=== PATIENT | male | born 1950 | race Caucasian/White ===

== ENCOUNTER 2023-03-13 07:54 | Outpatient (OUT) | payer MEDICARE, SELFPAY ==
--- NOTE | 2023-03-13 07:55 | ECG_ITS ---
The [facility] Test Date: 2023-03-13 Pat Name: Mayank Lee Department: Room: - Gender: Male Urology Nurse: : 1950 Requested By: NIXON GARAY Order Number: [id number] Reading MD: NIXON GARAY Measurements Intervals [place] Rate: 65 P: 77 AL: 173 QRS: 73 QRSD: 97 T: 67 QT: 400 QTc: 417 Interpretive Statements SINUS RHYTHM NONSPECIFIC ST & T-WAVE ABNORMALITY No previous ECG available for comparison Electronically Signed On 03-14-2023 6:48:59 EDT by NIXON GARAY
[2023-03-13 08:28] LABS: Basophils Percent Auto 0.2 % (0.2-2.0); Eosinophils Absolute Auto 0.6 10^3/uL (0.0-0.7); Eosinophils Percent Auto 10.3 % (0.9-7.0); Hematocrit 45.4 % (42.0-54.0); Hemoglobin 15.3 g/dL (14.0-18.0); Immature Granulocytes Abs Auto 0.01 10^3/uL (0.00-0.03); Immature Granulocytes Pct Auto 0.2 % (0.0-0.5); Lymphocytes Absolute Auto 1.1 10^3/uL (1.2-3.8); Mean Corpuscular HGB Conc 33.7 g/dL (29.9-35.2); Mean Corpuscular Hemoglobin 29.9 pg (25.9-34.0); Mean Corpuscular Volume 88.7 fL (80.0-94.0); Mean Platelet Volume 9.4 fL (9.5-13.5); Monocytes Absolute Auto 0.6 10^3/uL (0.3-0.8); Monocytes Percent Auto 10.6 % (1.7-12.0); Neutrophils Absolute Auto 3.2 10^3/uL (1.4-6.5); Neutrophils Percent Auto 58.7 % (43.0-75.0); Platelet Count 174 10^3/uL (150-450); Red Blood Count 5.12 10^6/uL (4.70-6.10); Red Cell Distribution Width 12.6 % (11.0-15.0); White Blood Count 5.4 10^3/uL (4.0-11.0)
[2023-03-13 08:46] LABS: INR 0.97; Partial Thromboplastin Time 27.3 sec (22.3-36.2); Prothrombin Time 10.3 sec (9.0-11.6)
--- NOTE | 2023-03-13 09:15 | XR_ITS ---
The [place] [id number] Patient Name: LINDA SOSA MRN: [id number] date: 1950 Sex: M [facility] Current Patient Location: [facility] Accession/Order Number: [id number] Exam Date: 03/13/2023 09:02 Report Date: 03/14/2023 08:20 At the request of: JUAN M HUGHES Procedure: XR chest 2V EXAMINATION: XR chest 2V HISTORY: PRE OP EXAM COMPARISON: XR chest 09/19/2020 FINDINGS: LUNGS: Chronic elevated left hemidiaphragm. No acute infiltrates or mass. VASCULATURE: No increased pulmonary vasculature. PLEURA: No pneumothorax, effusion, or pleural thickening. CARDIAC: Prior atrial clip placement. No cardiac enlargement. MEDIASTINUM: Prior sternotomy. No abnormal widening. BONES: No fracture or visible bone lesion. OTHER: Negative. XR/XR chest 2V IMPRESSION: 1. No acute cardiopulmonary process. Stable chest. Electronically authenticated by: JAGRUTI TERRY Date: 03/14/2023 08:20
[2023-03-13 13:59] LABS: Anion Gap 15.2; BUN Creatinine Ratio 16.9; Calcium 9.4 mg/dL (8.5-10.1); Carbon Dioxide 26.8 mmol/L (21.0-32.0); Chloride 100 mmol/L (98-107); Estimated GFR (African America >60 (>=60); Estimated GFR (Non-African Ame >60 (>=60); Glucose 190 mg/dL (74-106); Sodium 137 mmol/L (136-145)
== END 2023-03-13 07:55 | disposition home or self-care (01) ==
PROVIDERS: PCP Family Medicine; Visit Provider Surgery
DX: Z01.810 Encounter for preprocedural cardiovascular examination (principal); Z01.812 Encounter for preprocedural laboratory examination; K40.90 Unilateral inguinal hernia, without obstruction or gangrene, not specified as recurrent; I10 Essential (primary) hypertension; E11.9 Type 2 diabetes mellitus without complications; I25.10 Atherosclerotic heart disease of native coronary artery without angina pectoris
CPT/HCPCS: 71046; 80048; 85025; 85610; 85730; 93005

== ENCOUNTER 2023-03-20 08:03 | Day surgery (SDC) | payer MEDICARE, SELFPAY ==
[2023-03-13 08:41] VITALS: BP 169/87; PULSE 67; RESP 16; TEMP 36.1; O2SAT 96; BMI 28.3
[2023-03-20] VITALS (12 sets, daily range): BP systolic 136–189; BP diastolic 73–100; PULSE 52–65; RESP 12–20; TEMP 35.9–36.2; O2SAT 95–97; BMI 27.8
--- NOTE | 2023-03-20 | OP_ITS ---
OPERATION DATE: ??03/20/2023 PREOPERATIVE DIAGNOSIS:? Right inguinal hernia. POSTOPERATIVE DIAGNOSIS:? Indirect right inguinal hernia. PROCEDURE:? Right inguinal herniorrhaphy with Bard 5 x 10 cm mesh insertion. SURGEON:? Keyon Chavez M.D. WINE CELLAR STOCK CLERK:? JENNIFER Glez ESTIMATED BLOOD LOSS:? Less than 10 mL. INDICATIONS AND CONSENT:? Patient is a 73-year-old male with increasing symptomatic right inguinal hernia that is partially reducible. ?Indications, risks, benefits, alternatives of proceeding with herniorrhaphy were explained extensively to the patient, including the risks of bleeding, infection, nerve injury, testicular injury, recurrent hernia, blood clot, pulmonary embolus, heart attack, anesthetic complications, need for further surgery or mesh removal.? All of his questions were answered.? Informed consent was obtained. PROCEDURE:? Patient brought to the operating room, placed in the supine position.? General anesthesia was induced.? He was prepped and draped in the usual sterile fashion.? A right groin incision was made with the scalpel blade and carried down through subcutaneous tissue using sharp dissection as well as electrocautery.? Tr?s fascia was divided.? The external oblique was opened along the direction of its fibers, down through the external inguinal ring which was attenuated.? The cord structures were mobilized and retracted with a Shiv drain.? There was noted to be an indirect sac that was freed up from the cord structures, all the way up to the internal ring.? It was opened.? There was some incarcerated omentum in the base of the sac, which was freed up and reduced.? High ligation of the sac was performed with a 3-0 Vicryl suture.? Wound was irrigated.? The ilioinguinal nerve branch was noted to be in the area where the mesh would be lying; therefore, it was divided and the ends were ligated with 3- 0 Vicryl ties.? The mesh was then trimmed and a keyhole was created.? It was placed in the floor of the inguinal canal and sutured circumferentially using interrupted 3-0 Vicryl sutures.? The wound was irrigated with antibiotic containing saline, Ancef.? There was good hemostasis.? The external oblique was then closed with a running 3-0 Vicryl suture.? Subcutaneous tissues were infiltrated with Exparel solution containing 0.25% Marcaine.? Tr?s fascia was re-approximated with interrupted 3-0 Monocryl suture.? The skin was then closed with a running 4-0 subcuticular Monocryl suture and skin glue.? Sterile pressure dressing was applied.? Sponge and needle counts were correct x3 per nursing personnel.? Patient tolerated procedure well, was sent to recovery room in good condition. CC:? Patient?s family physician KAREN
[2023-03-20 08:37] LABS: Glucometer 112 mg/dL (74-106)
[2023-03-20] MEDS: LACTATED RINGER'S SOLUTION 1,000 ML 50 ML IV (08:40)
[2023-03-20] MEDS: CEFAZOLIN SODIUM/DEXTROSE,ISO 2 GM/50 ML PIGGYBACK IV (09:57)
[2023-03-20] MEDS: BUPIVACAINE LIPOSOME/PF 266 MG/13.3 ML VIAL 13.3 MG INJ (10:30)
[2023-03-20] MEDS: BUPIVACAINE HCL 0.25% PF 25 MG/10 ML VIAL INJ (10:30)
[2023-03-20] MEDS: SODIUM CHLORIDE 0.9% IRR (10:50)
[2023-03-20] MEDS: CEFAZOLIN SODIUM IRR (10:50)
[2023-03-20] MEDS: LACTATED RINGER'S SOLUTION 1,000 ML 125 ML IV (12:16)
== END 2023-03-20 12:54 | disposition home or self-care (01) ==
PROVIDERS: PCP Family Medicine; Visit Provider Surgery
PROC: (CPT 49505; principal; 2023-03-20 09:05)
DX: K40.90 Unilateral inguinal hernia, without obstruction or gangrene, not specified as recurrent (principal); E11.9 Type 2 diabetes mellitus without complications; I25.10 Atherosclerotic heart disease of native coronary artery without angina pectoris; I11.0 Hypertensive heart disease with heart failure; I50.40 Unspecified combined systolic (congestive) and diastolic (congestive) heart failure; N40.0 Benign prostatic hyperplasia without lower urinary tract symptoms; E78.1 Pure hyperglyceridemia; I48.0 Paroxysmal atrial fibrillation; E66.3 Overweight; Z68.27 Body mass index [BMI] 27.0-27.9, adult; Z95.1 Presence of aortocoronary bypass graft; G47.33 Obstructive sleep apnea (adult) (pediatric); Z79.82 Long term (current) use of aspirin; Z79.84 Long term (current) use of oral hypoglycemic drugs
CPT/HCPCS: 49505; 36415; 82948; 88302; C1781; J2704

== ENCOUNTER 2023-09-18 12:33 | Outpatient (OUT) | payer MEDICARE, SELFPAY ==
--- NOTE | 2023-09-18 13:00 | CA_ITS ---
Patient Name: LINDA SOSA MR#: [id number] : 1950 Exam Date: 09/18/2023 Ordering Doctor: DR LINDA PYLE M.D. ECHOCARDIOGRAM REPORT PROCEDURE: CA ECHO DOPPLER COMPLETE INDICATIONS: Congestive heart failure, CABGx4, atrial fibrillation, hypertension, diabetes COMPARISON: None. DESCRIPTION: COMPLETE ECHOCARDIOGRAM Real-time transthoracic echocardiography with 2D, M-mode, spectral and color flow Doppler performed. QUALITY: Technical quality was good. 76 , 225#, BSA 2.33 m2, BP 148/84 LEFT VENTRICLE: Normal chamber size. Thickened septal wall. Calculated left ventricular ejection fraction is 44%. LV EF: Global left ventricular systolic function is difficult to assess but appears mildly reduced; visually estimated ejection fraction is 40-45%. Unable to assess regional wall motion abnormalities. DIASTOLIC: Not adequately assessed due to heart rhythm. ATRIAL SEPTUM: Visually appears intact. LEFT ATRIUM: Moderate dilatation. RIGHT ATRIUM: Severe dilatation. RIGHT VENTRICLE: Normal chamber size. Normal right ventricular systolic function. TRICUSPID VALVE: Normal mobility and thickness. Moderate regurgitation. Doppler studies reveal moderately (45-60) elevated right sided pressures. RVSP 47 mmHg MITRAL VALVE: Normal mobility and thickness. No evidence of mitral valve stenosis. There is no mitral annular calcification. Moderate mitral regurgitation. AORTIC VALVE: Normal trileaflet appearance. Mildly calcified aortic valve. Normal leaflet mobility. No evidence of aortic valve stenosis. Trivial aortic regurgitation. AORTIC ROOT: Normal diameter and appearance. PULMONIC VALVE: Normal thickness and mobility. No stenosis. Mild regurgitation. PERICARDIUM: No evidence of pericardial effusion. IVC: IVC is dilated (2.7 cm), does not fully collapse. CONCLUSION: 1. Global left ventricular systolic function is difficult to assess but appears mildly reduced; visually estimated ejection fraction is 40 to 45% 2. Normal right ventricular size and systolic function 3. Biatrial enlargement 4. Moderate tricuspid regurgitation 5. Moderately elevated right ventricular systolic pressure; RVSP 47 mmHg 6. Moderate mitral regurgitation 7. Mild pulmonic regurgitation Adult Echocardiography Procedure Report Left Ventricle LVEDD (3.7 - 5.6 cm): 5.33 cm LVESD (2.2 - 4.0 cm): 4.65 cm LVIVS thickness (0.6 - 1.2 cm): 1.31 cm LVPW thickness (0.5 - 1.0 cm): 1.01 cm e': 0.11 m/s E - e': 6.47 LVOT Max Gradient: 2.41 mm[Hg] LVOT Area (cm2): 0.78 m/s Peak Velocity (LVOT): 0.78 m/s Mean Velocity (LVOT): 0.55 m/s LVOT Diameter 2.36 cm Left Atrium LA Volume Index (2D A2C): 42.81 ml/m2 Left Atrium Systolic Dimension: 4.97 cm Mitral Valve MV E to A Ratio: 3.01 Mitral Valve A-Wave Peak Velocity: 0.24 m/s Mitral Valve E-Wave Peak Velocity: 0.73 m/s Right Ventricle Aorta AO Root Diam: 3.30 cm Ascending Ao Diam: 2.87 cm Aortic Valve AoV Area (Peak Chaka): 3.28 cm2, 3.28 cm2 AoV Area (VTI): 2.52 cm2, 2.52 cm2 Peak Velocity(Antegrade Flow): 1.04 m/s Peak Gradient(Antegrade Flow): 4.32 mm[Hg] Mean Velocity(Antegrade Flow): 0.76 m/s Mean Gradient(Antegrade Flow): 2.63 mm[Hg] Velocity Time Integral: 23.22 cm Tricuspid Valve Peak Velocity (Regurgitant Flow): 2.76 m/s, 2.61 m/s, 2.46 m/s, 2.83 m/s Pulmonic Valve Peak Velocity: 0.78 m/s Peak Gradient: 2.06 mm[Hg], 2.79 mm[Hg] Right Atrium Right Atrium Systolic Pressure: 83.52 ml, 83.52 ml Dictated by: Linda Pyle M.D. on 09/18/2023 at 14:25 Approved by: Linda Pyle M.D. on 09/18/2023 at 14:30
[2023-09-18 13:46] LABS: Anion Gap 13.5; BUN Creatinine Ratio 21.3; Calcium 9.4 mg/dL (8.5-10.1); Carbon Dioxide 32.3 mmol/L (21.0-32.0); Chloride 99 mmol/L (98-107); Estimated GFR (African America >60 (>=60); Estimated GFR (Non-African Ame 58 (>=60); Glucose 83 mg/dL (74-106); Potassium 4.8 mmol/L (3.5-5.1); Sodium 140 mmol/L (136-145)
== END 2023-09-18 12:34 | disposition home or self-care (01) ==
LOC: CARD 12:33
PROVIDERS: PCP Family Medicine; Visit Provider Internal Medicine Interventional Cardiology
DX: R94.30 Abnormal result of cardiovascular function study, unspecified (principal); R94.31 Abnormal electrocardiogram [ECG] [EKG]; E78.5 Hyperlipidemia, unspecified
CPT/HCPCS: 36415; 80048; 93306; 93356

== ENCOUNTER 2023-10-12 06:57 | Outpatient (OUT) | payer MEDICARE, SELFPAY ==
[2023-10-12 07:14] LABS: Basophils Percent Auto 0.3 % (0.2-2.0); Eosinophils Absolute Auto 0.5 10^3/uL (0.0-0.7); Eosinophils Percent Auto 6.3 % (0.9-7.0); Hematocrit 45.6 % (42.0-54.0); Hemoglobin 15.1 g/dL (14.0-18.0); Immature Granulocytes Abs Auto 0.03 10^3/uL (0.00-0.03); Immature Granulocytes Pct Auto 0.4 % (0.0-0.5); Lymphocytes Absolute Auto 1.3 10^3/uL (1.2-3.8); Lymphocytes Percent Auto 17.5 % (20.5-60.0); Mean Corpuscular HGB Conc 33.1 g/dL (29.9-35.2); Mean Corpuscular Hemoglobin 29.5 pg (25.9-34.0); Mean Corpuscular Volume 89.1 fL (80.0-94.0); Monocytes Absolute Auto 0.8 10^3/uL (0.3-0.8); Monocytes Percent Auto 10.4 % (1.7-12.0); Neutrophils Percent Auto 65.1 % (43.0-75.0); Platelet Count 197 10^3/uL (150-450); Red Blood Count 5.12 10^6/uL (4.70-6.10); Red Cell Distribution Width 12.5 % (11.0-15.0); White Blood Count 7.6 10^3/uL (4.0-11.0)
[2023-10-12 08:18] LABS: Estimated Average Glucose 137 mg/dL; Glycohemoglobin A1C 6.4 % (4.5-6.2)
[2023-10-12 09:19] LABS: Alanine Aminotransferase 22 U/L (16-63); Albumin Globulin Ratio 1.1; Albumin Level 3.9 g/dL (3.4-5.0); Alkaline Phosphatase 83 U/L (46-116); Anion Gap 12.2; Aspartate Amino Transferase 18 U/L (15-37); BUN Creatinine Ratio 28.1; Bilirubin Total 0.8 mg/dL (0.2-1.0); Calcium 9.5 mg/dL (8.5-10.1); Carbon Dioxide 30.6 mmol/L (21.0-32.0); Chloride 98 mmol/L (98-107); Chol HDL Ratio 3.2; Cholesterol 114 mg/dL (<=200); Estimated GFR (African America >60 (>=60); Estimated GFR (Non-African Ame >60 (>=60); Free T3 2.94 pg/mL (2.18-3.98); Globulin 3.6 g/dL; Glucose 131 mg/dL (74-106); HDL Cholesterol 36 mg/dL (40-60); Potassium 4.8 mmol/L (3.5-5.1); Sodium 136 mmol/L (136-145); Thyroid Stimulating Hormone 1.309 uIU/mL (0.358-3.740); Total Protein 7.5 g/dL (6.4-8.2); Triglycerides 116 mg/dL (<=150); VLDL CHOLESTEROL 23.2 mg/dL
[2023-10-12 09:30] LABS: Prostate Specific Antigen Scrn 2.12 ng/mL (<=4.00)
== END 2023-10-12 06:58 | disposition home or self-care (01) ==
LOC: LAB 06:57
PROVIDERS: PCP Family Medicine; Visit Provider Family Medicine
DX: E78.5 Hyperlipidemia, unspecified (principal); I10 Essential (primary) hypertension; I25.10 Atherosclerotic heart disease of native coronary artery without angina pectoris; N40.0 Benign prostatic hyperplasia without lower urinary tract symptoms; E11.9 Type 2 diabetes mellitus without complications; Z12.5 Encounter for screening for malignant neoplasm of prostate
CPT/HCPCS: 36415; 80053; 80061; 83036; 84436; 84443; 84481; 85025; G0103

== ENCOUNTER 2023-10-14 10:44 | Outpatient (REF) | payer MEDICARE, SELFPAY ==
[2023-10-14 16:24] LABS: Occult Blood Negative
== END 2023-10-14 10:45 | disposition home or self-care (01) ==
LOC: LAB 10:44
PROVIDERS: PCP Family Medicine; Visit Provider Family Medicine
DX: E78.5 Hyperlipidemia, unspecified (principal); I10 Essential (primary) hypertension; I25.10 Atherosclerotic heart disease of native coronary artery without angina pectoris; N40.0 Benign prostatic hyperplasia without lower urinary tract symptoms; E11.9 Type 2 diabetes mellitus without complications; Z12.5 Encounter for screening for malignant neoplasm of prostate
CPT/HCPCS: G0328

== ENCOUNTER 2023-10-31 06:38 | Outpatient (OUT) | payer MEDICARE, SELFPAY ==
--- OUTSIDE RECORDS SUMMARY | 2023-10-31 06:41 | XMS_ITS | CCD ---
Author Organization [facility] Care Team Providers Care Imaging Engineer Name Role Phone HAMPOLE, HOLDEN Unavailable Unavailable HOY, NIXON M Unavailable Unavailable HAMPOLE, HOLDEN Unavailable Unavailable HOY, NIXON M Unavailable Unavailable HAMPOLE, HOLDEN Unavailable Unavailable HOY, NIXON M Unavailable Unavailable HAMPOLE, HOLDEN Unavailable Unavailable HOY, NIXON M Unavailable Unavailable MIKEY HERNANDEZ Unavailable Unavailab le HOY, NIXON M Unavailable Unavailable HOY, NIXON Primary Care Unavailable RADHA, DORA Admitting Unavailable RADHA, DORA Attending Unavailable ALANIS BOYKIN Referring Unavailable HOY ., DR ALICEA Primary Care Unavailable HOY ., DR ALICEA Admitting Unavailable HOY ., DR ALICEA Attending Unavailable HOY ., DR ALICEA Consulting Unavailable HOY ., DR ALICEA Admitting Unavailable HOY ., DR ALICEA Attending Unavailable HOY ., DR ALICEA Consulting Unavailable HAFSAY ., DR ALICEA Primary Care Unavailable Nixon Bassett Primary Care Physician Nixon Bassett Referring Unavailable NILL, Keyon R Attending Unavailable NILL, Keyon R Attending Unavailable NILL, Keyon R Attending Unavailable NILL, Keyon R Attending Unavailable HoyBradNixon Referring Unavailable NILL, Keyon R Attending Unavailable MADELEINEMEGAN Attending Unavailable ELTAHAWY, EHAB Attending Unavailable Allergies Allergy Classification Reported Allergen(s) Allergy Type Date of Onset Reaction(s) Facility (1 source) Spironolactone; Translations: [SPIRONOLACTONE] Drug Allergy 6 AOF [facility] Repository (1 source) No Known Medication Allergies; Translations: [No Known Medication Allergies] Propensity to adverse reactions (disorder) [facility] Repository Medications Current Medications Medication Drug Class(es) Dates Sig (Normalized) Sig (Original) aspirin 81 mg oral tablet (2 sources) Platelet Aggregation Inhibitor, Nonsteroidal Anti-inflammatory Drug Start: 10-02-2013 take 81 mg by mouth once daily aspirin 81 mg, Oral, Daily, Refills(s) 0 Start Date: 10/02/13 Status: Ordered carvedilol 6.25 mg oral tablet (2 sources) alpha-Adrenergic Yasmine, beta-Adrenergic Yasmine Start: 02-14-2023 take 1 tablet by mouth twice daily Coreg 6.25 mg Tab 6.25 mg = 1 tab(s), Oral, BID, Refills(s) 0 Start Date: 02/14/23 Status: Ordered furosemide 80 mg oral tablet (2 sources) Loop Diuretic Start: 02-14-2023 take 1 tablet by mouth once daily Lasix 80 mg Tab 80 mg = 1 tab(s), Oral, Daily, Refills(s) 0 Start Date: 02/14/23 Status: Ordered 24 hr isosorbide mononitrate 60 mg extended release oral tablet (2 sources) Nitrate Vasodilator Start: 02-14-2023 take 1 tablet by mouth once daily in the morning isosorbide mononitrate 60 mg ER Tab 60 mg = 1 tab(s), Oral, qAM, Refills(s) 0 Start Date: 02/14/23 Status: Ordered lisinopril 20 mg oral tablet (2 sources) Angiotensin Converting Enzyme Inhibitor Start: 10-02-2013 take 2 tablets by mouth once daily lisinopril 20 mg Tab 40 mg = 2 tab(s), Oral, Daily, Refills(s) 0 Start Date: 10/02/13 Status: Ordered magnesium oxide 400 mg oral tablet (2 sources) Start: 02-14-2023 take 1 tablet by mouth three times daily magnesium oxide 400 mg Tab 400 mg = 1 tab(s), Oral, TID, Refills(s) 0 Start Date: 02/14/23 Status: Ordered metFORMIN hydrochloride 500 mg oral tablet (2 sources) Biguanide Start: 02-14-2023 take 1 tablet by mouth three times daily metformin 500 mg Tab 500 mg = 1 tab(s), Oral, TID, Refills(s) 0 Start Date: 02/14/23 Status: Ordered Vitamin D3 5000 intl units oral capsule (2 sources) Start: 02-14-2023 take 1 capsule by mouth once daily at mealtime Vitamin D3 5000 intl units oral capsule 125 mcg = 1 cap(s), Oral, Daily, with food, Refills(s) 0 Start Date: 02/14/23 Status: Ordered Completed/Discontinued Medications Medication Drug Class(es) Dates Sig (Normalized) Sig (Original) potassium chloride 20 meq extended release oral tablet (2 sources) Start: 02-14-2023 take 1 tablet by mouth three times daily potassium chloride 20 mEq ER Tab 20 mEq = 1 tab(s), Oral, TID, Refills(s) 0 Start Date: 02/14/23 Status: Ordered Problems Active Problems Problem Classification Problem Date Documented Date Episodic/Chronic Abdominal hernia (4 sources) Inguinal hernia; Translations: [Unilateral inguinal hernia, without obstruction or gangrene, not specified as recurrent] Onset: 02-22-2023 Episodic Cardiac dysrhythmias (5 sources) Paroxysmal atrial fibrillation; Translations: [Paroxysmal atrial fibrillation] Onset: 10-18-2022 02-14-2023 Chronic Cardiac dysrhythmias (3 sources) Bradycardia, unspecified; Translations: [Bradycardia] Onset: 10-18-2022 02-14-2023 Episodic Congestive heart failure; nonhypertensive (4 sources) Acute combined systolic and diastolic heart failure; Translations: [Heart failure] 02-14-2023 Chronic Coronary atherosclerosis and other heart disease (5 sources) Atherosclerotic heart disease of [place] coronary artery without angina pectoris; Translations: [Coronary arteriosclerosis] Onset: 10-18-2022 02-14-2023 Chronic Diabetes mellitus without complication (3 sources) Type 2 diabetes mellitus without complications; Translations: [Diabetes mellitus] Onset: 10-18-2022 02-14-2023 Chronic Disorders of lipid metabolism (9 sources) Hyperlipidemia, unspecified; Translations: [Hypercholesterolemia ] Onset: 10-18-2022 11-26-2013 Chronic Essential hypertension (11 sources) Essential (primary) hypertension; Translations: [Essential hypertension] Onset: 10-11-2022 Chronic Hyperplasia of prostate (2 sources) Benign prostatic hyperplasia 02-14-2023 Chronic Other nutritional; endocrine; and metabolic disorders (2 sources) Overweight 02-14-2023 Episodic Other nutritional; endocrine; and metabolic disorders (2 sources) Overweight in adulthood with body mass index of 25 or more but less than 30 02-22-2023 Episodic Other screening for suspected conditions (not mental disorders or infectious disease) (6 sources) Encounter for screening for malignant neoplasm of rectum; Translations: [Encounter for screening for malignant neoplasm of prostate] Onset: 10-12-2022 Episodic Residual codes; unclassified (2 sources) Obstructive sleep apnea syndrome 02-14-2023 Chronic Past or Other Problems Problem Classification Problem Date Documented Da te Episodic/Chronic Other aftercare (1 source) Encounter for follow-up examination after completed treatment for conditions other than malignant neoplasm; Translations: [Encounter for follow-up examination after completed treatment for conditions other than malignant neoplasm] Onset: 08-23-2017 Episodic Results Test Name Value Interpretation Reference Range Facility 36on 09-12-2023 36 Regarding report fro m event monitor on 09/11/2023: MD Cadence Garrison MA Please let him know his event monitor showed recurrent atrial fibrillation as expected He will need to restart Eliquis 5 mg p.o. twice daily Please have him see Dr Jean Baptiste for recurrent atrial fibrillation to discuss medical rx vs ablation Thanks Normal [facility] Office Visiton 09-11-2023 Follow-up visit [id number] Dany Sosa rt E 1950 M Date Provider Department Center 09/11/2023 [facility]DA [facility]ER [facility] Family History Problem Relation Age of Onset Heart attack Father Heart attack Brother Family Status - Relation Status Age at Father Brother Level of Service:89572 [place] OFFICE/OUTPATIENT ESTABLISHED HIGH MDM 40 MIN [facility] Ambulatory Visit Summaryon 1 Ambulatory Visit Summary LINDA SOSA :1950 Visit Date:04/16/2023 Ambulatory Visit Instructions Your Care Team Attending Physician - ELLEN MARTINEZ, Keyon Raygoza Primary Care Physician - Nixon Bassett MD This Is Your Medications List aspirin carvedilol (Coreg 6.25 mg Tab) cholecalciferol (Vitamin D3 5000 intl units oral capsule) furosemide (Lasix 80 mg Tab) isosorbide mononitrate (isosorbide mononitrate 60 mg ER Tab) lisinopril (lisinopril 20 mg Tab) magnesium oxide (magnesium oxide 400 mg Tab) metformin (metformin 500 mg Tab) potassium chloride (potassium chloride 20 mEq ER Tab) Procedures Performed Repair of right inguinal hernia (03/20/2023), CABG - Coronary artery bypass graft (08/2020), Appendectomy, Vasectomy. Medications What How Much When Instructions Unchanged aspirin 81 Milligram By Mouth Every day Unchanged carvedilol (Coreg 6.25 mg Tab) 1 Tablets By Mouth 2 times a day Unchanged cholecalciferol (Vitamin D3 5000 intl units oral capsule) 1 Capsules By Mouth Every day with food Unchanged furosemide (Lasix 80 mg Tab) 1 Tablets By Mouth Every day Unchanged isosorbide mononitrate (isosorbide mononitrate 60 mg ER Tab) 1 Tablets By Mouth Once a day (in the morning) Unchanged lisinopril (lisinopril 20 mg Tab) 2 Tablets By Mouth Every day Unchanged magnesium oxide (magnesium oxide 400 mg Tab) 1 Tablets By Mouth 3 times a day Unchanged metformin (metformin 500 mg Tab) 1 Tablets By Mouth 3 times a day Unchanged potassium chloride (potassium chloride 20 mEq ER Tab) 1 Tablets By Mouth 3 times a day Allergies No Known Allergies No Known Medication Allergies Problems Ongoing - Any problem that you are currently receiving treatment for. Acute combined systolic (congestive) and diastolic (congestive) heart failure BMI 27.0-27.9,adult BPH (benign prostatic hyperplasia) Bradycardia CAD (coronary artery disease) Diabetes Essential hypertension Heart failure with reduced left ventricular function Hyperlipidemia Hypertriglyceridemia DULCE MARIA (obstructive sleep apnea) Overweight Paroxysmal A-fib Right inguinal hernia Historical - Any problem that you are no longer receiving treatment for. High cholesterol Hypertension Patient Survey You may receive a survey via text or e-mail asking about your office visit. Please share your experience with us by completing your survey. We appreciate your feedback and thank you for choosing us for your care. Vilma Sandoval [facility] General Surgery Office/Clini c Noteon 04-16-2023 General Surgery Office/Clinic Note Chief Complaint post operative follow up HPI Staff 27 day post operative follow up post right inguinal hernia repair. Denies discomfort, no use of pain medication. Denies bleeding or drainage Bowels moving well. History of Present Illness almost 4 weeks s/p RIHR with mesh; doing well, denies pain or drainage from incision. no heavy lifting. Review of Systems ROS - Provider Constitutional: no fever, no sweats, no weight loss. Eyes: no glasses, no blurred vision, no visual loss. ENMT: no dentures, no hoarseness, no swallowing difficulties, no hearing loss, no ear infection(s), no nose bleeds. Cardiovascular: normal blood pressure, no chest pain, regular heartbeat, no heart murmur. Respiratory: no shortness of breath, no cough, no asthma, no wheezing. Gastrointestinal: no nausea, no vomiting, no diarrhea, no constipation, no blood in stool, no change in bowel habits, no abdominal pain, no hepatitis. Genitourinary: no kidney stones, no urine infection, no dysuria. Musculoskeletal: no pain, no weakness. Skin: no changing moles, no rash, no skin lumps. Neurologic: no seizures, no epilepsy, no headache. Psychiatric: no emotional or psychiatric problem. Heme/Lymph: no bleeding problems, no anemia, no blood clots, no transfusions. Allergy/Immunologic: no swollen lymph nodes/glands, no IV drug abuse. Other: Additional ROS info: Except as noted in the above Review of Systems and in the History of Present Illness, all other systems have been reviewed and are negative or noncontributory. Physical Exam abd: soft, nontender, nondistended; incision with irritation/erythema, scab; no drainage or fluctuance. no seroma or recurrent hernia. Assessment/Plan 1. Right inguinal hernia (K40.90: Unilateral inguinal hernia, without obstruction or gangrene, not specified as recurrent) doing well; gradually resume regular activities; call with problems/questions. Follow-up No qualifying data available Problem List/Past Medical History Ongoing Acute combined systolic (congestive) and diastolic (congestive) heart failure BMI 27.0-27.9,adult BPH (benign prostatic hyperplasia) Bradycardia CAD (coronary artery disease) Diabetes Essential hypertension Heart failure with reduced left ventricular function Hyperlipidemia Hypertriglyceridemia DULCE MARIA (obstructive sleep apnea) Overweight Paroxysmal A-fib Right inguinal hernia Historical High cholesterol Hypertension Procedure/Surgical History Repair of right inguinal hernia (03/20/2023), CABG - Coronary artery bypass graft (08/2020), Appendectomy, Vasectomy. Medications aspirin, 81 mg, Oral, Daily Coreg 6.25 mg Tab, 6.25 mg= 1 tab(s), Oral, BID isosorbide mononitrate 60 mg ER Tab, 60 mg= 1 tab(s), Oral, qAM Lasix 80 mg Tab, 80 mg= 1 tab(s), Oral, Daily lisinopril 20 mg Tab, 40 mg= 2 tab(s), Oral, Daily magnesium oxide 400 mg Tab, 400 mg= 1 tab(s), Oral, TID metformin 500 mg Tab, 500 mg= 1 tab(s), Oral, TID potassium chloride 20 mEq ER Tab, 20 mEq= 1 tab(s), Oral, TID Vitamin D3 5000 intl units oral capsule, 125 mcg= 1 cap(s), Oral, Daily Allergies No Known Allergies No Known Medication Allergies Social History Alcohol - Denies Alcohol Use, 02/22/2023 Substance Abuse - Denies Substance Abuse, 02/22/2023 Tobacco - Denies Tobacco Use, 02/22/2023 Former smoker, quit more than 30 days ago Tobacco Use:. Never Smokeless Tobacco Use:. Cigarettes, 2 per day. Started age 21.0 Years. Stopped age 65 Years., 02/22/2023 Family History Acute myocardial infarction: Father and Brother. Heart disease: Brother. Hypertension: Sister. Stroke: Mother. Immunizations Vaccine Date Status Comments SARS-CoV-2 (COVID-19) mRNAMUL.[id number] 04/06/2022 Recorded SARS-CoV-2 (COVID-19) mRNA BNT-162b2 vax 05/03/2021 Recorded SARS-CoV-2 (COVID-19) mRNA BNT-162b2 vax 10/07/2020 Recorded 2023-02-14: [id number] SARS-CoV-2 (COVID-19) mRNA BNT-162b2 vax 09/16/2020 Recorded 2023-02-14: TPV70 Normal [facility] Comment on above: Result Comment: Elec tronically Signed By: ELLEN MARTINEZ, Keyno Savage\Date and Time Signed: 04/16/23 13:23 EDT General Surgery Office/Clini c Noteon 03-27-2023 General Surgery Office/Clinic Note Chief Complaint post operative follow up HPI Staff 7 day post operative follow up post right inguinal hernia repair. Denies discomfort, no use of pain medication. Denies bleeding or drainage. Bowels moving well. History of Present Illness 1 week s/p RIHR with mesh for indirect inguinal hernia; doing well, mild soreness, not taking anything for pain currently; no drainage, mild swelling, normal bms, voiding well; no strenuous activities. Review of Systems ROS - Provider Constitutional: no fever, no sweats, no weight loss. Eyes: no glasses, no blurred vision, no visual loss. ENMT: no dentures, no hoarseness, no swallowing difficulties, no hearing loss, no ear infection(s), no nose bleeds. Cardiovascular: normal blood pressure, no chest pain, regular heartbeat, no heart murmur. Respiratory: no shortness of breath, no cough, no asthma, no wheezing. Gastrointestinal: no nausea, no vomiting, no diarrhea, no constipation, no blood in stool, no change in bowel habits, no abdominal pain, no hepatitis. Genitourinary: no kidney stones, no urine infection, no dysuria. Musculoskeletal: no pain, no weakness. Skin: no changing moles, no rash, no skin lumps. Neurologic: no seizures, no epilepsy, no headache. Psychiatric: no emotional or psychiatric problem. Heme/Lymph: no bleeding problems, no anemia, no blood clots, no transfusions. Allergy/Immunologic: no swollen lymph nodes/glands, no IV drug abuse. Other: Additional ROS info: Except as noted in the above Review of Systems and in the History of Present Illness, all other systems have been reviewed and are negative or noncontributory. Physical Exam abd: soft, nontender, nondistended, incision healing well, no erythema or drainage, no ecchymoses, minimal edema. Assessment/Plan 1. Right inguinal hernia (K40.90: Unilateral inguinal hernia, without obstruction or gangrene, not specified as recurrent) doing well, continue no lifting > 10 lbs for an additional 3 weeks; follow up in 2 weeks, call sooner if problems/questions. Follow-up No qualifying data available Problem List/Past Medical History Ongoing Acute combined systolic (congestive) and diastolic (congestive) heart failure BMI 27.0-27.9,adult BPH (benign prostatic hyperplasia) Bradycardia CAD (coronary artery disease) Diabetes Essential hypertension Heart failure with reduced left ventricular function Hyperlipidemia Hypertriglyceridemia DULCE MARIA (obstructive sleep apnea) Overweight Paroxysmal A-fib Right inguinal hernia Historical High cholesterol Hypertension Procedure/Surgical History Repair of right inguinal hernia (03/20/2023), CABG - Coronary artery bypass graft (08/2020), Appendectomy, Vasectomy. Medications aspirin, 81 mg, Oral, Daily Coreg 6.25 mg Tab, 6.25 mg= 1 tab(s), Oral, BID isosorbide mononitrate 60 mg ER Tab, 60 mg= 1 tab(s), Oral, qAM Lasix 80 mg Tab, 80 mg= 1 tab(s), Oral, Daily lisinopril 20 mg Tab, 40 mg= 2 tab(s), Oral, Daily magnesium oxide 400 mg Tab, 400 mg= 1 tab(s), Oral, TID metformin 500 mg Tab, 500 mg= 1 tab(s), Oral, TID potassium chloride 20 mEq ER Tab, 20 mEq= 1 tab(s), Oral, TID Vitamin D3 5000 intl units oral capsule, 125 mcg= 1 cap(s), Oral, Daily Allergies No Known Allergies No Known Medication Allergies Social History Alcohol - Denies Alcohol Use, 02/22/2023 Substance Abuse - Denies Substance Abuse, 02/22/2023 Tobacco - Denies Tobacco Use, 02/22/2023 Former smoker, quit more than 30 days ago Tobacco Use:. Never Smokeless Tobacco Use:. Cigarettes, 2 per day. Started age 21.0 Years. Stopped age 65 Years., 02/22/2023 Family History Acute myocardial infarction: Father and Brother. Heart disease: Brother. Hypertension: Sister. Stroke: Mother. Immunizations Vaccine Date Status Comments SARS-CoV-2 (COVID-19) mRNAMUL.[id number] 04/06/2022 Recorded SARS-CoV-2 (COVID-19) mRNA BNT-162b2 vax 05/03/2021 Recorded SARS-CoV-2 (COVID-19) mRNA BNT-162b2 vax 10/07/2020 Recorded 2023-02-14: TPV70 SARS-CoV-2 (COVID-19) mRNA BNT-162b2 vax 09/16/2020 Recorded 2023-02-14: TPV70 Normal [facility] Comment on above: Result Comment: Elec tronically Signed By: ELLEN MARTINEZ, Keyon Raygoza\sivan\Date and Time Signed: 03/27/23 15:52 EDT Pathology Noteon 03-27-2023 Pathology Note [id number]#1.00TIFF [facility] Operative Reporton Operative Report [id number]#1.00TIFF [facility] Lab Reportson 03-20-2023 Lab Reports [id number]#1.00CD:127 [facility] Lab Reportson 03-14-2023 Lab Reports [id number]#1.00CD:127 [facility] RAD - MISCon 03-14-2023 RAD - MISC [id number]#1.00CD:127 [facility] Lab Reportson 03-13-2023 Lab Reports [id number]#1.00CD:127 [facility] Lab Reports [id number]#1.00CD:127 [facility] Consultation Noteon 03-05-20 Consultation Note [id number]#1.00CD:127 [facility] Consent for Procedure/Surger yon 02-25-2023 Consent for Procedure/Surgery [id number]#1.00CD:127 [facility] Facesheeton 02-25-2023 Facesheet [id number]#1.00CD:127 [facility] Ambulatory Visit Summaryon 0 02-22-2023 Ambulatory Visit Summary LINDA SOSA :1950 Visit Date:02/22/2023 Ambulatory Visit Instructions Your Care Team Attending Physician - ELLEN MARTINEZ, Keyon Raygoza Primary Care Physician - Danyelle MARTINEZ, Nixon Referring Physician - Danyelle MARTINEZ, Nixon This Is Your Medications List Contact prescribing physician if questions or concerns aspirin carvedilol (Coreg 6.25 mg Tab) cholecalciferol (Vitamin D3 5000 intl units oral capsule) furosemide (Lasix 80 mg Tab) isosorbide mononitrate (isosorbide mononitrate 60 mg ER Tab) lisinopril (lisinopril 20 mg Tab) magnesium oxide (magnesium oxide 400 mg Tab) metformin (metformin 500 mg Tab) potassium chloride (potassium chloride 20 mEq ER Tab) Procedures Performed CABG - Coronary artery bypass graft (08/2020), Appendectomy, Vasectomy. Discharge Vitals Heart Rate (Peripheral) 68 Respiratory Rate 16 Blood Pressure 142/70 Height 193 cm Height 76 in Weight 103.8 kg Weight 228.36 lb BMI 27.87 Medications What How Much When Instructions Unchanged aspirin 81 Milligram By Mouth Every day Contact prescribing physician if questions or concerns Unchanged carvedilol (Coreg 6.25 mg Tab) 1 Tablets By Mouth 2 times a day Contact prescribing physician if questions or concerns Unchanged cholecalciferol (Vitamin D3 5000 intl units oral capsule) 1 Capsules By Mouth Every day with food Contact prescribing physician if questions or concerns Unchanged furosemide (Lasix 80 mg Tab) 1 Tablets By Mouth Every day Contact prescribing physician if questions or concerns Unchanged isosorbide mononitrate (isosorbide mononitrate 60 mg ER Tab) 1 Tablets By Mouth Once a day (in the morning) Contact prescribing physician if questions or concerns Unchanged lisinopril (lisinopril 20 mg Tab) 2 Tablets By Mouth Every day Contact prescribing physician if questions or concerns Unchanged magnesium oxide (magnesium oxide 400 mg Tab) 1 Tablets By Mouth 3 times a day Contact prescribing physician if questions or concerns Unchanged metformin (metformin 500 mg Tab) 1 Tablets By Mouth 3 times a day Contact prescribing physician if questions or concerns Unchanged potassium chloride (potassium chloride 20 mEq ER Tab) 1 Tablets By Mouth 3 times a day Contact prescribing physician if questions or concerns Allergies No Known Allergies No Known Medication Allergies Problems Ongoing - Any problem that you are currently receiving treatment for. Acute combined systolic (congestive) and diastolic (congestive) heart failure BMI 27.0-27.9,adult BPH (benign prostatic hyperplasia) Bradycardia CAD (coronary artery disease) Diabetes Essential hypertension Heart failure with reduced left ventricular function Hyperlipidemia Hypertriglyceridemia DULCE MARIA (obstructive sleep apnea) Overweight Paroxysmal A-fib Historical - Any problem that you are no longer receiving treatment for. High cholesterol Hypertension Normal [facility] Provider Letteron 02-12-2023 Provider Letter (Inserted Image. Rosa ble to display) February 12, [address] [place], [place] [id number] : 1950 Dear Jesus , We have been trying to reach you with no success. It is important that you return our call regarding your referral from Dr. Duque upon receiving this letter. Also, at the time of your call, please provide us with your current information including your insurance information. Thank you for your prompt attention to this matter. Sincerely, General Surgery [phone] Normal [facility] Consultation Noteon 02-12-20 23 Consultation Note [id number]:127 Normal [facility] Office Visiton 12-11-2022 Follow-up visit [id number] Dany Sosa rt E 1950 M Date Provider Department Center 12/11/2022 MEGAN FARAH [facility] Family History Problem Relation Age of Onset Heart attack Father Heart attack Brother Family Status - Relation Status Age at Father Brother Level of Service:87770 [place] OFFICE/OUTPATIENT ESTABLISHED MOD MDM 30-39 MIN Normal [facility] INSULINon 10-12-2022 Insulin 19.2 uIU/mL Normal 2.6-24.9 [facility] Comment on above: Performed By: #### A 1C #### [facility] [address] [place] [address] Dr. Estephania Small OCC BLD IMMUNO SCREENon 09-16 OCCULT BLOOD Negative Normal NEGATIVE [facility] Comment on above: Performed By: #### A 1C #### [facility] [address] [place] [address] Dr. Estephania Small CBC AUTO DIFFon 10-11-2022 BASO # 0.0 103/ul Normal 0.0-0.1 [facility] Comment on above: Performed By: #### C BC #### [facility] [address] [place] [address] Dr. Estephania Small Basophils/100 WBC (Bld) 0.3 % Normal 0.2-2.0 [facility] Comment on above: Performed By: #### C BC #### [facility] [address] [place] [address] Dr. Estephania Small EO # 0.5 103/ul Normal 0.0-0.7 [facility] Comment on above: Performed By: #### C BC #### [facility] [address] [place] [address] Dr. Estephania Small Eosinophils/100 WBC (Bld) 7.8 % Critically high 0.9-7.0 [facility] Comment on above: Performed By: #### C BC #### [facility] [address] [place] [address] Dr. Estephania Small Erythrocyte distribution width (RBC) [Ratio] 13.4 % Normal 11.0-15.0 [facility] Comment on above: Performed By: #### C BC #### [facility] [address] [place] [address] Dr. Estephania Small Hematocrit (Bld) [Volume fraction] 44.4 % Normal 42.0-54.0 [facility] Comment on above: Performed By: #### C BC #### [facility] [address] [place] [address] Dr. Estephania Small Hemoglobin (Bld) [Mass/Vol] 14.5 g/dL Normal 14.0-18.0 [facility] Comment on above: Performed By: #### C BC #### [facility] [address] [place] [address] Dr. Estephania Small IG # 0.02 10e3/ul Normal 0.00-0.03 [facility] Comment on above: Performed By: #### C BC #### [facility] [address] [place] [address] Dr. Estephania Small IG % 0.3 % Normal 0.0-0.5 [facility] Comment on above: Performed By: #### C BC #### [facility] [address] [place] [address] Dr. Estephania Small LYMPH # 1.3 103/ul Normal 1.2-3.8 [facility] Comment on above: Performed By: #### C BC #### [facility] [address] [place] [address] Dr. Estephania Small Lymphocytes/100 WBC (Bld) 19.4 % Critically low 20.5-60.0 [facility] Comment on above: Performed By: #### C BC #### [facility] [address] [place] [address] Dr. Estephania Small MANUAL DIFF REQ NO Normal [facility] Comment on above: Performed By: #### C BC #### [facility] [address] [place] [address] Dr. Estephania Small MCH (RBC) [Entitic mass] 28.5 pg Normal 25.9-34.0 [facility] Comment on above: Performed By: #### C BC #### [facility] [address] [place] [address] Dr. Estephania Small MCHC (RBC) [Mass/Vol] 32.7 g/dL Normal 29.9-35.2 [facility] Comment on above: Performed By: #### C BC #### [facility] [address] [place] [address] Dr. Estephania Small MCV (RBC) [Entitic vol] 87.2 fL Normal 80.0-94.0 [facility] Comment on above: Performed By: #### C BC #### [facility] [address] [place] [address] Dr. Estephania Small MONO # 0.6 103/ul Normal 0.3-0.8 [facility] Comment on above: Performed By: #### C BC #### [facility] [address] [place] [address] Dr. Estephania Small Monocytes/100 WBC (Bld) 8.7 % Normal 1.7-12.0 [facility] Comment on above: Performed By: #### C BC #### [facility] [address] [place] [address] Dr. Estephania Small NEUT # 4.2 103/ul Normal 1.4-6.5 [facility] Comment on above: Performed By: #### C BC #### [facility] [address] [place] [address] Dr. Estephania Small Neutrophils/100 WBC (Bld) 63.5 % Normal 43.0-75.0 [facility] Comment on above: Performed By: #### C BC #### [facility] [address] [place] [address] Dr. Estephania Small Platelet mean volume (Bld) [Entitic vol] 9.4 fL Critically low 9.5-13.5 [facility] Comment on above: Performed By: #### C BC #### [facility] [address] [place] [address] Dr. Estephania Small PLT 223 103/ul Normal 150-450 [facility] Comment on above: Performed By: #### C BC #### [facility] [address] [place] [address] Dr. Estephania Small RBC 5.09 106/ul Normal 4.70-6.10 [facility] Comment on above: Performed By: #### C BC #### [facility] [address] [place] [address] Dr. Estephania Small WBC 6.5 103/ul Normal 4.0-11.0 [facility] Comment on above: Performed By: #### C BC #### [facility] [address] [place] [address] Dr. Estephania Small FREE T3on 10-11-2022 FREE T3 2.48 pg/mlL Normal 2.18-3.98 [facility] Comment on above: Performed By: #### L IPID, CMP, FT3, MG, T4, TSH, URIC #### [facility] [address] [place] [address] Dr. Estephania Small GLYCOHEMOGLOBIN A1Con 2022 ADA RECOMMENDATION SEE BELOW Normal [facility] Comment on above: Result Comment: ADA RECOMMENDED LIMIT 4.0 - 6.0 ADA THERAPEUTIC TARGET < 7.0 ACTION SUGGESTED > 7.0 Performed By: #### A 1C #### [facility] [address] [place] [address] Dr. Estephania Small Glucose [Mass/Vol] 143 mg/dL Normal [facility] Comment on above: Performed By: #### A 1C #### [facility] [address] [place] [address] Dr. Estephania Small HbA1c (Bld) [Mass fraction] 6.6 % Critically high 4.5-6.2 [facility] Comment on above: Performed By: #### A 1C #### [facility] [address] [place] [address] Dr. Estephania Small LIPID PROFILEon 10-11-2022 CHOL-HDL RATIO NORM SEE BELOW Normal [facility] Comment on above: Result Comment: 3.3 - 4.4 LOW RISK 4.4 - 7.1 AVERAGE RISK 7.1 - 11.0 MODERATE RISK >11.0 HIGH RISK Performed By: #### L IPID, CMP, FT3, MG, T4, TSH, URIC #### [facility] [address] [place] [address] Dr. Estephania Small Cholesterol [Mass/Vol] 127 mg/dL Normal <=200 [facility] Comment on above: Performed By: #### L IPID, CMP, FT3, MG, T4, TSH, URIC #### [facility] [address] [place] [address] Dr. Estephania Small Cholesterol in HDL [Mass/Vol] 34 mg/dL Critically low 40-60 [facility] Comment on above: Performed By: #### L IPID, CMP, FT3, MG, T4, TSH, URIC #### [facility] [address] [place] [address] Dr. Estephania Small Cholesterol in LDL [Mass/Vol] 68.2 mg/dL Normal [facility] Comment on above: Performed By: #### L IPID, CMP, FT3, MG, T4, TSH, URIC #### [facility] [address] [place] [address] Dr. Estephania Small Cholesterol.total /Cholesterol in HDL [Mass ratio] 3.7 {ratio} Normal [facility] Comment on above: Performed By: #### L IPID, CMP, FT3, MG, T4, TSH, URIC #### [facility] [address] [place] [address] Dr. Estephania Small HDL NORMAL > or = 60 mg/dl - LO W CARDIOVASCULAR RISK <40 mg/dl - HIGH CARDIOVASCULAR RISK Normal [facility] Comment on above: Performed By: #### L IPID, CMP, FT3, MG, T4, TSH, URIC #### [facility] [address] [address] [address] Estephania Small LDL CALC NORMAL SEE BELOW Normal [facility] Comment on above: Result Comment: <100 mg/dl OPTIMAL 100 - 129 mg/dl NEAR OR ABOVE OPTIMAL 130 - 159 mg/dl BORDERLINE HIGH 160 - 189 mg/dl HIGH >190 mg/dl VERY HIGH Performed By: #### L IPID, CMP, FT3, MG, T4, TSH, URIC #### [facility] [address] [address] [address] Estephania Small Triglyceride [Mass/Vol] 124 mg/dL Normal <=150 [facility] Comment on above: Performed By: #### L IPID, CMP, FT3, MG, T4, TSH, URIC #### [facility] [address] [place] [address] Dr. Estephania Small VLDL CALC 24.8 mg/dL Normal [facility] Comment on above: Performed By: #### L IPID, CMP, FT3, MG, T4, TSH, URIC #### [facility] [address] [place] [address] Dr. Estephania Small MAGNESIUMon 10-11-2022 Magnesium [Mass/Vol] 1.5 mg/dL Critically low 1.8-2.4 [facility] Comment on above: Performed By: #### L IPID, CMP, FT3, MG, T4, TSH, URIC #### [facility] [address] [place] [address] Dr. Estephania Small PROF 14(COMP METB)on 023 Albumin [Mass/Vol] 4.0 g/dL Normal 3.4-5.0 [facility] Comment on above: Performed By: #### L IPID, CMP, FT3, MG, T4, TSH, URIC #### [facility] [address] [place] [address] Dr. Estephania Small Albumin/Globulin [Mass ratio] 1.1 {ratio} Normal [facility] Comment on above: Performed By: #### L IPID, CMP, FT3, MG, T4, TSH, URIC #### [facility] [address] [place] [address] Dr. Estephania Small ALP [Catalytic activity/Vol] 88 U/L Normal 46-116 [facility] Comment on above: Performed By: #### L IPID, CMP, FT3, MG, T4, TSH, URIC #### [facility] [address] [place] [address] Dr. Estephania Small ALT [Catalytic activity/Vol] 33 U/L Normal 16-63 [facility] Comment on above: Performed By: #### L IPID, CMP, FT3, MG, T4, TSH, URIC #### [facility] [address] [place] [address] Dr. Estephania Small Anion gap [Moles/Vol] 13.6 mmol/L Normal [facility] Comment on above: Performed By: #### L IPID, CMP, FT3, MG, T4, TSH, URIC #### [facility] [address] [place] [address] Dr. Estephania Small AST [Catalytic activity/Vol] 24 U/L Normal 15-37 [facility] Comment on above: Performed By: #### L IPID, CMP, FT3, MG, T4, TSH, URIC #### [facility] [address] [place] [address] Dr. Estephania Small Bilirubin [Mass/Vol] 0.5 mg/dL Normal 0.2-1.0 [facility] Comment on above: Performed By: #### L IPID, CMP, FT3, MG, T4, TSH, URIC #### [facility] [address] [place] [address] Dr. Estephania Small Calcium [Mass/Vol] 9.1 mg/dL Normal 8.5-10.1 [facility] Comment on above: Performed By: #### L IPID, CMP, FT3, MG, T4, TSH, URIC #### [facility] [address] [place] [address] Dr. Estephania Small Chloride [Moles/Vol] 102 mmol/L Normal 98-107 [facility] Comment on above: Performed By: #### L IPID, CMP, FT3, MG, T4, TSH, URIC #### [facility] [address] [address] [address] Estephania Small CO2 [Moles/Vol] 30.0 mmol/L Normal 21.0-32.0 [facility] Comment on above: Performed By: #### L IPID, CMP, FT3, MG, T4, TSH, URIC #### [facility] [address] [address] [address] Estephania Small Creatinine [Mass/Vol] 1.03 mg/dL Normal 0.70-1.30 [facility] Comment on above: Performed By: #### L IPID, CMP, FT3, MG, T4, TSH, URIC #### [facility] [address] [place] [address] Dr. Estephania Small EGFR-AF VENEZUELAN >60 Normal >=60 [facility] Comment on above: Performed By: #### L IPID, CMP, FT3, MG, T4, TSH, URIC #### [facility] [address] [place] [address] Dr. Estephania Smlal EGFR-NON AF VENEZUELAN >60 Normal >=60 [facility] Comment on above: Performed By: #### L IPID, CMP, FT3, MG, T4, TSH, URIC #### [facility] [address] [place] [address] Dr. Estephania Small Globulin (S) [Mass/Vol] 3.8 g/dL Normal [facility] Comment on above: Performed By: #### L IPID, CMP, FT3, MG, T4, TSH, URIC #### [facility] [address] [place] [address] Dr. Estephania Small Glucose [Mass/Vol] 128 mg/dL Critically high 74-106 [facility] Comment on above: Performed By: #### L IPID, CMP, FT3, MG, T4, TSH, URIC #### [facility] [address] [place] [address] Dr. Estephania Small Potassium [Moles/Vol] 4.6 mmol/L Normal 3.5-5.1 [facility] Comment on above: Performed By: #### L IPID, CMP, FT3, MG, T4, TSH, URIC #### [facility] [address] [place] [address] Dr. Estephania Small Protein [Mass/Vol] 7.8 g/dL Normal 6.4-8.2 [facility] Comment on above: Performed By: #### L IPID, CMP, FT3, MG, T4, TSH, URIC #### [facility] [address] [place] [address] Dr. Estephania Small Sodium [Moles/Vol] 141 mmol/L Normal 136-145 [facility] Comment on above: Performed By: #### L IPID, CMP, FT3, MG, T4, TSH, URIC #### [facility] [address] [place] [address] Dr. Estephania Small Urea nitrogen [Mass/Vol] 27.0 mg/dL Critically high 7.0-18.0 [facility] Comment on above: Performed By: #### L IPID, CMP, FT3, MG, T4, TSH, URIC #### [facility] [address] [place] [address] Dr. Estephania Small Urea nitrogen/Creatini ne [Mass ratio] 26.2 mg/mg Normal [facility] Comment on above: Performed By: #### L IPID, CMP, FT3, MG, T4, TSH, URIC #### [facility] [address] [place] [address] Dr. Estephania Small T4on 10-11-2022 T4 [Mass/Vol] 7.20 ug/dL Normal 4.50-12.10 [facility] Comment on above: Performed By: #### L IPID, CMP, FT3, MG, T4, TSH, URIC #### [facility] [address] [place] [address] Dr. Estephania Small TSHon 10-11-2022 TSH 1.682 uIU/mL Normal 0.358-3.740 [facility] Comment on above: Performed By: #### L IPID, CMP, FT3, MG, T4, TSH, URIC #### [facility] [address] [place], [place] [address] Dr. Estephania Small URIC ACID SERUMon 10-11-2022 Urate [Mass/Vol] 7.6 mg/dL Critically high 3.5-7.2 [facility] Comment on above: Performed By: #### L IPID, CMP, FT3, MG, T4, TSH, URIC #### [facility] [address] [place], [place] [address] Dr. Estephania Small Cardiovascular Lab Reporton 09-21-2020 Cardiovascular Lab Report [facility] Patient Name: [facility] MR #: [id number] Physician: Torin Henderson, Department of M.D. Medicine Service Date: 09/20/2020 Division of Birthdate: 1950 Cardiology Room #: [facility] [id number] Adult Cardiovascular Services [address] [address] Cardiovascular Laboratory Report PROCEDURE: Transesophageal echocardiogram and cardioversion. INDICATION: Atrial fibrillation/flutter. ATTENDING DOCTOR: Torin Henderson M.D. FELLOW: Renan Hernandes MD. PROCEDURE IN DETAIL: Informed consent was obtained from the patient after explaining indication, risks, benefits, and alternatives. The patient understood and agreed and signed the consent form. The patient was brought to the production laborer and transesophageal echocardiogram was performed under conscious sedation. The patient obtained a total of 6 mg of Versed and 50 mcg of fentanyl during the process. The transesophageal echocardiogram did not show any thrombus. The left atrial appendage could not be seen, the patient had the left atrial appendage ligation procedure recently. Full ITZEL reported elsewhere. After the transesophageal echocardiogram, synchronized biphasic cardioversion was done with 200 joules of energy. The patient successfully converted to sinus rhythm as evidenced by the EKG done postprocedure. No complications for the procedure. Electronically Signed by: Torin Henderson M.D. 09/22/2020 02:11 P Torin Henderson M.D. I was present for the entire procedure. Date Dict: 09/20/2020/05:18 P/Renan Hernandes MD Date Trans: 09/21/2020 06:48 A/godwin [id number] cc: Nixon Bassett M.D. [address], [place] [address] Normal [facility] APTTon 09-20-2020 aPTT Coag (Bld) [Time] 54.0 s High 25.0-35.0 [facility] Comment on above: Order Comment: No: D o not add to previous draw Result Comment: ALL RESULTS MUST BE INTERPRETED WITH RESPECT TO BLOOD DRAWING ARTIFACT OR DILUTION ERROR OF ANTICOAGULANT AT THE TIME OF SAMPLING. THE APTT SHOULD NOT BE USED TO MONITOR UNFRACTIONATED HEPARIN THERAPY, THIS LABORATORY NO LONGER HAS AN ESTABLISHED THERAPEUTIC RANGE BASED ON THE APTT. IT IS RECOMMENDED THAT THE [facility] - HEPARIN ASSAY (ANTI-XA ACTIVITY) BE USED FOR THIS PURPOSE. Performed By: #### 5 [id number], [id number] #### [facility] [address] [facility]. [address] aPTT Coag (Bld) [Time] 29.2 s Normal 25.0-35.0 [facility] Comment on above: Order Comment: No: D o not add to previous draw Result Comment: ALL RESULTS MUST BE INTERPRETED WITH RESPECT TO BLOOD DRAWING ARTIFACT OR DILUTION ERROR OF ANTICOAGULANT AT THE TIME OF SAMPLING. THE APTT SHOULD NOT BE USED TO MONITOR UNFRACTIONATED HEPARIN THERAPY, THIS LABORATORY NO LONGER HAS AN ESTABLISHED THERAPEUTIC RANGE BASED ON THE APTT. IT IS RECOMMENDED THAT THE [facility] - HEPARIN ASSAY (ANTI-XA ACTIVITY) BE USED FOR THIS PURPOSE. Performed By: #### 5 [id number], [id number], [id number], [id number] #### [facility] [address] BASIC METABOLIC PANELon Calcium [Mass/Vol] 9.1 mg/dL Normal 8.6-10.3 [facility] Comment on above: Order Comment: No: D o not add to previous draw Performed By: #### 8 [id number] #### [facility] [address] [place] [address], [place] Chloride [Moles/Vol] 102 mmol/L Normal 98-107 [facility] Comment on above: Order Comment: No: D o not add to previous draw Performed By: #### 8 [id number] #### [facility] [address] [place] [address], [place] CO2 [Moles/Vol] 28 mmol/L Normal 21-31 [facility] Comment on above: Order Comment: No: D o not add to previous draw Performed By: #### 8 [id number] #### [facility] [address] [place] [address], [place] Creatinine [Mass/Vol] 1.07 mg/dL Normal 0.70-1.30 [facility] Comment on above: Order Comment: No: D o not add to previous draw Performed By: #### 8 [id number] #### [facility] [address] [place] [address], [place] GFR/1.73 sq M.predicted among blacks MDRD (S/P/Bld) [Vol rate/Area] mL/min/{1.73_m2} Normal >60 [facility] Comment on above: Order Comment: No: D o not add to previous draw Performed By: #### 8 [id number] #### [facility] [address] [place] [address], [place] GFR/1.73 sq M.predicted among non-blacks MDRD (S/P/Bld) [Vol rate/Area] mL/min/{1.73_m2} Normal >60 [facility] Comment on above: Order Comment: No: D o not add to previous draw Performed By: #### 8 [id number] #### [facility] [address] [place] [address], [place] Glucose [Mass/Vol] 109 mg/dL High 70-100 [facility] Comment on above: Order Comment: No: D o not add to previous draw Performed By: #### 8 [id number] #### [facility] [address] [place] [address], [place] Potassium [Moles/Vol] 4.3 mmol/L Normal 3.5-5.1 [facility] Comment on above: Order Comment: No: D o not add to previous draw Performed By: #### 8 [id number] #### [facility] [address] [place] [address], [place] Sodium [Moles/Vol] 139 mmol/L Normal 136-145 [facility] Comment on above: Order Comment: No: D o not add to previous draw Performed By: #### 8 [id number] #### [facility] [address] [place] [address], [place] Urea nitrogen [Mass/Vol] 27 mg/dL High 7-25 [facility] Comment on above: Order Comment: No: D o not add to previous draw Performed By: #### 8 [id number] #### [facility] [address] [place] [address], [place] Calcium [Mass/Vol] 9.5 mg/dL Normal 8.6-10.3 [facility] Comment on above: Order Comment: No: D o not add to previous draw Performed By: #### [id number] #### [facility] [address] [place] [address], [place] Chloride [Moles/Vol] 101 mmol/L Normal 98-107 [facility] Comment on above: Order Comment: No: D o not add to previous draw Performed By: #### 8 [id number] #### [facility] [address] [place] [address], [place] CO2 [Moles/Vol] 25 mmol/L Normal 21-31 [facility] Comment on above: Order Comment: No: D o not add to previous draw Performed By: #### 8 [id number] #### [facility] [address] [place] [address], [place] Creatinine [Mass/Vol] 1.13 mg/dL Normal 0.70-1.30 [facility] Comment on above: Order Comment: No: D o not add to previous draw Performed By: #### 8 [id number] #### [facility] [address] [place] [address], [place] GFR/1.73 sq M.predicted among blacks MDRD (S/P/Bld) [Vol rate/Area] mL/min/{1.73_m2} Normal >60 [facility] Comment on above: Order Comment: No: D o not add to previous draw Performed By: #### 8 [id number] #### [facility] [address] [place] [address], [place] GFR/1.73 sq M.predicted among non-blacks MDRD (S/P/Bld) [Vol rate/Area] mL/min/{1.73_m2} Normal >60 [facility] Comment on above: Order Comment: No: D o not add to previous draw Performed By: #### 8 [id number] #### [facility] [address] [place] [address], [place] Glucose [Mass/Vol] 121 mg/dL High 70-100 [facility] Comment on above: Order Comment: No: D o not add to previous draw Performed By: #### 8 [id number] #### [facility] [address] [place] [address], [place] Potassium [Moles/Vol] 4.6 mmol/L Normal 3.5-5.1 [facility] Comment on above: Order Comment: No: D o not add to previous draw Performed By: #### 8 [id number] #### [facility] [address] [place] [address], [place] Sodium [Moles/Vol] 137 mmol/L Normal 136-145 [facility] Comment on above: Order Comment: No: D o not add to previous draw Performed By: #### 8 [id number] #### [facility] [address] [place] [address], [facility] Urea nitrogen [Mass/Vol] 27 mg/dL High 7-25 [facility] Comment on above: Order Comment: No: D o not add to previous draw Performed By: #### 8 [id number] #### [facility] [address] [place] [address], [facility] CBC COMPLETE BLOOD COUNTon 0 - Erythrocyte distribution width (RBC) [Ratio] 12.8 % Normal 11.5-15.0 [facility] Comment on above: Order Comment: No: D o not add to previous draw Performed By: #### 5 0608 #### [facility] [address] [place] [address], [facility] Hematocrit (Bld) [Volume fraction] 40.1 % Normal 39.0-50.0 [facility] Comment on above: Order Comment: No: D o not add to previous draw Performed By: #### 5 0608 #### [facility] [address] [place] [address], [facility] Hemoglobin (Bld) [Mass/Vol] 12.6 g/dL Low 13.0-17.0 [facility] Comment on above: Order Comment: No: D o not add to previous draw Performed By: #### 5 0608 #### [facility] [address] [place] [address], [facility] MCH (RBC) [Entitic mass] 27.6 pg Normal 27.0-33.0 [facility] Comment on above: Order Comment: No: D o not add to previous draw Performed By: #### 5 0608 #### [facility] [address] [place] [address], [facility] MCHC (RBC) [Mass/Vol] 31.4 g/dL Low 32.0-35.0 [facility] Comment on above: Order Comment: No: D o not add to previous draw Performed By: #### 5 0608 #### [facility] [address] [place] [address], [facility] MCV (RBC) [Entitic vol] 87.7 fL Normal 82.0-98.0 [facility] Comment on above: Order Comment: No: D o not add to previous draw Performed By: #### 5 0608 #### [facility] [address] Nucleated RBC/100 WBC (Bld) [Ratio] 0 % Normal 0-0 [facility] Comment on above: Order Comment: No: D o not add to previous draw Performed By: #### 5 0608 #### [facility] [address] [place] [address], [facility] PLAT CNT 261 10*3/uL Normal 150-400 [facility] Comment on above: Order Comment: No: D o not add to previous draw Performed By: #### 5 0608 #### [facility] [address] RBC (Bld) [#/Vol] 4.57 10*6/uL Normal 4.20-5.70 [facility] Comment on above: Order Comment: No: D o not add to previous draw Performed By: #### 5 0608 #### [facility] [address] WBC (Bld) [#/Vol] 8.46 10*3/uL Normal 4.00-10.60 [facility] Comment on above: Order Comment: No: D o not add to previous draw Performed By: #### 5 0608 #### [facility] [address] CBC W/DIFFon 09-20-2020 ABS IMM GRANS 0.0 10*3/uL Normal 0.0-0.2 [facility] Comment on above: Order Comment: No: D o not add to previous draw Performed By: #### 5 0608 #### [facility] [address] [place] [address], [facility] ABS NEUTROPHILS 3.8 10*3/uL Normal 1.6-7.6 [facility] Comment on above: Order Comment: No: D o not add to previous draw Performed By: #### 5 0608 #### [facility] [address] [place] [address], [place] Basophils (Bld) [#/Vol] 0.0 10*3/uL Normal 0.0-0.2 [facility] Comment on above: Order Comment: No: D o not add to previous draw Performed By: #### 5 0608 #### [facility] [address] [place] [address], [facility] Basophils/100 WBC (Bld) 0.5 % Normal 0.0-1.0 [facility] Comment on above: Order Comment: No: D o not add to previous draw Performed By: #### 5 0608 #### [facility] [address] [place] [address], [place] Eosinophils (Bld) [#/Vol] 0.6 10*3/uL High 0.0-0.5 [facility] Comment on above: Order Comment: No: D o not add to previous draw Performed By: #### 5 0608 #### [facility] [address] [place] [address], [place] Eosinophils/100 WBC (Bld) 9.6 % High 0.0-6.0 [facility] Comment on above: Order Comment: No: D o not add to previous draw Performed By: #### 5 0608 #### [facility] [address] [place] [address], [place] Erythrocyte distribution width (RBC) [Ratio] 12.7 % Normal 11.5-15.0 [facility] Comment on above: Order Comment: No: D o not add to previous draw Performed By: #### 5 0608 #### [facility] [address] [place] [address], [facility] Hematocrit (Bld) [Volume fraction] 37.2 % Low 39.0-50.0 [facility] Comment on above: Order Comment: No: D o not add to previous draw Performed By: #### 5 0608 #### [facility] [address] [place] [id number], [facility] Hemoglobin (Bld) [Mass/Vol] 11.9 g/dL Low 13.0-17.0 [facility] Comment on above: Order Comment: No: D o not add to previous draw Performed By: #### 5 0608 #### [facility] [address] [facility] [place] [address], [facility] IMMATURE GRANS 0.3 % Normal 0.0-1.0 [facility] Comment on above: Order Comment: No: D o not add to previous draw Performed By: #### 5 0608 #### [facility] [address] [facility] [place] [address], [facility] Lymphocytes (Bld) [#/Vol] 1.4 10*3/uL Normal 1.2-4.0 [facility] Comment on above: Order Comment: No: D o not add to previous draw Performed By: #### 5 0608 #### [facility] [address] [facility] [place] [address], [facility] Lymphocytes/100 WBC (Bld) 21.9 % Normal 20.0-45.0 [facility] Comment on above: Order Comment: No: D o not add to previous draw Performed By: #### 5 0608 #### [facility] [address] [place] [address], [facility] MCH (RBC) [Entitic mass] 28.1 pg Normal 27.0-33.0 [facility] Comment on above: Order Comment: No: D o not add to previous draw Performed By: #### 5 0608 #### [facility] [address] [place] [address], [facility] MCHC (RBC) [Mass/Vol] 32.0 g/dL Normal 32.0-35.0 [facility] Comment on above: Order Comment: No: D o not add to previous draw Performed By: #### 5 0608 #### [facility] [address] [facility] [place] [address], [facility] MCV (RBC) [Entitic vol] 87.7 fL Normal 82.0-98.0 [facility] Comment on above: Order Comment: No: D o not add to previous draw Performed By: #### 5 0608 #### [facility] [address] [facility] [place] [address], [facility] Monocytes (Bld) [#/Vol] 0.6 10*3/uL Normal 0.1-1.0 [facility] Comment on above: Order Comment: No: D o not add to previous draw Performed By: #### 5 0608 #### [facility] [address] [place] [address], [facility] MONOS 9.2 % Normal 5.0-12.0 [facility] Comment on above: Order Comment: No: D o not add to previous draw Performed By: #### 5 0608 #### [facility] [address] [place] [address], [facility] Neutrophils/100 WBC (Bld) 58.5 % Normal 40.0-72.0 [facility] Comment on above: Order Comment: No: D o not add to previous draw Performed By: #### 5 0608 #### [facility] [address] [place] [address], [facility] Nucleated RBC/100 WBC (Bld) [Ratio] 0 % Normal 0-0 [facility] Comment on above: Order Comment: No: D o not add to previous draw Performed By: #### 5 0608 #### [facility] [address] [place] [address], [facility] PLAT CNT 222 10*3/uL Normal 150-400 [facility] Comment on above: Order Comment: No: D o not add to previous draw Performed By: #### 5 0608 #### [facility] [address] [place] [address], [facility] RBC (Bld) [#/Vol] 4.24 10*6/uL Normal 4.20-5.70 [facility] Comment on above: Order Comment: No: D o not add to previous draw Performed By: #### 5 0608 #### [facility] [address] [place] [address], [facility] WBC (Bld) [#/Vol] 6.44 10*3/uL Normal 4.00-10.60 [facility] Comment on above: Order Comment: No: D o not add to previous draw Performed By: #### 5 0608 #### [facility] [address] [facility] CHEST AND LATERALon 09-21-19 CHEST AND LATERAL [facility] Department of Radiology [address] [place] [id number] Patient Name: LINDA SOSA : 1950 Sex: M Age: Race: White Pt. Location: [id number] Patient Status: I Ordered Date: 09/19/2020 10:55:00 PM Completed Date: 09/19/2020 11:27 PM Requesting Provider: ARLETTE RODRIGUEZ Attending Provider: DORA GARCIA Report Copy To: Signs & Symptoms: Shortness of Breath History: See Comments Comments: evaluate for Cardiomegaly Exam: CHEST AND LATERAL CHEST AND LATERAL 09/19/2020 11:27 PM CLINICAL INDICATIONS: Shortness of Breath TECHNOLOGIST COMMENTS: shortness of breath QUESTION FOR THE RADIOLOGIST: evaluate for Cardiomegaly PROTOCOL: AP(PA) and Lateral views were obtained. COMPARISON: 09/12/2020 FINDINGS: Trachea is midline. Cardiac mediastinal silhouette is unremarkable. Pulmonary vasculature is within normal limits. No new focal opacities. There is stable elevation of the left hemidiaphragm. Redemonstrated blunting of the left costophrenic angle. There is left basilar atelectasis or scarring. No large pleural effusion. No pneumothorax. Revisualized sternotomy wires and atrial appendage clear. Degenerative changes of the right shoulder IMPRESSION: * Stable elevation of the left hemidiaphragm and left lower opacities. This may represent atelectasis, scarring and/or a persistent small pleural effusion. Approved by:Kristy Fierro09/20/2020 12:19 AM. I, Edith Penny,have reviewed the images and reports Electronically signed: Edith Penny. Transcribed by: [id number], User Resident: KRISTY FOLEY Electronically Signed by: EDITH PENNY @ 09/20/2020 12:37 AM I personally read this/these film(s) with this resident Normal [facility] Comment on above: Order Comment: No: D o not add to previous draw CTA CHESTon 09-20-2020 CTA CHEST [facility] Department of Radiology [address] [place] [id number] Patient Name: LINDA SOSA : 1950 Sex: M Age: Race: White Pt. Location: [id number] Patient Status: O Ordered Date: 09/20/2020 3:30:00 AM Completed Date: 09/20/2020 05:33 AM Requesting Provider: ARLETTE RODRIGUEZ Attending Provider: DORA GARCIA Report Copy To: Signs & Symptoms: Shortness of Breath History: See Comments Comments: Pulmonary Embolism, recent CABG, shortness of breath with tachy, D-dimer 3+ Exam: CTA CHEST Clinical history: Tachycardia Technique: CT angiography of the pulmonary arteries was performed following the intravenous administration of 100 mL Omnipaque 350. Multidetector CT angiogram performed through the pulmonary arteries without complication, including source images and maximum intensity projection 3-D images displayed and reviewed on a PACS workstation by the radiologist. Automated exposure control was utilized. Comparison: None Findings: The pulmonary arteries are well-opacified and show no intrarenal filling defects to suggest presence of pulmonary embolism. There are several pleural plaques bilaterally, one of which shows partial calcifications, suggestive of previous asbestos exposure. There is left basilar atelectasis. A small subpleural effusion is seen. The lung alba are otherwise clear. No hilar or mediastinal masses or adenopathy are identified. Impression: 1. No evidence of pulmonary nodules. 2. Pleural plaques bilaterally, one which shows calcifications within it suggesting previous asbestos exposure. 3. Otherwise normal CT thorax. All CT scans at this facility use dose modulation, iterative reconstruction, and/or weight based dosing when appropriate to reduce radiation dose to as low as reasonably achievable. AP Electronically signed: Edith Penny. Transcribed by: [email or web address], User Resident: Electronically Signed by: EDITH PENNY @ 09/20/2020 05:54 AM Normal [facility] Comment on above: Order Comment: No: D o not add to previous draw D DIMER TESTon 09-20-2020 D-DIMER TEST 3.43 mcg/mL FEU High 0.27-0.49 [facility] Comment on above: Result Comment: D-Di alyssa values of less than 0.50 ug/ml (FEU) are considered to be a negative predictor of thrombosis. However, the D-Dimer result should be used in conjunction with pretest probability and should not be used alone to diagnose a thrombotic event. Performed By: #### 5 7307, 98216, 86004, 04683 #### [facility] [address] [place] [address], [facility] MAGNESIUM BLOODon 09-20-2020 Magnesium [Mass/Vol] 1.5 mg/dL Low 1.9-2.7 [facility] Comment on above: Order Comment: No: D o not add to previous draw Performed By: #### 8 [id number] #### [facility] [address] [place] [address], [facility] Magnesium [Mass/Vol] 1.5 mg/dL Low 1.9-2.7 [facility] Comment on above: Order Comment: No: D o not add to previous draw Performed By: #### 8 5499 #### [facility] [address] [place] [address], [facility] PHOSPHORUS BLOODon Phosphate [Mass/Vol] 4.3 mg/dL Normal 2.5-5.0 [facility] Comment on above: Order Comment: No: D o not add to previous draw Performed By: #### 8 [id number] #### [facility] [address] [place] [address], [facility] POC GLUCOSE LABon 09-20-2020 Glucose [Mass/Vol] 125 mg/dL High 70-100 [facility] Comment on above: Performed By: #### 8 5499 #### [facility] [address] [place] [address], [facility] Glucose [Mass/Vol] 145 mg/dL High 70-100 [facility] Comment on above: Performed By: #### 5 0608 #### [facility] [address] [place] [address], [facility] Glucose [Mass/Vol] 127 mg/dL High 70-100 [facility] Comment on above: Performed By: #### 8 [id number] #### [facility] [address] [place] [address], [facility] PROTHROMBIN TIMEon 1 INR Coag (PPP) [Relative time] 1.22 {INR} High 0.91-1.16 [facility] Comment on above: Order Comment: No: D o not add to previous draw Result Comment: ACCC P RECOMMENDED INR FOR WARFARIN THERAPY ---- ------- CONDITION INR PROPHYLAXIS OF VENOUS THROMBOSIS 2-3 (HIGH-RISK SURGERY) TREATMENT OF VENOUS THROMBOSIS 2-3 TREATMENT OF PULMONARY EMBOLISM 2-3 PREVENTION OF SYSTEMIC EMBOLISM: 2-3 ACUTE MYOCARDIAL INFARCTION TISSUE HEART VALVES VALVULAR HEART DISEASE ATRIAL FIBRILLATION RECURRENT SYSTEMIC EMBOLISM MECHANICAL HEART VALVE 2.5-3.5 FROM: ORAL ANTICOAGULANTS. MECHANISM OF ACTION, CLINICAL EFFECTIVENESS, AND OPTIMAL THERAPEUTIC RANGE. CHEST 1995;108:231S-246S. Performed By: #### 5 6101, 17104, 70951 #### [facility] [address] [place] [address], [facility] PT Coag (PPP) [Time] 15.4 s High 12.3-14.8 [facility] Comment on above: Order Comment: No: D o not add to previous draw Result Comment: ALL RESULTS MUST BE INTERPRETED WITH RESPECT TO BLOOD DRAWING ARTIFACT OR DILUTION ERROR OF ANTICOAGULANT AT THE TIME OF SAMPLING. Performed By: #### 5 6101, 28260, 57943 #### [facility] [address] [place] [address], [facility] INR Coag (PPP) [Relative time] 1.13 {INR} Normal 0.91-1.16 [facility] Comment on above: Order Comment: No: D o not add to previous draw Result Comment: ACCC P RECOMMENDED INR FOR WARFARIN THERAPY ---- ------- CONDITION INR PROPHYLAXIS OF VENOUS THROMBOSIS 2-3 (HIGH-RISK SURGERY) TREATMENT OF VENOUS THROMBOSIS 2-3 TREATMENT OF PULMONARY EMBOLISM 2-3 PREVENTION OF SYSTEMIC EMBOLISM: 2-3 ACUTE MYOCARDIAL INFARCTION TISSUE HEART VALVES VALVULAR HEART DISEASE ATRIAL FIBRILLATION RECURRENT SYSTEMIC EMBOLISM MECHANICAL HEART VALVE 2.5-3.5 FROM: ORAL ANTICOAGULANTS. MECHANISM OF ACTION, CLINICAL EFFECTIVENESS, AND OPTIMAL THERAPEUTIC RANGE. CHEST 1995;108:231S-246S. Performed By: #### 5 7307, 74047, 87102, 42775 #### [facility] [address] [place] [address], [facility] PT Coag (PPP) [Time] 14.5 s Normal 12.3-14.8 [facility] Comment on above: Order Comment: No: D o not add to previous draw Result Comment: ALL RESULTS MUST BE INTERPRETED WITH RESPECT TO BLOOD DRAWING ARTIFACT OR DILUTION ERROR OF ANTICOAGULANT AT THE TIME OF SAMPLING. Performed By: #### 5 7307, 22079, 71517, 46878 #### [facility] [address] TROPONIN-Ion 09-20-2020 Troponin I.cardiac [Mass/Vol] 0.07 ng/mL High 0.00-0.04 [facility] Comment on above: Order Comment: No: D o not add to previous draw Result Comment: REFE RENCE RANGES: 0.00 - 0.04 ng/ml NORMAL 0.05 - 0.50 ng/ml INDETERMINATE > 0.50 ng/ml CONSISTENT WITH AN M.I. Performed By: #### 8 5499 #### [facility] [address] [place] [address], [facility] TSH3on 09-20-2020 TSH 3RD GENERATION 2.08 uIU/mL Normal 0.34-5.60 [facility] Comment on above: Order Comment: No: D o not add to previous draw Performed By: #### 8 5499 #### [facility] [address] UFH HEPARIN ASSAYon 09-21-19 21 UNFRACTIONATED HEPARIN 0.46 IU/mL Normal 0.30-0.70 [facility] Comment on above: Result Comment: [place] roxaban and Apixaban will interfere with the anti Xa assay used to monitor UFH and LMWH. Performed By: #### 5 0608 #### [facility] [address] UNFRACTIONATED HEPARIN 0.48 IU/mL Normal 0.30-0.70 [facility] Comment on above: Result Comment: [place] roxaban and Apixaban will interfere with the anti Xa assay used to monitor UFH and LMWH. Performed By: #### 8 5499 #### [facility] [address] [place] [address], [facility] UNFRACTIONATED HEPARIN 0.17 IU/mL Low 0.30-0.70 [facility] Comment on above: Result Comment: [place] roxaban and Apixaban will interfere with the anti Xa assay used to monitor UFH and LMWH. Performed By: #### 5 6101, 97423, 80380 #### [facility] [address] [place] [address], [facility] UNFRACTIONATED HEPARIN <0.10 Critically low 0.30-0.70 [facility] Comment on above: Result Comment: [place] roxaban and Apixaban will interfere with the anti Xa assay used to monitor UFH and LMWH. RESULTS CHECKED AND CALLED. ACCURATELY READ BACK BY JONNIE SINGLETON RN AT 0208. Performed By: #### 5 7307, 84925, 23767, 60378 #### [facility] [address] [place] [address], [facility] BASIC METABOLIC PANELon 03-2 Calcium [Mass/Vol] 9.9 mg/dL Normal 8.6-10.3 [facility] Comment on above: Performed By: #### 5 0608 #### [facility] [address] [place] [address], [facility] Chloride [Moles/Vol] 99 mmol/L Normal 98-107 [facility] Comment on above: Performed By: #### 5 0608 #### [facility] [address] [facility] [place] [address], [facility] CO2 [Moles/Vol] 29 mmol/L Normal 21-31 [facility] Comment on above: Performed By: #### 5 0608 #### [facility] [address] [place] [address], [facility] Creatinine [Mass/Vol] 1.07 mg/dL Normal 0.70-1.30 [facility] Comment on above: Performed By: #### 5 0608 #### [facility] [address] [place] [address], [facility] GFR/1.73 sq M.predicted among blacks MDRD (S/P/Bld) [Vol rate/Area] mL/min/{1.73_m2} Normal >60 [facility] Comment on above: Performed By: #### 5 0608 #### [facility] [address] [place] [address], [facility] GFR/1.73 sq M.predicted among non-blacks MDRD (S/P/Bld) [Vol rate/Area] mL/min/{1.73_m2} Normal >60 [facility] Comment on above: Performed By: #### 5 0608 #### [facility] [address] [place] [address], [facility] Glucose [Mass/Vol] 75 mg/dL Normal 70-100 [facility] Comment on above: Performed By: #### 5 0608 #### [facility] [address] [place] [address], [facility] Potassium [Moles/Vol] 4.1 mmol/L Normal 3.5-5.1 [facility] Comment on above: Performed By: #### 5 0608 #### [facility] [address] [facility] [place] [address], [facility] Sodium [Moles/Vol] 138 mmol/L Normal 136-145 [facility] Comment on above: Performed By: #### 5 0608 #### [facility] [address] [place] [address], [facility] Urea nitrogen [Mass/Vol] 22 mg/dL Normal 7-25 [facility] Comment on above: Performed By: #### 5 0608 #### [facility] [address] [facility] [place], [place] [id number] [place] [address] CHEST AND LATERALon 09-13-19 21 CHEST AND LATERAL [facility] Department of Radiology [address] [place] [id number] Patient Name: LINDA SOSA : 1950 Sex: M Age: Race: White Pt. Location: Patient Status: O Ordered Date: 09/12/2020 11:40:00 AM Completed Date: 09/12/2020 11:44 AM Requesting Provider: SAURABH MOREL Attending Provider: KRISTY CARREON Report Copy To: NIXON BASSETT Signs & Symptoms: I25.10 Athscl heart disease of [place] coronary artery w/o ang pctrs I10 History: [place] Comments: evaluate Exam: CHEST AND LATERAL CHEST AND LATERAL 09/12/2020 11:44 AM CLINICAL INDICATIONS: I25.10 Athscl heart disease of [place] coronary artery w/o ang pctrs I10 TECHNOLOGIST COMMENTS: Follow up post op open heart times 3 weeks now QUESTION FOR THE RADIOLOGIST: evaluate PROTOCOL: AP(PA) and Lateral views were obtained. COMPARISON: 08/31/2020 FINDINGS: Postsurgical changes heart mediastinum with atrial appendage clip present. Persistent elevation of the left hemidiaphragm and blunting of the left costophrenic angle which could represent effusion or some scarring. Right lung clear IMPRESSION: Postsurgical changes heart mediastinum with atrial appendage clip present. Persistent elevation of the left hemidiaphragm and blunting of the left costophrenic angle which could represent effusion or some scarring Electronically signed: Corry Hall. Transcribed by: [email or web address], User Resident: Electronically Signed by: CORRY HALL @ 09/12/2020 12:12 PM Normal [facility] Comment on above: Order Comment: evalu ate MAGNESIUM BLOODon 09-12-2020 Magnesium [Mass/Vol] 1.5 mg/dL Low 1.9-2.7 [facility] Comment on above: Performed By: #### 5 [id number] #### [facility] [address] CNOVmanan 04-30-2018 CNOV Office Visit (CARDFT) NO LINDA VALDEZ ([id number]) 1950 M UPADate Time Provider Wufivycmcx69/14/18 10:00 AM MIKEY HERNANDEZ During your visit today, we recorded the following information about you: Pulse Blood pressure Weight 61/minute 134/89 114.3 kgMikey Hernandez MD 04/30/2018 10:20 AM [facility] Department of Cardiovascular MedicineOUTPATIENT VISIT DATE 04/30/18OUTPATIENT VISIT TYPEESTABLISHEDPRIMARY CARE PHYSICIAN:Nixon Bassett MD[address] [facility] [address]Qrimi: [phone]: [phone] COMPLAINT:Patient presents with:Established PatientHISTORY OF PRESENT ILLNESS:Linda Sosa is a 68 year old male with a past cardiac history of persistentatrial fibrillation, coronary artery disease with an occluded LAD, RCA both ofwhich are filling via collaterals and a moderate left main stenosis, essentialhypertension, hyperlipidemia and tobacco use.The patient presents today for a 6 month follow-up appointment. He is normallycared for by Dr. Edwards. He denies any chest pain, shortness of breath ordyspnea on exertion. He denies any palpitations, syncopal or near syncopalepisodes. He denies any edema, orthopnea or paroxysmal nocturnal dyspnea. Hehas been compliant with his medications over the past 6 months. His primarycare physician follows his lipid profile. He exercises on a regular basisincluding weight lifting. He has not had any chest symptoms during hisexercise protocol. He has stopped smoking completely.PAST MEDICAL HISTORYDiagnosis Date- CAD (coronary artery disease) 10/02/13- High blood sugar- HTN (hypertension) 1995- Hyperlipidemia 1995- Osteoarthritis- Paroxysmal atrial fibrillation (HCC) 09/28/13- Right retinal artery branch occlusion 1995- Sleep apneaPAST SURGICAL HISTORYProcedure Laterality Date- APPENDECTOMY- CARDIAC CATH 10/02/13 50% mid LM. Proxima LAD ENVIRONMENTAL RESTORATION PLANNER with L-L collateral. Proximal RCA ENVIRONMENTAL RESTORATION PLANNER. Co-dominatLCX with L-R collateral. EF 55%.- CARDIOVERSION 10/14/2017- COLONOSCOPY 09/14/13- REMV CATARACT EXTRACAP,INSERT LENS 2007 Cataract Extraction with PC IOLSocial HistorySubstance Use Topics- Smoking status: Former Smoker Packs/day: 1.00 Years: 30.00 Types: Cigarettes Quit date: 10/03/2013- Smokeless tobacco: Never Used- Alcohol use 3.0 - 4.5 oz/week 2 - 3 Cans of Beer (12oz) per weekFAMILY HISTORYProblem Relation Age of Onset- Stroke Mother in her 80's- Heart Father MT, in mid 50 s.- Coronary Artery Disease Brother MT, in his 40's. in his 50's.ALLERGIES:ALLERGIESAllerg en Reactions- Aldactone [Spironol* Other: See Comments Muscle crapmMEDICATIONS:amLODIPine (NORVASC) 10 mg tablet Take 1 tablet by mouth once daily.metFORMIN (GLUCOPHAGE) 500 mg tablet Take 500 mg by mouth twice daily.Fenofibrate (LOFIBRA) 160 mg tablet Take 160 mg by mouth once daily.carvedilol (COREG) 25 mg tablet Take 25 mg by mouth twice daily with meals.pravastatin (PRAVACHOL) 40 mg tablet Take 40 mg by mouth once daily.lisinopril 40 mg tablet Take 40 mg by mouth once daily.rivaroxaban (XARELTO) 20 mg tablet Take 20 mg by mouth daily with dinner.aspirin, enteric coated (ADULT LOW DOSE ASPIRIN) 81 mg EC tablet Take 1 tabletby mouth once daily.amoxicillin (POLYMOX, AMOXIL) 500 mg capsule Take 500 mg by mouth every 8hours.REVIEW OF SYSTEMS:A complete review of systems was obtained and is remarkable for that notedabove. The remaining systems are unremarkable.I personally interviewed, confirmed and edited the above information ifobtained by others.PHYSICAL EXAMINATION:BP 134/89 (BP Site: Left Arm, BP Position: Sitting) Pulse 61 Wt 114.3 kg(252 lb) BMI 29.88 kg/m?General: Well appearing, in no acute distress.Eyes: Conjunctiva normal, sclera normalNeck: No jugular venous distention, no palpable thyromegaly.Heart: Regular rhythm, S1, S2 normal, no S3, no S4. No murmur. No carotidbruits.Respiratory: Clear to auscultation bilaterally. Good respiratory effort.GI: Soft, nontender, bowel sounds normal, no palpable hepatosplenomegalyExtremities: Normal pulses in distal lower extremities. Absent lower extremityedemaNeuro: Alert, cooperative with no focal deficit.Psych: Pleasant and cooperative.Skin: No rashes or wounds.CARDIOVASCULAR MEDICINE TESTING:None.IMPRESSION:1. Persistent atrial fibrillation (HCC) - ICD9: 427.31, ICD10: I48.1 (primarydiagnosis)2. Coronary artery disease involving [place] coronary artery of [place] heartwithout angina pectoris - ICD9: 414.01, ICD10: I25.103. Essential hypertension - ICD9: 401.9, ICD10: I104. Mixed hyperlipidemia - ICD9: 272.2, ICD10: E78.2PLAN:Continue current medical regimen.Low-cholesterol, low-fat diet.Regular aerobic exercise as the patient is doing.I have congratulated him on being able to stop smoking.Suggested follow-up with local cardiology in 6 months or sooner if necessary.A copy of this note will be provided to the requesting provider by [facility] or via U.S. Mail.This document was generated utilizing [employer] F[employer] dictation. I have reviewed andverified that the contents of the document are accurate with the exception ofminor grammatical, spelling and punctuation errors.CONTACT INFORMATION:Thank you for allowing us to participate in the care of this very pleasantpatient. Please free to contact us if we can be of any further assistance.Mikey Hernandez MD, [facility] and Randee McnealConfluence Healthminnie of Cardiovascular MedicineAurora East Hospital and Vascular InstituteSydney Ville [id number], [place] [address]Jgwfmb: [phone] Referring Provider: NIXON BASSETT [[id number]]Allergies As of Date: 04/30/2018 Noted Allergy ReactionALDACTONE (SPIRONOLACTONE) 11/04/2015 14 - Other: See Comments Comments: Muscle crapmDate Reviewed: 04/30/2018Reviewed by: Mikey Hernanedz - Fully AssessedReason for Visit: Established Patient [175]Primary Visit Diagnosis:Persistent atrial fibrillation (HCC) [I48.1] Other Visit Diagnoses:Coronary artery disease involving [place] coronary artery of [place] heart without angina pectoris [I25.10] Essential hypertension [I10] Mixed hyperlipidemia [E78.2]Prescriptions as of 04/30/2018 Sig: AMLODIPINE 10 MG TABLET Take 1 tablet by mouth once d* METFORMIN 500 MG TABLET Take 500 mg by mouth twice da* FENOFIBRATE 160 MG TABLET Take 160 mg by mouth once genevieve* CARVEDILOL 25 MG TABLET Take 25 mg by mouth twice genevieve* PRAVASTATIN 40 MG TABLET Take 40 mg by mouth once north* LISINOPRIL 40 MG TABLET Take 40 mg by mouth once north* RIVAROXABAN 20 MG TABLET Take 20 mg by mouth daily wit* ASPIRIN 81 MG TABLET,DELAYED * Take 1 tablet by mouth once d* AMOXICILLIN 500 MG CAPSULE Take 500 mg by mouth every 8 *Problem List As Of Date 04/30/2018 Noted Resolved Atrial fibrillation (HCC) [I48.91] INVALID FOR* Abnormal stress test [R94.39] INVALID FOR* Hypertension [I10] INVALID FOR* CAD (coronary artery disease) [I25.10] INVALID FOR* Hyperlipidemia [E78.5] INVALID FOR* Status:Closed by ALANIS HERNANDEZ MD on 04/30/18 Normal [facility] PROGRESSon 04-30-2018 Protein mass conc HNO ID: [id number] thor: Mikey Leeervice: (none)Author Type: PhysicianType: Progress NotesFiled: 04/30/2018 10:20 AMNote Text:[facility] and Vascular InstituteRobuniversity of new [facility] and [facility]ee Mcneal Department of Cardiovascular MedicineOUTPATIENT VISIT DATE 04/30/18OUTPATIENT VISIT TYPEESTABLISHEDPRIMARY CARE PHYSICIAN:Nixon Bassett MD[address] [facility] [address]Mlhsd: [phone]: [phone] COMPLAINT:Patient presents with:Established PatientHISTORY OF PRESENT ILLNESS:Linda Sosa is a 68 year old male with a past cardiac history ofpersistent atrial fibrillation, coronary artery disease with an occludedLAD, RCA both of which are filling via collaterals and a moderate leftmain stenosis, essential hypertension, hyperlipidemia and tobacco use.The patient presents today for a 6 month follow-up appointment. He isnormally cared for by Dr. Edwards. He denies any chest pain, shortness ofbreath or dyspnea on exertion. He denies any palpitations, syncopal ornear syncopal episodes. He denies any edema, orthopnea or paroxysmalnocturnal dyspnea. He has been compliant with his medications over thepast 6 months. His primary care physician follows his lipid profile. Heexercises on a regular basis including weight lifting. He has not had anychest symptoms during his exercise protocol. He has stopped smokingcompletely.PAST MEDICAL HISTORYDiagnosis Date- CAD (coronary artery disease) 10/02/13- High blood sugar- HTN (hypertension) 1995- Hyperlipidemia 1995- Osteoarthritis- Paroxysmal atrial fibrillation (HCC) 09/28/13- Right retinal artery branch occlusion 1995- Sleep apneaPAST SURGICAL HISTORYProcedure Laterality Date- APPENDECTOMY- CARDIAC CATH 10/02/13 50% mid LM. Proxima LAD ENVIRONMENTAL RESTORATION PLANNER with L-L collateral. Proximal RCA ENVIRONMENTAL RESTORATION PLANNER.Co-dominat LCX with L-R collateral. EF 55%.- CARDIOVERSION 10/14/2017- COLONOSCOPY 09/14/13- REMV CATARACT EXTRACAP,INSERT LENS 2007 Cataract Extraction with PC IOLSocial HistorySubstance Use Topics- Smoking status: Former Smoker Packs/day: 1.00 Years: 30.00 Types: Cigarettes Quit date: 10/03/2013- Smokeless tobacco: Never Used- Alcohol use 3.0 - 4.5 oz/week 2 - 3 Cans of Beer (12oz) per weekFAMILY HISTORYProblem Relation Age of Onset- Stroke Mother in her 80's- Heart Father MT, in mid 50 s.- Coronary Artery Disease Brother MT, in his 40's. in his 50's.ALLERGIES:ALLERGIESAllerg en Reactions- Aldactone [Spironol* Other: See Comments Muscle crapmMEDICATIONS:amLODIPine (NORVASC) 10 mg tablet Take 1 tablet by mouth once daily.metFORMIN (GLUCOPHAGE) 500 mg tablet Take 500 mg by mouth twice daily.Fenofibrate (LOFIBRA) 160 mg tablet Take 160 mg by mouth once daily.carvedilol (COREG) 25 mg tablet Take 25 mg by mouth twice daily withmeals.pravastatin (PRAVACHOL) 40 mg tablet Take 40 mg by mouth once daily.lisinopril 40 mg tablet Take 40 mg by mouth once daily.rivaroxaban (XARELTO) 20 mg tablet Take 20 mg by mouth daily with dinner.aspirin, enteric coated (ADULT LOW DOSE ASPIRIN) 81 mg EC tablet Take 1tablet by mouth once daily.amoxicillin (POLYMOX, AMOXIL) 500 mg capsule Take 500 mg by mouth every 8hours.REVIEW OF SYSTEMS:A complete review of systems was obtained and is remarkable for that notedabove. The remaining systems are unremarkable.I personally interviewed, confirmed and edited the above information ifobtained by others.PHYSICAL EXAMINATION:BP 134/89 (BP Site: Left Arm, BP Position: Sitting) Pulse 61 Wt114.3 kg (252 lb) BMI 29.88 kg/m?General: Well appearing, in no acute distress.Eyes: Conjunctiva normal, sclera normalNeck: No jugular venous distention, no palpable thyromegaly.Heart: Regular rhythm, S1, S2 normal, no S3, no S4. No murmur. No carotidbruits.Respiratory: Clear to auscultation bilaterally. Good respiratory effort.GI: Soft, nontender, bowel sounds normal, no palpable hepatosplenomegalyExtremities: Normal pulses in distal lower extremities. Absent lowerextremity edemaNeuro: Alert, cooperative with no focal deficit.Psych: Pleasant and cooperative.Skin: No rashes or wounds.CARDIOVASCULAR MEDICINE TESTING:None.IMPRESSION:1. Persistent atrial fibrillation (HCC) - ICD9: 427.31, ICD10: I48.1(primary diagnosis)2. Coronary artery disease involving [place] coronary artery of nativeheart without angina pectoris - ICD9: 414.01, ICD10: I25.103. Essential hypertension - ICD9: 401.9, ICD10: I104. Mixed hyperlipidemia - ICD9: 272.2, ICD10: E78.2PLAN:Continue current medical regimen.Low-cholesterol, low-fat diet.Regular aerobic exercise as the patient is doing.I have congratulated him on being able to stop smoking.Suggested follow-up with local cardiology in 6 months or sooner ifnecessary.A copy of this note will be provided to the requesting provider by way [facility] or via U.S. Mail.This document was generated utilizing [employer] dictation. I have reviewedand verified that the contents of the document are accurate with theexception of minor grammatical, spelling and punctuation errors.CONTACT INFORMATION:Thank you for allowing us to participate in the care of this very pleasantpatient. Please free to contact us if we can be of any furtherassistance.Mikey Hernandez MD, [facility]OSPITALNadiat and Randee McnealPrpartment of Cardiovascular MedicineAvita Health System Ontario Hospitalrt and Vascular Institute[address] [address]Vatzka: [phone] [facility] CNOVon 10-22-2017 CNOV Office Visit (CARDFT) NO LINDA VALDEZ ([id number]) 1950 [facility] Department10/22/17 9:00 AM HOLDEN EDWARDS During your visit today, we recorded the following information about you: Pulse Respiration Blood pressure 69/minute 16/minute 139/76Holden Edwards 10/22/2017 9:28 AM [facility] and [facility] Mcneal Department of Cardiovascular MedicineOUTPATIENT VISIT DATE10/22/17OUTPATIENT VISIT TYPEESTABLISHEDPRIMARY CARE PHYSICIAN:Nixon Bassett MD[address] [facility] [address]Mnxvf: [phone]: [phone] COMPLAINT:AFIBHISTORY OF PRESENT ILLNESS:Linda Sosa is a 67 year old male who presents today to follow up. Historyincludes AFIB status post cardioversion 10/14/17, CAD, HTN. He was successfullycardioverted to sinus rhythm 10/14/17. EKG today demonstrates atrialfibrillation, ventricular rate 62 bpm. Asymptomatic, unaware of when hereverted back to atrial fibrillation. He drinks up to 3 cups of coffee perday. Denies chest pain, shortness of breath, orthopnea, cough, edema,palpitations, PND, lightheadedness or syncope with activity.PAST MEDICAL HISTORYDiagnosis Date- CAD (coronary artery disease) 10/02/13- High blood sugar- HTN (hypertension) 1995- Hyperlipidemia 1995- Osteoarthritis- Paroxysmal atrial fibrillation (HCC) 09/28/13- Right retinal artery branch occlusion 1995- Sleep apneaPAST SURGICAL HISTORYProcedure Laterality Date- APPENDECTOMY- CARDIAC CATH 10/02/13 50% mid LM. Proxima LAD ENVIRONMENTAL RESTORATION PLANNER with L-L collateral. Proximal RCA ENVIRONMENTAL RESTORATION PLANNER. Co-dominatLCX with L-R collateral. EF 55%.- COLONOSCOPY 09/14/13- REMV CATARACT EXTRACAP,INSERT LENS 2007 Cataract Extraction with PC IOLSocial HistorySubstance Use Topics- Smoking status: Former Smoker Packs/day: 1.00 Years: 30.00 Types: Cigarettes Quit date: 10/03/2013- Smokeless tobacco: Never Used- Alcohol use 3.0 - 4.5 oz/week 2 - 3 Cans of Beer (12oz) per weekFAMILY HISTORYProblem Relation Age of Onset- Stroke Mother in her 80's- Heart Father MT, in mid 50 s.- Coronary Artery Disease Brother MT, in his 40's. in his 50's.ALLERGIES:ALLERGIESAllerg en Reactions- Aldactone [Spironol* Other: See Comments Muscle crapmMEDICATIONS:metFORMIN (GLUCOPHAGE) 500 mg tablet Take 500 mg by mouth twice daily.amLODIPine (NORVASC) 10 mg tablet Take 1 tablet by mouth once daily.Fenofibrate (LOFIBRA) 160 mg tablet Take 160 mg by mouth once daily.carvedilol (COREG) 25 mg tablet Take 25 mg by mouth twice daily with meals.pravastatin (PRAVACHOL) 40 mg tablet Take 40 mg by mouth once daily.lisinopril 40 mg tablet Take 40 mg by mouth once daily.rivaroxaban (XARELTO) 20 mg tablet Take 20 mg by mouth daily with dinner.aspirin, enteric coated (ADULT LOW DOSE ASPIRIN) 81 mg EC tablet Take 1 tabletby mouth once daily.amoxicillin (POLYMOX, AMOXIL) 500 mg capsule Take 500 mg by mouth every 8hours.REVIEW OF SYSTEMS:GENERAL: Negative for: Fever, Fatigue.CARDIAC: See HPI above.HEENT: Negative for: Ringing in Ears, nosebleeds, bleeding gums. AdequatedentitionNECK: Negative for: Pain, stiffnessRESPIRATORY: Negative for: Blood in sputum, wheezing.GASTROINTESTINAL: Negative for: Trouble swallowing, blood in stoolMUSCULOSKELETAL: Negative for: Joint stiffness and painNEUROLOGIC: Negative for: Numbness, tremorsPSYCHIATRIC: Negative for: Anxiety, depressionSKIN: Negative for: Rashes, itchingHEMATOLOGICAL/LYMPHATIC : Negative for: Easy bruising, easy bleeding, painfullymph nodesI personally interviewed, confirmed and edited the above information ifobtained by others.PHYSICAL EXAMINATION:BP 139/76 (BP Site: Left Arm, BP Position: Sitting, BP Cuff Size: Large Adult) Pulse 69 Resp 16 SpO2 97%General: Well appearing, in no acute distress. ObeseNeuro: Oriented to person, place and time, alert, cooperative.Eyes: Extra ocular movements intact, pupils react to lightNeck: No jugular venous distention, no palpable thyromegaly.Heart irregular rhythm, S1, S2 normal, no S3, no S4. No murmur.Lungs: Clear to auscultation bilaterally. Good respiratory effort.Abdomen: Soft, nontender, bowel sounds normal, no palpable hepatosplenomegalySkin: No clubbing, no cyanosis.Extremities: Normal pulses in distal lower extremities. Absent lower extremityedemaEKG 10/22/17 atrial fibrillation ventricular rate 62 bpmIMPRESSION/PLAN:Linda Sosa is a 67 year old male with history of AFIB, HTN, CAD here forfollow upAtrial fibrillation: Persistent, rate controlled atrial fibrillation today.Reinforced a modest caffeine diet. Continue AV radha blockade and Xarelto(rivaroxaban) for thromboembolic risk reductionCoronary artery disease: Stable, no evidence of angina on recent history. Knownoccluded proximal RCA and LAD with collaterals. Moderate left main stenosis. Ihave recommended the ATP III guidelines that suggest a multifactorial approachto lifestyle modification including a low fat (reduced intake of saturated fats(< 7% of total energy intake) and cholesterol (< 200 mg/d)) and low sodiumdiet, weight management, and moderate aerobic exercise >150 minutes per week astolerated. Continue aspirin, beta yasmine, MATTY-I, statinHypertension: Adequately controlled at homeTobacco use: I have stressed the importance of tobacco abstinence and havecounseled the patient regarding the severe adverse cardiovascular effects oftobacco use.Disposition: Follow up in clinic in 6 months. Pending studies: NoneCONTACT INFORMATION:Thank you for allowing us to assist in the care your patient. As always pleasedo not hesitate to contact us with further questions or concerns.Holden Edwards M.D.Doroteo Aguilera of Cardiovascular MedicineAurora East Hospital and Vascular InstituteSydney Ville [address].[place], [place] [address]Lrizkh: [phone] Referring Provider: NIXON BASSETT [[id number]]Allergies As of Date: 10/22/2017 Noted Allergy ReactionALDACTONE (SPIRONOLACTONE) 11/04/2015 14 - Other: See Comments Comments: Muscle crapmDate Reviewed: 10/22/2017Reviewed by: Gasper Louie RN - Fully AssessedPrimary Visit Diagnosis:Atrial fibrillation, unspecified type (HCC) [I48.91]Order(s):ECG B/O W INTERP (MED OFFICE) [ECG06] Order #: [id number] as of 10/22/2017 Sig: METFORMIN 500 MG TABLET Take 500 mg by mouth twice da* AMLODIPINE 10 MG TABLET Take 1 tablet by mouth once d* FENOFIBRATE 160 MG TABLET Take 160 mg by mouth once genevieve* CARVEDILOL 25 MG TABLET Take 25 mg by mouth twice genevieve* PRAVASTATIN 40 MG TABLET Take 40 mg by mouth once north* LISINOPRIL 40 MG TABLET Take 40 mg by mouth once north* RIVAROXABAN 20 MG TABLET Take 20 mg by mouth daily wit* ASPIRIN 81 MG TABLET,DELAYED * Take 1 tablet by mouth once d* AMOXICILLIN 500 MG CAPSULE Take 500 mg by mouth every 8 *Problem List As Of Date 10/22/2017 Noted Resolved Atrial fibrillation (HCC) [I48.91] INVALID FOR* Abnormal stress test [R94.39] INVALID FOR* Hypertension [I10] INVALID FOR* CAD (coronary artery disease) [I25.10] INVALID FOR* Hyperlipidemia [E78.5] INVALID FOR*Disposition: Return in about 6 months (around 04/24/2018).Follow-up and Disposition History RecordedEncounter Number: [id number] Status:Closed by HOLDEN EDWARDS MD on 10/22/17 Normal [facility] PROGRESSon 10-21-2017 Protein mass conc HNO ID: [id number] thor: Lamar Edwards: (none)Author Type: PhysicianType: Progress NotesFiled: 10/22/2017 9:28 AMNote Text:Heart and Vascular InstituteRobert and Randee Mcneal Department of Cardiovascular MedicineOUTPATIENT VISIT DATE10/22/17OUTPATIENT VISIT TYPEESTABLISHEDPRIMARY CARE PHYSICIAN:Nixon Bassett MD[address] [facility] [address]Yrqvc: [phone]: [phone] COMPLAINT:AFIBHISTORY OF PRESENT ILLNESS:Linda Sosa is a 67 year old male who presents today to follow up.History includes AFIB status post cardioversion 10/14/17, CAD, HTN. He wassuccessfully cardioverted to sinus rhythm 10/14/17. EKG today demonstratesatrial fibrillation, ventricular rate 62 bpm. Asymptomatic, unaware ofwhen he reverted back to atrial fibrillation. He drinks up to 3 cups ofcoffee per day. Denies chest pain, shortness of breath, orthopnea, cough,edema, palpitations, PND, lightheadedness or syncope with activity.PAST MEDICAL HISTORYDiagnosis Date- CAD (coronary artery disease) 10/02/13- High blood sugar- HTN (hypertension) 1995- Hyperlipidemia 1995- Osteoarthritis- Paroxysmal atrial fibrillation (HCC) 09/28/13- Right retinal artery branch occlusion 1995- Sleep apneaPAST SURGICAL HISTORYProcedure Laterality Date- APPENDECTOMY- CARDIAC CATH 10/02/13 50% mid LM. Proxima LAD ENVIRONMENTAL RESTORATION PLANNER with L-L collateral. Proximal RCA ENVIRONMENTAL RESTORATION PLANNER.Co-dominat LCX with L-R collateral. EF 55%.- COLONOSCOPY 09/14/13- REMV CATARACT EXTRACAP,INSERT LENS 2007 Cataract Extraction with PC IOLSocial HistorySubstance Use Topics- Smoking status: Former Smoker Packs/day: 1.00 Years: 30.00 Types: Cigarettes Quit date: 10/03/2013- Smokeless tobacco: Never Used- Alcohol use 3.0 - 4.5 oz/week 2 - 3 Cans of Beer (12oz) per weekFAMILY HISTORYProblem Relation Age of Onset- Stroke Mother in her 80's- Heart Father MT, in mid 50 s.- Coronary Artery Disease Brother MT, in his 40's. in his 50's.ALLERGIES:ALLERGIESAllerg en Reactions- Aldactone [Spironol* Other: See Comments Muscle crapmMEDICATIONS:metFORMIN (GLUCOPHAGE) 500 mg tablet Take 500 mg by mouth twice daily.amLODIPine (NORVASC) 10 mg tablet Take 1 tablet by mouth once daily.Fenofibrate (LOFIBRA) 160 mg tablet Take 160 mg by mouth once daily.carvedilol (COREG) 25 mg tablet Take 25 mg by mouth twice daily withmeals.pravastatin (PRAVACHOL) 40 mg tablet Take 40 mg by mouth once daily.lisinopril 40 mg tablet Take 40 mg by mouth once daily.rivaroxaban (XARELTO) 20 mg tablet Take 20 mg by mouth daily with dinner.aspirin, enteric coated (ADULT LOW DOSE ASPIRIN) 81 mg EC tablet Take 1tablet by mouth once daily.amoxicillin (POLYMOX, AMOXIL) 500 mg capsule Take 500 mg by mouth every 8hours.REVIEW OF SYSTEMS:GENERAL: Negative for: Fever, Fatigue.CARDIAC: See HPI above.HEENT: Negative for: Ringing in Ears, nosebleeds, bleeding gums. AdequatedentitionNECK: Negative for: Pain, stiffnessRESPIRATORY: Negative for: Blood in sputum, wheezing.GASTROINTESTINAL: Negative for: Trouble swallowing, blood in stoolMUSCULOSKELETAL: Negative for: Joint stiffness and painNEUROLOGIC: Negative for: Numbness, tremorsPSYCHIATRIC: Negative for: Anxiety, depressionSKIN: Negative for: Rashes, itchingHEMATOLOGICAL/LYMPHATIC : Negative for: Easy bruising, easy bleeding,painful lymph nodesI personally interviewed, confirmed and edited the above information ifobtained by others.PHYSICAL EXAMINATION:BP 139/76 (BP Site: Left Arm, BP Position: Sitting, BP Cuff Size: LargeAdult) Pulse 69 Resp 16 SpO2 97%General: Well appearing, in no acute distress. ObeseNeuro: Oriented to person, place and time, alert, cooperative.Eyes: Extra ocular movements intact, pupils react to lightNeck: No jugular venous distention, no palpable thyromegaly.Heart irregular rhythm, S1, S2 normal, no S3, no S4. No murmur.Lungs: Clear to auscultation bilaterally. Good respiratory effort.Abdomen: Soft, nontender, bowel sounds normal, no palpablehepatosplenomegalySkin : No clubbing, no cyanosis.Extremities: Normal pulses in distal lower extremities. Absent lowerextremity edemaEKG 10/22/17 atrial fibrillation ventricular rate 62 bpmIMPRESSION/PLAN:Linda Sosa is a 67 year old male with history of AFIB, HTN, CAD herefor follow upAtrial fibrillation: Persistent, rate controlled atrial fibrillationtoday. Reinforced a modest caffeine diet. Continue AV radha blockade andXarelto (rivaroxaban) for thromboembolic risk reductionCoronary artery disease: Stable, no evidence of angina on recent history.Known occluded proximal RCA and LAD with collaterals. Moderate left mainstenosis. I have recommended the ATP III guidelines that suggest amultifactorial approach to lifestyle modification including a low fat(reduced intake of saturated fats (< 7% of total energy intake) andcholesterol (< 200 mg/d)) and low sodium diet, weight management, andmoderate aerobic exercise >150 minutes per week as tolerated. Continueaspirin, beta yasmine, MATTY-I, statinHypertension: Adequately controlled at homeTobacco use: I have stressed the importance of tobacco abstinence and havecounseled the patient regarding the severe adverse cardiovascular effectsof tobacco use.Disposition: Follow up in clinic in 6 months. Pending studies: NoneCONTACT INFORMATION:Thank you for allowing us to assist in the care your patient. As alwaysplease do not hesitate to contact us with further questions or concerns.Holden Edwards M.D.Doroteo Aguilera of Cardiovascular MedicineAvita Health System Ontario Hospitalrt and Vascular InstituteMichael Ville [address] [address] Av[address]B[place], [place] [address]Kbnndk: [phone] Normal [facility] CNOVon 08-28-2017 CNOV Office Visit (CARDFT) NO LINDA VALDEZ ([id number]) 1950 [facility] Department08/28/17 11:00 AM HOLDEN EDWARDS During your visit today, we recorded the following information about you: Pulse Respiration Blood pressure 64/minute 14/minute 147/91Holden Edwards MD 08/28/2017 11:03 AM [facility] Vascular InstituteRobuniversity of new [facility] Department of Cardiovascular MedicineOUTPATIENT VISIT DATE08/28/17OUTPATIENT VISIT TYPEESTABLISHEDPRIMARY CARE PHYSICIAN:Nixon Bassett MD[address] [facility] [address]Fdyzp: [phone]: [phone] COMPLAINT:AFIBHISTORY OF PRESENT ILLNESS:Linda Sosa is a 67 year old male who presents today to follow up. Historyincludes AFIB, CAD, HTN. Quit tobacco. Drinks several cups of coffee per day. Has some degree of fatigue. Denies chest pain, shortness of breath,orthopnea, cough, edema, palpitations, PND, lightheadedness or syncope withactivity.PAST MEDICAL HISTORYDiagnosis Date- CAD (coronary artery disease) 10/02/13- High blood sugar- HTN (hypertension) 1995- Hyperlipidemia 1995- Osteoarthritis- Paroxysmal atrial fibrillation (HCC) 09/28/13- Right retinal artery branch occlusion 1995- Sleep apneaPAST SURGICAL HISTORYProcedure Laterality Date- APPENDECTOMY- CARDIAC CATH 10/02/13 50% mid LM. Proxima LAD ENVIRONMENTAL RESTORATION PLANNER with L-L collateral. Proximal RCA ENVIRONMENTAL RESTORATION PLANNER. Co-dominatLCX with L-R collateral. EF 55%.- COLONOSCOPY 09/14/13- REMV CATARACT EXTRACAP,INSERT LENS 2007 Cataract Extraction with PC IOLSocial HistorySubstance Use Topics- Smoking status: Former Smoker Packs/day: 1.00 Years: 30.00 Types: Cigarettes Quit date: 10/03/2013- Smokeless tobacco: Never Used- Alcohol use 3.0 - 4.5 oz/week 2 - 3 Cans of Beer (12oz) per weekFAMILY HISTORYProblem Relation Age of Onset- Stroke Mother in her 80's- Heart Father MT, in mid 50ANDquot;s.- Coronary Artery Disease Brother MT, in his 40's. in his 50's.ALLERGIES:ALLERGIESAllerg en Reactions- Aldactone [Spironol* Other: See Comments Muscle crapmMEDICATIONS:amoxicillin (POLYMOX, AMOXIL) 500 mg capsule Take 500 mg by mouth every 8hours.metFORMIN (GLUCOPHAGE) 500 mg tablet Take 500 mg by mouth twice daily.amLODIPine (NORVASC) 10 mg tablet Take 1 tablet by mouth once daily.Fenofibrate (LOFIBRA) 160 mg tablet Take 160 mg by mouth once daily.carvedilol (COREG) 25 mg tablet Take 25 mg by mouth twice daily with meals.pravastatin (PRAVACHOL) 40 mg tablet Take 40 mg by mouth once daily.lisinopril 40 mg tablet Take 40 mg by mouth once daily.rivaroxaban (XARELTO) 20 mg tablet Take 20 mg by mouth daily with dinner.aspirin, enteric coated (ADULT LOW DOSE ASPIRIN) 81 mg EC tablet Take 1 tabletby mouth once daily.REVIEW OF SYSTEMS:GENERAL: Negative for: Fever, Fatigue.CARDIAC: See HPI above.HEENT: Negative for: Ringing in Ears, nosebleeds, bleeding gums. AdequatedentitionNECK: Negative for: Pain, stiffnessRESPIRATORY: Negative for: Blood in sputum, wheezing.GASTROINTESTINAL: Negative for: Trouble swallowing, blood in stoolMUSCULOSKELETAL: Negative for: Joint stiffness and painNEUROLOGIC: Negative for: Numbness, tremorsPSYCHIATRIC: Negative for: Anxiety, depressionSKIN: Negative for: Rashes, itchingHEMATOLOGICAL/LYMPHATIC : Negative for: Easy bruising, easy bleeding, painfullymph nodesI personally interviewed, confirmed and edited the above information ifobtained by others.PHYSICAL EXAMINATION:BP 147/91 (BP Site: Left Arm, BP Position: Sitting, BP Cuff Size: RegularAdult) Pulse 64 Resp 14 SpO2 97%General: Well appearing, in no acute distress. ObeseNeuro: Oriented to person, place and time, alert, cooperative.Eyes: Extra ocular movements intact, pupils react to lightNeck: No jugular venous distention, no palpable thyromegaly.Heart: Irregular rhythm, S1, S2 normal, no S3, no S4. No murmur.Lungs: Clear to auscultation bilaterally. Good respiratory effort.Abdomen: Soft, nontender, bowel sounds normal, no palpable hepatosplenomegalySkin: No clubbing, no cyanosis.Extremities: Normal pulses in distal lower extremities. Absent lower extremityedemaEKG 08/28/17 atrial fibrillation ventricular rate 64 bpmIMPRESSION/PLAN:Linda Sosa is a 67 year old male with history of AFIB, HTN, CAD here forfollow upAtrial fibrillation: Paroxysmal, in rate controlled atrial fibrillation today.He will hold his Xarelto (rivaroxaban) for upcoming dental procedure thisSaturday and we will plan for cardioversion October 14 at 10 AM after morethan 30 days of uninterrupted anticoagulationCoronary artery disease: Stable, no evidence of angina on recent history. Knownoccluded proximal RCA and LAD with collaterals. Moderate left main stenosis. Ihave recommended the ATP III guidelines that suggest a multifactorial approachto lifestyle modification including a low fat (reduced intake of saturated fats(ANDlt; 7% of total energy intake) and cholesterol (ANDlt; 200 mg/d)) and lowsodium diet, weight management, and moderate aerobic exercise ANDgt;150 minutesper week as tolerated. Continue aspirin, beta yasmine, MATTY-I, statinHypertension: Adequately controlled at homeTobacco use: I have stressed the importance of tobacco abstinence and havecounseled the patient regarding the severe adverse cardiovascular effects oftobacco use.Disposition: Follow up in clinic one week after cardioversion Pending studies:Cardioversion October 14 at 10 AMCONTACT INFORMATION:Thank you for allowing us to assist in the care your patient. As always pleasedo not hesitate to contact us with further questions or concerns.Holden Edwards M.D.Doroteo Aguilera of Cardiovascular MedicineAvita Health System Ontario Hospitalrt and Vascular InstituteJoshua Ville [address]Office: [phone] Referring Provider: NIXON BASSETT [[id number]]Allergies As of Date: 08/28/2017 Noted Allergy ReactionALDACTONE (SPIRONOLACTONE) 11/04/2015 14 - Other: See Comments Comments: Muscle crapmDate Reviewed: 08/28/2017Reviewed by: Gasper Louie RN - Fully AssessedPrimary Visit Diagnosis:Atrial fibrillation, unspecified type (HCC) [I48.91] Other Visit Diagnosis:Coronary artery disease involving [place] heart without angina pectoris, unspecified vessel or lesion type [I25.10]Order(s):ECG COMPLETE W INTERPRETATION [ECG01] Order #: [id number] FUTUREPrescriptions as of 08/28/2017 Sig: AMOXICILLIN 500 MG CAPSULE Take 500 mg by mouth every 8 * METFORMIN 500 MG TABLET Take 500 mg by mouth twice da* AMLODIPINE 10 MG TABLET Take 1 tablet by mouth once d* FENOFIBRATE 160 MG TABLET Take 160 mg by mouth once genevieve* CARVEDILOL 25 MG TABLET Take 25 mg by mouth twice genevieve* PRAVASTATIN 40 MG TABLET Take 40 mg by mouth once north* LISINOPRIL 40 MG TABLET Take 40 mg by mouth once north* RIVAROXABAN 20 MG TABLET Take 20 mg by mouth daily wit* ASPIRIN 81 MG TABLET,DELAYED * Take 1 tablet by mouth once d*Medication notes this encounter AMOXICILLIN 500 MG CAPSULE >> Gasper Louie RN 08/28/2017 10:41 AM >> GASPER LOUIE RN SatAug 28, 2017 10:41 AM Received from: External Pharmacy METFORMIN 500 MG TABLET >> Gasper Louie RN 08/28/2017 10:41 AM >> GASPER LOUIE RN SatAug 28, 2017 10:41 AM Received from: External Pharmacy Received Sig: TAKE 1 TABLET BY MOUTH TWICE ADAYProblem List As Of Date 08/28/2017 Noted Resolved Atrial fibrillation (HCC) [I48.91] INVALID FOR* Abnormal stress test [R94.39] INVALID FOR* Hypertension [I10] INVALID FOR* CAD (coronary artery disease) [I25.10] INVALID FOR* Hyperlipidemia [E78.5] INVALID FOR* Status:Closed by HOLDEN EDWARDS MD on 08/28/17 Normal [facility] PROGRESSon 08-26-2017 Protein mass conc HNO ID: [id number] thor: Holden EdwardsSer: (none)Author Type: PhysicianType: Progress NotesFiled: 08/28/2017 11:03 AMNote Text:Heart and Vascular InstituteBeaumont and [facility] Department of Cardiovascular MedicineOUTPATIENT VISIT DATE08/28/17OUTPATIENT VISIT TYPEESTABLISHEDPRIMARY CARE PHYSICIAN:Nixon Bassett MD[address] [facility] [address]Cnvre: [phone]: [phone] COMPLAINT:AFIBHISTORY OF PRESENT ILLNESS:Linda Sosa is a 67 year old male who presents today to follow up.History includes AFIB, CAD, HTN. Quit tobacco. Drinks several cups ofcoffee per day. Has some degree of fatigue. Denies chest pain, shortnessof breath, orthopnea, cough, edema, palpitations, PND, lightheadedness orsyncope with activity.PAST MEDICAL HISTORYDiagnosis Date- CAD (coronary artery disease) 10/02/13- High blood sugar- HTN (hypertension) 1995- Hyperlipidemia 1995- Osteoarthritis- Paroxysmal atrial fibrillation (HCC) 09/28/13- Right retinal artery branch occlusion 1995- Sleep apneaPAST SURGICAL HISTORYProcedure Laterality Date- APPENDECTOMY- CARDIAC CATH 10/02/13 50% mid LM. Proxima LAD ENVIRONMENTAL RESTORATION PLANNER with L-L collateral. Proximal RCA ENVIRONMENTAL RESTORATION PLANNER.Co-dominat LCX with L-R collateral. EF 55%.- COLONOSCOPY 09/14/13- REMV CATARACT EXTRACAP,INSERT LENS 2007 Cataract Extraction with PC IOLSocial HistorySubstance Use Topics- Smoking status: Former Smoker Packs/day: 1.00 Years: 30.00 Types: Cigarettes Quit date: 10/03/2013- Smokeless tobacco: Never Used- Alcohol use 3.0 - 4.5 oz/week 2 - 3 Cans of Beer (12oz) per weekFAMILY HISTORYProblem Relation Age of Onset- Stroke Mother in her 80's- Heart Father MT, in mid 50 s.- Coronary Artery Disease Brother MT, in his 40's. in his 50's.ALLERGIES:ALLERGIESAllerg en Reactions- Aldactone [Spironol* Other: See Comments Muscle crapmMEDICATIONS:amoxicillin (POLYMOX, AMOXIL) 500 mg capsule Take 500 mg by mouth every 8hours.metFORMIN (GLUCOPHAGE) 500 mg tablet Take 500 mg by mouth twice daily.amLODIPine (NORVASC) 10 mg tablet Take 1 tablet by mouth once daily.Fenofibrate (LOFIBRA) 160 mg tablet Take 160 mg by mouth once daily.carvedilol (COREG) 25 mg tablet Take 25 mg by mouth twice daily withmeals.pravastatin (PRAVACHOL) 40 mg tablet Take 40 mg by mouth once daily.lisinopril 40 mg tablet Take 40 mg by mouth once daily.rivaroxaban (XARELTO) 20 mg tablet Take 20 mg by mouth daily with dinner.aspirin, enteric coated (ADULT LOW DOSE ASPIRIN) 81 mg EC tablet Take 1tablet by mouth once daily.REVIEW OF SYSTEMS:GENERAL: Negative for: Fever, Fatigue.CARDIAC: See HPI above.HEENT: Negative for: Ringing in Ears, nosebleeds, bleeding gums. AdequatedentitionNECK: Negative for: Pain, stiffnessRESPIRATORY: Negative for: Blood in sputum, wheezing.GASTROINTESTINAL: Negative for: Trouble swallowing, blood in stoolMUSCULOSKELETAL: Negative for: Joint stiffness and painNEUROLOGIC: Negative for: Numbness, tremorsPSYCHIATRIC: Negative for: Anxiety, depressionSKIN: Negative for: Rashes, itchingHEMATOLOGICAL/LYMPHATIC : Negative for: Easy bruising, easy bleeding,painful lymph nodesI personally interviewed, confirmed and edited the above information ifobtained by others.PHYSICAL EXAMINATION:BP 147/91 (BP Site: Left Arm, BP Position: Sitting, BP Cuff Size: RegularAdult) Pulse 64 Resp 14 SpO2 97%General: Well appearing, in no acute distress. ObeseNeuro: Oriented to person, place and time, alert, cooperative.Eyes: Extra ocular movements intact, pupils react to lightNeck: No jugular venous distention, no palpable thyromegaly.Heart: Irregular rhythm, S1, S2 normal, no S3, no S4. No murmur.Lungs: Clear to auscultation bilaterally. Good respiratory effort.Abdomen: Soft, nontender, bowel sounds normal, no palpablehepatosplenomegalySkin : No clubbing, no cyanosis.Extremities: Normal pulses in distal lower extremities. Absent lowerextremity edemaEKG 08/28/17 atrial fibrillation ventricular rate 64 bpmIMPRESSION/PLAN:Linda Sosa is a 67 year old male with history of AFIB, HTN, CAD herefor follow upAtrial fibrillation: Paroxysmal, in rate controlled atrial fibrillationtoday. He will hold his Xarelto (rivaroxaban) for upcoming dentalprocedure this Saturday and we will plan for cardioversion October 14at 10 AM after more than 30 days of uninterrupted anticoagulationCoronary artery disease: Stable, no evidence of angina on recent history.Known occluded proximal RCA and LAD with collaterals. Moderate left mainstenosis. I have recommended the ATP III guidelines that suggest amultifactorial approach to lifestyle modification including a low fat(reduced intake of saturated fats (< 7% of total energy intake) andcholesterol (< 200 mg/d)) and low sodium diet, weight management, andmoderate aerobic exercise >150 minutes per week as tolerated. Continueaspirin, beta yasmine, MATTY-I, statinHypertension: Adequately controlled at homeTobacco use: I have stressed the importance of tobacco abstinence and havecounseled the patient regarding the severe adverse cardiovascular effectsof tobacco use.Disposition: Follow up in clinic one week after cardioversion Pendingstudies: Cardioversion October 14 at 10 AMCONTACT INFORMATION:Thank you for allowing us to assist in the care your patient. As alwaysplease do not hesitate to contact us with further questions or concerns.Holden Edwards M.D.Doroteo Carterpartment of Cardiovascular MedicineAvita Health System Ontario Hospitalrt and Vascular InstituteMichael Ville [address] [address], [place] [address]Fghsuc: [phone] Normal [facility] CNOVon 08-23-2017 CNOV Office Visit (CARDFT) NO LINDA VALDEZ ([id number]) 1950 MDate Time Provider Department08/23/17 10:30 AM HOLDEN EDWARDS During your visit today, we recorded the following information about you: Pulse Respiration Blood pressure Weight 60/minute 18/minute 138/83 111.1 kg Height 1.956 Brian Edwards MD 08/23/2017 10:45 AM [facility] InstituteRobert and [facility] Department of Cardiovascular MedicineOUTPATIENT VISIT DATE 08/23/17OUTPATIENT VISIT TYPEESTABLISHEDPRIMARY CARE PHYSICIAN:Nixon Bassett MD[address] [facility] [address]Apefv: [phone]: [phone] COMPLAINT:AFIBHISTORY OF PRESENT ILLNESS:Linda Sosa is a 67 year old male who presents today to follow up. Historyincludes AFIB, CAD, HTN. He had picked up tobacco recently but quit 3 daysago. No other changes in his usual routine. Does yard work, house work, walksfor exercise though less so recently because of the cold weather. Denies chestpain, shortness of breath, orthopnea, cough, edema, palpitations, PND,lightheadedness or syncope with activity.PAST MEDICAL HISTORYDiagnosis Date- CAD (coronary artery disease) 10/02/13- High blood sugar- HTN (hypertension) 1995- Hyperlipidemia 1995- Osteoarthritis- Paroxysmal atrial fibrillation (HCC) 09/28/13- Right retinal artery branch occlusion 1995- Sleep apneaPAST SURGICAL HISTORYProcedure Laterality Date- APPENDECTOMY- CARDIAC CATH 10/02/13 50% mid LM. Proxima LAD ENVIRONMENTAL RESTORATION PLANNER with L-L collateral. Proximal RCA ENVIRONMENTAL RESTORATION PLANNER. Co-dominatLCX with L-R collateral. EF 55%.- COLONOSCOPY 09/14/13- REMV CATARACT EXTRACAP,INSERT LENS 2007 Cataract Extraction with PC IOLSocial HistorySubstance Use Topics- Smoking status: Former Smoker Packs/day: 1.00 Years: 30.00 Types: Cigarettes Quit date: 10/03/2013- Smokeless tobacco: Never Used- Alcohol use 3.0 - 4.5 oz/week 2 - 3 Cans of Beer (12oz) per weekFAMILY HISTORYProblem Relation Age of Onset- Stroke Mother in her 80's- Heart Father MT, in mid 50ANDquot;s.- Coronary Artery Disease Brother MT, in his 40's. in his 50's.ALLERGIES:ALLERGIESAllerg en Reactions- Aldactone [Spironol* Other: See Comments Muscle crapmMEDICATIONS:amLODIPine (NORVASC) 10 mg tablet Take 1 tablet by mouth once daily.Fenofibrate (LOFIBRA) 160 mg tablet Take 160 mg by mouth once daily.carvedilol (COREG) 25 mg tablet Take 25 mg by mouth twice daily with meals.pravastatin (PRAVACHOL) 40 mg tablet Take 40 mg by mouth once daily.lisinopril 40 mg tablet Take 40 mg by mouth once daily.rivaroxaban (XARELTO) 20 mg tablet Take 20 mg by mouth daily with dinner.aspirin, enteric coated (ADULT LOW DOSE ASPIRIN) 81 mg EC tablet Take 1 tabletby mouth once daily.REVIEW OF SYSTEMS:GENERAL: Negative for: Fever, Fatigue.CARDIAC: See HPI above.HEENT: Negative for: Ringing in Ears, nosebleeds, bleeding gums. AdequatedentitionNECK: Negative for: Pain, stiffnessRESPIRATORY: Negative for: Blood in sputum, wheezing.GASTROINTESTINAL: Negative for: Trouble swallowing, blood in stoolMUSCULOSKELETAL: Negative for: Joint stiffness and painNEUROLOGIC: Negative for: Numbness, tremorsPSYCHIATRIC: Negative for: Anxiety, depressionSKIN: Negative for: Rashes, itchingHEMATOLOGICAL/LYMPHATIC : Negative for: Easy bruising, easy bleeding, painfullymph nodesI personally interviewed, confirmed and edited the above information ifobtained by others.PHYSICAL EXAMINATION:BP 138/83 Pulse 60 Resp 18 Ht 195.6 cm (6' 5ANDquot;) Wt 111.1 kg (245lb) SpO2 98% BMI 29.05 kg/w6Fffjmet: Well appearing, in no acute distress. ObeseNeuro: Oriented to person, place and time, alert, cooperative.Eyes: Extra ocular movements intact, pupils react to lightNeck: No jugular venous distention, no palpable thyromegaly.Heart: Irregular rhythm, S1, S2 normal, no S3, no S4. No murmur.Lungs: Clear to auscultation bilaterally. Good respiratory effort.Abdomen: Soft, nontender, bowel sounds normal, no palpable hepatosplenomegalySkin: No clubbing, no cyanosis.Extremities: Normal pulses in distal lower extremities. Absent lower extremityedemaEKG 08/23/17 atrial fibrillation ventricular rate 60 bpm with nonspecific STflatteningIMPRESSION/PLAN:Melinda Sosa is a 67 year old male with history of AFIB, HTN, CAD here forfollow upAtrial fibrillation: Paroxysmal, in rate controlled atrial fibrillation today.He stopped smoking 3 days ago. We'll reassess next week, and discussedcardioversion if he has not returned to sinus rhythm after quitting tobacco.Continue beta yasmine, Xarelto.Coronary artery disease: Stable, no evidence of angina on recent history. Knownoccluded proximal RCA and LAD with collaterals. Moderate left main stenosis. Ihave recommended the ATP III guidelines that suggest a multifactorial approachto lifestyle modification including a low fat (reduced intake of saturated fats(ANDlt; 7% of total energy intake) and cholesterol (ANDlt; 200 mg/d)) and lowsodium diet, weight management, and moderate aerobic exercise ANDgt;150 minutesper week as tolerated. Continue aspirin, beta yasmine, MATTY-I, statinHypertension: Adequately controlled at homeTobacco use: I have stressed the importance of tobacco abstinence and havecounseled the patient regarding the severe adverse cardiovascular effects oftobacco use.Disposition: Follow up in clinic next Saturday for EKG. Pending studies: EKGnext week, discussed cardioversion if not returned to sinus rhythmCONTACT INFORMATION:Thank you for allowing us to assist in the care your patient. As always pleasedo not hesitate to contact us with further questions or concerns.Holden Edwards M.D.Doroteo Aguilera of Cardiovascular MedicineAvita Health System Ontario Hospitalrt and Vascular InstituteMichael Ville [address] [address], [place] [address]Ogvpob: [phone] Referring Provider: NIXON BASSETT [[id number]]Allergies As of Date: 08/23/2017 Noted Allergy ReactionALDACTONE (SPIRONOLACTONE) 11/04/2015 14 - Other: See Comments Comments: Muscle crapmDate Reviewed: 08/23/2017Reviewed by: Chino Smith (Rn) MAGALIS John - Fully AssessedPrimary Visit Diagnosis:Atrial fibrillation, unspecified type (HCC) [I48.91]Prescriptions as of 08/23/2017 Sig: AMLODIPINE 10 MG TABLET Take 1 tablet by mouth once d* FENOFIBRATE 160 MG TABLET Take 160 mg by mouth once genevieve* CARVEDILOL 25 MG TABLET Take 25 mg by mouth twice genevieve* PRAVASTATIN 40 MG TABLET Take 40 mg by mouth once north* LISINOPRIL 40 MG TABLET Take 40 mg by mouth once north* RIVAROXABAN 20 MG TABLET Take 20 mg by mouth daily wit* ASPIRIN 81 MG TABLET,DELAYED * Take 1 tablet by mouth once d*Problem List As Of Date 08/23/2017 Noted Resolved Atrial fibrillation (HCC) [I48.91] INVALID FOR* Abnormal stress test [R94.39] INVALID FOR* Hypertension [I10] INVALID FOR* CAD (coronary artery disease) [I25.10] INVALID FOR* Hyperlipidemia [E78.5] INVALID FOR*Disposition: Return in about 1 week (around 08/30/2017).Follow-up and Disposition History RecordedEncounter Number: [id number] Status:Closed by HOLDEN EDWARDS MD on 08/23/17 Normal [facility] PROGRESSon 08-22-2017 Protein mass conc HNO ID: [id number] thor: Holden EdwardsSer: (none)Author Type: PhysicianType: Progress NotesFiled: 08/23/2017 10:45 AMNote Text:Heart and Vascular [facility] Department of Cardiovascular MedicineOUTPATIENT VISIT DATE 08/23/17OUTPATIENT VISIT TYPEESTABLISHEDPRASHE MEMORIAL HOSPITALRY CARE PHYSICIAN:Nixon Bassett MD[address] [facility] [address]Ughwe: [phone]: [phone] COMPLAINT:AFIBHISTORY OF PRESENT ILLNESS:Lnida Sosa is a 67 year old male who presents today to follow up.History includes AFIB, CAD, HTN. He had picked up tobacco recently butquit 3 days ago. No other changes in his usual routine. Does yard work,house work, walks for exercise though less so recently because of the coldweather. Denies chest pain, shortness of breath, orthopnea, cough, edema,palpitations, PND, lightheadedness or syncope with activity.PAST MEDICAL HISTORYDiagnosis Date- CAD (coronary artery disease) 10/02/13- High blood sugar- HTN (hypertension) 1995- Hyperlipidemia 1995- Osteoarthritis- Paroxysmal atrial fibrillation (HCC) 09/28/13- Right retinal artery branch occlusion 1995- Sleep apneaPAST SURGICAL HISTORYProcedure Laterality Date- APPENDECTOMY- CARDIAC CATH 10/02/13 50% mid LM. Proxima LAD ENVIRONMENTAL RESTORATION PLANNER with L-L collateral. Proximal RCA ENVIRONMENTAL RESTORATION PLANNER.Co-dominat LCX with L-R collateral. EF 55%.- COLONOSCOPY 09/14/13- REMV CATARACT EXTRACAP,INSERT LENS 2007 Cataract Extraction with PC IOLSocial HistorySubstance Use Topics- Smoking status: Former Smoker Packs/day: 1.00 Years: 30.00 Types: Cigarettes Quit date: 10/03/2013- Smokeless tobacco: Never Used- Alcohol use 3.0 - 4.5 oz/week 2 - 3 Cans of Beer (12oz) per weekFAMILY HISTORYProblem Relation Age of Onset- Stroke Mother in her 80's- Heart Father MT, in mid 50 s.- Coronary Artery Disease Brother MT, in his 40's. in his 50's.ALLERGIES:ALLERGIESAllerg en Reactions- Aldactone [Spironol* Other: See Comments Muscle crapmMEDICATIONS:amLODIPine (NORVASC) 10 mg tablet Take 1 tablet by mouth once daily.Fenofibrate (LOFIBRA) 160 mg tablet Take 160 mg by mouth once daily.carvedilol (COREG) 25 mg tablet Take 25 mg by mouth twice daily withmeals.pravastatin (PRAVACHOL) 40 mg tablet Take 40 mg by mouth once daily.lisinopril 40 mg tablet Take 40 mg by mouth once daily.rivaroxaban (XARELTO) 20 mg tablet Take 20 mg by mouth daily with dinner.aspirin, enteric coated (ADULT LOW DOSE ASPIRIN) 81 mg EC tablet Take 1tablet by mouth once daily.REVIEW OF SYSTEMS:GENERAL: Negative for: Fever, Fatigue.CARDIAC: See HPI above.HEENT: Negative for: Ringing in Ears, nosebleeds, bleeding gums. AdequatedentitionNECK: Negative for: Pain, stiffnessRESPIRATORY: Negative for: Blood in sputum, wheezing.GASTROINTESTINAL: Negative for: Trouble swallowing, blood in stoolMUSCULOSKELETAL: Negative for: Joint stiffness and painNEUROLOGIC: Negative for: Numbness, tremorsPSYCHIATRIC: Negative for: Anxiety, depressionSKIN: Negative for: Rashes, itchingHEMATOLOGICAL/LYMPHATIC : Negative for: Easy bruising, easy bleeding,painful lymph nodesI personally interviewed, confirmed and edited the above information ifobtained by others.PHYSICAL EXAMINATION:BP 138/83 Pulse 60 Resp 18 Ht 195.6 cm (6' 5 ) Wt 111.1 kg (245lb) SpO2 98% BMI 29.05 kg/h3Hxjonpd: Well appearing, in no acute distress. ObeseNeuro: Oriented to person, place and time, alert, cooperative.Eyes: Extra ocular movements intact, pupils react to lightNeck: No jugular venous distention, no palpable thyromegaly.Heart: Irregular rhythm, S1, S2 normal, no S3, no S4. No murmur.Lungs: Clear to auscultation bilaterally. Good respiratory effort.Abdomen: Soft, nontender, bowel sounds normal, no palpablehepatosplenomegalySkin : No clubbing, no cyanosis.Extremities: Normal pulses in distal lower extremities. Absent lowerextremity edemaEKG 08/23/17 atrial fibrillation ventricular rate 60 bpm with nonspecific STflatteningIMPRESSION/PLAN:Melinda Sosa is a 67 year old male with history of AFIB, HTN, CAD herefor follow upAtrial fibrillation: Paroxysmal, in rate controlled atrial fibrillationtoday. He stopped smoking 3 days ago. We'll reassess next week, anddiscussed cardioversion if he has not returned to sinus rhythm afterquitting tobacco. Continue beta yasmine, Xarelto.Coronary artery disease: Stable, no evidence of angina on recent history.Known occluded proximal RCA and LAD with collaterals. Moderate left mainstenosis. I have recommended the ATP III guidelines that suggest amultifactorial approach to lifestyle modification including a low fat(reduced intake of saturated fats (< 7% of total energy intake) andcholesterol (< 200 mg/d)) and low sodium diet, weight management, andmoderate aerobic exercise >150 minutes per week as tolerated. Continueaspirin, beta yasmine, MATTY-I, statinHypertension: Adequately controlled at homeTobacco use: I have stressed the importance of tobacco abstinence and havecounseled the patient regarding the severe adverse cardiovascular effectsof tobacco use.Disposition: Follow up in clinic next Saturday for EKG. Pending studies:EKG next week, discussed cardioversion if not returned to sinus rhythmCONTACT INFORMATION:Thank you for allowing us to assist in the care your patient. As alwaysplease do not hesitate to contact us with further questions or concerns.Holden Edwards M.D.[facility] Carmenment of Cardiovascular MedicineHeart and Vascular InstituteSydney Ville [id number].[place], [place] [address]Iwmybx: [phone] Normal [facility] Vital Signs Date Time Vital Sign Value Performing Clinician Juanito moeller 02-22-2023 14:34-0400 Blood Pressure Location Keyon HUGHES [facility] 02-22-2023 14:34-0400 Diastolic blood pressure 70 mm[Hg] Keyon HUGHES [facility] 02-22-2023 14:34-0400 Heart rate 68 /min Keyon BERNALL [facility] 02-22-2023 14:34-0400 Respiratory rate 16 /min Keyon HUGHES [facility] 02-22-2023 14:34-0400 Systolic blood pressure 142 mm[Hg] Keyon HUGHES [facility] Encounters Encounter Date Encounter Type Care Provider Facility Start: 09-11-2023 End: 09-11-2023 ambulatory [facility] Start: 04-16-2023 End: 04-17-2023 ambulatory Keyon HUGHES Facility:[facility] Start: 04-16-2023 End: 04-16-2023 Patient encounter procedure Keyon HUGHES [facility] Start: 03-27-2023 End: 03-28-2023 ambulatory Keyon Raygoza ELLEN Facility:[facility] Start: 03-20-2023 End: 03-21-2023 ambulatory Keyon Raygoza ELLEN Facility:CD:[id number] Start: 02-22-2023 End: 02-23-2023 ambulatory Nixon Bassett Facility:[facility] Start: 02-22-2023 End: 02-22-2023 Patient encounter procedure Keyon HUGHES [facility] Nill/Said Sarah Start: 02-08-2023 ambulatory Nixon Bassett Facility:[facility] Start: 12-11-2022 End: 12-11-2022 ambulatory [facility] Start: 10-12-2022 End: 10-12-[address] NIXON BASSETT . Facility: Start: 10-11-2022 End: 10-12-[address] NIXON BASSETT . Facility: Start: 09-19-2020 End: 09-20-2020 ambulatory NIXON BASSETT Facility:[facility] Start: 04-30-2018 End: 05-13-2018 Patient encounter procedure MIKEY HERNANDEZ [facility] Start: 10-22-2017 End: 10-25-2017 Patient encounter procedure [facility] Start: 10-14-2017 End: 10-14-2017 Patient encounter procedure [facility] Start: 08-28-2017 End: 09-03-2017 Patient encounter procedure [facility] Start: 08-23-2017 End: 08-28-2017 Patient encounter procedure [facility] Procedures Date Procedure Procedure Detail Performing Clinician Start: 03-20-2023 Repair of right ingu inal hernia Keyon HUGHES Start: 10-11-[address] REVA BASSETT . Comment on above: Performed By: #### P [facility] #### [facility] [address] [place] [address] Dr. Estephania Small Start: 08-15-2020 Coronary artery bypa ss graft Keyon NILL Appendectomy Keyon NILL Vasectomy Keyon NILL Immunizations Immunization Date Immunization Notes Care Provider Fa cility 04-06-2022 SARS-CoV-2 (COVID-19 ) [id number] Keyon BERNALL [facility] 05-03-2021 SARS-CoV-2 (COVID-19 ) mRNA BNT-162b2 vax Keyon NILL [facility] 10-07-2020 SARS-CoV-2 (COVID-19 ) mRNA BNT-162b2 vax Keyon NILL [facility] Comment on above: Result Comment: 2022: [id number] 09-16-2020 SARS-CoV-2 (COVID-19 ) mRNA BNT-162b2 vax Keyon BERNALL [facility] Comment on above: Result Comment: 2022: [id number] Payers Date Payer Category Payer Medicare [id number] 1959 Medicare [id number] 1959 Private Health Insurance [facility] [id number] 1950 Unknown [id number] 2.16.8 [id number] 1950 Unknown [id number] 2.16.84 [id number] 1950 Unknown [id number] 2.16.84 [id number] 1950 Unknown [id number] 2.16.8 [id number] 1950 Unknown [id number] 2.16.8 [id number] 1950 Unknown [id number] 2.16.8 [id number] 1950 Unknown [id number] 2.16.8 [id number] 1950 Unknown [id number] 2.16.8 [id number] Social History Date Type Detail Facility Start: 02-22-2023 Tobacco smoking status Ex-smoker (fi nding) [facility] Tobacco smoking status Never [facility] Sex Assigned At Male [facility] Functional Status Date Assessment Result Facility 02-22-2023 Functional Status N/A [facility] Clinical Notes 09-20-2020 to 09-11-2023 Note Date & Type Note Facility 09-11-2023 Note [facility] Cardiology Clinic Note Chief Complaint: Patient here c/o hypertension and tachycardia. BP has been in the 120's lately so he's been taking an additional 25mg of carvedilol before bedtime. Denies chest pain, SOB, palpitations, and lightheadedness/syncope. HPI: Linda Sosa is a 73 y.o. male with a history of coronary artery disease, 4-vessel coronary artery bypass graft surgery and maze procedure in 2020, hypertension, dyslipidemia here in routine follow-up Cardiology ROS: Review of Systems Musculoskeletal: Positive for arthritis and joint pain. All other systems reviewed and are negative. Past Medical History He has a past medical history of Abnormal ECG, Arrhythmia, CHF (congestive heart failure) ([facility]), Chronic kidney disease, Coronary artery disease, Diabetes mellitus ([facility]), Hyperlipidemia, and Hypertension. Surgical History He has a past surgical history that includes CTA Chest W IV Contrast (09/20/2020); Vasectomy; Appendectomy; Cardiac catheterization; Coronary artery bypass graft; and Cardioversion. Social History He reports that he has quit smoking. His smoking use included cigarettes. He has never used smokeless tobacco. He reports current alcohol use. No history on file for drug use. Family History Family History Problem Relation Name Age of Onset Heart attack Father Heart attack Brother Allergies Patient has no known allergies. Medications Current Outpatient Medications: aspirin 81 mg EC tablet, Take 81 mg by mouth in the morning., Disp: , Rfl: atorvastatin (Lipitor) 80 mg tablet, TAKE 1 TABLET BY MOUTH EVERY DAY, Disp: 90 tablet, Rfl: 3 carvedilol (Coreg) 12.5 mg tablet, Take by mouth with breakfast and with evening meal., Disp: , Rfl: furosemide (Lasix) 80 mg tablet, Take 80 mg by mouth in the morning., Disp: , Rfl: isosorbide mononitrate ER (Imdur) 60 mg 24 hr tablet, 1 (one) time each day at the same time., Disp: , Rfl: lisinopril 20 mg tablet, Take 20 mg by mouth in the morning and at bedtime., Disp: , Rfl: magnesium oxide (Mag-Ox) 400 mg (241.3 mg magnesium) tablet, Take 1 tablet by mouth in the morning and at bedtime., Disp: , Rfl: metFORMIN (Glucophage) 500 mg tablet, Take 500 mg by mouth in the morning, afternoon, and at bedtime., Disp: , Rfl: potassium chloride CR (Klor-Con M20) 20 mEq ER tablet, Klor-Con M20 mEq tablet,extended release TAKE 1 TABLET BY MOUTH THREE TIMES A DAY, Disp: , Rfl: Last Recorded Vitals BP (!) 182/100 (BP Location: Right arm, Patient Position: Sitting) Pulse 62 Ht 1.943 m (6' 4.5 ) Wt 101 kg (222 lb) SpO2 97% BMI 26.67 kg/m??? Physical Examination: GENERAL: alert and oriented x3, well developed, in no acute distress. HEAD: atraumatic, normocephalic. EYES: PONCE, EOMI. NECK: trachea midline, no JVD present, no carotid bruits present. CARDIAC: S1, S2 present. RRR. No murmur, rubs, or gallops. RESPIRATORY: CTAB, no increased effort of breathing, no rales, rhonchi, or wheezing. ABDOMEN: soft, nontender, nondistended. EXTREMITIES: no lower extremity edema, peripheral pulses are 2+ bilaterally. No rash/skin discoloration present. NEURO: strength/sensation equal and symmetric in bilateral upper and lower extremities. PSYCH: appropriate mood, affect, and judgement. Labs: CBC normal Renal function normal Liver function normal Cholesterol level well controlled Last lab values have been reviewed CV Testin07/2021 Echo No echocardiogram results found for the past 12 months Operative report 08/25/2020: Coronary artery bypass grafting x 4; CORDOVA to LAD, saphenous vein graft to second diagonal and ramus intermedius, saphenous vein graft obtuse marginal 1 Extended left atrial cryo-maze procedure and exclusion of the left atrial appendage with 45 mm atrial clip device Endoscopic vein harvesting of the left greater saphenous vein Serum creatinine 1.18 02/2023 Assessment: Coronary artery disease, history of coronary artery bypass graft surgery 2020 Atrial fibrillation s/p Maze procedure; CT surgery discontinued his anticoagulation Tachycardia: Heart rates in the 120s to 140s; suspect recurrent atrial fibrillation Dyslipidemia Hypertension; poorly controlled Diastolic dysfunction Lower limits normal EF% (echo 2021) Plan: A 30-day event monitor; if recurrent atrial fibrillation is documented, he will need to restart Eliquis 5 mg p.o. twice daily Continue guideline directed medical therapy for coronary artery disease including aspirin, high intensity statin therapy, beta-yasmine and an angiotensin-converting enzyme inhibitor Given diabetes mellitus, I recommend initiation of an SGLT2 inhibitor in the form of Farxiga or Jardiance - These were financially prohibitive for the patient. Given uncontrolled hypertension, will increase his Coreg to 25 mg p.o. twice daily and add Chlorthalidone 25 mg daily (Developed gynecomastia on spironolactone in (more content not included)... [facility] 02-22-2023 Note Chief Complaint consultation for right inguinal hernia HPI Staff 73 year old male presents on consultation from Dr. Bassett for right inguinal hernia. Reports he noted right inguinal bulge approximately 2.5 years ago. He is unsure if this has changed in size since first noted. He believes bulge is always present. Denies this ever being red. Denies discomfort or soreness. Denies nausea, vomiting or bowel changes. No imaging completed. History of Present Illness 73 yo male with h/o CAD, s/p CABG x 4, htn, DMII, hyperlipidemia, DULCE MARIA, referred for right inguinal hernia; present for several years, slight increase in size, sore at times; no N/V or skin changes, no bowel changes; no imaging; no abdominal operations; hernia is limiting his ability to exercise; on baby asa daily, no NSAIDs; no tobacco use. Review of Systems PHQ Score Initial Depression Screen Score: 0 ROS - Provider Constitutional: no fever, no sweats, no weight loss. Eyes: no glasses, no blurred vision, no visual loss. ENMT: no dentures, no hoarseness, no swallowing difficulties, no hearing loss, no ear infection(s), no nose bleeds. Cardiovascular: normal blood pressure, no chest pain, regular heartbeat, no heart murmur. Respiratory: no shortness of breath, no cough, no asthma, no wheezing. Gastrointestinal: no nausea, no vomiting, no diarrhea, no constipation, no blood in stool, no change in bowel habits, no abdominal pain, no hepatitis. Genitourinary: no kidney stones, no urine infection, no dysuria. Musculoskeletal: no pain, no weakness. Skin: no changing moles, no rash, no skin lumps. Neurologic: no seizures, no epilepsy, no headache. Psychiatric: no emotional or psychiatric problem. Heme/Lymph: no bleeding problems, no anemia, no blood clots, no transfusions. Allergy/Immunologic: no swollen lymph nodes/glands, no IV drug abuse. Other: Additional ROS info: Except as noted in the above Review of Systems and in the History of Present Illness, all other systems have been reviewed and are negative or noncontributory. Physical Exam Vitals & Measurements HR: 68(Peripheral) RR: 16 BP: 142/70 HT: 76 in HT: 193 cm WT: 103.8 kg WT: 228.36 lb BMI: 27.87 HEENT: normal conjunctiva, sclera clear, no scleral icterus, EOM intact, PERRLA, oral mucosa moist without lesions. Neck: trachea midline, no mass, symmetric, no thyromegaly or nodules, no adenopathy Respiratory: lungs CTA, respirations non labored. Cardiovascular: regular rate and rhythm, no murmur, no pedal edema or varicosities. Gastrointestinal: soft, non distended, no tenderness, no masses, partially reducible right inguinal hernia, no skin changes, diastasis recti no, no hepatosplenomegaly; normal bs Lymphatic: no cervical adenopathy, no supraclavicular adenopathy, no inguinal adenopathy. Musculoskeletal: normal gait, digits and nails without infection, nodes, cyanosis, clubbing. Skin: no rashes, no lesions, no ulcers, no subcutaneous nodules, induration. Psychiatric/Neuro: oriented to time, place, person, judgement normal, affect appropriate for age, insight intact, no focal deficits. Tests: reviewed, review of old records completed, Discussed surgical options, risks, and possible complications with patient. Assessment/Plan 1. Right inguinal hernia (K40.90: Unilateral inguinal hernia, without obstruction or gangrene, not specified as recurrent) plan right inguinal herniorrhaphy with mesh insertion, informed consent obtained. Ancef 2 gms IV prior to OR TAP block per anesthesia SCDs Follow-up No qualifying data available Problem List/Past Medical History Ongoing Acute combined systolic (congestive) and diastolic (congestive) heart failure BMI 27.0-27.9,adult BPH (benign prostatic hyperplasia) Bradycardia CAD (coronary artery disease) Diabetes Essential hypertension Heart failure with reduced left ventricular function Hyperlipidemia Hypertriglyceridemia DULCE MARIA (obstructive sleep apnea) Overweight Paroxysmal A-fib Right inguinal hernia Historical High cholesterol Hypertension Procedure/Surgical History CABG - Coronary artery bypass graft (08/2020), Appendectomy, Vasectomy. Medications aspirin, 81 mg, Oral, Daily Coreg 6.25 mg Tab, 6.25 mg= 1 tab(s), Oral, BID isosorbide mononitrate 60 mg ER Tab, 60 mg= 1 tab(s), Oral, qAM Lasix 80 mg Tab, 80 mg= 1 tab(s), Oral, Daily lisinopril 20 mg Tab, 40 mg= 2 tab(s), Oral, Daily magnesium oxide 400 mg Tab, 400 mg= 1 tab(s), Oral, TID metformin 500 mg Tab, 500 mg= 1 tab(s), Oral, TID potassium chloride 20 mEq ER Tab, 20 mEq= 1 tab(s), Oral, TID Vitamin D3 5000 intl units oral capsule, 125 mcg= 1 cap(s), Oral, Daily Allergies No Known Allergies No Known Medication Allergies Social History Alcohol - Denies Alcohol Use, 02/22/2023 Substance Abuse - Denies Substance Abuse, 02/22/2023 Tobacco - Denies Tobacco Use, 02/22/2023 Former smoker, quit more than 30 days ago Tobacco Use:. Never Smokeless Tobacco Use: (more content not included)... [facility] Comment on above: Result Comment: Elec tronically Signed By: ELLEN MARTINEZ, Keyon Savage\Date and Time Signed: 02/22/23 16:24 EDT 12-11-2022 Note Hypertension is well controlled 133/70 Continue coreg and lisniopril, and imdur [facility] 12-11-2022 Note Lipid abnormalities are well controlled Liver function normal Continue lipitor [facility] 12-11-2022 Note Coronary artery dise ase is stable without any concerning symptoms. Continue GDMT- ASA, coreg, lisinopril, lipitor and imdur Denied any S/S associated with noted bradycardia- d/w pt that if he starts to have increased fatigue, lightheadedness, dizziness, syncope he needs to call office and may need to decrease coreg dose. continue risk factor modifications- heart healthy diet, regular exercise as tolerated and continue all medications. [facility] 12-11-2022 Note Denied any palpitati ons or reoccurance of a fib- CT surgery Dr Keily gillette'd anticoaguation Continue coreg [facility] 12-11-2022 Note Patient here for 1 y ear follow up CAD, atrial flutter, and chronic systolic heart failure. Had routine labs in September 2022. Doing very well. Denies chest pain, SOB, and palpitations. Review of Systems Musculoskeletal: Positive for arthritis and joint pain. All other systems reviewed and are negative. [facility] 12-11-2022 Note [facility] CARDIOLOGY PROGR ESS NOTE HPI: Linda Sosa is a 72 y.o. male here for CAD s/p CABG x3 and maze procedure 2020, HTN, HPL HPI Currently pt is doing quite well, denied any activity limiting symptoms. Denied chest pain, shortness of breath, orthopnea, leg swelling or weight gain. Review of Systems Constitutional: Negative. Respiratory: Negative. Cardiovascular: Negative. Neurological: Negative. All other systems reviewed and are negative. Visit Vitals BP 133/70 (BP Location: Left arm, Patient Position: Sitting) Pulse 50 Ht 1.943 m (6' 4.5 ) Wt 104 kg (229 lb) SpO2 97% BMI 27.51 kg/m??? Smoking Status Former BSA 2.37 m??? No Known Allergies Medications: Current Outpatient Medications on File Prior to Visit Medication Sig Dispense Refill aspirin 81 mg EC tablet Take 81 mg by mouth in the morning. atorvastatin (Lipitor) 80 mg tablet TAKE 1 TABLET BY MOUTH EVERY DAY 90 tablet 3 carvedilol (Coreg) 12.5 mg tablet Take by mouth with breakfast and with evening meal. furosemide (Lasix) 80 mg tablet Take 80 mg by mouth in the morning. isosorbide mononitrate ER (Imdur) 60 mg 24 hr tablet 1 (one) time each day at the same time. lisinopril 20 mg tablet Take 20 mg by mouth in the morning and at bedtime. magnesium oxide (Mag-Ox) 400 mg (241.3 mg magnesium) tablet Take 1 tablet by mouth in the morning and at bedtime. metFORMIN (Glucophage) 500 mg tablet Take 500 mg by mouth in the morning, afternoon, and at bedtime. potassium chloride CR (Klor-Con M20) 20 mEq ER tablet Klor-Con M20 mEq tablet,extended release TAKE 1 TABLET BY MOUTH THREE TIMES A DAY No current facility-administered medications on file prior to visit. Physical Exam: Constitutional: Appearance: Normal appearance. Without apparent distress HENT: Head: Normocephalic and atraumatic. Nose: Nose normal. Mouth/Throat: Mouth: Mucous membranes are moist. Eyes: Extraocular Movements: Extraocular movements intact. Conjunctiva/sclera: Conjunctivae normal. Neck: Vascular: No JVD. Cardiovascular: Rate and Rhythm: Normal rate and regular rhythm. Pulses: Dorsalis pedis pulses are 3 on the right side and 3on the left side. Posterior tibial pulses are 3 on the right side and 3 on the left side. Heart sounds: Normal heart sounds, S1 normal and S2 normal. Pulmonary: Effort: Pulmonary effort is normal. Breath sounds: Normal breath sounds. Abdominal: General: Bowel sounds are normal. Palpations: Abdomen is soft. Musculoskeletal: General: Normal range of motion. Cervical back: Normal range of motion. Right lower leg: No edema. Left lower leg: No edema. Skin: General: Skin is warm and dry. Capillary Refill: Capillary refill takes less than 2 seconds. Neurological: General: No focal deficit present. Mental Status: alert and oriented to person, place, and time. Psychiatric: Mood and Affect: Mood normal. Behavior: Behavior normal. Thought Content: Thought content normal. Judgment: Judgment normal. Labs: CBC normal Renal function normal Liver function normal Cholesterol level well controlled Last lab values have been reviewed CV Testin07/2021 Echo No echocardiogram results found for the past 12 months Assessment/Plan: Atrial fibrillation (CMS/HCC) Denied any palpitations or reoccurance of a fib- CT surgery Dr Keily gillette'd anticoaguation Continue coreg CAD (coronary artery disease) Coronary artery disease is stable without any concerning symptoms. Continue GDMT- ASA, coreg, lisinopril, lipitor and imdur Denied any S/S associated with noted bradycardia- d/w pt that if he starts to have increased fatigue, lightheadedness, dizziness, syncope he needs to call office and may need to decrease coreg dose. continue risk factor modifications- heart healthy diet, regular exercise as tolerated and continue all medications. Hyperlipidemia Lipid abnormalities are well controlled Liver function normal Continue lipitor Hypertension Hypertension is well controlled 133/70 Continue coreg and lisniopril, and imdur RCT 1 year [facility] 09-20-2020 Note MR#: [id number] [facility] Pt. Name: Linda Sosa Admitted: 09/19/2020 Discharged: 09/20/2020 Date of : 1950 Physician: Mark Hernandez MD DISCHARGE SUMMARY PRIMARY DIAGNOSES: 1. Atrial flutter status post ITZEL cardioversion by Cardiology team, stable for discharge. 2. CAD, status post recent CABG. 3. Heart failure with reduced ejection fraction. 4. Hypomagnesemia, replete. 5. Type 2 diabetes mellitus. 6. Essential hypertension. 7. Hyperlipidemia. CONSULTATION: 1. Cardiology. 2. Cardiothoracic surgery. HOSPITAL COURSE: As below 70-year-old male with history of CAD status post CABG on 08/25/2020, presenting with rapid heart rate. The patient stated he felt well when he was discharged post CABG up until last . He initially noted some shortness of breath with exertion, going up stairs in particular, when he checked his vitals, blood pressure and heart rate was high. 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 without improvement. Again, he spoke with them and they switched his metoprolol to Coreg for his high blood pressure today. At the time of presentation to the hospital, he spoke with the CT surgery team who recommend him to go to the ER for EKG and blood workup. He denies any chest pain, palpitations, shortness of breath, mostly difficulty catching his breath on exertion. He denies any nausea, vomiting, diarrhea, dysuria, hematuria. He has noted his urine was slightly dark, but denies any dysuria and fever and chills. The patient was seen at [facility], but the EKG shows tachycardia in the 130s. He was given 2 days of blood pressure without change. They spoke with cardiology, who recommend transferring to the [facility]. LABORATORY DATA: Labs at [place] showed magnesium 1.5, creatinine 1.3, high sensitive troponin 779.5 and up to 89.5. The patient was admitted to the step-down unit, was started on heparin drip for possible atrial flutter in the morning. The patient underwent ITZEL cardioversion from Cardiology standpoint and cardiothoracic standpoint. As per evaluation, the patient was stable for the discharge and Cardiology planned to start the patient on Eliquis and amiodarone oral. The patient was given a script by the Cardiology team of Eliquis and amiodarone. PHYSICAL EXAMINATION: VITAL SIGNS: At the time of discharge, the patient vitals stable. GENERAL: The patient alert, oriented x3. No visible distress. CHEST: No sign of labored breathing. HEART: S1, S2 audible, tachycardic. NEUROLOGIC: Nonfocal. PSYCH: Mood is stable. TOTAL TIME: 45 minutes evaluating the patient, reviewing chart, coordinating care with nursing staff. Electronically Signed by: Mark Hernandez MD 09/26/2020 03:27 P Mark Hernandez MD Date Dict: 09/20/2020/12:46 P/Mark Hernandez MD Date Trans: 09/20/2020 01:33 P/afshino [id number] cc: Nixon Bassett M.D. [facility] [address] [place] [id number] [facility] Evaluation + Plan note No data available for this section General [facility] Discharge instructions No data available for this section General [facility] note No data available for this section General Surgery [facility] Summary Purpose Family History No Family History Records FoundNo Family History Records FoundNo Family History Records Found No data available for this section No Family History Records FoundNo Family History Records Found Advance Directives No Advanced Directives Records FoundNo Advanced Directives Records FoundNo Advanced Directives Records FoundNo Advanced Directives Records FoundNo Advanced Directives Records Found Additional Source Comments (unrecognized sect ion and content) No Status Records FoundNo Status Records FoundNo Status Records FoundNo Status Records FoundNo Status Records Found INFORMATION SOURCE (unrecogn ized section and content) DATE CREATED AUTHOR 05/26/2018 [facility] DATE CREATED AUTHOR AUTHOR'S ORGANIZ ATION 09/06/2021 [facility] DATE CREATED AUTHOR AUTHOR'S ORGANIZ ATION 10/19/[address] [facility] DATE CREATED AUTHOR AUTHOR'S ORGANIZ ATION 04/17/2023 [facility] DATE CREATED AUTHOR AUTHOR'S ORGANIZ ATION 09/13/2023 [facility] Patient Care team informatio n (unrecognized section and content) Personnel Name: Nixon Bassett MD Address: Address: [address] [place] [address] Personnel Name: Nixon Bassett MD Address: Address: [address] [place] [address] FOR RECORDS PERTAINING TO PATIENTS WHO ARE OR HAVE BEEN ENROLLED IN A CHEMICAL DEPENDENCY/SUBSTANCEABUSE PROGRAM, SOME INFORMATION MAY BE OMITTED. This clinical summary was aggregated from multiple sources. Caution should be exercised in using it in the provision of clinical care. This summary normalizes information from multiple sources, and as a consequence, information in this document may materially change the coding, format and clinical context of patient data. In addition, data may be omitted in some cases. CLINICAL DECISIONS SHOULD BE BASED ON THE PRIMARY CLINICAL RECORDS. [facility] [employer] provides no warranty or guarantee of the accuracy or completeness of information in this document.
[2023-10-31 07:25] LABS: Anion Gap 10.4; BUN Creatinine Ratio 22.7; Calcium 9.4 mg/dL (8.5-10.1); Carbon Dioxide 32.2 mmol/L (21.0-32.0); Chloride 98 mmol/L (98-107); Estimated GFR (African America >60 (>=60); Estimated GFR (Non-African Ame 55 (>=60); Glucose 278 mg/dL (74-106); Potassium 4.6 mmol/L (3.5-5.1); Sodium 136 mmol/L (136-145)
[2023-10-31 07:36] LABS: Basophils Percent Auto 0.2 % (0.2-2.0); Eosinophils Absolute Auto 0.5 10^3/uL (0.0-0.7); Eosinophils Percent Auto 10.1 % (0.9-7.0); Hematocrit 46.4 % (42.0-54.0); Immature Granulocytes Abs Auto 0.01 10^3/uL (0.00-0.03); Immature Granulocytes Pct Auto 0.2 % (0.0-0.5); Lymphocytes Percent Auto 18.8 % (20.5-60.0); Mean Corpuscular HGB Conc 32.3 g/dL (29.9-35.2); Mean Corpuscular Hemoglobin 29.1 pg (25.9-34.0); Mean Corpuscular Volume 90.1 fL (80.0-94.0); Mean Platelet Volume 9.8 fL (9.5-13.5); Monocytes Absolute Auto 0.5 10^3/uL (0.3-0.8); Monocytes Percent Auto 8.6 % (1.7-12.0); Neutrophils Absolute Auto 3.3 10^3/uL (1.4-6.5); Neutrophils Percent Auto 62.1 % (43.0-75.0); Platelet Count 183 10^3/uL (150-450); Red Blood Count 5.15 10^6/uL (4.70-6.10); Red Cell Distribution Width 12.4 % (11.0-15.0); White Blood Count 5.4 10^3/uL (4.0-11.0)
== END 2023-10-31 06:39 | disposition home or self-care (01) ==
LOC: LAB 06:39
PROVIDERS: PCP Family Medicine; Visit Provider Internal Medicine Cardiovascular Disease
DX: I48.0 Paroxysmal atrial fibrillation (principal)
CPT/HCPCS: 36415; 80048; 85025

== ENCOUNTER 2024-01-21 08:20 | Outpatient (OUT) | payer MEDICARE, SELFPAY ==
--- OUTSIDE RECORDS SUMMARY | 2024-01-21 08:36 | XMS_ITS | CCD ---
Author Organization [facility] Care Team Providers Care [place] Expert Name Role Phone HAMPOLE, HOLDEN Unavailable Unavailable HOY, NIXON M Unavailable Unavailable HAMPOLE, HOLDEN Unavailable Unavailable HOY, NIXON M Unavailable Unavailable HAMPOLE, HOLDEN Unavailable Unavailable HOY, NIXON M Unavailable Unavailable HAMPOLE, HOLDEN Unavailable Unavailable HOY, NIXON M Unavailable Unavailable MIKEY BESS Unavailable Unavailab le HOY, NIXON M Unavailable [...] ALICEA Consulting Unavailable HOY ., DR ALICEA Primary Care Unavailable Nixon Garay Primary Care Physician [phone] Nixon Garay Referring Unavailable NILLKeyon R Attending Unavailable NILL, Keyon R Attending Unavailable NILL, Keyon Raygoza Attending Unavailable NILL, Keyon Raygoza Attending Unavailable Nixon Garay Referring Unavailable NILL, Keyon Raygoza Attending Unavailable SCOUT TIRADO Attending Unavailable SCOUT TIRADO Referring Unavailable LINDA PYLE Attending Unavailable LEYLA SIMON Attending Unavailable LINDA PYLE Attending Unavailable SCOUT TIRADO Admitting Unavailable SCOUT TIRADO Attending Unavailable SCOUT TIRADO Referring Unavailable SCOUT TIRADO Referring Unavailable SCOUT TIRADO Referring Unavailable Allergies Allergy Classification Reported Allergen(s) Allergy Type Date of Onset Reaction(s) Facility (1 source) Spironolactone; Translations: [SPIRONOLACTONE] Drug Allergy 6 AOF [facility] Repository (1 source) No Known Medication Allergies; Translations: [No Known Medication Allergies] Propensity to adverse reactions (disorder) [facility] Repository Medications Current Medications Medication Drug Class(es) [...] as recurrent] Onset: 02-22-2023 Episodic Cardiac dysrhythmias (7 sources) Paroxysmal atrial fibrillation; Translations: [Paroxysmal atrial fibrillation] Onset: 10-18-2022 02-14-2023 Chronic Cardiac dysrhythmias (3 sources) Bradycardia, unspecified; Translations: [Bradycardia] Onset: 10-18-2022 02-14-2023 Episodic Congestive heart failure; nonhypertensive (4 sources) Acute combined systolic and diastolic heart failure; Translations: [Heart failure] 02-14-2023 Chronic Coronary atherosclerosis and other heart disease (5 sources) Atherosclerotic heart disease of zuni coronary artery without angina pectoris; Translations: [Coronary [...] Test Name Value Interpretation Reference Range Facility Follow-Upon 12-10-2023 Follow-Up [id number] Dany Lee rt E 1950 M Date Provider Department Center 12/10/2023 LEYLA KUMAR Family History Problem Relation Age of Onset Heart attack Father Heart attack Brother Family Status - Relation Status Age at Father Brother Level of Service:16851 [place] OFFICE/OUTPATIENT ESTABLISHED MOD MDM 30 MIN Reason for Visit and Comments: Atrial Fibrillation [80] - S/p ablation Atrial Flutter [101] Coronary Artery Disease [187] Hypertension [731130] Normal [facility] Telephoneon 11-28-2023 Telephone [id number] Dany Lee rt E 1950 M Date Provider Department Center 11/28/2023 241-SCOUT TIRADO [facility] AL [facility] Family History Problem Relation Age of Onset Heart attack Father Heart attack Brother Family Status - Relation Status Age at Father Brother Reason for Visit and Comments: 3 week f/u post ablation [Other] Normal [facility] Office Visiton 11-18-2023 Follow-up visit [id number] JesusDany bañuelos rt E 1950 M Date Provider Department Center 11/18/2023 Collin-LINDA PYLE Family History Problem Relation Age of Onset Heart attack Father Heart attack Brother Family Status - Relation Status Age at Father Brother Level of Service:86161 [place] OFFICE/OUTPATIENT ESTABLISHED LOW MDM 20 MIN Normal [facility] Telephoneon 11-15-2023 Telephone [id number] Dany Lee rt E 1950 M Date Provider Department Center 11/15/20231986-ELANA MARTIN [facility] Family History Problem Relation Age of Onset Heart attack Father Heart attack Brother Family Status - Relation Status Age at Father Brother Reason for Visit and Comments: week f/u post ablation [Other] Normal [facility] HPon 11-06-2023 [facility] Electrophysiology Consult Note AL Cardiology [facility] Reason for visit: Afib HPI: Linda Lee is a 73 y.o. year old with past medical history of coronary disease s/p CABG: CORDOVA to LAD, SVG- D2 and ramus, SVG -OM1 and Cryomaze procedure + Atrriclip in 08/25/2020, hypertension, dyslipidemia had been seen recently by Dr. Pyle for tachycardia. He has been known to have a history of atrial fibrillation and since the last visit with Dr. KEVIN 30 event monitor was performed, which has revealed the presence of underlying atrial fibrillation. At that time his blood pressure was noted to be elevated and hence his Coreg dosage was increased and hydrochlorothiazide also was added. historically it appears that he has not been placed on anticoagulation since the atrial clip however an EKG that was done on 09/19/2020 shows that he was in atrial flutter and then was subsequently cardioverted to sinus. EKG later in 09/05/2021 and 03/13/23 shows sinus but there has been no other documentation of A-fib up until recently. he was started on Eliquis after Dr. KEVIN saw him. he states that his first diagnosis of atrial fibrillation was 5 years prior to the bypass surgery. it was picked up incidentally and he was not aware that he was in A-fib at that time. Denies bleeding on Eliquis, SOB, and palpitations. Only gets chest pressure when HR and BP are high. He says this only occurs once in a great while . EKG 10/29/2023 PMH: Past Medical History: Diagnosis Date Abnormal ECG Arrhythmia Atrial fibrillation (CMS/HCC) CHF (congestive heart failure) (CMS/HCC) Chronic kidney disease Coronary artery disease Diabetes mellitus (CMS/HCC) Hyperlipidemia Hypertension PSH: Past Surgical History: Procedure Laterality Date APPENDECTOMY CARDIAC CATHETERIZATION CARDIOVERSION CORONARY ARTERY BYPASS GRAFT CTA CHEST W IV CONTRAST 09/20/2020 CT CHEST ANGIOGRAM W AND/OR WO IV CONTRAST NUR CONVERSION OTHER SURGICAL HISTORY N/A 08/25/2020 CRYOMAZE PROCEDURE + ATRRICLIP VASECTOMY SH: Social Determinants of Health Tobacco Use: Medium Risk (11/06/2023) Patient History Smoking Tobacco Use: Former Smokeless Tobacco Use: Never Passive Exposure: Not on file Alcohol Use: Not on file Financial Resource Strain: Not on file Food Insecurity: Not on file Transportation Needs: Not on file Physical Activity: Not on file Stress: Not on file Social Connections: Not on file Intimate Partner Violence: Unknown (08/08/2023) [place] Safety & Environment Fear of Current or Ex-Partner: Not on file Emotionally Abused: Not on file Physically Abused: Not on file Sexually Abused: Not on file Physically or Sexually Abused: Not on file Depression: Not on file Housing Stability: Not on file Utilities: Not on file Allergies: No Known Allergies Weight: 98kg Visit Vitals BP 138/79 Pulse 57 Temp 36.1 ???C (97 ???F) (Temporal) Resp 12 Ht 1.93 m (6' 4 ) Wt 96.8 kg (213 lb 6.5 oz) SpO2 100% BMI 25.98 kg/m??? Smoking Status Former BSA 2.28 m??? Meds: No current facility-administered medications on file prior to encounter. Current Outpatient Medications on File Prior to Encounter Medication Sig Dispense Refill apixaban (Eliquis) 5 mg tablet Take 1 tablet (5 mg) by mouth in the morning and at bedtime. 60 tablet 11 aspirin 81 mg EC tablet Take 81 mg by mouth in the morning. atorvastatin (Lipitor) 80 mg tablet TAKE 1 TABLET BY MOUTH EVERY DAY 90 tablet 3 calcium citrate-vitamin D2 250 mg-2.5 mcg (100 unit) tablet Take 1 tablet by mouth in the morning and at bedtime. 5000 IU carvedilol (Coreg) 25 mg tablet Take 1 tablet (25 mg) by mouth with breakfast and with evening meal. 180 tablet 3 chlorthalidone (Hygroton) 25 mg tablet Take 1 tablet (25 mg) by mouth in the morning. 90 tablet 1 furosemide (Lasix) 80 mg tablet Take 80 mg by mouth in the morning. isosorbide mononitrate ER (Imdur) 30 mg 24 hr tablet Take 1 tablet (30 mg) by mouth in the morning. Do not crush or chew. 90 tablet 3 lisinopril 20 mg tablet Take 40 mg by mouth at bedtime. magnesium oxide (Mag-Ox) 400 mg (241.3 mg magnesium) tablet Take 1 tablet by mouth in the morning and at bedtime. metFORMIN (Glucophage) 500 mg tablet Take 500 mg by mouth in the morning, afternoon, and at bedtime. potassium chloride CR (Klor-Con M20) 20 mEq ER tablet Klor-Con M20 mEq tablet,extended release TAKE 1 TABLET BY MOUTH THREE TIMES A DAY ROS: Review of Systems Musculoskeletal: Positive for arthritis and joint pain. Neurological: Positive for light-headedness (when BP is low). All other systems reviewed and are negative. Physical Exam: Constitutional General Appearance: well-nourished, well-developed, appears stated age Level of Distress: comfortable Psychiatric Mental Status: alert, normal affect Orientation: oriented to time, place, and person Insight: good judgement Eyes Lids and Conjunctivae: non-i (more content not included)... [facility] N[facility] 11-06-2023 NURSNOTE Discharge instructio aubrey reviewed with patient at bedside. 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 Result Comment: pbar retcorson Performed By: #### L [id number] ####[facility] (BEAKER)[address] [place] [address] PROTIME-INRon 11-06-2023 INR IN PPP BY COAGULATION ASSAY 1.13 High 0.90-1.10 [facility] Comment on above: Result Comment: ACCC P RECOMMENDED INR FOR WARFARIN THERAPY CONDITION INR PROPHYLAXIS OF VENOUS THROMBOSIS 2-3 (HIGH-RISK SURGERY) TREATMENT OF VENOUS THROMBOSIS 2-3 TREATMENT OF PULMONARY EMBOLISM 2-3 PREVENTION OF SYSTEMIC EMBOLISM: 2-3 ACUTE MYOCARDIAL INFARCTION TISSUE HEART VALVES VALVULAR HEART DISEASE ATRIAL FIBRILLATION RECURRENT SYSTEMIC EMBOLISM MECHANICAL HEART VALVE 2.5-3.5 FROM: ORAL ANTICOAGULANTS. MECHANISM OF ACTION, CLINICAL EFFECTIVENESS, AND OPTIMAL THERAPEUTIC RANGE. CHEST 1995;108:231S-246S. Performed By: #### L [id number] #### [facility] [employer]) [address] [place] [address] PROTHROMBIN TIME (PT) IN PPP BY COAGULATION ASSAY 14.5 Seconds Normal 12.3-14.8 [facility] Comment on above: Performed By: #### L [id number] #### [facility]) [address] [place] [address] Prep for Procedureon 024 Prep for Procedure [id number] Linda Lee 1950 M Date Provider Department [place] 11/06/2023 SCOUT ALTMAN [facility] Family History Problem Relation Age of Onset Heart attack Father Heart attack Brother Family Status - Relation Status Age at Father Brother Normal [facility] BASIC METABOLIC PANELon 10-15 Anion gap [Moles/Vol] 12 mmol/L Normal 7-20 [facility] Comment on above: Performed By: #### L [id number] #### [facility] ([facility]) [address] [place] [address] Calcium [Mass/Vol] 9.7 mg/dL Normal 8.6-10.3 [facility] Comment on above: Performed By: #### L [id number] #### [facility] (BEAKER) [address] [place] [address] Chloride [Moles/Vol] 97 mmol/L Low 98-107 [facility] Comment on above: Performed By: #### L [id number] #### [facility] (BEAKER) [address] [place] [address] CO2 [Moles/Vol] 29 mmol/L Normal 21-31 [facility] Comment on above: Performed By: #### L [id number] #### [facility] ([facility]) [address] [place] [address] Creatinine [Mass/Vol] 1.18 mg/dL Normal 0.70-1.30 [facility] Comment on above: Performed By: #### L [id number] #### [facility] ([facility]) [address] [place] [address] Performed By: #### L [id number] ####[facility] ([facility])[address] [place] [address] GLOMERULAR FILTRATION RATE ML/MIN/1.73 SQ M.PREDICTED 65.2 mL/min/1.73m*2 Normal >60.0 [facility] Comment on above: Result Comment: The [facility]???s estimated glomerular filtration rate (eGFR) will no longer include consideration of race in its calculation. The National Kidney Foundation???s eGFR Task Force developed new recommendations for the estimation of the glomerular filtration rate in the [place] They recommend immediate implementation of the new equation refit without the race variable in all laboratories because the calculation does not include race. In addition to not including race in the calculation and reporting, it included diversity in its development, and has acceptable performance characteristics and potential consequences that do not disproportionately affect any one group of individuals. Performed By: #### L [id number] #### [facility] (BEAKER) [address] [place] [address] Performed By: #### L [id number] ####[facility] ([facility])[address] [place] [address] Glucose [Mass/Vol] 153 mg/dL High 70-100 [facility] Comment on above: Performed By: #### L [id number] #### [facility] ([facility]) [address] [place] [address] Potassium [Moles/Vol] 4.7 mmol/L Normal 3.5-5.1 [facility] Comment on above: Performed By: #### L [id number] #### [facility] ([facility]) [address] [place] [address] Sodium [Moles/Vol] 133 mmol/L Low 136-145 [facility] Comment on above: Performed By: #### L [id number] #### [facility] ([facility]) [address] [place] [address] Urea nitrogen [Mass/Vol] 29 mg/dL High 7-25 [facility] Comment on above: Performed By: #### L [id number] #### [facility] ([facility]) [address] [place] [address] UREA NITROGEN/CREATINI NE (MASS RATIO) IN SER/PLAS 24.6 Normal [facility] Comment on above: Performed By: #### L [id number] #### [facility] ([facility]) [address] [place] [address] CBC WITH AUTO DIFFERENTIALon 11-01-2023 Basophils (Bld) [#/Vol] 0.03 10*3/uL Normal 0.00-0.20 [facility] Comment on above: Performed By: #### L [id number] #### [facility] ([facility]) [address] [place] [address] Basophils/100 WBC (Bld) 0.4 % Normal 0.0-1.0 [facility] Comment on above: Performed By: #### L [id number] #### [facility] ([facility]) [address] [place] [address] Eosinophils (Bld) [#/Vol] 0.65 10*3/uL High 0.00-0.50 [facility] Comment on above: Performed By: #### L [id number] #### [facility] (BEAKER) [address] [place] [address] Eosinophils/100 WBC (Bld) 9.7 % High 0.0-6.0 [facility] Comment on above: Performed By: #### L [id number] #### [facility] ([facility]) [address] [place] [address] Erythrocyte distribution width (RBC) [Ratio] 12.8 % Normal 11.5-15.0 [facility] Comment on above: Performed By: #### L [id number] #### [facility] ([facility]) [address] [place] [address] ERYTHROCYTE MEAN CORPUSCULAR HEMOGLOBIN CONCENTRATION (G/DL) BY AUTOMATED 34.1 g/dL Normal 32.0-35.0 [facility] Comment on above: Performed By: #### L [id number] #### [facility] ([facility]) [address] [place] [address] Hematocrit (Bld) [Volume fraction] 46.0 % Normal 39.0-55.0 [facility] Comment on above: Performed By: #### L [id number] #### [facility] ([facility]) [address] [place] [address] Hemoglobin (Bld) [Mass/Vol] 15.7 g/dL Normal 13.0-17.0 [facility] Comment on above: Performed By: #### L [id number] #### [facility] ([facility]) [address] [place] [address] Immature granulocytes (Bld) [#/Vol] 0.01 10*3/uL Normal 0.00-0.20 [facility] Comment on above: Performed By: #### L [id number] #### [facility] (BEAKER) [address] [place] [address] Immature granulocytes/100 WBC (Bld) 0.1 % Normal 0.0-1.0 [facility] Comment on above: Performed By: #### L [id number] #### [facility] ([facility]) [address] [place] [address] Lymphocytes (Bld) [#/Vol] 1.08 10*3/uL Low 1.20-4.00 [facility] Comment on above: Performed By: #### L [id number] #### [facility] ([facility]) [address] [place] [address] Lymphocytes/100 WBC (Bld) 16.2 % Low 20.0-45.0 [facility] Comment on above: Performed By: #### L [id number] #### [facility] ([facility]) [address] [place] [address] MCH (RBC) [Entitic mass] 29.9 pg Normal 27.0-33.0 [facility] Comment on above: Performed By: #### L [id number] #### [facility] ([facility]) [address] [place] [address] MCV (RBC) [Entitic vol] 87.6 fL Normal 82.0-98.0 [facility] Comment on above: Performed By: #### L [id number] #### [facility] ([facility]) [address] [place] [address] Monocytes (Bld) [#/Vol] 0.80 10*3/uL Normal 0.10-1.00 [facility] Comment on above: Performed By: #### L [id number] #### [facility] ([facility]) [address] [place] [address] Monocytes/100 WBC (Bld) 12.0 % Normal 5.0-12.0 [facility] Comment on above: Performed By: #### L [id number] #### [facility] ([facility]) [address] [place] [address] Neutrophils (Bld) [#/Vol] 4.10 10*3/uL Normal 1.60-7.60 [facility] Comment on above: Performed By: #### L [id number] #### [facility] ([facility]) [address] [place] [address] Neutrophils/100 WBC (Bld) 61.6 % Normal 40.0-72.0 [facility] Comment on above: Performed By: #### L [id number] #### [facility] ([facility]) [address] [place] [address] NRBC (PER 100 WBCS) BY AUTOMATED COUNT 0.0 % Normal 0 [facility] Comment on above: Performed By: #### L [id number] #### [facility] ([facility]) [address] [place] [address] PLATELETS (10*3/UL) IN BLOOD AUTOMATED COUNT 200 10*3/uL Normal 150-400 [facility] Comment on above: Performed By: #### L [id number] #### [facility] ([facility]) [address] [place] [address] RBC (Bld) [#/Vol] 5.25 10*6/uL Normal 4.20-5.70 [facility] Comment on above: Performed By: #### L [id number] #### [facility] ([facility]) [address] [place] [address] WBC (Bld) [#/Vol] 6.67 10*3/uL Normal 4.00-10.60 [facility] Comment on above: Performed By: #### L [id number] #### [facility] ([facility]) [address] [place] [address] CTA CHEST W IV CONTRASTon CTA CHEST W IV CONTRAST CTA CHEST W IV CONTRAST 11/01/2023 7:25 AM CLINICAL INDICATIONS: Paroxysmal atrial fibrillation. Preablation evaluation. PROTOCOL: Gated chest CTA examination CONTRAST: 100 mL Omnipaque 350 IV and diluted Omnipaque 300 oral contrast TECHNIQUE: Multidetector CT axial slices of the chest were obtained with IV contrast. Multiplanar reformats were performed and viewed on a separate workstation and reviewed to further define anatomy and possible pathology. 3-D volume rendered images of the left atrium and draining pulmonary veins as well as left atrial appendage are obtained and saved in various projections. All CT scans at this facility use dose modulation, iterative reconstruction, and/or weight based dosing when appropriate to reduce radiation dose to as low as reasonably achievable. COMPARISON: Chest CT from 09/20/2020. FINDINGS: Lower neck: Thyroid gland within normal limits, no supraclavicle adenopathy. Vessels: Pulmonary arteries are Within normal limits. Moderate atherosclerotic changes in the aorta. and coronary arteries. Mediastinum and Eryn: Within normal limits. Heart: Normal size. No pericardial effusion. Left atrial appendage clip in place with metallic artifact seen. Incidental 4 vessel aortic arch with separate origin of the left vertebral artery from the arch, a normal variant. Evidence of prior coronary artery bypass graft. Airways: Within normal limits Lungs: Mild bilateral upper lobe centrilobular emphysematous changes. Mild dependent atelectasis. No other focal airspace opacity. Pleura: Pleural plaques bilaterally and pleural calcifications. Possibility of prior asbestos exposure or may be considered. Chest Wall: Within normal limits. Upper Abdomen: Enhancement incidental splenule seen adjacent to the anterior spleen. Visualized upper abdominal viscera appeared grossly unremarkable with vascular calcification in the abdominal aorta and branches. Bones: Bony spurring in the thoracic spine consistent was moderate spondylosis. Sternotomy wires from prior coronary artery bypass graft procedure but no acute bony pathology is appreciated. Normal left atrial size and configuration. The left atrium measures maximum transverse dimensions of 7.0 x 5.2 cm. The left superior pulmonary vein ostium is 1.4 cm in diameter and first branch is approximately 3 cm from the ostium. The left inferior pulmonary vein ostium is 1.5 cm and first branch is approximately 2.5 cm from the ostium. The right superior pulmonary vein ostium is 1.6 cm in diameter and first branch is approximately 3.5 cm from the ostium. The right inferior pulmonary vein ostium measures 1.6 cm in diameter and first branch is approximately 3.8 cm from the ostium. Left atrial appendage clip is visualized with the ostium of the appendage measuring 1.6 cm in diameter and contrast part of the appendage is 2.2 cm in length with complete occlusion of the distal appendage due to the presence of the clip. The contrast-filled esophagus is immediately adjacent and posterior to the ostium of the left inferior pulmonary vein. IMPRESSION: Pleural plaques are seen bilaterally with calcified plaques seen raising possibility of prior asbestos exposure. Mild upper lobe centrilobular emphysematous changes. No acute pulmonary pathology. Normal size and configuration of the left atrium with 2 pulmonary veins seen on each side with the measurements described above. Left atrial appendage clip in place with occlusion of the distal half and tip of the left atrial appendage. Evidence of prior coronary artery bypass graft. Vascular calcifications in the coronary arteries and aorta. Electronically signed: Mireille Rivera. Not Vldtd Invalid Interpretation Code [facility] Labon 11-01-2023 Lab [id number] Dany Lee [address] E 1950 M Date Provider Department Center 11/01/2023 [id number] [facility] OPD LAB RESOURCE [facility] OPD AL Medical C Family History Problem Relation Age of Onset Heart attack Father Heart attack Brother Family Status - Relation Status Age at Father Brother Normal [facility] [id number] 10-31-2023 [id number] ARRIVAL TIME 0700 GI [facility] HOLD ELIQUIS 11/04/2023 MEDICATIONS TO TAKE DAY OF SURGERY WITH SIP OF WATER COREG ISOSORBIDE PT AGREES TO HAVE CREATININE SERUM DRAW ON 10/31 AT [facility] CONFIRMED CT OF CHEST APPT FOR 10/30 AT 0800 AT [facility] HOLD VITAMINS AND SUPPLEMENTS 5 DAYS PRIOR TO PROCEDURE HOLD ALL ANTI INFLAMMATORIES ETC:MOTRIN, ADVIL, ALEVE, FOR 5 DAYS PRIOR TO PROCEDURE IF YOU ARE GOING HOME AFTER YOUR SURGERY OR PROCEDURE, FOR YOUR SAFETY, YOUR SURGERY WILL BE CANCELLED IF BOTH OF THE FOLLOWING ARE NOT AVAILABLE: An adult line haul driver over the age of 18, that can receive information about your care after surgery, and drive you home. A responsible adult to stay with you for 24 hours in case of an emergency. Can be same as above. The highest risk of complications is within the first 24 hours after sedation/anesthesia. Nothing to eat or drink after midnight the night before surgery. This includes gum, candy, mints, and lozenges. No alcohol, marijuana, or tobacco products including vaping for 24 hours. Please brush your teeth; don't swallow the toothpaste or water. If you use dentures, wear them but do not use paste. Please leave any other removable dental hardware at home. Do not put in contact lenses. Do not wear perfume, make-up, nail welsh, or lotions on the day of your surgery or procedure. Follow skin-prep/wipe instructions as below if required. Bring with you: *Insurance card *Photo ID *Medication list *Co-pay for visit/prescriptions If applicable: *Rescue inhalers *Green bracelet from lab *CPAP or BiPAP machine, if staying overnight *Any braces, splints, or equipment ordered preoperatively *Remote controls for implanted devices Leave at home: *Purse/Wallet/Bethea- unless needed for co-pay *Cell phone (can leave with family/friend or place in locker if needed) *Jewelry (including piercings and wedding bands) *If not possible, ask the person who is waiting with you to keep them Children under the age of 12 will not be allowed into patient care areas. We will call you between 3pm and 4pm the day before your surgery to give you an arrival time. If you do not receive this call, have any questions, or need to make any changes, please call [phone]. Notify your surgeon if you develop any illness such as a cold, cough, fever, sore throat or vomiting between now and your surgery. Thank you for entrusting us with your care. [facility] Surgical Services Team Normal [facility] Prep for Procedureon 024 Prep for Procedure [id number] Linda Lee 1950 M Date Provider Department Center 10/31/2023 Liliana-ELANA MARTIN [facility] AL HeartVAS Family History Problem Relation Age of Onset Heart attack Father Heart attack Brother Family Status - Relation Status Age at Father Brother Normal [facility] Office Visiton 10-29-2023 Follow-up visit [id number] Dany Lee 1950 M Date Provider Department Center 10/29/2023 241-SCOUT TIRADO ZARA [facility] Family History Problem Relation Age of Onset Heart attack Father Heart attack Brother Family Status - Relation Status Age at Father Brother Level of Service:58209 [place] OFFICE/OUTPATIENT NEW MODERATE MDM 45 MINUTES Normal [facility] 36on 09-12-2023 36 Regarding report fro m event monitor on 09/11/2023: MD Cadence Garrison MA Please let him know his event monitor showed recurrent atrial fibrillation as expected He will need to restart Eliquis 5 mg p.o. twice daily Please have him see Dr Tirado for recurrent atrial fibrillation to discuss medical rx vs ablation Thanks Normal [facility] Office Visiton 09-11-2023 Follow-up visit [id number] Dany Lee rt E 1950 M Date Provider Department Center 09/11/2023 [facility]-YESIKA, LINDA CARD [facility] Family History Problem Relation Age of Onset Heart attack Father Heart attack Brother Family Status - Relation Status Age at Father Brother Level of Service:95950 [place] OFFICE/OUTPATIENT ESTABLISHED HIGH MDM 40 MIN Normal [facility] Ambulatory Visit Summaryon 1 Ambulatory Visit Summary LINDA LEE :1950 Visit Date:04/16/2023 Ambulatory Visit Instructions Your Care Team Attending Physician - ELLEN MARTINEZ, Keyon Raygoza Primary Care Physician - Nixon Garay MD This Is Your Medications List aspirin [...] for choosing us for your care. Vilma [facility] General Surgery Office/Clini c Noteon 04-16-2023 General [...] Immunizations Vaccine Date Status Comments SARS-CoV-2 (COVID-19) mRNAMUL.[id number] 04/06/2022 Recorded SARS-CoV-2 (COVID-19) mRNA BNT-162b2 vax 05/03/2021 Recorded SARS-CoV-2 (COVID-19) mRNA BNT-162b2 vax 10/07/2020 Recorded 2023-02-14: TPV70 SARS-CoV-2 (COVID-19) mRNA BNT-162b2 vax 09/16/2020 Recorded 2023-02-14: TPV70 Normal [facility] Comment on above: Result Comment: Elec tronically Signed By: ELLEN MARTINEZ, Keyon Henley.vicki\Date and Time Signed: 04/16/23 13:23 EDT General [...] Immunizations Vaccine Date Status Comments SARS-CoV-2 (COVID-19) mRNAMUL.ORD![id number] 04/06/2022 Recorded SARS-CoV-2 (COVID-19) mRNA BNT-162b2 vax 05/03/2021 Recorded SARS-CoV-2 (COVID-19) mRNA BNT-162b2 vax 10/07/2020 Recorded 2023-02-14: TPV70 SARS-CoV-2 (COVID-19) mRNA BNT-162b2 vax 09/16/2020 Recorded 2023-02-14: TPV70 [facility] Comment on above: Result Comment: Elec tronically Signed By: ELLEN MARTINEZ, Keyon Savage\Date and Time Signed: 03/27/23 15:52 EDT Pathology Noteon 03-27-2023 Pathology Note [id number]#1.00TIFF [facility] Operative Reporton Operative Report [id number]#1.00TIFF [facility] Lab Reportson 03-20-2023 Lab Reports [id number]#1.00CD:127 [facility] Lab Reportson 03-14-2023 Lab Reports [id number]#1.00CD:127 [facility] RAD - MISCon 03-14-2023 RAD - MISC [id number]#1.00CD:127 [facility] Lab Reportson 03-13-2023 Lab Reports [id number]#1.00CD:127 Normal [facility] Lab Reports [id number]#1.00CD:127 [facility] Consultation Noteon 03-05-20 Consultation Note [id number]#1.00CD:127 [facility] Consent for Procedure/Surger yon 02-25-2023 Consent for Procedure/Surgery [id number]#1.00CD:127 [facility] Facesheeton 02-25-2023 Facesheet [id number]#1.00CD:127 [facility] Ambulatory Visit Summaryon 0 02-22-2023 Ambulatory Visit Summary LINDA LEE :1950 Visit Date:02/22/2023 Ambulatory Visit Instructions Your Care Team Attending Physician - ELLEN MARTINEZ, Keyon Raygoza Primary Care Physician - Nixon Garay MD Referring Physician - Nixon Garay MD This Is Your Medications List Contact prescribing [...] longer receiving treatment for. High cholesterol Hypertension [facility] Provider Letteron 02-12-2023 Provider Letter (Inserted Image. Rosa ble to display) February 12, 2023 LINDA LEE [address] [place] [id number] : 1950 Dear Jesus , We have been trying to reach you with no success. It is important that you return our call regarding your referral from Dr. Duque upon receiving this letter. Also, at the time of your call, please provide us with your current information including your insurance information. Thank you for your prompt attention to this matter. Sincerely, General Surgery [phone] [facility] Consultation Noteon 02-12-20 Consultation Note [id number]#1.00CD:127 [facility] INSULINon 10-12-2022 Insulin 19.2 uIU/mL Normal 2.6-24.9 [facility] Comment on above: Performed By: #### A 1C #### [facility] [address] [place] [address] Dr. Estephania Small OCC BLD IMMUNO SCREENon 09-16 OCCULT BLOOD Negative Normal NEGATIVE [facility] Comment on above: Performed By: #### A 1C #### [facility] [address] [place] [address] Dr. Estephania Small CBC AUTO DIFFon 10-11-2022 BASO # 0.0 103/ul Normal 0.0-0.1 [facility] Comment on above: Performed By: #### C BC #### [facility] [address] [place] [address] Dr. Estephania Small Basophils/100 WBC (Bld) 0.3 % Normal 0.2-2.0 [facility] Comment on above: Performed By: #### C BC #### [facility] [address] [place] [address] Dr. Estephania Small EO # 0.5 103/ul Normal 0.0-0.7 [facility] Comment on above: Performed By: #### C BC #### [facility] [address] [place] [address] Dr. Estephania Small Eosinophils/100 WBC (Bld) 7.8 % Critically high 0.9-7.0 [facility] Comment on above: Performed By: #### C BC #### [facility] [address] [place] [address] Dr. Estephania Small Erythrocyte distribution width (RBC) [Ratio] 13.4 % Normal 11.0-15.0 [facility] Comment on above: Performed By: #### C BC #### [facility] [address] [place] [address] Dr. Estephania Small Hematocrit (Bld) [Volume fraction] 44.4 % Normal 42.0-54.0 [facility] Comment on above: Performed By: #### C BC #### [facility] [address] [place] [address] Dr. Estephania Small Hemoglobin (Bld) [Mass/Vol] 14.5 g/dL Normal 14.0-18.0 [facility] Comment on above: Performed By: #### C BC #### [facility] [address] [place] [address] Dr. Estephania Small IG # 0.02 10e3/ul Normal 0.00-0.03 [facility] Comment on above: Performed By: #### C BC #### [facility] [address] [place] [address] Dr. Estephania Small IG % 0.3 % Normal 0.0-0.5 [facility] Comment on above: Performed By: #### C BC #### [facility] [address] [place] [address] Dr. Estephania Small LYMPH # 1.3 103/ul Normal 1.2-3.8 [facility] Comment on above: Performed By: #### C BC #### [facility] [address] [place] [address] Dr. Estephania Small Lymphocytes/100 WBC (Bld) 19.4 % Critically low 20.5-60.0 [facility] Comment on above: Performed By: #### C BC #### [facility] [address] [place] [address] Dr. Estephania Small MANUAL DIFF REQ NO Normal [facility] Comment on above: Performed By: #### C BC #### [facility] [address] [place] [address] Dr. Estephania Small MCH (RBC) [Entitic mass] 28.5 pg Normal 25.9-34.0 [facility] Comment on above: Performed By: #### C BC #### [facility] [address] [place] [address] Dr. Estephania Small MCHC (RBC) [Mass/Vol] 32.7 g/dL Normal 29.9-35.2 [facility] Comment on above: Performed By: #### C BC #### [facility] [address] [place] [address] Dr. Estephania Small MCV (RBC) [Entitic vol] 87.2 fL Normal 80.0-94.0 [facility] Comment on above: Performed By: #### C BC #### [facility] [address] [place] [address] Dr. Estephania Small MONO # 0.6 103/ul Normal 0.3-0.8 [facility] Comment on above: Performed By: #### C BC #### [facility] [address] [place] [address] Dr. Estephania Small Monocytes/100 WBC (Bld) 8.7 % Normal 1.7-12.0 [facility] Comment on above: Performed By: #### C BC #### [facility] [address] [place] [address] Dr. Estephania Small NEUT # 4.2 103/ul Normal 1.4-6.5 [facility] Comment on above: Performed By: #### C BC #### [facility] [address] [place] [address] Dr. Estephania Small Neutrophils/100 WBC (Bld) 63.5 % Normal 43.0-75.0 [facility] Comment on above: Performed By: #### C BC #### [facility] [address] [place] [address] Dr. Estephania Small Platelet mean volume (Bld) [Entitic vol] 9.4 fL Critically low 9.5-13.5 [facility] Comment on above: Performed By: #### C BC #### [facility] [address] [place] [address] Dr. Estephania Small PLT 223 103/ul Normal 150-450 [facility] Comment on above: Performed By: #### C BC #### [facility] [address] [place] [address] Dr. Estephania Small RBC 5.09 106/ul Normal 4.70-6.10 [facility] Comment on above: Performed By: #### C BC #### [facility] [address] [place] [address] Dr. Estephania Small WBC 6.5 103/ul Normal 4.0-11.0 [facility] Comment on above: Performed By: #### C BC #### [facility] [address] [address] [address] Estephania Small FREE T3on 10-11-2022 FREE T3 2.48 pg/mlL Normal 2.18-3.98 [facility] Comment on above: Performed By: #### L IPID, CMP, FT3, MG, T4, TSH, URIC #### [facility] [address] [address] [address] Estephania Small GLYCOHEMOGLOBIN A1Con 2022 ADA RECOMMENDATION SEE BELOW Normal [facility] Comment on above: Result Comment: ADA RECOMMENDED LIMIT 4.0 - 6.0 ADA THERAPEUTIC TARGET < 7.0 ACTION SUGGESTED > 7.0 Performed By: #### A 1C #### [facility] [address] [place] [address] Dr. Estephania Small Glucose [Mass/Vol] 143 mg/dL Normal [facility] Comment on above: Performed By: #### A 1C #### [facility] [address] [place] [address] Dr. Estephania Small HbA1c (Bld) [Mass fraction] 6.6 % Critically high 4.5-6.2 [facility] Comment on above: Performed By: #### A 1C #### [facility] [address] [place] [address] Dr. Estephania Small LIPID PROFILEon 10-11-2022 CHOL-HDL RATIO NORM SEE BELOW Normal [facility] Comment on above: Result Comment: 3.3 - 4.4 LOW RISK 4.4 - 7.1 AVERAGE RISK 7.1 - 11.0 MODERATE RISK >11.0 HIGH RISK Performed By: #### L IPID, CMP, FT3, MG, T4, TSH, URIC #### [facility] [address] [place] [address] Dr. Estephania Small Cholesterol [Mass/Vol] 127 mg/dL Normal <=200 [facility] Comment on above: Performed By: #### L IPID, CMP, FT3, MG, T4, TSH, URIC #### [facility] [address] [place] [address] Dr. Estephania Small Cholesterol in HDL [Mass/Vol] 34 mg/dL Critically low 40-60 [facility] Comment on above: Performed By: #### L IPID, CMP, FT3, MG, T4, TSH, URIC #### [facility] [address] [address] [address] Estephania Small Cholesterol in LDL [Mass/Vol] 68.2 mg/dL Normal [facility] Comment on above: Performed By: #### L IPID, CMP, FT3, MG, T4, TSH, URIC #### [facility] [address] [address] [address] Estephania Small Cholesterol.total /Cholesterol in HDL [Mass ratio] 3.7 {ratio} Normal [facility] Comment on above: Performed By: #### L IPID, CMP, FT3, MG, T4, TSH, URIC #### [facility] [address] [place] [address] Dr. Estephania Small HDL NORMAL > or = 60 mg/dl - LO W CARDIOVASCULAR RISK <40 mg/dl - HIGH CARDIOVASCULAR RISK Normal [facility] Comment on above: Performed By: #### L IPID, CMP, FT3, MG, T4, TSH, URIC #### [facility] [address] [place] [address] Dr. Estephania Small LDL CALC NORMAL SEE BELOW Normal [facility] Comment on above: Result Comment: <100 mg/dl OPTIMAL 100 - 129 mg/dl NEAR OR ABOVE OPTIMAL 130 - 159 mg/dl BORDERLINE HIGH 160 - 189 mg/dl HIGH >190 mg/dl VERY HIGH Performed By: #### L IPID, CMP, FT3, MG, T4, TSH, URIC #### [facility] [address] [address] [address] Estephania Small Triglyceride [Mass/Vol] 124 mg/dL Normal <=150 [facility] Comment on above: Performed By: #### L IPID, CMP, FT3, MG, T4, TSH, URIC #### [facility] [address] [address] [address] Estephania Small VLDL CALC 24.8 mg/dL Normal [facility] Comment on above: Performed By: #### L IPID, CMP, FT3, MG, T4, TSH, URIC #### [facility] [address] [place] [address] Dr. Estephania Small MAGNESIUMon 10-11-2022 Magnesium [Mass/Vol] 1.5 mg/dL Critically low 1.8-2.4 [facility] Comment on above: Performed By: #### L IPID, CMP, FT3, MG, T4, TSH, URIC #### [facility] [address] [place] [address] Dr. Estephania Small PROF 14(COMP METB)on 023 Albumin [Mass/Vol] 4.0 g/dL Normal 3.4-5.0 [facility] Comment on above: Performed By: #### L IPID, CMP, FT3, MG, T4, TSH, URIC #### [facility] [address] [place] [address] Dr. Estephania Small Albumin/Globulin [Mass ratio] 1.1 {ratio} Normal [facility] Comment on above: Performed By: #### L IPID, CMP, FT3, MG, T4, TSH, URIC #### [facility] [address] [place] [address] Dr. Estephania Small ALP [Catalytic activity/Vol] 88 U/L Normal 46-116 [facility] Comment on above: Performed By: #### L IPID, CMP, FT3, MG, T4, TSH, URIC #### [facility] [address] [place] [address] Dr. Estephania Small ALT [Catalytic activity/Vol] 33 U/L Normal 16-63 [facility] Comment on above: Performed By: #### L IPID, CMP, FT3, MG, T4, TSH, URIC #### [facility] [address] [place] [address] Dr. Estephania Small Anion gap [Moles/Vol] 13.6 mmol/L Normal [facility] Comment on above: Performed By: #### L IPID, CMP, FT3, MG, T4, TSH, URIC #### [facility] [address] [address] [address] Estephania Small AST [Catalytic activity/Vol] 24 U/L Normal 15-37 [facility] Comment on above: Performed By: #### L IPID, CMP, FT3, MG, T4, TSH, URIC #### [facility] [address] [place] [address] Dr. Etsephania Small Bilirubin [Mass/Vol] 0.5 mg/dL Normal 0.2-1.0 [facility] Comment on above: Performed By: #### L IPID, CMP, FT3, MG, T4, TSH, URIC #### [facility] [address] [place] [address] Dr. Estephania Small Calcium [Mass/Vol] 9.1 mg/dL Normal 8.5-10.1 [facility] Comment on above: Performed By: #### L IPID, CMP, FT3, MG, T4, TSH, URIC #### [facility] [address] [place] [address] Dr. Estephania Small Chloride [Moles/Vol] 102 mmol/L Normal 98-107 [facility] Comment on above: Performed By: #### L IPID, CMP, FT3, MG, T4, TSH, URIC #### [facility] [address] [place] [address] Dr. Estephania Small CO2 [Moles/Vol] 30.0 mmol/L Normal 21.0-32.0 [facility] Comment on above: Performed By: #### L IPID, CMP, FT3, MG, T4, TSH, URIC #### [facility] [address] [place] [address] Dr. Estephania Small Creatinine [Mass/Vol] 1.03 mg/dL Normal 0.70-1.30 [facility] Comment on above: Performed By: #### L IPID, CMP, FT3, MG, T4, TSH, URIC #### [facility] [address] [place] [address] Dr. Estephania Small EGFR-AF GABONESE >60 Normal >=60 [facility] Comment on above: Performed By: #### L IPID, CMP, FT3, MG, T4, TSH, URIC #### [facility] [address] [place] [address] Dr. Estephania Small EGFR-NON AF GABONESE >60 Normal >=60 [facility] Comment on above: Performed By: #### L IPID, CMP, FT3, MG, T4, TSH, URIC #### [facility] [address] [place] [address] Dr. Estephania Small Globulin (S) [Mass/Vol] 3.8 g/dL Normal [facility] Comment on above: Performed By: #### L IPID, CMP, FT3, MG, T4, TSH, URIC #### [facility] [address] [place] [address] Dr. Estephania Small Glucose [Mass/Vol] 128 mg/dL Critically high 74-106 [facility] Comment on above: Performed By: #### L IPID, CMP, FT3, MG, T4, TSH, URIC #### [facility] [address] [place] [address] Dr. Estephania Small Potassium [Moles/Vol] 4.6 mmol/L Normal 3.5-5.1 [facility] Comment on above: Performed By: #### L IPID, CMP, FT3, MG, T4, TSH, URIC #### [facility] [address] [place] [address] Dr. Estephania Small Protein [Mass/Vol] 7.8 g/dL Normal 6.4-8.2 [facility] Comment on above: Performed By: #### L IPID, CMP, FT3, MG, T4, TSH, URIC #### [facility] [address] [place] [address] Dr. Estephania Small Sodium [Moles/Vol] 141 mmol/L Normal 136-145 [facility] Comment on above: Performed By: #### L IPID, CMP, FT3, MG, T4, TSH, URIC #### [facility] [address] [place] [address] Dr. Estephania Small Urea nitrogen [Mass/Vol] 27.0 mg/dL Critically high 7.0-18.0 [facility] Comment on above: Performed By: #### L IPID, CMP, FT3, MG, T4, TSH, URIC #### [facility] [address] [address] [address] Estephania Small Urea nitrogen/Creatini ne [Mass ratio] 26.2 mg/mg Normal [facility] Comment on above: Performed By: #### L IPID, CMP, FT3, MG, T4, TSH, URIC #### [facility] [address] [place] [address] Dr. Estephania Small T4on 10-11-2022 T4 [Mass/Vol] 7.20 ug/dL Normal 4.50-12.10 [facility] Comment on above: Performed By: #### L IPID, CMP, FT3, MG, T4, TSH, URIC #### [facility] [address] [place] [address] Dr. Estephania Small TSHon 10-11-2022 TSH 1.682 uIU/mL Normal 0.358-3.740 [facility] Comment on above: Performed By: #### L IPID, CMP, FT3, MG, T4, TSH, URIC #### [facility] [address] [place] [address] Dr. Estephania Small URIC ACID SERUMon 10-11-2022 Urate [Mass/Vol] 7.6 mg/dL Critically high 3.5-7.2 [facility] Comment on above: Performed By: #### L IPID, CMP, FT3, MG, T4, TSH, URIC #### [facility] [address] [place] [address] Dr. Estephania Small Cardiovascular Lab Reporton 09-21-2020 Cardiovascular Lab Report [facility] Patient Name: Jesus [facility] MR #: [id number] Physician: Torin Henderson, Department of M.D. Medicine Service Date: 09/20/2020 Division of Birthdate: 1950 Cardiology Room #: [facility] [id number] Adult Cardiovascular Services [address] [place] [address] Cardiovascular Laboratory Report PROCEDURE: Transesophageal echocardiogram and cardioversion. INDICATION: Atrial fibrillation/flutter. ATTENDING DOCTOR: Torin Henderson M.D. FELLOW: Renan Hernandes MD. PROCEDURE IN DETAIL: Informed consent was obtained from the patient after explaining indication, risks, benefits, and alternatives. The patient understood and agreed and signed the consent form. The patient was brought to the director of cath lab and transesophageal echocardiogram was performed under conscious [...] Hernandes MD Date Trans: 09/21/2020 06:48 A/godwin [id number] cc: Nixon Garay M.D. [address] [id number] Normal [facility] APTTon 09-20-2020 aPTT Coag (Bld) [Time] 54.0 s High 25.0-35.0 [facility] Comment on above: Order Comment: [...] THIS PURPOSE. Performed By: #### 5 6101, [id number], 83964 #### [facility] [address] [place] [address], [facility] aPTT Coag (Bld) [Time] 29.2 s Normal 25.0-35.0 [facility] Comment on above: Order Comment: [...] THIS PURPOSE. Performed By: #### 5 7307, 37890, 86053, 70414 #### [facility] [address] [place] [address], [facility] BASIC METABOLIC PANELon 04-0 Calcium [Mass/Vol] 9.1 mg/dL Normal 8.6-10.3 [facility] Comment on above: Order Comment: No: D o not add to previous draw Performed By: #### 8 [id number] #### [facility] [address] [place] [address], [facility] Chloride [Moles/Vol] 102 mmol/L Normal 98-107 [facility] Comment on above: Order Comment: No: D o not add to previous draw Performed By: #### 8 [id number] #### [facility] [address] [place] [address], [facility] CO2 [Moles/Vol] 28 mmol/L Normal 21-31 [facility] Comment on above: Order Comment: No: D o not add to previous draw Performed By: #### 8 [id number] #### [facility] [address] [place] [id number], [facility] Creatinine [Mass/Vol] 1.07 mg/dL Normal 0.70-1.30 [facility] Comment on above: Order Comment: No: D o not add to previous draw Performed By: #### 8 5499 #### [facility] [address] [place] [address], [place] GFR/1.73 sq M.predicted among blacks MDRD (S/P/Bld) [Vol rate/Area] mL/min/{1.73_m2} Normal >60 [facility] Comment on above: Order Comment: No: D o not add to previous draw Performed By: #### 8 [id number] #### [facility] [address] [place] [address], [place] GFR/1.73 sq M.predicted among non-blacks MDRD (S/P/Bld) [Vol rate/Area] mL/min/{1.73_m2} Normal >60 [facility] Comment on above: Order Comment: No: D o not add to previous draw Performed By: #### 8 5499 #### [facility] [address] [place] [address], [place] Glucose [Mass/Vol] 109 mg/dL High 70-100 [facility] Comment on above: Order Comment: No: D o not add to previous draw Performed By: #### 8 [id number] #### [facility] [address] [place] [address], [place] Potassium [Moles/Vol] 4.3 mmol/L Normal 3.5-5.1 [facility] Comment on above: Order Comment: No: D o not add to previous draw Performed By: #### 8 5499 #### [facility] [address] [place] [address], [place] Sodium [Moles/Vol] 139 mmol/L Normal 136-145 [facility] Comment on above: Order Comment: No: D o not add to previous draw Performed By: #### 8 [id number] #### [facility] [address] [place] [address], [place] Urea nitrogen [Mass/Vol] 27 mg/dL High 7-25 [facility] Comment on above: Order Comment: No: D o not add to previous draw Performed By: #### 8 5499 #### [facility] [address] [place] [address], [place] Calcium [Mass/Vol] 9.5 mg/dL Normal 8.6-10.3 [facility] Comment on above: Order Comment: No: D o not add to previous draw Performed By: #### 8 [id number] #### [facility] [address] [place] [address], [place] Chloride [Moles/Vol] 101 mmol/L Normal 98-107 [facility] Comment on above: Order Comment: No: D o not add to previous draw Performed By: #### 8 5499 #### [facility] [address] [place] [address], [place] CO2 [Moles/Vol] 25 mmol/L Normal 21-31 [facility] Comment on above: Order Comment: No: D o not add to previous draw Performed By: #### 8 5499 #### [facility] [address] [place] [address], [place] Creatinine [Mass/Vol] 1.13 mg/dL Normal 0.70-1.30 [facility] Comment on above: Order Comment: No: D o not add to previous draw Performed By: #### 8 5499 #### [facility] [address] [place] [address], [place] GFR/1.73 sq M.predicted among blacks MDRD (S/P/Bld) [Vol rate/Area] mL/min/{1.73_m2} Normal >60 [facility] Comment on above: Order Comment: No: D o not add to previous draw Performed By: #### 8 5499 #### [facility] [address] [place] [address], [place] GFR/1.73 sq M.predicted among non-blacks MDRD (S/P/Bld) [Vol rate/Area] mL/min/{1.73_m2} Normal >60 [facility] Comment on above: Order Comment: No: D o not add to previous draw Performed By: #### 8 [id number] #### [facility] [address] [place] [address], [place] Glucose [Mass/Vol] 121 mg/dL High 70-100 [facility] Comment on above: Order Comment: No: D o not add to previous draw Performed By: #### 8 5499 #### [facility] [address] [place] [address], [place] Potassium [Moles/Vol] 4.6 mmol/L Normal 3.5-5.1 [facility] Comment on above: Order Comment: No: D o not add to previous draw Performed By: #### 8 5499 #### [facility] [address] [place] [address], [place] Sodium [Moles/Vol] 137 mmol/L Normal 136-145 [facility] Comment on above: Order Comment: No: D o not add to previous draw Performed By: #### 8 5499 #### [facility] [address] [place] [address], [facility] Urea nitrogen [Mass/Vol] 27 mg/dL High 7-25 [facility] Comment on above: Order Comment: No: D o not add to previous draw Performed By: #### 8 [id number] #### [facility] [address] [place] [address], [place] CBC COMPLETE BLOOD COUNTon 0 - Erythrocyte distribution width (RBC) [Ratio] 12.8 % Normal 11.5-15.0 [facility] Comment on above: Order Comment: No: D o not add to previous draw Performed By: #### 5 0608 #### [facility] [address] [place] [address], [place] Hematocrit (Bld) [Volume fraction] 40.1 % Normal 39.0-50.0 [facility] Comment on above: Order Comment: No: D o not add to previous draw Performed By: #### 5 0608 #### [facility] [address] [place] [address], [facility] Hemoglobin (Bld) [Mass/Vol] 12.6 g/dL Low 13.0-17.0 [facility] Comment on above: Order Comment: No: D o not add to previous draw Performed By: #### 5 0608 #### [facility] [address] [place] [address], [facility] MCH (RBC) [Entitic mass] 27.6 pg Normal 27.0-33.0 [facility] Comment on above: Order Comment: No: D o not add to previous draw Performed By: #### 5 0608 #### [facility] [address] [facility] [place] [address], [facility] MCHC (RBC) [Mass/Vol] 31.4 g/dL Low 32.0-35.0 [facility] Comment on above: Order Comment: No: D o not add to previous draw Performed By: #### 5 0608 #### [facility] [address] [facility] [place] [address], [facility] MCV (RBC) [Entitic vol] 87.7 fL Normal 82.0-98.0 [facility] Comment on above: Order Comment: No: D o not add to previous draw Performed By: #### 5 0608 #### [facility] [address] [facility] [place] [address], [facility] Nucleated RBC/100 WBC (Bld) [Ratio] 0 % Normal 0-0 [facility] Comment on above: Order Comment: No: D o not add to previous draw Performed By: #### 5 0608 #### [facility] [address] [place] [id number], [facility] PLAT CNT 261 10*3/uL Normal 150-400 [facility] Comment on above: Order Comment: No: D o not add to previous draw Performed By: #### 5 0608 #### [facility] [address] [facility] [place] [address], [facility] RBC (Bld) [#/Vol] 4.57 10*6/uL Normal 4.20-5.70 [facility] Comment on above: Order Comment: No: D o not add to previous draw Performed By: #### 5 0608 #### [facility] [address] [facility] [place] [address], [facility] WBC (Bld) [#/Vol] 8.46 10*3/uL Normal 4.00-10.60 [facility] Comment on above: Order Comment: No: D o not add to previous draw Performed By: #### 5 0608 #### [facility] [address] [facility] [place] [address], [facility] CBC W/DIFFon 09-20-2020 ABS IMM GRANS 0.0 10*3/uL Normal 0.0-0.2 [facility] Comment on above: Order Comment: No: D o not add to previous draw Performed By: #### 5 0608 #### [facility] [address] [facility] [place] [address], [facility] ABS NEUTROPHILS 3.8 10*3/uL Normal 1.6-7.6 [facility] Comment on above: Order Comment: No: D o not add to previous draw Performed By: #### 5 0608 #### [facility] [address] [facility] [place] [address], [facility] Basophils (Bld) [#/Vol] 0.0 10*3/uL Normal 0.0-0.2 [facility] Comment on above: Order Comment: No: D o not add to previous draw Performed By: #### 5 0608 #### [facility] [address] [place] [address], [facility] Basophils/100 WBC (Bld) 0.5 % Normal 0.0-1.0 [facility] Comment on above: Order Comment: No: D o not add to previous draw Performed By: #### 5 0608 #### [facility] [address] [place] [address], [facility] Eosinophils (Bld) [#/Vol] 0.6 10*3/uL High 0.0-0.5 [facility] Comment on above: Order Comment: No: D o not add to previous draw Performed By: #### 5 0608 #### [facility] [address] [place] [address], [facility] Eosinophils/100 WBC (Bld) 9.6 % High 0.0-6.0 [facility] Comment on above: Order Comment: No: D o not add to previous draw Performed By: #### 5 0608 #### [facility] [address] [facility]. [address] Erythrocyte distribution width (RBC) [Ratio] 12.7 % Normal 11.5-15.0 [facility] Comment on above: Order Comment: No: D o not add to previous draw Performed By: #### 5 0608 #### [facility] [address] [facility]. [address] Hematocrit (Bld) [Volume fraction] 37.2 % Low 39.0-50.0 [facility] Comment on above: Order Comment: No: D o not add to previous draw Performed By: #### 5 0608 #### [facility] [address] [facility] [place] [address], [facility] Hemoglobin (Bld) [Mass/Vol] 11.9 g/dL Low 13.0-17.0 [facility] Comment on above: Order Comment: No: D o not add to previous draw Performed By: #### 5 0608 #### [facility] [address] [place] [address], [facility] IMMATURE GRANS 0.3 % Normal 0.0-1.0 [facility] Comment on above: Order Comment: No: D o not add to previous draw Performed By: #### 5 0608 #### [facility] [address] [place] [id number], [facility] Lymphocytes (Bld) [#/Vol] 1.4 10*3/uL Normal 1.2-4.0 [facility] Comment on above: Order Comment: No: D o not add to previous draw Performed By: #### 5 0608 #### [facility] [address] [place] [address], [facility] Lymphocytes/100 WBC (Bld) 21.9 % Normal 20.0-45.0 [facility] Comment on above: Order Comment: No: D o not add to previous draw Performed By: #### 5 0608 #### [facility] [address] [place] [id number], [facility] MCH (RBC) [Entitic mass] 28.1 pg Normal 27.0-33.0 [facility] Comment on above: Order Comment: No: D o not add to previous draw Performed By: #### 5 0608 #### [facility] [address] [place] [address], [facility] MCHC (RBC) [Mass/Vol] 32.0 g/dL Normal 32.0-35.0 [facility] Comment on above: Order Comment: No: D o not add to previous draw Performed By: #### 5 0608 #### [facility] [address] [place] [address], [facility] MCV (RBC) [Entitic vol] 87.7 fL Normal 82.0-98.0 [facility] Comment on above: Order Comment: No: D o not add to previous draw Performed By: #### 5 0608 #### [facility] [address] [place] [id number], [facility] Monocytes (Bld) [#/Vol] 0.6 10*3/uL Normal 0.1-1.0 [facility] Comment on above: Order Comment: No: D o not add to previous draw Performed By: #### 5 0608 #### [facility] [address] [place] [address], [facility] MONOS 9.2 % Normal 5.0-12.0 [facility] Comment on above: Order Comment: No: D o not add to previous draw Performed By: #### 5 0608 #### [facility] [address] [place] [id number], [facility] Neutrophils/100 WBC (Bld) 58.5 % Normal 40.0-72.0 [facility] Comment on above: Order Comment: No: D o not add to previous draw Performed By: #### 5 0608 #### [facility] [address] [place] [id number], [facility] Nucleated RBC/100 WBC (Bld) [Ratio] 0 % Normal 0-0 [facility] Comment on above: Order Comment: No: D o not add to previous draw Performed By: #### 5 0608 #### [facility] [address] [place] [id number], [facility] PLAT CNT 222 10*3/uL Normal 150-400 [facility] Comment on above: Order Comment: No: D o not add to previous draw Performed By: #### 5 0608 #### [facility] [address] [place] [id number], [facility] RBC (Bld) [#/Vol] 4.24 10*6/uL Normal 4.20-5.70 [facility] Comment on above: Order Comment: No: D o not add to previous draw Performed By: #### 5 0608 #### [facility] [address] [place] [address], [place] WBC (Bld) [#/Vol] 6.44 10*3/uL Normal 4.00-10.60 [facility] Comment on above: Order Comment: No: D o not add to previous draw Performed By: #### 5 0608 #### [address] CHEST AND LATERALon 09-21-19 CHEST AND LATERAL [facility] Department of Radiology [address] [place] [id number] Patient Name: LINDA LEE : 1950 Sex: M Age: Race: White Pt. Location: [id number] Patient Status: I Ordered Date: 09/19/2020 10:55:00 [...] reports Electronically signed: Edith Penny. Transcribed by: [email or web address], User Resident: KRISTY FOLEY Electronically Signed by: EDITH PENNY @ 09/20/2020 12:37 AM I personally read this/these film(s) with this resident Normal [facility] Comment on above: Order Comment: No: D o not add to previous draw CTA CHESTon 09-20-2020 CTA CHEST [facility] Department of Radiology [address] [place] [id number] Patient Name: LINDA LEE : 1950 Sex: M Age: Race: White Pt. Location: [id number] Patient Status: O Ordered Date: 09/20/2020 3:30:00 [...] AP Electronically signed: Edith Penny. Transcribed by: [email or web address], User Resident: Electronically Signed by: EDITH PENNY @ 09/20/2020 05:54 AM Normal [facility] Comment on above: Order Comment: No: D o not add to previous draw D DIMER TESTon 09-20-2020 D-DIMER TEST 3.43 mcg/mL FEU High 0.27-0.49 [facility] Comment on above: Result Comment: D-Di alyssa values of less than 0.50 ug/ml (FEU) are considered to be a negative predictor of thrombosis. However, the D-Dimer result should be used in conjunction with pretest probability and should not be used alone to diagnose a thrombotic event. Performed By: #### 5 7307, 34682, 37609, 17121 #### [facility] [address] [place] [address], [facility] MAGNESIUM BLOODon 09-20-2020 Magnesium [Mass/Vol] 1.5 mg/dL Low 1.9-2.7 [facility] Comment on above: Order Comment: No: D o not add to previous draw Performed By: #### 8 5499 #### [facility] [address] [place] [address], [facility] Magnesium [Mass/Vol] 1.5 mg/dL Low 1.9-2.7 [facility] Comment on above: Order Comment: No: D o not add to previous draw Performed By: #### 8 5499 #### [facility] [address] [place] [address], [place] PHOSPHORUS BLOODon 1 Phosphate [Mass/Vol] 4.3 mg/dL Normal 2.5-5.0 [facility] Comment on above: Order Comment: No: D o not add to previous draw Performed By: #### 8 [id number] #### [facility] [address] [place] [address], [facility] POC GLUCOSE LABon 09-20-2020 Glucose [Mass/Vol] 125 mg/dL High 70-100 [facility] Comment on above: Performed By: #### 8 5499 #### [facility] [address] [place] [address], [place] Glucose [Mass/Vol] 145 mg/dL High 70-100 [facility] Comment on above: Performed By: #### 5 0608 #### [facility] [address] [place] [address], [place] Glucose [Mass/Vol] 127 mg/dL High 70-100 [facility] Comment on above: Performed By: #### 8 5499 #### [facility] [address] [place] [address], [place] PROTHROMBIN TIMEon 1 INR Coag (PPP) [Relative time] 1.22 {INR} High 0.91-1.16 [facility] Comment on above: Order Comment: [...] CHEST 1995;[id number]. Performed By: #### 5 6101, 23585, 17219 #### [facility] [address] [facility]. [address] PT Coag (PPP) [Time] 15.4 s High 12.3-14.8 [facility] Comment on above: Order Comment: No: D o not add to previous draw Result Comment: ALL RESULTS MUST BE INTERPRETED WITH RESPECT TO BLOOD DRAWING ARTIFACT OR DILUTION ERROR OF ANTICOAGULANT AT THE TIME OF SAMPLING. Performed By: #### 5 6101, 49482, 48544 #### [facility] [address] INR Coag (PPP) [Relative time] 1.13 {INR} Normal 0.91-1.16 [facility] Comment on above: Order Comment: [...] CHEST 1995;[id number]. Performed By: #### 5 7307, 18574, 43572, 58869 #### [facility] [address] [place] [address], [facility] PT Coag (PPP) [Time] 14.5 s Normal 12.3-14.8 [facility] Comment on above: Order Comment: No: D o not add to previous draw Result Comment: ALL RESULTS MUST BE INTERPRETED WITH RESPECT TO BLOOD DRAWING ARTIFACT OR DILUTION ERROR OF ANTICOAGULANT AT THE TIME OF SAMPLING. Performed By: #### 5 7307, 06510, 91083, 46700 #### [facility] [address] [place] [address], [facility] TROPONIN-Ion 09-20-2020 Troponin I.cardiac [Mass/Vol] 0.07 ng/mL High 0.00-0.04 [facility] Comment on above: Order Comment: No: D o not add to previous draw Result Comment: REFE RENCE RANGES: 0.00 - 0.04 ng/ml NORMAL 0.05 - 0.50 ng/ml INDETERMINATE > 0.50 ng/ml CONSISTENT WITH AN M.I. Performed By: #### 8 [id number] #### [facility] [address] [place] [address], [facility] TSH3on 09-20-2020 TSH 3RD GENERATION 2.08 uIU/mL Normal 0.34-5.60 [facility] Comment on above: Order Comment: No: D o not add to previous draw Performed By: #### 8 5499 #### [facility] [address] [place] [address], [place] UFH HEPARIN ASSAYon 09-21-19 UNFRACTIONATED HEPARIN 0.46 IU/mL Normal 0.30-0.70 [facility] Comment on above: Result Comment: Desi roxaban and Apixaban will interfere with the anti Xa assay used to monitor UFH and LMWH. Performed By: #### 5 0608 #### [facility] [address] [place] [address], [facility] UNFRACTIONATED HEPARIN 0.48 IU/mL Normal 0.30-0.70 [facility] Comment on above: Result Comment: Desi roxaban and Apixaban will interfere with the anti Xa assay used to monitor UFH and LMWH. Performed By: #### 8 [id number] #### [facility] [address] [place] [address], [facility] UNFRACTIONATED HEPARIN 0.17 IU/mL Low 0.30-0.70 [facility] Comment on above: Result Comment: Desi roxaban and Apixaban will interfere with the anti Xa assay used to monitor UFH and LMWH. Performed By: #### 5 6101, 23380, 81755 #### [facility] [address] [place] [address], [facility] UNFRACTIONATED HEPARIN <0.10 Critically low 0.30-0.70 [facility] Comment on above: Result Comment: Desi roxaban and Apixaban will interfere with the anti Xa assay used to monitor UFH and LMWH. RESULTS CHECKED AND CALLED. ACCURATELY READ BACK BY JONNIE SINGLETON RN AT 0208. Performed By: #### 5 7307, 59706, 51762, 06586 #### [facility] [address] [place] [address], [facility] BASIC METABOLIC PANELon 08-16 Calcium [Mass/Vol] 9.9 mg/dL Normal 8.6-10.3 [facility] Comment on above: Performed By: #### 5 0608 #### [facility] [address] [place] [address], [facility] Chloride [Moles/Vol] 99 mmol/L Normal 98-107 [facility] Comment on above: Performed By: #### 5 0608 #### [facility] [address] [place] [address], [facility] CO2 [Moles/Vol] 29 mmol/L Normal 21-31 [facility] Comment on above: Performed By: #### 5 [id number] #### [facility] [address] [place] [address], [facility] Creatinine [Mass/Vol] 1.07 mg/dL Normal 0.70-1.30 [facility] Comment on above: Performed By: #### 5 0608 #### [facility] [address] [facility] [place] [address], [facility] GFR/1.73 sq M.predicted among blacks MDRD (S/P/Bld) [Vol rate/Area] mL/min/{1.73_m2} Normal >60 [facility] Comment on above: Performed By: #### 5 0608 #### [facility] [address] [place] [address], [facility] GFR/1.73 sq M.predicted among non-blacks MDRD (S/P/Bld) [Vol rate/Area] mL/min/{1.73_m2} Normal >60 [facility] Comment on above: Performed By: #### 5 0608 #### [facility] [address] [place] [address], [facility] Glucose [Mass/Vol] 75 mg/dL Normal 70-100 [facility] Comment on above: Performed By: #### 5 0608 #### [facility] [address] [place] [address], [facility] Potassium [Moles/Vol] 4.1 mmol/L Normal 3.5-5.1 [facility] Comment on above: Performed By: #### 5 0608 #### [facility] [address] Sodium [Moles/Vol] 138 mmol/L Normal 136-145 [facility] Comment on above: Performed By: #### 5 0608 #### [facility] [address] Urea nitrogen [Mass/Vol] 22 mg/dL Normal 7-25 [facility] Comment on above: Performed By: #### 5 0608 #### [facility] [address] CHEST AND LATERALon 09-13-19 21 CHEST AND LATERAL [facility] Department of Radiology [address] [place] [address] Patient Name: LINDA LEE : 1950 Sex: M Age: Race: White Pt. 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 Transcribed by: [email or web address], User Resident: Electronically Signed by: CORRY AL @ 09/12/2020 12:12 PM Normal [facility] Comment on above: Order Comment: evalu ate MAGNESIUM BLOODon 09-12-2020 Magnesium [Mass/Vol] 1.5 mg/dL Low 1.9-2.7 [facility] Comment on above: Performed By: #### 5 0608 #### [facility] [address] [facility]. [address] CNOVon 04-30-2018 CNOV Office Visit (BRIANA) NO LINDA VALDEZ ([id number]) 1950 M UPADate Time Provider Lxrgcbdlms62/14/18 10:00 AM MIKEY BESS During your visit today, we recorded the following information about you: Pulse Blood pressure Weight 61/minute 134/89 114.3 kgMikey Bess MD 04/30/2018 10:20 AM [facility] Randee Nieto Department of Cardiovascular MedicineOUTPATIENT VISIT DATE 04/30/18OUTPATIENT VISIT TYPEESTABLCONE HEALTH ALAMANCE REGIONALPROUR COMMUNITY HOSPITALRY CARE PHYSICIAN:Nixon Garay MD[address] [facility] [address]Unsdp: [phone]: [phone] COMPLAINT:Patient presents with:Established PatientHISTORY OF PRESENT ILLNESS:Linda Lee is a 68 year old male with [...] CATH 10/02/13 50% mid LM. Proxima LAD STEEL ROD BUSTER with L-L collateral. Proximal RCA STEEL ROD BUSTER. Co-dominatLCX with L-R collateral. EF 55%.- CARDIOVERSION 10/14/2017- COLONOSCOPY 09/14/13- REMV CATARACT EXTRACAP,INSERT LENS 2008 Cataract Extraction with PC IOLSocial HistorySubstance Use Topics- Smoking status: Former Smoker Packs/day: 1.00 Years: 30.00 Types: Cigarettes Quit date: 10/03/2013- Smokeless tobacco: Never Used- Alcohol use 3.0 - 4.5 oz/week 2 - 3 Cans of Beer (12oz) per weekFAMILY HISTORYProblem Relation Age of Onset- Stroke Mother in her 80's- Heart Father [place], in mid 50 s.- Coronary Artery Disease Brother [place], in his 40's. in his 50's.ALLERGIES:ALLERGIESAllerg en [...] ICD10: I48.1 (primarydiagnosis)2. Coronary artery disease involving zuni coronary artery of zuni heartwithout angina pectoris - ICD9: 414.01, ICD10: [...] provided to the requesting provider by way ofshared medical record or via U.S. Mail.This document was generated utilizing Room 21 Mediaon dictation. I have reviewed andverified that the contents of the document are accurate with the exception ofminor grammatical, spelling and punctuation errors.CONTACT INFORMATION:Thank you for allowing us to participate in the care of this very pleasantpatient. Please free to contact us if we can be of any further assistance.Mikey Bess MD, [facility] and Randee Carterpartment of Cardiovascular MedicineUniversity Hospitals Samaritan Medical Centerrt and Vascular Institute[address] [address]Vomapv: [phone] Referring Provider: NIXON GARAY [[id number]]Allergies As of Date: 04/30/2018 Noted Allergy ReactionALDACTONE (SPIRONOLACTONE) 11/04/2015 14 - Other: See Comments Comments: Muscle crapmDate Reviewed: 04/30/2018Reviewed by: Mikey Bess - Fully AssessedReason for Visit: Established Patient [175]Primary Visit Diagnosis:Persistent atrial fibrillation (HCC) [I48.1] Other Visit Diagnoses:Coronary artery disease involving zuni coronary artery of zuni heart without angina pectoris [I25.10] Essential hypertension [...] Hyperlipidemia [E78.5] INVALID FOR* Status:Closed by ALANIS BESS MD on 04/30/18 Normal [facility] PROGRESSon 04-30-2018 Protein mass conc HNO ID: [id number] thor: Mikey Leeervice: (none)Author Type: PhysicianType: Progress NotesFiled: 04/30/2018 10:20 AMNote Text:Heart and Vascular InstituteRobnew sunrise regional treatment center and Randee Villaunc [facility] Department of Cardiovascular MedicineOUTPATIENT VISIT DATE 04/30/18OUTPATIENT VISIT TYPEESTABLISHEDPRIMARY CARE PHYSICIAN:Nixon Garay MD[address] [facility] [address]Dfpgl: [phone]: [phone] COMPLAINT:Patient presents with:Established PatientHISTORY OF PRESENT ILLNESS:Linda Lee is a 68 year old male with [...] CATH 10/02/13 50% mid LM. Proxima LAD STEEL ROD BUSTER with L-L collateral. Proximal RCA STEEL ROD BUSTER.Co-dominat LCX with L-R collateral. EF 55%.- CARDIOVERSION [...] Stroke Mother in her 80's- Heart Father [place], in mid 50 s.- Coronary Artery Disease Brother [place], in his 40's. in his 50's.ALLERGIES:ALLERGIESAllerg en [...] ICD10: I48.1(primary diagnosis)2. Coronary artery disease involving zuni coronary artery of nativeheart without angina pectoris [...] provided to the requesting provider by way ofporter[facility] medical record or via U.S. Mail.This document was generated utilizing Room 21 Mediaon dictation. I have reviewedand verified that the contents of the document are accurate with theexception of minor grammatical, spelling and punctuation errors.CONTACT INFORMATION:Thank you for allowing us to participate in the care of this very pleasantpatient. Please free to contact us if we can be of any furtherassistance.Mikey Bess MD, FACCRobert and Randee Aguilera of Cardiovascular MedicineUniversity Hospitals Samaritan Medical Centerrt and Vascular InstituteJeremy Ville [address], [place] [address]Xirhen: [phone] Normal [facility] CNOVon 10-22-2017 CNOV Office Visit (CARDFT) NO LINDA VALDEZ ([id number]) 1950 MDate Time Provider Department10/22/17 9:00 AM HOLDEN EDWARDS During your visit today, we recorded the following information about you: Pulse Respiration Blood pressure 69/minute 16/minute 139/76Holden Edwards 10/22/2017 9:28 AM [facility] and Vascular InstituteRobnew sunrise regional [facility] and Randee Mcneal Department of Cardiovascular MedicineOUTPATIENT VISIT DATE10/22/17OUTPATIENT VISIT TYPEESTABLISHEDPRIMARY CARE PHYSICIAN:Nixon Garay MD[address] [facility] [address]Habno: [phone]: [phone] COMPLAINT:AFIBHISTORY OF PRESENT ILLNESS:Linda Lee is a 67 year old male who [...] CATH 10/02/13 50% mid LM. Proxima LAD STEEL ROD BUSTER with L-L collateral. Proximal RCA STEEL ROD BUSTER. Co-dominatLCX with L-R collateral. EF 55%.- COLONOSCOPY [...] Stroke Mother in her 80's- Heart Father [place], in mid 50 s.- Coronary Artery Disease Brother [place], in his 40's. in his 50's.ALLERGIES:ALLERGIESAllerg en [...] 10/22/17 atrial fibrillation ventricular rate 62 bpmIMPRESSION/PLAN:Linda Lee is a 67 year old male with [...] or concerns.Holden Edwards M.D.Doroteo Aguilera of Cardiovascular MedicineUniversity Hospitals Samaritan Medical Centerrt and Vascular InstituteLima Memorial Hospital[address], [place] [address]Ebjbrs: [phone] Referring Provider: NIXON GARAY [[id number]]Allergies As of Date: 10/22/2017 Noted Allergy ReactionALDACTONE (SPIRONOLACTONE) 11/04/2015 14 - Other: See Comments Comments: Muscle crapmDate Reviewed: 10/22/2017Reviewed by: Gasper Louie RN - Fully AssessedPrimary Visit Diagnosis:Atrial fibrillation, unspecified type (HCC) [I48.91]Order(s):ECG B/O W INTERP (MED OFFICE) [ECG06] Order #: [id number] as of 10/22/2017 Sig: METFORMIN 500 MG [...] (around 04/24/2018).Follow-up and Disposition History RecordedEncounter Number: [id number] Status:Closed by HOLDEN EDWARDS MD on 10/22/17 Normal [facility] PROGRESSon 10-21-2017 Protein mass conc HNO ID: [id number] thor: Holden EdwardsSer: (none)Author Type: PhysicianType: Progress NotesFiled: 10/22/2017 9:28 AMNote Text:Heart and Vascular InstituteRobnew sunrise regional treatment center and Randee Mcneal Department of Cardiovascular MedicineOUTPATIENT VISIT DATE10/22/17OUTPATIENT VISIT TYPEESTABLISHEDPRIMARY CARE PHYSICIAN:Nixon Garay MD[address] [facility] [address]Tprwk: [phone]: [phone] COMPLAINT:AFIBHISTORY OF PRESENT ILLNESS:Linda Lee is a 67 year old male who [...] CATH 10/02/13 50% mid LM. Proxima LAD STEEL ROD BUSTER with L-L collateral. Proximal RCA STEEL ROD BUSTER.Co-dominat LCX with L-R collateral. EF 55%.- COLONOSCOPY [...] Stroke Mother in her 80's- Heart Father [place], in mid 50 s.- Coronary Artery Disease Brother [place], in his 40's. in his 50's.ALLERGIES:ALLERGIESAllerg en [...] 10/22/17 atrial fibrillation ventricular rate 62 bpmIMPRESSION/PLAN:Linda Lee is a 67 year old male with [...] to contact us with further questions or concerns.Jason Tamayo of Cardiovascular MedicineTucson Va Medical Center and Vascular [address] [address]Ymdiur: [phone] [facility] CNOVon 08-28-2017 CNOV Office Visit (CARDFT) NO LINDA VALDEZ ([id number]) 1950 MDate Time Provider Department08/28/17 11:00 AM HOLDEN EDWARDS During your visit today, we recorded the following information about you: Pulse Respiration Blood pressure 64/minute 14/minute 147/91Holden Edwards MD 08/28/2017 11:03 AM [facility] and Vascular RavencliffRobCarlota Mcneal Department of Cardiovascular MedicineOUTPATIENT VISIT DATE08/28/17OUTPATIENT VISIT TYPEESTABLCONE HEALTH ALAMANCE REGIONALPROUR COMMUNITY HOSPITALRY CARE PHYSICIAN:Nixon Garay MD[address] [facility] [address]Wqxdl: [phone]: [phone] COMPLAINT:AFIBHISTORY OF PRESENT ILLNESS:Linda Lee is a 67 year old male who [...] CATH 10/02/13 50% mid LM. Proxima LAD STEEL ROD BUSTER with L-L collateral. Proximal RCA STEEL ROD BUSTER. Co-dominatLCX with L-R collateral. EF 55%.- COLONOSCOPY [...] Stroke Mother in her 80's- Heart Father [place], in mid 50ANDquot;s.- Coronary Artery Disease Brother [place], in his 40's. in his 50's.ALLERGIES:ALLERGIESAllerg en [...] 08/28/17 atrial fibrillation ventricular rate 64 bpmIMPRESSION/PLAN:Linda Lee is a 67 year old male with history of AFIB, HTN, CAD here forfollow upAtrial fibrillation: Paroxysmal, in rate controlled atrial fibrillation today.He will hold his Xarelto (rivaroxaban) for upcoming dental procedure thisSaturday and we will plan for cardioversion October 14 at 10 AM after morean 30 days of uninterrupted anticoagulationCoronary artery disease: [...] to contact us with further questions or concerns.Jason TamayoDepartment of Cardiovascular MedicineUniversity Hospitals Samaritan Medical Centerrt and Vascular Institute[address] [address]Jhmecc: [phone] Referring Provider: NIXON GARAY [[id number]]Allergies As of Date: 08/28/2017 Noted Allergy ReactionALDACTONE (SPIRONOLACTONE) 11/04/2015 14 - Other: See Comments Comments: Muscle crapmDate Reviewed: 08/28/2017Reviewed by: Gasper Louie RN - Fully AssessedPrimary Visit Diagnosis:Atrial fibrillation, unspecified type (HCC) [I48.91] Other Visit Diagnosis:Coronary artery disease involving zuni heart without angina pectoris, unspecified vessel or lesion type [I25.10]Order(s):ECG COMPLETE W INTERPRETATION [ECG01] Order #: [id number] FUTUREPrescriptions as of 08/28/2017 Sig: AMOXICILLIN 500 [...] by HOLDEN EDWARDS MD on 08/28/17 Normal [facility] PROGRESSon 08-26-2017 Protein mass conc HNO ID: [id number] thor: Holden EdwardsSer: (none)Author Type: PhysicianType: Progress NotesFiled: 08/28/2017 11:03 AMNote Text:[facility] Department of Cardiovascular MedicineOUTPATIENT VISIT DATE08/28/17OUTPATIENT VISIT TYPEESTABLISHEDPRBIBB MEDICAL [facility]ENTER CARE PHYSICIAN:Nixon Garay MD[address] [facility] [address]Lmxio: [phone]: [phone] COMPLAINT:AFIBHISTORY OF PRESENT ILLNESS:Linda Lee is a 67 year old male who [...] CATH 10/02/13 50% mid LM. Proxima LAD STEEL ROD BUSTER with L-L collateral. Proximal RCA STEEL ROD BUSTER.Co-dominat LCX with L-R collateral. EF 55%.- COLONOSCOPY [...] Stroke Mother in her 80's- Heart Father [place], in mid 50 s.- Coronary Artery Disease Brother [place], in his 40's. in his 50's.ALLERGIES:ALLERGIESAllerg en [...] 08/28/17 atrial fibrillation ventricular rate 64 bpmIMPRESSION/PLAN:Linda Lee is a 67 year old male with [...] cardioversion Pendingstudies: Cardioversion October 14 at 10 [facility] CLAREMOREONTACT INFORMATION:Thank you for allowing us to assist in the care your patient. As alwaysplease do not hesitate to contact us with further questions or concerns.Jason Tamayoment of Cardiovascular MedicineUniversity Hospitals Samaritan Medical Centerrt and Vascular Institute[address], [place] [address]Zbypau: [phone] [facility] CNOVon 08-23-2017 CNOV Office Visit (CARDFT) NO LINDA VALDEZ ([id number]) 1950 MDate Time Provider Department08/23/17 10:30 AM HOLDEN EDWARDS During your visit today, we recorded the following information about you: Pulse Respiration Blood pressure Weight 60/minute 18/minute 138/83 111.1 kg Height 1.956 Brian Edwards MD 08/23/2017 10:45 AM [facility] and Vascular RavencliffRobert and Randee Mcneal Department of Cardiovascular MedicineOUTPATIENT VISIT DATE 08/23/17OUTPATIENT VISIT TYPEESTABLISHEDPROUR COMMUNITY HOSPITALRY CARE PHYSICIAN:Nixon Garay MD[address] [facility] [address]Ylcxg: [phone]: [phone] COMPLAINT:AFIBHISTORY OF PRESENT ILLNESS:Linda Lee is a 67 year old male who [...] CATH 10/02/13 50% mid LM. Proxima LAD STEEL ROD BUSTER with L-L collateral. Proximal RCA STEEL ROD BUSTER. Co-dominatLCX with L-R collateral. EF 55%.- COLONOSCOPY [...] Stroke Mother in her 80's- Heart Father [place], in mid 50ANDquot;s.- Coronary Artery Disease Brother [place], in his 40's. in his 50's.ALLERGIES:ALLERGIESAllerg en [...] 111.1 kg (245lb) SpO2 98% BMI 29.05 kg/b6Uwbgknb: Well appearing, in no acute distress. ObeseNeuro: [...] ventricular rate 60 bpm with nonspecific STflatteningIMPRESSION/PLAN:Melinda Lee is a 67 year old male with [...] or concerns.Holden Edwards M.D.Doroteo Carmenment of Cardiovascular MedicineTucson Va Medical Center and Vascular Institute[address] [address]Xhobbi: [phone] Referring Provider: NIXON GARAY [[id number]]Allergies As of Date: 08/23/2017 Noted Allergy ReactionALDACTONE [...] (around 08/30/2017).Follow-up and Disposition History RecordedEncounter Number: [id number] Status:Closed by HOLDEN EDWARDS MD on 08/23/17 Normal [facility] PROGRESSon 08-22-2017 Protein mass conc HNO ID: [id number] thor: Holden EdwardsSer: (none)Author Type: PhysicianType: Progress NotesFiled: 08/23/2017 10:45 AMNote Text:Heart and Vascular InstitutePlainville and [facility] Department of Cardiovascular MedicineOUTPATIENT VISIT DATE 08/23/17OUTPATIENT VISIT TYPEESTABLISHEDPROUR COMMUNITY HOSPITALRY CARE PHYSICIAN:Nixon Garay MD[address] [facility] [address]Rjcry: [phone]: [phone] COMPLAINT:AFIBHISTORY OF PRESENT ILLNESS:Linda Lee is a 67 year old male who [...] CATH 10/02/13 50% mid LM. Proxima LAD STEEL ROD BUSTER with L-L collateral. Proximal RCA STEEL ROD BUSTER.Co-dominat LCX with L-R collateral. EF 55%.- COLONOSCOPY [...] Stroke Mother in her 80's- Heart Father [place], in mid 50 s.- Coronary Artery Disease Brother [place], in his 40's. in his 50's.ALLERGIES:ALLERGIESAllerg en [...] 111.1 kg (245lb) SpO2 98% BMI 29.05 kg/c2Eymjzlj: Well appearing, in no acute distress. ObeseNeuro: [...] ventricular rate 60 bpm with nonspecific STflatteningIMPRESSION/PLAN:Melinda Lee is a 67 year old male with [...] or concerns.Holden Edwards M.D.Doroteo Aguilera of Cardiovascular MedicineUniversity Hospitals Samaritan Medical Centerrt and Vascular Institute[address] Street[address].[place], [place] [address]Vebypa: [phone] Normal [facility] Vital Signs Date Time Vital Sign Value Performing Clinician Juanito moeller 02-22-2023 14:34-0400 Blood Pressure Location Keyon Jarvis [facility] [place] 02-22-2023 14:34-0400 Diastolic blood pressure 70 mm[Hg] Keyon Jarvis [facility] [place] 02-22-2023 14:34-0400 Heart rate 68 /min Keyon NILL [facility] 02-22-2023 14:34-0400 Respiratory rate 16 /min [facility]on NILL [facility] 02-22-2023 14:34-0400 Systolic blood pressure 142 mm[Hg] Keyon NILL [facility] Encounters Encounter Date Encounter Type Care Provider Facility Start: 12-10-2023 End: 12-10-2023 ambulatory LEYLA [facility] Start: 11-18-2023 End: 11-18-[address] [facility] Start: 11-06-2023 ambulatory [facility] Start: 11-06-2023 ambulatory [facility] Start: 11-06-2023 End: 11-06-2023 ambulatory [facility] Start: 11-01-2023 End: 11-01-2023 ambulatory [facility] Start: 10-29-2023 End: 10-29-2023 ambulatory [facility] Start: 09-11-2023 End: 09-11-[address] [facility] Start: 04-16-2023 End: 04-17-2023 ambulatory Keyon R NILL Facility:[facility] Start: 04-16-2023 End: 04-16-2023 Patient encounter procedure Keyon R NILL [facility]/Said [facility] Start: 03-27-2023 End: 03-28-2023 ambulatory Keyon R NILL [facility] Start: 03-20-2023 End: 03-21-2023 ambulatory Keyon R NILL Facility:CD:[id number] Start: 02-22-2023 End: 02-23-2023 ambulatory Nixon Garay Facility:[facility] Start: 02-22-2023 End: 02-22-2023 Patient encounter procedure Keyon HUGHES [facility]/Susan [facility] Start: 02-08-2023 ambulatory Nixon Garay Facility:[facility] Start: 10-12-2022 End: 10-12-[address] NIXON GARAY . Facility: Start: 10-11-2022 End: 10-12-[address] NIXON GARAY . Facility: Start: 09-19-2020 End: 09-20-2020 ambulatory NIXON GARAY Facility:[facility] Start: 04-30-2018 End: 05-13-2018 Patient encounter procedure MIKEY ALVAREZ M[facility] Start: 10-22-2017 End: 10-25-2017 Patient encounter procedure [facility] Start: 10-14-2017 End: 10-14-2017 Patient encounter procedure [facility] Start: 08-28-2017 End: 09-03-2017 Patient encounter procedure [facility] Start: 08-23-2017 End: 08-28-2017 Patient encounter procedure [facility] Procedures Date Procedure Procedure Detail Performing Clinician Start: 03-20-2023 Repair of right ingu inal hernia Keyon HUGHES Start: 10-11-[address] REVA GARAY . Comment on above: Performed By: #### [facility] #### [facility] [address] [place] [address] Dr. Estephania Small Start: 08-15-2020 Coronary artery bypa ss graft Keyon HUGHES Appendectomy Keyon HUGHES Vasectomy Keyon HUGHES Immunizations Immunization Date Immunization Notes Care Provider Fa [facility] 04-06-2022 SARS-CoV-2 (COVID-19 ) mRNAMUL.ORD![id number] Keyon HUGHES [facility] [place] 05-03-2021 SARS-CoV-2 (COVID-19 ) mRNA BNT-162b2 vax Keyon BERNALL [facility] [place] 10-07-2020 SARS-CoV-2 (COVID-19 ) mRNA BNT-162b2 vax Keyon NILL [facility] [place] Comment on above: Result Comment: 2022: [id number] 09-16-2020 SARS-CoV-2 (COVID-19 ) mRNA BNT-162b2 vax Keyon NILL [facility] [place] Comment on above: Result Comment: 2022: [id number] Payers Date Payer Category Payer Private Health Insurance [id number] 2017 Medicare [id number] 1959 Medicare [id number] [address] [facility] [id number] 1950 Unknown [id number] 2.16.8 [id number] 1950 Unknown [id number] 2.16.84 [id number] 1950 Unknown [id number] 2.16.84 [id number] 1950 Unknown [id number] 2.16.8 [id number] 1950 Unknown [id number] 2.16.8 [id number] 1950 Unknown [id number] 2.16.8 [id number] 1950 Unknown [id number] 2.16.8 [id number] 1950 Unknown [id number] 2.16.8 [id number] Social History Date Type Detail Facility Start: 02-22-2023 Tobacco smoking status Ex-smoker (fi nding) [facility] [place] Tobacco smoking status Never [facility] [place] Sex Assigned At Male [facility] Functional Status Date Assessment Result Facility 02-22-2023 Functional Status N/A [facility] Clinical Notes 09-20-2020 to 12-10-2023 Note Date & Type Note Facility 12-10-2023 Note Patient here for fol low up afib ablation performed on 11/06/[address] Tirado. He was seen a few weeks ago by Dr. Pyle to follow up on elevated BP's. HR is all over the place still he says. Gets a little lightheaded when BP goes low. Still denies chest pain, SOB, palpitations, syncope, and bleeding on Eliquis and aspirin. Review of Systems Musculoskeletal: Positive for arthritis and joint pain. All other systems reviewed and are negative. [facility] 12-10-2023 Note Cardiovascular Medic [facility] SUBJECTIVE Chief Complaint Patient presents with Atrial Fibrillation S/p ablation Atrial Flutter Coronary Artery Disease Hypertension Linda Lee is a 73 y.o. male here for follow-up. HPI PMHx: coronary artery disease, 4-vessel coronary artery bypass graft surgery and maze procedure in 2020, hypertension, dyslipidemia Patient here for follow up afib ablation performed on 11/06/[address] Tirado. He was seen a few weeks ago by Dr. Pyle to follow up on elevated BP's. HR is all over the place still he says. Gets a little lightheaded when BP goes low. Still denies chest pain, SOB, palpitations, syncope, and bleeding on Eliquis and aspirin. He denies any issues from groin access site. EKG today shows he is in a.flutter - reviewed with Dr. Tirado. Discussed next step is a.flutter ablation. Explained difference between a.fib and a.flutter. Patient is contemplating undergoing any further procedures. Patient Active Problem List Diagnosis Abnormal stress test Atrial fibrillation (CMS/HCC) CAD (coronary artery disease) Coronary arteriosclerosis Type 2 diabetes mellitus, without long-term current use of insulin (CMS/HCC) Hyperlipidemia Hypertension Acute combined systolic (congestive) and diastolic (congestive) heart failure (CMS/HCC) BMI 27.0-27.9,adult BPH (benign prostatic hyperplasia) Bradycardia Heart failure with reduced left ventricular function (CMS/HCC) DULCE MARIA (obstructive sleep apnea) Overweight Right inguinal hernia Past Medical History: Diagnosis Date Abnormal ECG Arrhythmia Atrial fibrillation (CMS/HCC) CHF (congestive heart failure) (CMS/HCC) Chronic kidney disease Coronary artery disease Diabetes mellitus (CMS/HCC) Hyperlipidemia Hypertension Family History Problem Relation Name Age of Onset Heart attack Father Heart attack Brother Social History Tobacco Use Smoking status: Former Types: Cigarettes Smokeless tobacco: Never Substance Use Topics Alcohol use: Yes Comment: occasional No Known Allergies ROS Musculoskeletal: Positive for arthritis and joint pain. All other systems reviewed and are negative. OBJECTIVE Visit Vitals BP 114/82 (BP Location: Right arm, Patient Position: Sitting) Pulse 109 Ht 1.93 m (6' 4 ) Wt 95.3 kg (210 lb) SpO2 95% BMI 25.56 kg/m??? Smoking Status Former BSA 2.26 m??? Medications: Current Outpatient Medications: apixaban (Eliquis) 5 mg tablet, Take 1 tablet (5 mg) by mouth in the morning and at bedtime., Disp: 60 tablet, Rfl: 11 aspirin 81 mg EC tablet, Take 81 mg by mouth in the morning., Disp: , Rfl: atorvastatin (Lipitor) 80 mg tablet, TAKE 1 TABLET BY MOUTH EVERY DAY, Disp: 90 tablet, Rfl: 3 calcium citrate-vitamin D2 250 mg-2.5 mcg (100 unit) tablet, Take 1 tablet by mouth in the morning and at bedtime. 5000 IU, Disp: , Rfl: carvedilol (Coreg) 25 mg tablet, Take 1 tablet (25 mg) by mouth with breakfast and with evening meal., Disp: 180 tablet, Rfl: 3 chlorthalidone (Hygroton) 25 mg tablet, Take 1 tablet (25 mg) by mouth in the morning., Disp: 90 tablet, Rfl: 1 furosemide (Lasix) 80 mg tablet, Take 80 mg by mouth in the morning., Disp: , Rfl: glimepiride (Amaryl) 2 mg tablet, Take 2 mg by mouth before breakfast., Disp: , Rfl: lisinopril 20 mg tablet, Take 40 mg by mouth at bedtime., Disp: , Rfl: magnesium oxide [...] THREE TIMES A DAY, Disp: , Rfl: Physical Exam Constitutional: Appearance: Normal appearance. He is normal weight. HENT: Head: Normocephalic and atraumatic. Right Ear: External ear normal. Left Ear: External ear normal. Eyes: Extraocular Movements: Extraocular movements intact. Pupils: Pupils are equal, round, and reactive to light. Neck: Vascular: No carotid bruit. Cardiovascular: Rate and Rhythm: Normal rate and regular rhythm. Pulses: Normal pulses. Heart sounds: Normal heart sounds. Comments: Regularly irregular Pulmonary: Effort: Pulmonary effort is normal. Breath sounds: Normal breath sounds. Abdominal: General: Bowel sounds are normal. Palpations: Abdomen is soft. Musculoskeletal: General: Normal range of motion. Cervical back: Neck supple. Right lower leg: No edema. Left lower leg: No edema. Skin: General: Skin is warm and dry. Neurological: General: No focal deficit present. Mental Status: He is alert and oriented to person, place, and time. Psychiatric: Mood and Affect: Mood normal. Behavior: Behavior normal. Thought Content: Thought content normal. Judgment: Judgment normal. Labs: Admission on (more content not included)... [facility] 11-18-2023 Note [facility] Cardiology Clinic Note Chief Complaint: Patient here for follow up hypertension. He is scheduled for see Kalee Ovalles CNP in a few weeks for follow up s/p ablation and cardioversion. Says he stopped taking isosorbide a few days after ablation on 11/05 since BP was going low. Still denies chest pain, SOB, palpitations, lightheadedness/syncope, and bleeding on Eliquis. HPI: Linda Lee is a 73 y.o. male with a history of coronary artery disease, 4-vessel coronary artery bypass graft surgery and maze procedure in 2020, hypertension, dyslipidemia here in routine follow-up Doing well after ablation; initially noted his heart rate to be low so stopped his Imdur. No chest pain, no significant shortness of breath, no orthopnea, no paroxysmal, dyspnea, no lower extremity edema. Denies significant lightheadedness or dizziness. Cardiology ROS: Review of Systems Musculoskeletal: Positive for arthritis and joint pain. All other systems reviewed and are negative. Past Medical History He has a past medical history of Abnormal ECG, Arrhythmia, Atrial fibrillation (CMS/HCC), CHF (congestive heart failure) (CMS/HCC), Chronic kidney disease, Coronary artery disease, Diabetes mellitus (CMS/HCC), Hyperlipidemia, and Hypertension. Surgical History He has a past surgical history that includes CTA Chest W IV Contrast (09/20/2020); Vasectomy; Appendectomy; Cardiac catheterization; Coronary artery bypass graft; Cardioversion; and Other surgical history (N/A, 08/25/2020). Social History He reports that he has quit smoking. His smoking use included cigarettes. He has never used smokeless tobacco. He reports current alcohol use. No history on file for drug use. Family History Family History Problem Relation Name Age of Onset Heart attack Father Heart attack Brother Allergies Patient has no known allergies. Medications Current Outpatient Medications: apixaban (Eliquis) 5 mg tablet, Take 1 tablet (5 mg) by mouth in the morning and at bedtime., Disp: 60 tablet, Rfl: 11 aspirin 81 mg EC tablet, Take 81 mg by mouth in the morning., Disp: , Rfl: atorvastatin (Lipitor) 80 mg tablet, TAKE 1 TABLET BY MOUTH EVERY DAY, Disp: 90 tablet, Rfl: 3 calcium citrate-vitamin D2 250 mg-2.5 mcg (100 unit) tablet, Take 1 tablet by mouth in the morning and at bedtime. 5000 IU, Disp: , Rfl: carvedilol (Coreg) 25 mg tablet, Take 1 tablet (25 mg) by mouth with breakfast and with evening meal., Disp: 180 tablet, Rfl: 3 chlorthalidone (Hygroton) 25 mg tablet, Take 1 tablet (25 mg) by mouth in the morning., Disp: 90 tablet, Rfl: 1 famotidine (Pepcid) 20 mg tablet, Take 1 tablet (20 mg) by mouth in the morning and at bedtime., Disp: 60 tablet, Rfl: 0 furosemide (Lasix) 80 mg tablet, Take 80 mg by mouth in the morning., Disp: , Rfl: isosorbide mononitrate ER (Imdur) 30 mg 24 hr tablet, Take 1 tablet (30 mg) by mouth in the morning. Do not crush or chew., Disp: 90 tablet, Rfl: 3 lisinopril 20 mg tablet, Take 40 mg by mouth at bedtime., Disp: , Rfl: magnesium oxide (Mag-Ox) 400 mg (241.3 mg magnesium) tablet, Take 1 tablet by mouth in the morning and at bedtime., Disp: , Rfl: metFORMIN (Glucophage) 500 mg tablet, Take 500 mg by mouth in the morning, afternoon, and at bedtime., Disp: , Rfl: omeprazole (PriLOSEC) [address] capsule, Take 1 capsule (40 mg) by mouth before breakfast. Do not crush or chew., Disp: 30 capsule, Rfl: 0 potassium chloride CR (Klor-Con M20) 20 mEq ER tablet, Klor-Con M20 mEq tablet,extended release TAKE 1 TABLET BY MOUTH THREE TIMES A DAY, Disp: , Rfl: sucralfate (Carafate) 1 gram tablet, Take 1 tablet (1 g) by mouth before breakfast, before lunch, and before evening meal for 14 days., Disp: 42 tablet, Rfl: 0 Last Recorded Vitals BP 167/75 (BP Location: Right arm, Patient Position: Sitting) Pulse (!) 44 Ht 1.93 m (6' 4 ) Wt 94.3 kg (208 lb) SpO2 96% BMI 25.32 kg/m??? Physical Examination: GENERAL: alert and oriented [...] saphenous vein graft to second diagonal and fransisca (more content not included)... [facility] 11-06-2023 Note ATRIAL FIBRILLATION ABLATION PROCEDURE NOTE DATE OF PROCEDURE: 11/06/2023 PERFORMING PHYSICIAN: Dr. Scout Tirado [employer] WEIGHER: LISA CONSENT: Patient NAME OF THE PROCEDURE: Pulmonary Vein Isolation and Comprehensive EP study. INDICATIONS FOR PROCEDURE: 1. Persistent atrial fibrillation s/p Cryomaze+ Atriclip in the past. FLUROSCOPY: 1.9min/47mGy. EBL: 15cc SPECIMEN REMOVED: None PROCEDURES PERFORMED: 1. Sonosite guided venous access as noted below and images stored in PACS. 2. Comprehensive EP study and catheter ablation for persistent atrial fibrillation through the pulmonary vein isolation technique. This includes right atrial recording and pacing, His bundle recording and right ventricular recording and pacing. 3. Intracardiac EP 3D mapping. 4. Intracardiac echocardiogram 5. Left atrial and coronary sinus recording and pacing to assess ablation results. 6. Left heart pressure measurements and LV pacing and recording. 7. Induction of arrhythmia and testing of ablation results using intravenous adenosine infusion. 8. Fluroscopy. INDICATION: 73year old with past medical history of coronary disease s/p CABG: CORDOVA to LAD, SVG- D2 and ramus, SVG -OM1 and Cryomaze procedure + Atrriclip in 08/25/2020, hypertension, dyslipidemia had been seen recently by Dr. Pyle for tachycardia. He has been known to have a history of atrial fibrillation and since the last visit with Dr. KEVIN 30 event monitor was performed, which has revealed the presence of underlying atrial fibrillation as per report. Historically it appears that he has not been placed on anticoagulation since the atrial clip however an EKG that was done on 09/19/2020 shows that he was in atrial flutter and then was subsequently cardioverted to sinus. EKG later in 09/05/2021 and 03/13/23 shows sinus but there has been no other documentation of A-fib up until recently. He was started on Eliquis after Dr. KEVIN saw him. He opted to proceed with ablation. PROCEDURE NOTE: On the day of presentation, he was noted to be in atrial flutter and so ITZEL was done to rule out LA thrombus. Risks, benefits and alternatives of the procedure were discussed with the patient and family who agreed to proceed. Please refer to my consult note for details of the discussion and of indications. The patient was prepped and draped following which four venous access was procured on right side as noted below. Ultrasound was used to determine the course and patency of the femoral veins on both sides and they were noted to be patent and the image stored in PACS. After infiltration with 1% lidocaine, 4 venous sheaths were placed in the right as noted below and a radial arterial line was placed by Anesthesia team. RFV: 8Fx3, [employer] ThermoCool SF Bi-Directional over SL1/ Vizigo, SL1: Octoray,, CS Catheter (EZ Steer). 9F: ICE catheter. Following venous access, heparin bolus was given followed by continuous intravenous drip to target ACT around 350. An intracardiac ultrasound catheter was inserted into the right atrium to examine the right atrial anatomy, atrial septum, pulmonary vein anatomy and to monitor for pericardial effusion and guide transseptal access. The LA and RA was significantly dilated. At baseline, there was no pericardial effusion and no RAFFI clot but a small atriclip stump. Esophagus was mapped using the KongZhongUND 3D mapping software and noted to be towards the LSPV. Transeptal access was procured with ICE guidance using a SL-1 sheath and Grant needle. Following this, Octoray, catheter was advanced and the multipolar mapping performed of the LA creating a geometry as well as bipolar voltage assessment was made. It appeared the veins were isolated with posterior wall also. Entrainment was performed for atrial flutter of CL 268ms with PPI as follows: CS 1/2: 272ms: YORUBA 4'o clock, CS 3/4: 276ms YORUBA 6'o clock, CS 7/8: 277ms, Base of appendage: 280ms. This suggested a LA atypical flutter with likely perimitral in nature. However the CS activation was no typical of perimitral. I noted there was significant conduction slowing along the anterior aspect of LA as if there was an attempt at anterior mitral line. I then went on to perform ablation connecting the anterior LA roof to the anterior mitral valve. While ablating, there was slowing of CL to 300ms. Upon completion of the line there was no termination. I then looked at bipolar mapping and did another line from Anterior aspect of right sided WACA to Anterior mitral valve as well as posterior mitral isthumus line. There was no termination. I repeated mapping and noted there was block across the posterior mitral line but conduction across anterior mitral line. I then reinforced the right and left WACA and also box isolation. I reinforced the anterior lines and yet there was no change. DCCV was then performed and then I went on to perform CTI ablation. Using ICE, the His and IVC junctions were mar (more content not included)... [facility] 11-06-2023 Note Patient: Linda valdez Procedure Summary Date: 11/06/23 Room / Location: [facility] / [facility] (Cath) Anesthesia Start: 838 Anesthesia Stop: 1247 Procedures: Ablation a-fib paroxysmal ITZEL during EP case Cardioversion/defibrillation Diagnosis: Paroxysmal atrial fibrillation (CMS/HCC) (Paroxysmal atrial fibrillation (CMS/HCC) [I48.0]) Providers: Scout Tirado MD Responsible Provider: Zoey Sanchez MD Anesthesia Type: general ASA Status: 3 Anesthesia Type: general Vitals Value Taken Time BP 115/66 11/06/23 1240 Temp 36.3 ???C (97.3 ???F) 11/06/23 1240 Pulse 59 11/06/23 1255 Resp 14 11/06/23 1255 SpO2 96 % 11/06/23 1255 Anesthesia Post Evaluation Patient location during evaluation: PACU Patient participation: complete - patient participated Level of consciousness: awake and alert Pain score: 2 Pain management: adequate Multimodal analgesia pain management approach Airway patency: patent Two or more strategies used to mitigate risk of obstructive sleep apnea Cardiovascular status: hemodynamically stable Respiratory status: acceptable, room air, spontaneous ventilation and nonlabored ventilation Hydration status: euvolemic Patient is hemodynamically stable and is able to be discharged from PACU per anesthesia protocol. No notable events documented. [facility] 11-06-2023 Note Patient: Linda valdez Procedure Summary Date: 11/06/23 Room / Location: [facility] EP / [facility] (Cath) Anesthesia Start: 838 Anesthesia Stop: 1248 Procedures: Ablation a-fib paroxysmal ITZEL during EP case Cardioversion/defibrillation Diagnosis: Paroxysmal atrial fibrillation (CMS/HCC) (Paroxysmal atrial fibrillation (CMS/HCC) [I48.0]) Providers: Scout Tirado MD Responsible Provider: Zoey Sanchez MD Anesthesia Type: general ASA Status: 3 Anesthesia Post Transport Note Transport to: PACU O2 Route: nasal cannula Oxygen Flow (L/min): 6 Patient Monitor: transport monitor Transport monitor type: ECG, SpO2 and Art Line Transport: uneventful Patient condition is: stable [facility] 11-06-2023 Note Airway Date/Time: 11/06/2023 8:54 AM Urgency: elective General Information and Staff Patient location during procedure: OR Anesthesiologist: Zoey Sanchez MD Resident/ERP CONSULTANT/CAA: Vinicio Arthur DO Performed: resident/ERP CONSULTANT/CAA Indications and Patient Condition Indications for airway management: anesthesia Spontaneous Ventilation: absent Sedation level: deep Preoxygenated: yes Patient position: sniffing Mask difficulty assessment: 1 - vent by mask Planned trial extubation Final Airway Details Final airway type: endotracheal airway Successful airway: ETT Cuffed: yes Successful intubation technique: video laryngoscopy Facilitating devices/methods: intubating stylet and anterior pressure/BURP Endotracheal tube insertion site: oral Blade: Foley Blade size: #4 ETT size (mm): 7.5 Cormack-Lehane Classification: grade I - full view of glottis Placement verified by: chest auscultation and capnometry Measured from: lips ETT to lips (cm): 23 Number of attempts at approach: 1 Number of other approaches attempted: 0 [facility] 11-06-2023 Note Patient: Linda valdez Procedure Information Date/Time: 11/06/23 0830 Procedure: Ablation a-fib paroxysmal Location: [facility] EP / [facility] (Cath) Providers: Scout Tirado MD Relevant Problems Anesthesia (+) DULCE MARIA (obstructive sleep apnea) Cardio Activity: >4 METs 4-vessel CABG in 2010 (+) Atrial fibrillation (CMS/HCC) (+) Coronary arteriosclerosis (+) Hypertension Endo (+) Type 2 diabetes mellitus, without long-term current use of insulin (CMS/HCC) Encounter Date: 11/06/23 Electrocardiogram, 12-lead Result Value Ventricular Rate 76 QRS DURATION 92 QT Interval 404 QTC CALCULATION(BAZETT) 454 R-[place] 58 T Wave [place] 44 Impression Atrial fibrillation with a competing junctional pacemaker with premature ventricular or aberrantly conducted complexes Nonspecific ST abnormality Abnormal ECG When compared with ECG of 05-SEP-2021 14:08, Atrial fibrillation has replaced Sinus rhythm ST elevation now present in Inferior lead No Known Allergies Clinical information reviewed: Tobacco Allergies Meds Med Hx Surg Hx Fam Hx Soc Hx Physical Exam Airway Mallampati: I TM distance: >3 FB Neck ROM: full Cardiovascular Rhythm: irregular Rate: normal Dental - normal exam (+) lower dentures Pulmonary - normal exam Abdominal (-) obese Abdomen: soft Anesthesia Plan ASA 3 general (GETA with standard ASA monitors plus arterial line) The patient is not a current smoker. Education provided regarding risk of obstructive sleep apnea. intravenous induction Trial extubation is planned. Anesthetic plan and risks discussed with patient. Use of blood products discussed with patient who consented to blood products. Plan discussed with attending and resident. Additional Equipment Requests [facility] 11-06-2023 Note Arterial Line: Date/Time: 11/06/2023 8:22 AM An arterial line was placed Procedure performed using surface landmarks.in the pre-op for the following indication(s): continuous blood pressure monitoring and blood sampling needed. A 20 gauge (size), 1 and 3/4 inch (length), Arrow (type) catheter was placed, Seldinger technique used , into the radial artery, secured by Tegaderm and Biodisc/Biopatch (and biodesc). Events: patient tolerated procedure well with no complications. Medications Administered lidocaine (XYLOCAINE) 1 % SubQ - infiltration 0.5 mL - 11/06/2023 8:22:00 AM Staffing Performed: resident/ERP CONSULTANT/CAA Anesthesiologist: Zoey Sanchez MD Resident/ERP CONSULTANT: Vinicio Arthur DO Performed by: Vinicio Arthur DO Authorized by: Zoey Sanchez MD [facility] 10-29-2023 Note [place] Electrophysiology Consult Note [place] Cardiology [facility] Reason for visit: Afib HPI: Linda Lee is a 73 y.o. year old with past medical history of coronary disease s/p CABG: CORDOVA to LAD, SVG- D2 and ramus, SVG -OM1 and Cryomaze procedure + Atrriclip in 08/25/2020, hypertension, dyslipidemia had been seen recently by Dr. Pyle for tachycardia. He has been known to have a history of atrial fibrillation and since the last visit with Dr. KEVIN 30 event monitor was performed, which has revealed the presence of underlying atrial fibrillation. At that time his blood pressure was noted to be elevated and hence his Coreg dosage was increased and hydrochlorothiazide also was added. historically it appears that he has not been placed on anticoagulation since the atrial clip however an EKG that was done on 09/19/2020 shows that he was in atrial flutter and then was subsequently cardioverted to sinus. EKG later in 09/05/2021 and 03/13/23 shows sinus but there has been no other documentation of A-fib up until recently. he was started on Eliquis after Dr. KEVIN saw him. he states that his first diagnosis of atrial fibrillation was 5 years prior to the bypass surgery. it was picked up incidentally and he was not aware that he was in A-fib at that time. Denies bleeding on Eliquis, SOB, and palpitations. Only gets chest pressure when HR and BP are high. He says this only occurs once in a great while . EKG 10/29/2023 PMH: Past Medical History: Diagnosis Date Abnormal ECG Arrhythmia CHF (congestive heart failure) ([facility]) Chronic kidney disease Coronary artery disease Diabetes mellitus ([facility]) Hyperlipidemia Hypertension PSH: Past Surgical History: Procedure Laterality Date APPENDECTOMY CARDIAC CATHETERIZATION CARDIOVERSION CORONARY ARTERY BYPASS GRAFT CT CHEST ANGIOGRAM W AND/OR WO IV CONTRAST 09/20/2020 CT CHEST ANGIOGRAM W AND/OR WO IV CONTRAST NUR CONVERSION VASECTOMY SH: Social Determinants of Health Tobacco Use: Medium Risk (12/11/2022) Patient History Smoking Tobacco Use: Former Smokeless Tobacco Use: Never Passive Exposure: Not on file Alcohol Use: Not on file Financial Resource Strain: Not on file Food Insecurity: Not on file Transportation Needs: Not on file Physical Activity: Not on file Stress: Not on file Social Connections: Not on file Intimate Partner Violence: Unknown (08/08/2023) [place] Safety & Environment Fear of Current or Ex-Partner: Not on file Emotionally Abused: Not on file Physically Abused: Not on file Sexually Abused: Not on file Physically or Sexually Abused: Not on file Depression: Not on file Housing Stability: Not on file Utilities: Not on file Allergies: No Known Allergies Weight: 98kg Visit Vitals BP 164/88 (BP Location: Right arm, Patient Position: Sitting) Pulse 51 Ht 1.943 m (6' 4.5 ) Wt 98 kg (216 lb) SpO2 97% BMI 25.95 kg/m??? Smoking Status Former BSA 2.3 m??? Meds: Current Outpatient Medications on File Prior to Visit Medication Sig Dispense Refill apixaban (Eliquis) 5 mg tablet Take 1 tablet (5 mg) by mouth in the morning and at bedtime. 60 tablet 11 aspirin 81 mg EC tablet Take 81 mg by mouth in the morning. atorvastatin (Lipitor) 80 mg tablet TAKE 1 TABLET BY MOUTH EVERY DAY 90 tablet 3 carvedilol (Coreg) 25 mg tablet Take 1 tablet (25 mg) by mouth with breakfast and with evening meal. 180 tablet 3 chlorthalidone (Hygroton) 25 mg tablet Take 1 tablet (25 mg) by mouth in the morning. 90 tablet 1 furosemide (Lasix) 80 mg tablet Take 80 mg by mouth in the morning. isosorbide mononitrate ER (Imdur) 30 mg 24 hr tablet Take 1 tablet (30 mg) by mouth in the morning. Do not crush or chew. 90 tablet 3 lisinopril 20 mg tablet Take 40 mg by mouth at bedtime. magnesium oxide (Mag-Ox) 400 mg [...] facility-administered medications on file prior to visit. ROS: Review of Systems Musculoskeletal: Positive for arthritis and joint pain. Neurological: Positive for light-headedness (when BP is low). All other systems reviewed and are negative. Physical Exam: Constitutional General Appearance: well-nourished, well-developed, appears stated age Level of Distress: comfortable Psychiatric Mental Status: alert, normal affect Orientation: oriented to time, place, and person Insight: good judgement Eyes Lids and Conjunctivae: non-injected, no xanthelasma ENMT Ears: no lesions on external ear Nose: no lesions on external nose Oropharynx: no cyanosis, no pallor Neck Neck: supple, trachea midline Carotid Arteries: bilateral normal upstroke, (more content not included)... [facility] 09-11-2023 Note [facility] Cardiology Clinic Note Chief Complaint: Patient here c/o hypertension and tachycardia. BP has been in the 120's lately so he's been taking an additional 25mg of carvedilol before bedtime. Denies chest pain, SOB, palpitations, and lightheadedness/syncope. HPI: Linda Lee is a 73 y.o. male with a [...] Abnormal ECG, Arrhythmia, CHF (congestive heart failure) (CMS/HCC), Chronic kidney disease, Coronary artery disease, Diabetes mellitus (CMS/HCC), Hyperlipidemia, and Hypertension. Surgical History He has [...] on spironolactone in (more content not included)... [facility] 02-22-2023 Note Chief Complaint consultation for right inguinal hernia HPI Staff 73 year old male presents on consultation from Dr. Garay for right inguinal hernia. Reports he noted [...] Smokeless Tobacco Use: (more content not included)... [facility] Comment on above: Result Comment: Elec tronically Signed By: ELLEN MARTINEZ, Keyon Savage\Date and Time Signed: 02/22/23 16:24 EDT 09-20-2020 Note MR#: [id number] 2 [facility] Pt. Name: Linda Lee Admitted: 09/19/2020 Discharged: 09/20/2020 Date of : [...] heart rate was high. 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 The patient was seen at [place], but the EKG shows tachycardia in the 130s. He was given 2 days of blood pressure without change. They spoke with cardiology, who recommend transferring to the [facility]. LABORATORY DATA: Labs at [place] showed magnesium 1.5, creatinine 1.3, high sensitive [...] by: Mark Hernandez MD 09/26/2020 03:27 P __ Mark Hernandez MD Date Dict: 09/20/2020/12:46 P/Mark Hernandez MD Date Trans: 09/20/2020 01:33 P/mmo [id number] cc: Nixon Garay M.D. [address], [facility] [place] [address] [facility] Evaluation + Plan note No data available for this section General Surgery [facility] Discharge instructions No data available for this section General Surgery [place] Progress note No data available for this section General Surgery [place] Summary Purpose Family History No Family History [...] section and content) DATE CREATED AUTHOR 05/26/2018 [facility] DATE CREATED AUTHOR AUTHOR'S ORGANIZ ATION 09/06/2021 [facility] DATE CREATED AUTHOR AUTHOR'S ORGANIZ ATION 10/19/2022 [facility] DATE CREATED AUTHOR AUTHOR'S ORGANIZ ATION 04/17/2023 [facility] DATE CREATED AUTHOR AUTHOR'S ORGANIZ ATION 12/15/2023 [facility] Patient Care team informatio n (unrecognized section and content) Personnel Name: Nixon Garay MD Address: Address: [address] [place] [address] [place] [address] Personnel Name: Nixon Garay MD Address: Address: [address] [place] [address] FOR RECORDS PERTAINING TO PATIENTS WHO ARE [...] BE BASED ON THE PRIMARY CLINICAL RECORDS. [facility] [employer] [facility]. provides no warranty or guarantee of the accuracy or completeness of information in this document.
[2024-01-21 08:42] LABS: Basophils Percent Auto 0.4 % (0.2-2.0); Eosinophils Absolute Auto 0.5 10^3/uL (0.0-0.7); Eosinophils Percent Auto 7.1 % (0.9-7.0); Hematocrit 46.8 % (42.0-54.0); Hemoglobin 15.6 g/dL (14.0-18.0); Immature Granulocytes Abs Auto 0.01 10^3/uL (0.00-0.03); Immature Granulocytes Pct Auto 0.1 % (0.0-0.5); Lymphocytes Absolute Auto 1.4 10^3/uL (1.2-3.8); Lymphocytes Percent Auto 20.1 % (20.5-60.0); Mean Corpuscular HGB Conc 33.3 g/dL (29.9-35.2); Mean Corpuscular Hemoglobin 30.4 pg (25.9-34.0); Mean Corpuscular Volume 91.1 fL (80.0-94.0); Monocytes Absolute Auto 0.8 10^3/uL (0.3-0.8); Monocytes Percent Auto 11.4 % (1.7-12.0); Neutrophils Absolute Auto 4.1 10^3/uL (1.4-6.5); Neutrophils Percent Auto 60.9 % (43.0-75.0); Platelet Count 180 10^3/uL (150-450); Red Blood Count 5.14 10^6/uL (4.70-6.10); Red Cell Distribution Width 13.2 % (11.0-15.0); White Blood Count 6.8 10^3/uL (4.0-11.0)
[2024-01-21 09:04] LABS: Anion Gap 15.2; BUN Creatinine Ratio 21.4; Calcium 9.2 mg/dL (8.5-10.1); Carbon Dioxide 29.6 mmol/L (21.0-32.0); Chloride 99 mmol/L (98-107); Estimated GFR (African America >60 (>=60); Estimated GFR (Non-African Ame >60 (>=60); Glucose 101 mg/dL (74-106); Potassium 4.8 mmol/L (3.5-5.1); Sodium 139 mmol/L (136-145)
== END 2024-01-21 08:21 | disposition home or self-care (01) ==
LOC: LAB 08:22
PROVIDERS: PCP Family Medicine; Visit Provider Internal Medicine Cardiovascular Disease
DX: I48.91 Unspecified atrial fibrillation (principal); I48.92 Unspecified atrial flutter
CPT/HCPCS: 36415; 80048; 85025

== ENCOUNTER 2024-04-15 12:31 | Outpatient (OUT) | payer MEDICARE, SELFPAY ==
--- NOTE | 2024-04-15 13:00 | CA_ITS ---
Patient Name: LINDA SOSA MR#: [id number] : 1950 Exam Date: 04/15/2024 Ordering Doctor: DR LINDA NAPOLES M.D. ECHOCARDIOGRAM REPORT PROCEDURE: CA ECHO DOPPLER COMPLETE INDICATIONS: Heart failure with low ejection fraction, CABG COMPARISON: None. DESCRIPTION: COMPLETE ECHOCARDIOGRAM Real-time transthoracic echocardiography with 2D, M-mode, spectral and color flow Doppler performed. QUALITY: Technical quality was good. LEFT VENTRICLE: Normal chamber size. Mildly thickened septal wall. LV EF: Normal left ventricular ejection fraction, 65%. No kevon wall motion abnormalities. DIASTOLIC: Normal diastolic function. ATRIAL SEPTUM: Visually appears intact. LEFT ATRIUM: Moderate dilatation. RIGHT ATRIUM: Moderate dilatation. RIGHT VENTRICLE: Mild dilatation. Systolic function appears normal. Can not calculate RVSP due to lack of adequate tricuspid regurgitation Doppler signal TRICUSPID VALVE: Normal mobility and thickness. No stenosis with trivial regurgitation. MITRAL VALVE: Normal mobility and thickness. No evidence of mitral valve stenosis. There is no mitral annular calcification. Trivial mitral regurgitation. AORTIC VALVE: Normal trileaflet appearance. Mildly calcified aortic valve. Normal leaflet mobility. No evidence of aortic valve stenosis. No aortic regurgitation. AORTIC ROOT: Normal diameter and appearance. PULMONIC VALVE: Normal thickness and mobility. No stenosis. Trivial regurgitation. PERICARDIUM: No evidence of pericardial effusion. IVC: Collapes with inspirations. PLEURA: CONCLUSION: Normal left ventricle chamber size. Mildly thickened septal wall. Normal left ventricular ejection fraction, 65%. No kevon wall motion abnormalities. Normal diastolic function Mild right ventricle dilatation. Systolic function appears normal. No significant valvular abnormalities Adult Echocardiography Procedure Report Left Ventricle LVEDD (3.7 - 5.6 cm): 4.68 cm LVESD (2.2 - 4.0 cm): 2.97 cm LVIVS thickness (0.6 - 1.2 cm): 1.30 cm LVPW thickness (0.5 - 1.0 cm): 1.01 cm e': 0.14 m/s E - e': 6.29 LVOT Max Gradient: 3.88 mm[Hg] LVOT Area (cm2): 0.98 m/s Peak Velocity (LVOT): 0.98 m/s Mean Velocity (LVOT): 0.66 m/s LVOT Diameter 2.12 cm Left Atrium LA Volume Index (2D A2C): 43.95 ml/m2 Left Atrium Systolic Dimension: 4.59 cm Mitral Valve MV E to A Ratio: 1.96 Mitral Valve A-Wave Peak Velocity: 0.46 m/s Mitral Valve E-Wave Peak Velocity: 0.90 m/s Right Ventricle Aorta AO Root Diam: 3.43 cm Aortic Valve AoV Area (Peak Chaka): 2.69 cm2, 2.69 cm2 AoV Area (VTI): 2.73 cm2, 2.73 cm2 Peak Velocity(Antegrade Flow): 1.29 m/s Peak Gradient(Antegrade Flow): 6.64 mm[Hg] Mean Velocity(Antegrade Flow): 0.86 m/s Mean Gradient(Antegrade Flow): 3.48 mm[Hg] Velocity Time Integral: 26.61 cm Tricuspid Valve Pulmonic Valve Mean Gradient: 2.76 mm[Hg] Mean Velocity: 0.76 m/s Peak Velocity: 1.22 m/s, 1.22 m/s Peak Gradient: 5.93 mm[Hg], 5.93 mm[Hg] Right Atrium Right Atrium Systolic Pressure: 86.53 ml, 86.53 ml Dictated by: Flor Stubbs MD on 04/15/2024 at 18:34 Approved by: Flor Stubbs MD on 04/15/2024 at 18:43
== END 2024-04-15 12:32 | disposition home or self-care (01) ==
LOC: CARD 12:32
PROVIDERS: PCP Family Medicine; Visit Provider Internal Medicine Interventional Cardiology
DX: I48.0 Paroxysmal atrial fibrillation (principal); I50.41 Acute combined systolic (congestive) and diastolic (congestive) heart failure; I34.0 Nonrheumatic mitral (valve) insufficiency
CPT/HCPCS: 93306

== ENCOUNTER 2024-10-24 07:24 | Outpatient (OUT) | payer MEDICARE, SELFPAY ==
--- OUTSIDE RECORDS SUMMARY | 2024-10-24 07:28 | XMS_ITS | CCD ---
Author Organization [facility] Care Team Providers Care Mathematical Engineer Name Role Phone HAMPOLE, HOLDEN Unavailable Unavailable HOY, NIXON M Unavailable Unavailable HAMPOLE, HOLDEN Unavailable Unavailable HOY, NIXON M Unavailable Unavailable HAMPOLE, HOLDEN Unavailable Unavailable HOY, NIXON M Unavailable Unavailable HAMPOLE, HOLDEN Unavailable Unavailable HOY, NIXON M Unavailable Unavailable MIKEY BESS Unavailable Unavailab le HOY, NIXON M Unavailable Unavailable JARROD NIXON Primary Care Unavailable RADHA, DORA Admitting [...] Care Unavailable Nixon Garay Primary Care Physician [phone] Nixon Garay Referring Unavailable NILLKeyon Attending Unavailable NILLKeyon Attending Unavailable NILLKeyon Attending Unavailable NILLKeyon Attending Unavailable Nixon Garay Referring Unavailable NILLKeyon Attending Unavailable SCOUT TIRADO Referring Unavailable CELESTINOSCOUT Referring Unavailable CELESTINOSCOUT Quezada Referring Unavailable SCOUT ITRADO Referring Unavailable ELTACHELYY, JONATHANAB Attending Unavailable SCOUT TIRADO Attending Unavailable LEYLA SIMON Attending Unavailable SCOUT TIRADO Referring Unavailable ELTAHAWY, JONATHANAB Attending Unavailable SCOUT TIRADO Attending Unavailable LEYLA SIMON Attending Unavailable CSOUT TIRADO Referring Unavailable SCOUT TIRADO Admitting Unavailable SCOUT TIRADO Attending Unavailable SCOUT TIRADO Admitting Unavailable SCOUT TIRADO Attending Unavailable Allergies Allergy Classification Reported Allergen(s) Allergy Type Date of Onset Reaction(s) Facility (1 source) Spironolactone; Translations: [SPIRONOLACTONE] Drug Allergy 6 [facility] Repository (1 source) No Known Medication Allergies; Translations: [No Known Medication Allergies] Propensity to adverse reactions (disorder) [facility] Repository Medications Current Medications Medication Drug Class(es) [...] as recurrent] Onset: 02-22-2023 Episodic Cardiac dysrhythmias (9 sources) Paroxysmal atrial fibrillation; Translations: [Paroxysmal atrial fibrillation] Onset: 10-18-2022 02-14-2023 Chronic Cardiac dysrhythmias (3 sources) Bradycardia, unspecified; Translations: [Bradycardia] Onset: 10-18-2022 02-14-2023 Episodic Congestive heart failure; nonhypertensive (6 sources) Acute combined systolic and diastolic heart failure; Translations: [Heart failure] Onset: 04-13-2024 02-14-2023 Chronic Coronary atherosclerosis and other heart disease (5 sources) Atherosclerotic heart disease of [place] coronary artery without angina pectoris; Translations: [Coronary arteriosclerosis] Onset: 10-18-2022 02-14-2023 Chronic Diabetes mellitus without complication (3 sources) Type 2 diabetes mellitus without complications; Translations: [Diabetes mellitus] Onset: 10-18-2022 02-14-2023 Chronic Disorders of lipid metabolism (11 sources) Hyperlipidemia, unspecified; Translations: [Hypercholesterolemia ] Onset: 10-18-2022 11-26-2013 Chronic Essential hypertension (11 sources) Essential (primary) hypertension; Translations: [Essential hypertension] Onset: 10-11-2022 Chronic Heart valve disorders (2 sources) Nonrheumatic mitral (valve) insufficiency; Translations: [Nonrheumatic mitral (valve) insufficiency] Onset: 04-13-2024 Chronic Hyperplasia of prostate (2 sources) Benign [...] Test Name Value Interpretation Reference Range Facility Office Visiton 10-08-2024 Follow-up visit [id number] Dany Lee rt E 1950 M Date Provider Department Center 10/08/2024 LEYLA KUMAR Family History Problem Relation Age of Onset Heart attack Father Heart attack Brother Family Status - Relation Status Age at Father Brother Level of Service:09682 [place] OFFICE/OUTPATIENT ESTABLISHED MOD MDM 30 MIN Reason for Visit and Comments: Coronary Artery Disease [187] Hypertension [728689] Hyperlipidemia [182] Normal [facility] Office Visiton 04-13-2024 Follow-up visit [id number] Dany Lee rt E 1950 M Date Provider Department Center 04/13/2024 LINDA FARMER Family History Problem Relation Age of Onset Heart attack Father Heart attack Brother Family Status - Relation Status Age at Father Brother Level of Service:24813 [place] OFFICE/OUTPATIENT ESTABLISHED MOD MDM 30 MIN Normal [facility] Office Visiton 02-11-2024 Follow-up visit [id number] Dany Lee rt E 1950 M Date Provider Department Center 02/11/2024 Paulina-SCOUT TIRADO [facility] Sarah Casey Family History Problem Relation Age of Onset Heart attack Father Heart attack Brother Family Status - Relation Status Age at Father Brother Level of Service:68924 [place] OFFICE/OUTPATIENT ESTABLISHED LOW MDM 20 MIN Normal [facility] ANESon 01-27-2024 ANES Attestation signed by Scout Tirado MD at 01/27/2024 8:53 AM By using the attestations below, the signing clinician agrees that I have read and verify that the documentation has been personally reviewed by me and ensure that the documentation accurately reflects the encounter. GC: I personally saw this patient on the day of the encounter, performed the norton portion(s) of the service and participated in the management and confirm the resident's documentation. Please note there may be an additional personal documentation from me. Patient: Linda Lee Procedure Information Date/Time: 01/27/24 0830 Procedure: Ablation atrial flutter Location: [facility] [employer] [facility] / [facility] (Cath) Providers: Scout Tirado MD Clinical information reviewed: Allergies Meds Physical Exam Airway Mallampati: III Neck ROM: full Cardiovascular Rhythm: regular Dental Pulmonary - normal exam Abdominal - normal exam Abdomen: soft Anesthesia Plan ASA 3 other (Conscious sedation) intravenous induction Anesthetic plan and risks discussed with patient. Use of blood products discussed with patient who consented to blood products. Plan discussed with attending and fellow. Additional Equipment Requests Normal [facility] HPon 01-27-2024 [facility] Electrophysiology Consult Note [place] [facility] Reason for visit: Afib Pt underwent Afib and flutter ablation on 11/06/23 and was noted to have atypical flutter with multiples lines in LA drawn. He was noted to have flutter later on and was recc to have flutter ablation. Prior HPI: Linda Lee is a 74 y.o. year old with past medical history [...] on file Intimate Partner Violence: Unknown (08/08/2023) [place] Safety & Environment Fear of Current or Ex-Partner: Not on file Emotionally Abused: Not on file Physically Abused: Not on file Sexually Abused: Not on file Physically or Sexually Abused: Not on file Depression: Not on file Housing Stability: Not on file Utilities: Not on file Allergies: No Known Allergies Weight: 98kg Visit Vitals BP (!) 182/111 Pulse 86 Resp 16 SpO2 100% Smoking Status Former Meds: No current facility-administered medications on file [...] 80 mg by mouth in the morning. glimepiride (Amaryl) 2 mg tablet Take 2 mg by mouth before breakfast. lisinopril 20 mg tablet Take 40 mg [...] place, and person Insight: good judgement Eyes (more content not included)... Normal [facility] NURSNOTEmanan 01-27-2024 NURSNOTE RN educated pt on d/ c instructions. RN encouraged pt to voice any questions or concerns. Pt verbalizes no questions or concerns at this time. [facility] Orders Onlyon 01-20-2024 Orders Only [id number] Dany Lee rt E 1950 M Date Provider Department Center 01/20/2024 [facility] [place] Heart[facility]AS Family History Problem Relation Age of Onset Heart attack Father Heart attack Brother Family Status - Relation Status Age at Father Brother [facility] Follow-Upon 12-10-2023 Follow-Up [id number] Dany Lee rt E 1950 M Date Provider Department Center 12/10/2023 Ruba-LEYLA SIMON [facility] Family History Problem Relation Age of Onset Heart attack Father Heart attack Brother Family Status - Relation Status Age at Father Brother Level of Service:82105 [place] OFFICE/OUTPATIENT ESTABLISHED MOD MDM 30 MIN Reason for Visit and Comments: Atrial Fibrillation [80] - S/p ablation Atrial Flutter [101] Coronary Artery Disease [187] Hypertension [173079] [facility] Telephoneon 11-28-2023 Telephone [id number] Dany Lee rt E 1950 M Date Provider Department Center 11/28/2023 SCOUT ALTMAN [facility]ASC LAB [place] Heart[facility]AS Family History Problem Relation Age of Onset Heart attack Father Heart attack Brother Family Status - Relation Status Age at Father Brother Reason for Visit and Comments: 3 week f/u post ablation [Other] Normal [facility] Office Visiton 11-18-2023 Follow-up visit [id number] Dany Lee rt E 1950 M Date Provider Department Center 11/18/2023 271-LINDA PYLE [facility] Family History Problem Relation Age of Onset Heart attack Father Heart attack Brother Family Status - Relation Status Age at Father Brother Level of Service:63424 [place] OFFICE/OUTPATIENT ESTABLISHED LOW MDM 20 MIN Normal [facility] Telephoneon 11-15-2023 Telephone [id number] Dany Lee rt E 1950 M Date Provider Department Center 11/15/2023 Liliana-ELANA MARTIN [facility]ASC [facility] [place] Heart[facility]AS Family History Problem Relation Age of Onset Heart attack Father Heart attack Brother Family Status - Relation Status Age at Father Brother Reason for Visit and Comments: week f/u post ablation [Other] Normal [facility] HPon 11-06-2023 [facility] Electrophysiology Consult Note [place] [facility] [facility] Reason for visit: Afib HPI: Linda [...] on file Intimate Partner Violence: Unknown (08/08/2023) [place] Safety & Environment Fear of Current or [...] Conjunctivae: non-i (more content not included)... Normal [facility] NURSNOTEon 11-06-2023 NURSNOTE Discharge instructio ns reviewed with patient at bedside. All questions answered at this time [place] INPUT OUTPUT CLERK Normal [facility] NURSNOTE EKG at bedside [place] INPUT OUTPUT CLERK Normal [facility] POCT GLUCOSE METER UNSOLICIT ED RESULTSon 11-06-2023 Glucose [Mass/Vol] 138 mg/dL High 70-105 [facility] Comment on above: Order Comment: Waive d Testing in the ED is performed under the ED CLIA certificate #[id number]. Result Comment: pbar retcorson Performed By: #### L [id number] ####[facility] ([place])[address] [place] [address] PROTIME-INRon 11-06-2023 INR IN PPP BY COAGULATION ASSAY 1.13 High 0.90-1.10 [facility] Comment on above: Result Comment: ACCC P [...] 1995;108:231S-246S. Performed By: #### L [id number] #### [facility] ([place]) [address] [place] [address] PROTHROMBIN TIME (PT) IN PPP BY COAGULATION ASSAY 14.5 Seconds Normal 12.3-14.8 [facility] Comment on above: Performed By: #### L [id number] #### [facility] ([place]) [address] [place] [address] Prep for Procedureon 024 Prep for Procedure [id number] Linda Lee 1950 M Date Provider Department Center 11/06/2023 Paulina-SCOUT TIRADO [facility] [place] Heart[facility]AS Family History Problem Relation Age of Onset Heart attack Father Heart attack Brother Family Status - Relation Status Age at Father Brother Normal [facility] BASIC METABOLIC PANELon 05- Anion gap [Moles/Vol] 12 mmol/L Normal 7-20 [facility] Comment on above: Performed By: #### L [id number] #### [facility] ([facility]) [address] [place] [address] Calcium [Mass/Vol] 9.7 mg/dL Normal 8.6-10.3 [facility] Comment on above: Performed By: #### L [id number] #### [facility] ([facility]) [address] [place] [address] Chloride [Moles/Vol] 97 mmol/L Low 98-107 [facility] Comment on above: Performed By: #### L [id number] #### [facility] ([facility]) [address] [place] [address] CO2 [Moles/Vol] 29 mmol/L Normal 21-31 [facility] Comment on above: Performed By: #### L [id number] #### [facility] ([facility]) [address] [place] [address] Creatinine [Mass/Vol] 1.18 mg/dL Normal 0.70-1.30 [facility] Comment on above: Performed By: #### L [id number] #### [facility] (BEAK[facility]) [address] [place] [address] Performed By: #### L [id number] ####[facility] ([facility])[address] [place] [address] GLOMERULAR FILTRATION RATE ML/MIN/1.73 SQ M.PREDICTED 65.2 mL/min/1.73m*2 Normal >60.0 [facility] Comment on above: Result Comment: The [facility]???s estimated glomerular filtration rate (eGFR) will no [...] individuals. Performed By: #### L [id number] #### [facility] ([facility]) [address] [place] [address] Performed By: #### L [id number] ####[facility] ([facility])[address] [place] [address] Glucose [Mass/Vol] 153 mg/dL High 70-100 [facility] Comment on above: Performed By: #### L [id number] #### [facility] ([facility]) [address] [place] [address] Potassium [Moles/Vol] 4.7 mmol/L Normal 3.5-5.1 [facility] Comment on above: Performed By: #### L [id number] #### [facility] ([facility]) [address] [place] [address] Sodium [Moles/Vol] 133 mmol/L Low 136-145 [facility] Comment on above: Performed By: #### L [id number] #### [facility] ([facility]) [address] [place] [address] Urea nitrogen [Mass/Vol] 29 mg/dL High 7-25 [facility] Comment on above: Performed By: #### L [id number] #### [facility] ([facility]) [address] [place] [address] UREA NITROGEN/CREATINI NE (MASS RATIO) IN SER/PLAS 24.6 Normal [facility] Comment on above: Performed By: #### L [id number] #### [facility] ([facility]) [address] [place] [address] CBC WITH AUTO DIFFERENTIALon 11-01-2023 Basophils (Bld) [#/Vol] 0.03 10*3/uL Normal 0.00-0.20 [facility] Comment on above: Performed By: #### L [id number] #### [facility] ([facility]) [address] [place] [address] Basophils/100 WBC (Bld) 0.4 % Normal 0.0-1.0 [facility] Comment on above: Performed By: #### L [id number] #### [facility] ([facility]) [address] [place] [address] Eosinophils (Bld) [#/Vol] 0.65 10*3/uL High 0.00-0.50 [facility] Comment on above: Performed By: #### L [id number] #### [facility] ([facility]) [address] [place] [address] Eosinophils/100 WBC (Bld) 9.7 % High 0.0-6.0 [facility] Comment on above: Performed By: #### L [id number] #### [facility] ([facility]) [address] [place] [address] Erythrocyte distribution width (RBC) [Ratio] 12.8 % Normal 11.5-15.0 [facility] Comment on above: Performed By: #### L [id number] #### [facility] ([facility]) [address] [place] [address] ERYTHROCYTE MEAN CORPUSCULAR HEMOGLOBIN CONCENTRATION (G/DL) BY AUTOMATED 34.1 g/dL Normal 32.0-35.0 [facility] Comment on above: Performed By: #### L [id number] #### [facility] ([facility]) [address] [place] [address] Hematocrit (Bld) [Volume fraction] 46.0 % Normal 39.0-55.0 [facility] Comment on above: Performed By: #### L [id number] #### [facility] ([facility]) [address] [place] [address] Hemoglobin (Bld) [Mass/Vol] 15.7 g/dL Normal 13.0-17.0 [facility] Comment on above: Performed By: #### L [id number] #### [facility] ([facility]) [address] [place] [address] Immature granulocytes (Bld) [#/Vol] 0.01 10*3/uL Normal 0.00-0.20 [facility] Comment on above: Performed By: #### L [id number] #### [facility] ([facility]) [address] [place] [address] Immature granulocytes/100 WBC (Bld) 0.1 % Normal 0.0-1.0 [facility] Comment on above: Performed By: #### L [id number] #### [facility] ([facility]) [address] [place] [address] Lymphocytes (Bld) [#/Vol] 1.08 10*3/uL Low 1.20-4.00 [facility] Comment on above: Performed By: #### L [id number] #### [facility] ([facility]) [address] [address] Lymphocytes/100 WBC (Bld) 16.2 % Low 20.0-45.0 [facility] Comment on above: Performed By: #### L [id number] #### [facility] ([facility]) [address] [place] [address] MCH (RBC) [Entitic mass] 29.9 pg Normal 27.0-33.0 [facility] Comment on above: Performed By: #### L [id number] #### [facility] ([facility]) [address] [place] [address] MCV (RBC) [Entitic vol] 87.6 fL Normal 82.0-98.0 [facility] Comment on above: Performed By: #### L [id number] #### [facility] ([facility]) [address] [place] [address] Monocytes (Bld) [#/Vol] 0.80 10*3/uL Normal 0.10-1.00 [facility] Comment on above: Performed By: #### L [id number] #### [facility] ([facility]) [address] [place] [address] Monocytes/100 WBC (Bld) 12.0 % Normal 5.0-12.0 [facility] Comment on above: Performed By: #### L [id number] #### [facility] ([facility]) [address] [place] [address] Neutrophils (Bld) [#/Vol] 4.10 10*3/uL Normal 1.60-7.60 [facility] Comment on above: Performed By: #### L [id number] #### [facility] ([facility]) [address] [place] [address] Neutrophils/100 WBC (Bld) 61.6 % Normal 40.0-72.0 [facility] Comment on above: Performed By: #### L [id number] #### [facility] ([facility]) [address] [place] [address] NRBC (PER 100 WBCS) BY AUTOMATED COUNT 0.0 % Normal 0 [facility] Comment on above: Performed By: #### L [id number] #### [facility] ([facility]) [address] [place] [address] PLATELETS (10*3/UL) IN BLOOD AUTOMATED COUNT 200 10*3/uL Normal 150-400 [facility] Comment on above: Performed By: #### L [id number] #### [facility] ([facility]) [address] [place] [address] RBC (Bld) [#/Vol] 5.25 10*6/uL Normal 4.20-5.70 [facility] Comment on above: Performed By: #### L [id number] #### [facility] ([facility]) [address] [place] [address] WBC (Bld) [#/Vol] 6.67 10*3/uL Normal 4.00-10.60 [facility] Comment on above: Performed By: #### L [id number] #### [facility] ([facility]) [address] [place] [address] CTA CHEST W IV CONTRASTon CTA CHEST [...] Mireille Rivera. Not Vldtd Invalid Interpretation Code [facility] 11-01-2023 Lab [id number] Dany Lee rt E 1950 M Date Provider Department Center 11/01/2023 2245-[facility] OPD LAB RESOURCE [facility] OPD [place] Medical C Family History Problem Relation Age of Onset Heart attack Father Heart attack Brother Family Status - Relation Status Age at Father Brother Normal [facility] [id number] 10-31-2023 [id number] ARRIVAL TIME 0700 GI [facility] HOLD ELIQUIS 11/04/2023 MEDICATIONS TO TAKE DAY OF SURGERY WITH SIP OF WATER COREG ISOSORBIDE PT AGREES TO HAVE CREATININE SERUM DRAW ON 10/31 AT [facility] CONFIRMED CT OF CHEST APPT FOR 10/30 AT 0800 AT [facility] HOLD VITAMINS AND SUPPLEMENTS 5 DAYS PRIOR TO PROCEDURE HOLD ALL ANTI INFLAMMATORIES ETC:MOTRIN, ADVIL, ALEVE, FOR 5 DAYS PRIOR TO PROCEDURE IF YOU ARE GOING HOME AFTER YOUR SURGERY OR PROCEDURE, FOR YOUR SAFETY, YOUR SURGERY WILL BE CANCELLED IF BOTH OF THE FOLLOWING ARE NOT AVAILABLE: 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 Do not wear perfume, make-up, nail occitan, or lotions on the day of your [...] need to make any changes, please call [phone]. Notify your surgeon if you develop any illness such as a cold, cough, fever, sore throat or vomiting between now and your surgery. Thank you for entrusting us with your care. [facility] Surgical Services Team Normal [facility] Prep for Procedureon 024 Prep for Procedure [id number] Linda Lee 1950 M Date Provider Department Center 10/31/2023 Liliana-ELANA MARTIN [facility] VAS LAB [place] HeartVAS Family History Problem Relation Age of Onset Heart attack Father Heart attack Brother Family Status - Relation Status Age at Father Brother Normal [facility] Office Visiton 10-29-2023 Follow-up visit [id number] Dany Lee 1950 M Date Provider Department Center 10/29/2023 [facility]-SCOUT TIR[facility]O Z[facility] Family History Problem Relation Age of Onset Heart attack Father Heart attack Brother Family Status - Relation Status Age at Father Brother Level of Service:65079 [place] OFFICE/OUTPATIENT NEW MODERATE MDM 45 MINUTES Normal [facility] Ambulatory Visit Summaryon 1 Ambulatory Visit Summary LINDA LEE :1950 Visit Date:04/16/2023 Ambulatory Visit Instructions Your Care Team Attending Physician - ELLEN MARTINEZ, Keyon Raygoza Primary Care Physician - Jarrod MARTINEZ, Nixon This Is Your Medications List aspirin carvedilol [...] you for choosing us for your care. Normal [facility] General Surgery Office/Clini c Noteon 04-16-2023 [...] Immunizations Vaccine Date Status Comments SARS-CoV-2 (COVID-19) mRNAMUL.[id number] 04/06/2022 Recorded SARS-CoV-2 (COVID-19) mRNA BNT-162b2 vax 05/03/2021 Recorded SARS-CoV-2 (COVID-19) mRNA BNT-162b2 vax 10/07/2020 Recorded 2023-02-14: TPV70 SARS-CoV-2 (COVID-19) mRNA BNT-162b2 vax 09/16/2020 Recorded 2023-02-14: TPV70 Normal [facility] Comment on above: Result Comment: Elec tronically Signed By: ELLEN MARTINEZ, Keyon Savage\Date and Time Signed: 04/16/23 13:23 EDT [...] Immunizations Vaccine Date Status Comments SARS-CoV-2 (COVID-19) mRNAMUL.ORD![id number] 04/06/2022 Recorded SARS-CoV-2 (COVID-19) mRNA BNT-162b2 vax 05/03/2021 Recorded SARS-CoV-2 (COVID-19) mRNA BNT-162b2 vax 10/07/2020 Recorded 2023-02-14: TPV70 SARS-CoV-2 (COVID-19) mRNA BNT-162b2 vax 09/16/2020 Recorded 2023-02-14: TPV70 [facility] Comment on above: Result Comment: Elec tronically Signed By: ELLEN MARTINEZ, Keyon Savage\Date and Time Signed: 03/27/23 15:52 EDT Pathology Noteon 03-27-2023 Pathology Note [id number]#1.00TIFF [facility] Operative Reporton Operative Report [id number]#1.00TIFF [facility] Lab Reportson 03-20-2023 Lab Reports [id number]#1.00CD:127 [facility] Lab Reportson 03-14-2023 Lab Reports [id number]#1.00CD:127 [facility] RAD - MISCon 03-14-2023 RAD - MISC [id number]#1.00CD:127 [facility] Lab Reportson 03-13-2023 Lab Reports [id number]#1.00CD:127 [facility] Lab Reports [id number]#1.00CD:127 [facility] Consultation Noteon 03-05-20 Consultation Note [id number]#1.00CD:127 Normal [facility] Consent for Procedure/Surger yon 02-25-2023 Consent for Procedure/Surgery [id number]:127 Normal [facility] Facesheeton 02-25-2023 Facesheet [id number]:127 Normal [facility] Ambulatory Visit Summaryon 0 02-22-2023 Ambulatory Visit Summary LINDA LEE :1950 Visit Date:02/22/2023 Ambulatory Visit Instructions Your Care Team Attending Physician - ELLEN MARTINEZ, Keyon Raygoza Primary Care Physician - Jarrod MARTINEZ, Nixon Referring Physician - Nixon Garay MD This [...] receiving treatment for. High cholesterol Hypertension Normal [facility] Provider Letteron 02-12-2023 Provider Letter (Inserted Image. Rosa ble to display) February 12, 2023 LINDA LEE [address] [place], [place] [id number] : 1950 Dear Jesus , We have been trying to reach you with no success. It is important that you return our call regarding your referral from Dr. Duque upon receiving this letter. Also, at the time of your call, please provide us with your current information including your insurance information. Thank you for your prompt attention to this matter. Sincerely, General Surgery [phone] Normal [facility] Consultation Noteon 02-12-20 Consultation Note [id number]:127 Normal [facility] INSULINon 10-12-2022 Insulin 19.2 uIU/mL Normal 2.6-24.9 [facility] Comment on above: Performed By: #### A 1C #### [facility] [address] [place] [address] Dr. Estephania Small OCC BLD IMMUNO SCREENon 09-16 OCCULT BLOOD Negative Normal NEGATIVE [facility] Comment on above: Performed By: #### A 1C #### [facility] [address] [address] [address] Estephania Small CBC AUTO DIFFon 10-11-2022 BASO # 0.0 103/ul Normal 0.0-0.1 [facility] Comment on above: Performed By: #### C BC #### [facility] [address] [address] [address] Estephania Small Basophils/100 WBC (Bld) 0.3 % Normal 0.2-2.0 [facility] Comment on above: Performed By: #### C BC #### [facility] [address] [place] [address] Dr. Estephania Small EO # 0.5 103/ul Normal 0.0-0.7 [facility] Comment on above: Performed By: #### C BC #### [facility] [address] [place] [address] Dr. Estephania Small Eosinophils/100 WBC (Bld) 7.8 % Critically high 0.9-7.0 [facility] Comment on above: Performed By: #### C BC #### [facility] [address] [place] [address] Dr. Estephania Small Erythrocyte distribution width (RBC) [Ratio] 13.4 % Normal 11.0-15.0 [facility] Comment on above: Performed By: #### C BC #### [facility] [address] [place] [address] Dr. Estephania Small Hematocrit (Bld) [Volume fraction] 44.4 % Normal 42.0-54.0 [facility] Comment on above: Performed By: #### C BC #### [facility] [address] [place] [address] Dr. Estephania Small Hemoglobin (Bld) [Mass/Vol] 14.5 g/dL Normal 14.0-18.0 [facility] Comment on above: Performed By: #### C BC #### [facility] [address] [place] [address] Dr. Estephania Small IG # 0.02 10e3/ul Normal 0.00-0.03 [facility] Comment on above: Performed By: #### C BC #### [facility] [address] [place] [address] Dr. Estephania Small IG % 0.3 % Normal 0.0-0.5 [facility] Comment on above: Performed By: #### C BC #### [facility] [address] [place] [address] Dr. Estephania Small LYMPH # 1.3 103/ul Normal 1.2-3.8 [facility] Comment on above: Performed By: #### C BC #### [facility] [address] [place] [address] Dr. Estephania Small Lymphocytes/100 WBC (Bld) 19.4 % Critically low 20.5-60.0 [facility] Comment on above: Performed By: #### C BC #### [facility] [address] [place] [address] Dr. Estephania Small MANUAL DIFF REQ NO Normal [facility] Comment on above: Performed By: #### C BC #### [facility] [address] [place] [address] Dr. Estephania Small MCH (RBC) [Entitic mass] 28.5 pg Normal 25.9-34.0 [facility] Comment on above: Performed By: #### C BC #### [facility] [address] [place] [address] Dr. Estephania Small MCHC (RBC) [Mass/Vol] 32.7 g/dL Normal 29.9-35.2 [facility] Comment on above: Performed By: #### C BC #### [facility] [address] [place] [address] Dr. Estephania Small MCV (RBC) [Entitic vol] 87.2 fL Normal 80.0-94.0 [facility] Comment on above: Performed By: #### C BC #### [facility] [address] [place] [address] Dr. Estephania Small MONO # 0.6 103/ul Normal 0.3-0.8 [facility] Comment on above: Performed By: #### C BC #### [facility] [address] [place] [address] Dr. Estephania Small Monocytes/100 WBC (Bld) 8.7 % Normal 1.7-12.0 [facility] Comment on above: Performed By: #### C BC #### [facility] [address] [place] [address] Dr. Estephania Small NEUT # 4.2 103/ul Normal 1.4-6.5 [facility] Comment on above: Performed By: #### C BC #### [facility] [address] [place] [address] Dr. Estephania Small Neutrophils/100 WBC (Bld) 63.5 % Normal 43.0-75.0 [facility] Comment on above: Performed By: #### C BC #### [facility] [address] [place] [address] Dr. Estephania Small Platelet mean volume (Bld) [Entitic vol] 9.4 fL Critically low 9.5-13.5 [facility] Comment on above: Performed By: #### C BC #### [facility] [address] [place] [address] Dr. Estephania Small PLT 223 103/ul Normal 150-450 [facility] Comment on above: Performed By: #### C BC #### [facility] [address] [place] [address] Dr. Estephania Small RBC 5.09 106/ul Normal 4.70-6.10 [facility] Comment on above: Performed By: #### C BC #### [facility] [address] [place] [address] Dr. Estephania Small WBC 6.5 103/ul Normal 4.0-11.0 [facility] Comment on above: Performed By: #### C BC #### [facility] [address] [place] [address] Dr. Estephania Small FREE T3on 10-11-2022 FREE T3 2.48 pg/mlL Normal 2.18-3.98 [facility] Comment on above: Performed By: #### L IPID, CMP, FT3, MG, T4, TSH, URIC #### [facility] [address] [place] [address] Dr. Estephania Small GLYCOHEMOGLOBIN A1Con 2022 ADA RECOMMENDATION SEE BELOW Normal [facility] Comment on above: Result Comment: ADA RECOMMENDED LIMIT 4.0 - 6.0 ADA THERAPEUTIC TARGET < 7.0 ACTION SUGGESTED > 7.0 Performed By: #### A 1C #### [facility] [address] [place] [address] Dr. Estephania Small Glucose [Mass/Vol] 143 mg/dL Normal [facility] Comment on above: Performed By: #### A 1C #### [facility] [address] [place] [address] Dr. Estephania Small HbA1c (Bld) [Mass fraction] 6.6 % Critically high 4.5-6.2 [facility] Comment on above: Performed By: #### A 1C #### [facility] [address] [place] [address] Dr. Estephania Small LIPID PROFILEon 10-11-2022 CHOL-HDL RATIO NORM SEE BELOW Normal [facility] Comment on above: Result Comment: 3.3 - 4.4 LOW RISK 4.4 - 7.1 AVERAGE RISK 7.1 - 11.0 MODERATE RISK >11.0 HIGH RISK Performed By: #### L IPID, CMP, FT3, MG, T4, TSH, URIC #### [facility] [address] [place] [address] Dr. Estephania Small Cholesterol [Mass/Vol] 127 mg/dL Normal <=200 [facility] Comment on above: Performed By: #### L IPID, CMP, FT3, MG, T4, TSH, URIC #### [facility] [address] [place] [address] Dr. Estephania Small Cholesterol in HDL [Mass/Vol] 34 mg/dL Critically low 40-60 [facility] Comment on above: Performed By: #### L IPID, CMP, FT3, MG, T4, TSH, URIC #### [facility] [address] [place] [address] Dr. Estephania Small Cholesterol in LDL [Mass/Vol] 68.2 mg/dL Normal [facility] Comment on above: Performed By: #### L IPID, CMP, FT3, MG, T4, TSH, URIC #### [facility] [address] [address] [address] Estephania Small Cholesterol.total /Cholesterol in HDL [Mass ratio] 3.7 {ratio} Normal [facility] Comment on above: Performed By: #### L IPID, CMP, FT3, MG, T4, TSH, URIC #### [facility] [address] [address] [address] Estephania Small HDL NORMAL > or = 60 mg/dl - LO W CARDIOVASCULAR RISK <40 mg/dl - HIGH CARDIOVASCULAR RISK Normal [facility] Comment on above: Performed By: #### L IPID, CMP, FT3, MG, T4, TSH, URIC #### [facility] [address] [place] [address] Dr. Estephania Small LDL CALC NORMAL SEE BELOW Normal [facility] Comment on above: Result Comment: <100 mg/dl OPTIMAL 100 - 129 mg/dl NEAR OR ABOVE OPTIMAL 130 - 159 mg/dl BORDERLINE HIGH 160 - 189 mg/dl HIGH >190 mg/dl VERY HIGH Performed By: #### L IPID, CMP, FT3, MG, T4, TSH, URIC #### [facility] [address] [place] [address] Dr. Estephania Small Triglyceride [Mass/Vol] 124 mg/dL Normal <=150 [facility] Comment on above: Performed By: #### L IPID, CMP, FT3, MG, T4, TSH, URIC #### [facility] [address] [address] [address] Estephania Small VLDL CALC 24.8 mg/dL Normal [facility] Comment on above: Performed By: #### L IPID, CMP, FT3, MG, T4, TSH, URIC #### [facility] [address] [place] [address] Dr. Estephania Small MAGNESIUMon 10-11-2022 Magnesium [Mass/Vol] 1.5 mg/dL Critically low 1.8-2.4 [facility] Comment on above: Performed By: #### L IPID, CMP, FT3, MG, T4, TSH, URIC #### [facility] [address] [place] [address] Dr. Estephania Small PROF 14(COMP METB)on 023 Albumin [Mass/Vol] 4.0 g/dL Normal 3.4-5.0 [facility] Comment on above: Performed By: #### L IPID, CMP, FT3, MG, T4, TSH, URIC #### [facility] [address] [place] [address] Dr. Estephania Small Albumin/Globulin [Mass ratio] 1.1 {ratio} Normal [facility] Comment on above: Performed By: #### L IPID, CMP, FT3, MG, T4, TSH, URIC #### [facility] [address] [place] [address] Dr. Estephania Small ALP [Catalytic activity/Vol] 88 U/L Normal 46-116 [facility] Comment on above: Performed By: #### L IPID, CMP, FT3, MG, T4, TSH, URIC #### [facility] [address] [place] [address] Dr. Estephania Small ALT [Catalytic activity/Vol] 33 U/L Normal 16-63 [facility] Comment on above: Performed By: #### L IPID, CMP, FT3, MG, T4, TSH, URIC #### [facility] [address] [place] [address] Dr. Estephania Small Anion gap [Moles/Vol] 13.6 mmol/L Normal [facility] Comment on above: Performed By: #### L IPID, CMP, FT3, MG, T4, TSH, URIC #### [facility] [address] [place] [address] Dr. Estephania Small AST [Catalytic activity/Vol] 24 U/L Normal 15-37 [facility] Comment on above: Performed By: #### L IPID, CMP, FT3, MG, T4, TSH, URIC #### [facility] [address] [place] [address] Dr. Estephania Small Bilirubin [Mass/Vol] 0.5 mg/dL Normal 0.2-1.0 [facility] Comment on above: Performed By: #### L IPID, CMP, FT3, MG, T4, TSH, URIC #### [facility] [address] [place] [address] Dr. Estephania Small Calcium [Mass/Vol] 9.1 mg/dL Normal 8.5-10.1 [facility] Comment on above: Performed By: #### L IPID, CMP, FT3, MG, T4, TSH, URIC #### [facility] [address] [place] [address] Dr. Estephania Small Chloride [Moles/Vol] 102 mmol/L Normal 98-107 [facility] Comment on above: Performed By: #### L IPID, CMP, FT3, MG, T4, TSH, URIC #### [facility] [address] [place] [address] Dr. Estephania Small CO2 [Moles/Vol] 30.0 mmol/L Normal 21.0-32.0 [facility] Comment on above: Performed By: #### L IPID, CMP, FT3, MG, T4, TSH, URIC #### [facility] [address] [place] [address] Dr. Estephania Small Creatinine [Mass/Vol] 1.03 mg/dL Normal 0.70-1.30 [facility] Comment on above: Performed By: #### L IPID, CMP, FT3, MG, T4, TSH, URIC #### [facility] [address] [place] [address] Dr. Estephania Small EGFR-AF BRAZILIAN >60 Normal >=60 [facility] Comment on above: Performed By: #### L IPID, CMP, FT3, MG, T4, TSH, URIC #### [facility] [address] [place] [address] Dr. Estephania Small EGFR-NON AF BRAZILIAN >60 Normal >=60 [facility] Comment on above: Performed By: #### L IPID, CMP, FT3, MG, T4, TSH, URIC #### [facility] [address] [address] [address] Estephania Small Globulin (S) [Mass/Vol] 3.8 g/dL Normal [facility] Comment on above: Performed By: #### L IPID, CMP, FT3, MG, T4, TSH, URIC #### [facility] [address] [place] [address] Dr. Estephania Small Glucose [Mass/Vol] 128 mg/dL Critically high 74-106 [facility] Comment on above: Performed By: #### L IPID, CMP, FT3, MG, T4, TSH, URIC #### [facility] [address] [place] [address] Dr. Estephania Small Potassium [Moles/Vol] 4.6 mmol/L Normal 3.5-5.1 [facility] Comment on above: Performed By: #### L IPID, CMP, FT3, MG, T4, TSH, URIC #### [facility] [address] [place] [address] Dr. Estephania Small Protein [Mass/Vol] 7.8 g/dL Normal 6.4-8.2 [facility] Comment on above: Performed By: #### L IPID, CMP, FT3, MG, T4, TSH, URIC #### [facility] [address] [place] [address] Dr. Estephania Small Sodium [Moles/Vol] 141 mmol/L Normal 136-145 [facility] Comment on above: Performed By: #### L IPID, CMP, FT3, MG, T4, TSH, URIC #### [facility] [address] [place] [address] Dr. Estephania Small Urea nitrogen [Mass/Vol] 27.0 mg/dL Critically high 7.0-18.0 [facility] Comment on above: Performed By: #### L IPID, CMP, FT3, MG, T4, TSH, URIC #### [facility] [address] [place] [address] Dr. Estephania Small Urea nitrogen/Creatini ne [Mass ratio] 26.2 mg/mg Normal [facility] Comment on above: Performed By: #### L IPID, CMP, FT3, MG, T4, TSH, URIC #### [facility] [address] [address] [address] Estephania Small T4on 10-11-2022 T4 [Mass/Vol] 7.20 ug/dL Normal 4.50-12.10 [facility] Comment on above: Performed By: #### L IPID, CMP, FT3, MG, T4, TSH, URIC #### [facility] [address] [address] [address] Estephania Small TSHon 10-11-2022 TSH 1.682 uIU/mL Normal 0.358-3.740 [facility] Comment on above: Performed By: #### L IPID, CMP, FT3, MG, T4, TSH, URIC #### [facility] [address] [place] [address] Dr. Estephania Small URIC ACID SERUMon 10-11-2022 Urate [Mass/Vol] 7.6 mg/dL Critically high 3.5-7.2 [facility] Comment on above: Performed By: #### L IPID, CMP, FT3, MG, T4, TSH, URIC #### [facility] [address] [place] [address] Dr. Estephania Small Cardiovascular Lab Reporton 09-21-2020 Cardiovascular Lab Report [facility] Patient Name: Jesus [facility] MR #: [id number] Physician: Torin Henderson, Department of M.D. Medicine Service Date: 09/20/2020 Division of Birthdate: 1950 Cardiology Room #: [id number] Adult [facility] [address] [address] Cardiovascular Laboratory Report PROCEDURE: Transesophageal echocardiogram and cardioversion. INDICATION: Atrial fibrillation/flutter. ATTENDING DOCTOR: Torin Henderson M.D. FELLOW: Renan Hernandes MD. PROCEDURE IN DETAIL: Informed consent was obtained from the patient after explaining indication, risks, benefits, and alternatives. The patient understood and agreed and signed the consent form. The patient was brought to the cath lab tech and transesophageal echocardiogram was performed under conscious [...] Hernandes MD Date Trans: 09/21/2020 06:48 A/godwin [id number] cc: Nixon Garay M.D. [address] [facility] [id number] Normal [facility] APTTon 09-20-2020 aPTT Coag (Bld) [Time] 54.0 s High 25.0-35.0 [facility] Comment on above: Order Comment: No: D [...] THIS PURPOSE. Performed By: #### 5 [id number], [id number], 20703 #### [facility] [address] [place] [address], [facility] aPTT Coag (Bld) [Time] 29.2 s Normal 25.0-35.0 [facility] Comment on above: Order Comment: No: D [...] THIS PURPOSE. Performed By: #### 5 7307, 68126, 63118, 73901 #### [facility] [address] [place] [address], [facility] BASIC METABOLIC PANELon 04-0 -2020 Calcium [Mass/Vol] 9.1 mg/dL Normal 8.6-10.3 [facility] Comment on above: Order Comment: No: D o not add to previous draw Performed By: #### 8 [id number] #### [facility] [address] [place] [address], [facility] Chloride [Moles/Vol] 102 mmol/L Normal 98-107 [facility] Comment on above: Order Comment: No: D o not add to previous draw Performed By: #### 8 [id number] #### [facility] [address] [place] [address], [facility] CO2 [Moles/Vol] 28 mmol/L Normal 21-31 [facility] Comment on above: Order Comment: No: D o not add to previous draw Performed By: #### 8 [id number] #### [facility] [address] [facility] [place] [address], [facility] Creatinine [Mass/Vol] 1.07 mg/dL Normal 0.70-1.30 [facility] Comment on above: Order Comment: No: D o not add to previous draw Performed By: #### 8 [id number] #### [facility] [address] [place] [address], [facility] GFR/1.73 sq M.predicted among blacks MDRD (S/P/Bld) [Vol rate/Area] mL/min/{1.73_m2} Normal >60 [facility] Comment on above: Order Comment: No: D o not add to previous draw Performed By: #### 8 [id number] #### [facility] [address] [place] [address], [place] GFR/1.73 sq M.predicted among non-blacks MDRD (S/P/Bld) [Vol rate/Area] mL/min/{1.73_m2} Normal >60 [facility] Comment on above: Order Comment: No: D o not add to previous draw Performed By: #### 8 [id number] #### [facility] [address] [place] [address], [place] Glucose [Mass/Vol] 109 mg/dL High 70-100 [facility] Comment on above: Order Comment: No: D o not add to previous draw Performed By: #### 8 [id number] #### [facility] [address] [place] [address], [place] Potassium [Moles/Vol] 4.3 mmol/L Normal 3.5-5.1 [facility] Comment on above: Order Comment: No: D o not add to previous draw Performed By: #### 8 [id number] #### [facility] [address] [place] [address], [place] Sodium [Moles/Vol] 139 mmol/L Normal 136-145 [facility] Comment on above: Order Comment: No: D o not add to previous draw Performed By: #### 8 [id number] #### [facility] [address] [place] [address], [place] Urea nitrogen [Mass/Vol] 27 mg/dL High 7-25 [facility] Comment on above: Order Comment: No: D o not add to previous draw Performed By: #### 8 [id number] #### [facility] [address] [place] [address], [place] Calcium [Mass/Vol] 9.5 mg/dL Normal 8.6-10.3 [facility] Comment on above: Order Comment: No: D o not add to previous draw Performed By: #### 8 [id number] #### [facility] [address] [place] [address], [place] Chloride [Moles/Vol] 101 mmol/L Normal 98-107 [facility] Comment on above: Order Comment: No: D o not add to previous draw Performed By: #### 8 [id number] #### [facility] [address] [place] [address], [place] CO2 [Moles/Vol] 25 mmol/L Normal 21-31 [facility] Comment on above: Order Comment: No: D o not add to previous draw Performed By: #### 8 [id number] #### [facility] [address] [place] [address], [place] Creatinine [Mass/Vol] 1.13 mg/dL Normal 0.70-1.30 [facility] Comment on above: Order Comment: No: D o not add to previous draw Performed By: #### 8 [id number] #### [facility] [address] [place] [address], [place] GFR/1.73 sq M.predicted among blacks MDRD (S/P/Bld) [Vol rate/Area] mL/min/{1.73_m2} Normal >60 [facility] Comment on above: Order Comment: No: D o not add to previous draw Performed By: #### 8 [id number] #### [facility] [address] [place] [address], [place] GFR/1.73 sq M.predicted among non-blacks MDRD (S/P/Bld) [Vol rate/Area] mL/min/{1.73_m2} Normal >60 [facility] Comment on above: Order Comment: No: D o not add to previous draw Performed By: #### 8 [id number] #### [facility] [address] [place] [address], [place] Glucose [Mass/Vol] 121 mg/dL High 70-100 [facility] Comment on above: Order Comment: No: D o not add to previous draw Performed By: #### 8 [id number] #### [facility] [address] [place] [address], [facility] Potassium [Moles/Vol] 4.6 mmol/L Normal 3.5-5.1 [facility] Comment on above: Order Comment: No: D o not add to previous draw Performed By: #### 8 [id number] #### [facility] [address] [place] [address], [facility] Sodium [Moles/Vol] 137 mmol/L Normal 136-145 [facility] Comment on above: Order Comment: No: D o not add to previous draw Performed By: #### 8 [id number] #### [facility] [address] [place] [address], [facility] Urea nitrogen [Mass/Vol] 27 mg/dL High 7-25 [facility] Comment on above: Order Comment: No: D o not add to previous draw Performed By: #### 8 [id number] #### [facility] [address] [place] [address], [facility] CBC COMPLETE BLOOD COUNTon 0 09-20-2020 Erythrocyte distribution width (RBC) [Ratio] 12.8 % Normal 11.5-15.0 [facility] Comment on above: Order Comment: No: D o not add to previous draw Performed By: #### 5 0608 #### [facility] [address] [place] [address], [facility] Hematocrit (Bld) [Volume fraction] 40.1 % Normal 39.0-50.0 [facility] Comment on above: Order Comment: No: D o not add to previous draw Performed By: #### 5 0608 #### [facility] [address] [place] [address], [facility] Hemoglobin (Bld) [Mass/Vol] 12.6 g/dL Low 13.0-17.0 [facility] Comment on above: Order Comment: No: D o not add to previous draw Performed By: #### 5 0608 #### [facility] [address] [place] [address], [facility] MCH (RBC) [Entitic mass] 27.6 pg Normal 27.0-33.0 [facility] Comment on above: Order Comment: No: D o not add to previous draw Performed By: #### 5 0608 #### [facility] [address] MCHC (RBC) [Mass/Vol] 31.4 g/dL Low 32.0-35.0 [facility] Comment on above: Order Comment: No: D o not add to previous draw Performed By: #### 5 0608 #### [facility] [address] MCV (RBC) [Entitic vol] 87.7 fL Normal 82.0-98.0 [facility] Comment on above: Order Comment: No: D o not add to previous draw Performed By: #### 5 0608 #### [facility] [address] Nucleated RBC/100 WBC (Bld) [Ratio] 0 % Normal 0-0 [facility] Comment on above: Order Comment: No: D o not add to previous draw Performed By: #### 5 0608 #### [facility] [address] [place] [address], [facility] PLAT CNT 261 10*3/uL Normal 150-400 [facility] Comment on above: Order Comment: No: D o not add to previous draw Performed By: #### 5 0608 #### [facility] [address] [place] [address], [facility] RBC (Bld) [#/Vol] 4.57 10*6/uL Normal 4.20-5.70 [facility] Comment on above: Order Comment: No: D o not add to previous draw Performed By: #### 5 0608 #### [facility] [address] [place] [address], [facility] WBC (Bld) [#/Vol] 8.46 10*3/uL Normal 4.00-10.60 [facility] Comment on above: Order Comment: No: D o not add to previous draw Performed By: #### 5 0608 #### [facility] [address] [place] [address], [facility] CBC W/DIFFon 09-20-2020 ABS IMM GRANS 0.0 10*3/uL Normal 0.0-0.2 [facility] Comment on above: Order Comment: No: D o not add to previous draw Performed By: #### 5 0608 #### [facility] [address] [place] [address], [facility] ABS NEUTROPHILS 3.8 10*3/uL Normal 1.6-7.6 [facility] Comment on above: Order Comment: No: D o not add to previous draw Performed By: #### 5 0608 #### [facility] [address] [place] [address], [facility] Basophils (Bld) [#/Vol] 0.0 10*3/uL Normal 0.0-0.2 [facility] Comment on above: Order Comment: No: D o not add to previous draw Performed By: #### 5 0608 #### [facility] [address] [place] [address], [facility] Basophils/100 WBC (Bld) 0.5 % Normal 0.0-1.0 [facility] Comment on above: Order Comment: No: D o not add to previous draw Performed By: #### 5 0608 #### [facility] [address] [place] [address], [facility] Eosinophils (Bld) [#/Vol] 0.6 10*3/uL High 0.0-0.5 [facility] Comment on above: Order Comment: No: D o not add to previous draw Performed By: #### 5 0608 #### [facility] [address] [place] [address], [facility] Eosinophils/100 WBC (Bld) 9.6 % High 0.0-6.0 [facility] Comment on above: Order Comment: No: D o not add to previous draw Performed By: #### 5 0608 #### [facility] [address] [place] [address], [facility] Erythrocyte distribution width (RBC) [Ratio] 12.7 % Normal 11.5-15.0 [facility] Comment on above: Order Comment: No: D o not add to previous draw Performed By: #### 5 0608 #### [facility] [address] [facility] [place] [address], [facility] Hematocrit (Bld) [Volume fraction] 37.2 % Low 39.0-50.0 [facility] Comment on above: Order Comment: No: D o not add to previous draw Performed By: #### 5 0608 #### [facility] [address] [facility] [place] [address], [facility] Hemoglobin (Bld) [Mass/Vol] 11.9 g/dL Low 13.0-17.0 [facility] Comment on above: Order Comment: No: D o not add to previous draw Performed By: #### 5 0608 #### [facility] [address] [place] [address], [facility] IMMATURE GRANS 0.3 % Normal 0.0-1.0 [facility] Comment on above: Order Comment: No: D o not add to previous draw Performed By: #### 5 0608 #### [facility] [address] [place] [address], [facility] Lymphocytes (Bld) [#/Vol] 1.4 10*3/uL Normal 1.2-4.0 [facility] Comment on above: Order Comment: No: D o not add to previous draw Performed By: #### 5 0608 #### [facility] [address] [place] [address], [facility] Lymphocytes/100 WBC (Bld) 21.9 % Normal 20.0-45.0 [facility] Comment on above: Order Comment: No: D o not add to previous draw Performed By: #### 5 0608 #### [facility] [address] [place] [address], [facility] MCH (RBC) [Entitic mass] 28.1 pg Normal 27.0-33.0 [facility] Comment on above: Order Comment: No: D o not add to previous draw Performed By: #### 5 0608 #### [facility] [address] [facility] [place] [address], [facility] MCHC (RBC) [Mass/Vol] 32.0 g/dL Normal 32.0-35.0 [facility] Comment on above: Order Comment: No: D o not add to previous draw Performed By: #### 5 0608 #### [facility] [address] [facility] [place] [address], [facility] MCV (RBC) [Entitic vol] 87.7 fL Normal 82.0-98.0 [facility] Comment on above: Order Comment: No: D o not add to previous draw Performed By: #### 5 0608 #### [facility] [address] [facility] [place] [address], [facility] Monocytes (Bld) [#/Vol] 0.6 10*3/uL Normal 0.1-1.0 [facility] Comment on above: Order Comment: No: D o not add to previous draw Performed By: #### 5 0608 #### [facility] [address] [place] [address], [facility] MONOS 9.2 % Normal 5.0-12.0 [facility] Comment on above: Order Comment: No: D o not add to previous draw Performed By: #### 5 0608 #### [facility] [address] [facility] [place] [address], [facility] Neutrophils/100 WBC (Bld) 58.5 % Normal 40.0-72.0 [facility] Comment on above: Order Comment: No: D o not add to previous draw Performed By: #### 5 0608 #### [facility] [address] . [place] [address], [facility] Nucleated RBC/100 WBC (Bld) [Ratio] 0 % Normal 0-0 [facility] Comment on above: Order Comment: No: D o not add to previous draw Performed By: #### 5 0608 #### [facility] [address] . [place] [address], [facility] PLAT CNT 222 10*3/uL Normal 150-400 [facility] Comment on above: Order Comment: No: D o not add to previous draw Performed By: #### 5 0608 #### [facility] [address] . [place] [address], [facility] RBC (Bld) [#/Vol] 4.24 10*6/uL Normal 4.20-5.70 [facility] Comment on above: Order Comment: No: D o not add to previous draw Performed By: #### 5 0608 #### [facility] [address] . [place] [address], [place] WBC (Bld) [#/Vol] 6.44 10*3/uL Normal 4.00-10.60 [facility] Comment on above: Order Comment: No: D o not add to previous draw Performed By: #### 5 0608 #### [facility] [address] . [place] [address], [facility] CHEST AND LATERALon 09-21-19 21 CHEST AND LATERAL [facility] Department of Radiology [address] [place] [phone] Patient Name: LINDA LEE : 1950 Sex: M Age: Race: White Pt. Location: [id number] Patient Status: I Ordered Date: 09/19/2020 10:55:00 [...] pleural effusion. Approved by:Kristy Fierro09/20/2020 12:19 AM. IEdith,have reviewed the images and reports Electronically signed: Edith Penny. Transcribed by: [email or web address], User Resident: KRISTY FOLEY Electronically Signed by: EDITH PENNY @ 09/20/2020 12:37 AM I personally read this/these film(s) with this resident Normal [facility] Comment on above: Order Comment: No: D o not add to previous draw CTA CHESTon 09-20-2020 CTA CHEST [facility] Department of Radiology [address] [place] [phone] Patient Name: LINDA LEE : 1950 Sex: M Age: Race: White Pt. Location: [id number] Patient Status: O Ordered Date: 09/20/2020 3:30:00 [...] AP Electronically signed: Edith Penny. Transcribed by: [email or web address], User Resident: Electronically Signed by: EDITH PENNY @ 09/20/2020 05:54 AM Normal [facility] Comment on above: Order Comment: No: D o not add to previous draw D DIMER TESTon 09-20-2020 D-DIMER TEST 3.43 mcg/mL FEU High 0.27-0.49 [facility] Comment on above: Result Comment: D-Di alyssa values of less than 0.50 ug/ml (FEU) are considered to be a negative predictor of thrombosis. However, the D-Dimer result should be used in conjunction with pretest probability and should not be used alone to diagnose a thrombotic event. Performed By: #### 5 7307, 09288, 29386, 37671 #### [facility] [address] [place] [address], [facility] MAGNESIUM BLOODon 09-20-2020 Magnesium [Mass/Vol] 1.5 mg/dL Low 1.9-2.7 [facility] Comment on above: Order Comment: No: D o not add to previous draw Performed By: #### 8 5499 #### [facility] [address] [facility] [place] [address], [facility] Magnesium [Mass/Vol] 1.5 mg/dL Low 1.9-2.7 [facility] Comment on above: Order Comment: No: D o not add to previous draw Performed By: #### 8 5499 #### [facility] [address] [place] [address], [facility] PHOSPHORUS BLOODon 1 Phosphate [Mass/Vol] 4.3 mg/dL Normal 2.5-5.0 [facility] Comment on above: Order Comment: No: D o not add to previous draw Performed By: #### 8 5499 #### [facility] [address] [facility] [place] [address], [facility] POC GLUCOSE LABon 09-20-2020 Glucose [Mass/Vol] 125 mg/dL High 70-100 [facility] Comment on above: Performed By: #### 8 5499 #### [facility] [address] [facility] [place] [address], [facility] Glucose [Mass/Vol] 145 mg/dL High 70-100 [facility] Comment on above: Performed By: #### 5 0608 #### [facility] [address] [facility] [place] [address], [facility] Glucose [Mass/Vol] 127 mg/dL High 70-100 [facility] Comment on above: Performed By: #### 8 5499 #### [facility] [address] [facility] [place] [address], [facility] PROTHROMBIN TIMEon 1 INR Coag (PPP) [Relative time] 1.22 {INR} High 0.91-1.16 [facility] Comment on above: Order Comment: No: D [...] CHEST 1995;108:231S-246S. Performed By: #### 5 6101, 17291, 03505 #### [facility] [address] [facility] [address] PT Coag (PPP) [Time] 15.4 s High 12.3-14.8 [facility] Comment on above: Order Comment: No: D o not add to previous draw Result Comment: ALL RESULTS MUST BE INTERPRETED WITH RESPECT TO BLOOD DRAWING ARTIFACT OR DILUTION ERROR OF ANTICOAGULANT AT THE TIME OF SAMPLING. Performed By: #### 5 6101, 76063, 87441 #### [facility] [address] [facility] [address] INR Coag (PPP) [Relative time] 1.13 {INR} Normal 0.91-1.16 [facility] Comment on above: Order Comment: No: D [...] CHEST 1995;108:231S-246S. Performed By: #### 5 7307, 42714, 36566, 04257 #### [facility] [address] PT Coag (PPP) [Time] 14.5 s Normal 12.3-14.8 [facility] Comment on above: Order Comment: No: D o not add to previous draw Result Comment: ALL RESULTS MUST BE INTERPRETED WITH RESPECT TO BLOOD DRAWING ARTIFACT OR DILUTION ERROR OF ANTICOAGULANT AT THE TIME OF SAMPLING. Performed By: #### 5 7307, 83593, 35254, 05003 #### [facility] [address] [facility] [address] TROPONIN-Ion 09-20-2020 Troponin I.cardiac [Mass/Vol] 0.07 ng/mL High 0.00-0.04 [facility] Comment on above: Order Comment: No: D o not add to previous draw Result Comment: REFE RENCE RANGES: 0.00 - 0.04 ng/ml NORMAL 0.05 - 0.50 ng/ml INDETERMINATE > 0.50 ng/ml CONSISTENT WITH AN M.I. Performed By: #### 8 5499 #### [facility] [address] [facility] [address] TSH3on 09-20-2020 TSH 3RD GENERATION 2.08 uIU/mL Normal 0.34-5.60 [facility] Comment on above: Order Comment: No: D o not add to previous draw Performed By: #### 8 5499 #### [facility] [address] [facility] [address] UFH HEPARIN ASSAYon 09-21-19 21 UNFRACTIONATED HEPARIN 0.46 IU/mL Normal 0.30-0.70 [facility] Comment on above: Result Comment: Desi roxaban and Apixaban will interfere with the anti Xa assay used to monitor UFH and LMWH. Performed By: #### 5 0608 #### [facility] [address] [place] [address], [facility] UNFRACTIONATED HEPARIN 0.48 IU/mL Normal 0.30-0.70 [facility] Comment on above: Result Comment: Desi roxaban and Apixaban will interfere with the anti Xa assay used to monitor UFH and LMWH. Performed By: #### 8 5499 #### [facility] [address] [place] [address], [facility] UNFRACTIONATED HEPARIN 0.17 IU/mL Low 0.30-0.70 [facility] Comment on above: Result Comment: Desi roxaban and Apixaban will interfere with the anti Xa assay used to monitor UFH and LMWH. Performed By: #### 5 6101, 21903, 02586 #### [facility] [address] [place] [address], [facility] UNFRACTIONATED HEPARIN <0.10 Critically low 0.30-0.70 [facility] Comment on above: Result Comment: Desi roxaban and Apixaban will interfere with the anti Xa assay used to monitor UFH and LMWH. RESULTS CHECKED AND CALLED. ACCURATELY READ BACK BY JONNIE SINGLETON RN AT 0208. Performed By: #### 5 7307, 30692, 08369, 27879 #### [facility] [address] [place] [address], [facility] BASIC METABOLIC PANELon 03 Calcium [Mass/Vol] 9.9 mg/dL Normal 8.6-10.3 [facility] Comment on above: Performed By: #### 5 0608 #### [facility] [address] [place] [address], [place] Chloride [Moles/Vol] 99 mmol/L Normal 98-107 [facility] Comment on above: Performed By: #### 5 0608 #### [facility] [address] [place] [address], [place] CO2 [Moles/Vol] 29 mmol/L Normal 21-31 [facility] Comment on above: Performed By: #### 5 0608 #### [facility] [address] [place] [address], [place] Creatinine [Mass/Vol] 1.07 mg/dL Normal 0.70-1.30 [facility] Comment on above: Performed By: #### 5 0608 #### [facility] [address] [place] [address], [place] GFR/1.73 sq M.predicted among blacks MDRD (S/P/Bld) [Vol rate/Area] mL/min/{1.73_m2} Normal >60 [facility] Comment on above: Performed By: #### 5 0608 #### [facility] [address] [place] [address], [place] GFR/1.73 sq M.predicted among non-blacks MDRD (S/P/Bld) [Vol rate/Area] mL/min/{1.73_m2} Normal >60 [facility] Comment on above: Performed By: #### 5 0608 #### [facility] [address] [place] [address], [place] Glucose [Mass/Vol] 75 mg/dL Normal 70-100 [facility] Comment on above: Performed By: #### 5 0608 #### [facility] [address] [place] [address], [place] Potassium [Moles/Vol] 4.1 mmol/L Normal 3.5-5.1 [facility] Comment on above: Performed By: #### 5 0608 #### [facility] [address] [place] [address], [place] Sodium [Moles/Vol] 138 mmol/L Normal 136-145 [facility] Comment on above: Performed By: #### 5 0608 #### [facility] [address] [place] [address], [place] Urea nitrogen [Mass/Vol] 22 mg/dL Normal 7-25 [facility] Comment on above: Performed By: #### 5 0608 #### [id number] [place] [address] CHEST AND LATERALon 09-13-19 CHEST AND LATERAL [facility] Department of Radiology [address] [place] [phone] Patient Name: LINDA LEE : 1950 Sex: M Age: Race: White Pt. Location: Patient Status: O Ordered Date: 09/12/2020 11:40:00 AM Completed Date: 09/12/2020 11:44 AM Requesting Provider: SAURABH MOREL Attending Provider: KRISTY CARREON Report Copy To: NIXON GARAY Signs & Symptoms: I25.10 Athscl heart disease of [place] coronary artery w/o ang pctrs I10 History: Mona Comments: evaluate Exam: CHEST AND LATERAL CHEST AND LATERAL 09/12/2020 11:44 AM CLINICAL INDICATIONS: I25.10 Athscl heart disease of [place] coronary artery w/o ang pctrs I10 TECHNOLOGIST [...] scarring Electronically signed: Corry Al. Transcribed by: [email or web address], User Resident: Electronically Signed by: CORRY AL @ 09/12/2020 12:12 PM Normal [facility] Comment on above: Order Comment: evalu ate MAGNESIUM BLOODon 09-12-2020 Magnesium [Mass/Vol] 1.5 mg/dL Low 1.9-2.7 [facility] Comment on above: Performed By: #### 5 0608 #### [facility] [address] CNOVon 04-30-2018 CNOV Office Visit (CARDFT) NO LINDA VALDEZ ([id number]) 1950 M UPADate Time Provider Tgbqihejvz02/14/18 10:00 AM MIKEY BESS During your visit today, we recorded the following information about you: Pulse Blood pressure Weight 61/minute 134/89 114.3 kgMikey Bess MD 04/30/2018 10:20 AM [facility] Randee Mcneal Department of Cardiovascular MedicineOUTPATIENT VISIT DATE 04/30/18OUTPATIENT VISIT TYPEESTABLISHEDPRIMARY CARE PHYSICIAN:Nixon Garay MD[address] [facility] [address]Fxxde: [phone]: [phone] COMPLAINT:Patient presents with:Established PatientHISTORY OF PRESENT ILLNESS:Linda [...] CATH 10/02/13 50% mid LM. Proxima LAD CASHIER OFFICE with L-L collateral. Proximal RCA CASHIER OFFICE. Co-dominatLCX with L-R collateral. EF 55%.- CARDIOVERSION [...] Stroke Mother in her 80's- Heart Father [place], in mid 50 s.- Coronary Artery Disease Brother [place], in his 40's. in his 50's.ALLERGIES:ALLERGIESAllerg en [...] ICD10: I48.1 (primarydiagnosis)2. Coronary artery disease involving [place] coronary artery of [place] heartwithout angina pectoris - ICD9: 414.01, ICD10: [...] provided to the requesting provider by [facility] medical [facility] or via U.S. Mail.This document was generated utilizing Dryad[employer]. I have reviewed andverified that the contents of the document are accurate with the exception ofminor grammatical, spelling and punctuation errors.CONTACT INFORMATION:Thank you for allowing us to participate in the care of this very pleasantpatient. Please free to contact us if we can be of any further assistance.Mikey Bess MD, [facility] and [facility]al[facility] of Cardiovascular MedicineKettering [facility] Memorialrt and Vascular InstituteBilly [place] [address] [place], [place] [address]Osebow: [phone] Referring Provider: NIXON GARAY [[id number]]Allergies As of Date: 04/30/2018 Noted Allergy ReactionALDACTONE (SPIRONOLACTONE) 11/04/2015 14 - Other: See Comments Comments: Muscle crapmDate Reviewed: 04/30/2018Reviewed by: Mikey Bess - Fully AssessedReason for Visit: Established Patient [175]Primary Visit Diagnosis:Persistent atrial fibrillation (HCC) [I48.1] Other Visit Diagnoses:Coronary artery disease involving [place] coronary artery of [place] heart without angina pectoris [I25.10] Essential hypertension [...] by ALANIS BESS MD on 04/30/18 Normal [facility] PROGRESSon 04-30-2018 Protein mass conc HNO ID: [id number] thor: Mikey Leeervice: (none)Author Type: PhysicianType: Progress NotesFiled: 04/30/2018 10:20 AMNote Text:Heart and Vascular [facility] Department of Cardiovascular MedicineOUTPATIENT VISIT DATE 04/30/18OUTPATIENT VISIT TYPEESTABLCOUNT INCLUDES THE [facility]ITALPRERLANGER [facility] HOSPITALRY CARE PHYSICIAN:Nixon Garay MD[address] [facility] [address]Trdxw: [phone]: [phone] COMPLAINT:Patient presents with:Established PatientHISTORY OF PRESENT ILLNESS:Linda [...] CATH 10/02/13 50% mid LM. Proxima LAD CASHIER OFFICE with L-L collateral. Proximal RCA CASHIER OFFICE.Co-dominat LCX with L-R collateral. EF 55%.- CARDIOVERSION [...] Stroke Mother in her 80's- Heart Father [place], in mid 50 s.- Coronary Artery Disease Brother [place], in his 40's. in his 50's.ALLERGIES:ALLERGIESAllerg en [...] ICD10: I48.1(primary diagnosis)2. Coronary artery disease involving [place] coronary artery of native[place] without angina pectoris [...] provided to the requesting provider by way [facility] medical record or via U.S. Mail.This document was generated utilizing [employer] dictation. I have reviewedand verified that the contents of the document are accurate with theexception of minor grammatical, spelling and punctuation errors.CONTACT INFORMATION:Thank you for allowing us to participate in the care of this very pleasantpatient. Please free to contact us if we can be of any furtherassistance.Mikey Bess MD, [facility] and Randee McnealMepartment of Cardiovascular MedicineKettering Health Greene Memorialrt and Vascular InstituteJessica [place] [address] [address], [place] [address]Xqcldk: [phone] Normal [facility] CNOVon 10-22-2017 CNOV Office Visit (CARDFT) NO LINDA VALDEZ ([id number]) 1950 MDate Time Provider Department10/22/17 9:00 AM HOLDEN EDWARDS ZARAISABELLA During your visit today, we recorded the following information about you: Pulse Respiration Blood pressure 69/minute 16/minute 139/76Holden Edwards 10/22/2017 9:28 AM SignedKettering Health Greene Memorialrt and Vascular InstituteRobgila regional medical center and Randee Mcneal Department of Cardiovascular MedicineOUTPATIENT VISIT DATE10/22/17OUTPATIENT VISIT TYPEESTABLISHEDPRIMARY CARE PHYSICIAN:Nixon Garay MD[address] [facility] [address]Vmnpp: [phone]: [phone] COMPLAINT:AFIBHISTORY OF PRESENT ILLNESS:Linda Lee is a [...] CATH 10/02/13 50% mid LM. Proxima LAD CASHIER OFFICE with L-L collateral. Proximal RCA CASHIER OFFICE. Co-dominatLCX with L-R collateral. EF 55%.- COLONOSCOPY [...] Stroke Mother in her 80's- Heart Father [place], in mid 50 s.- Coronary Artery Disease Brother [place], in his 40's. in his 50's.ALLERGIES:ALLERGIESAllerg en [...] or concerns.Holden Edwards M.D.[facility] Carterpartment of Cardiovascular MedicineAbrazo Central Campus and Vascular InstituteBilly Ville [address] [address], [place] [address]Fmmsvi: [phone] Referring Provider: NIXON GARAY [[id number]]Allergies As of Date: 10/22/2017 Noted Allergy ReactionALDACTONE (SPIRONOLACTONE) 11/04/2015 14 - Other: See Comments Comments: Muscle crapmDate Reviewed: 10/22/2017Reviewed by: Gasper Louie RN - Fully AssessedPrimary Visit Diagnosis:Atrial fibrillation, unspecified type (HCC) [I48.91]Order(s):ECG B/O W INTERP (MED OFFICE) [ECG06] Order #: [id number] as of 10/22/2017 Sig: METFORMIN 500 MG [...] (around 04/24/2018).Follow-up and Disposition History RecordedEncounter Number: [id number] Status:Closed by HOLDEN EDWARDS MD on 10/22/17 Normal [facility] PROGRESSon 10-21-2017 Protein mass conc HNO ID: [id number] thor: Lamar Edwards: (none)Author Type: PhysicianType: Progress NotesFiled: 10/22/2017 9:28 AMNote Text:Heart and Vascular [facility] Department of Cardiovascular MedicineOUTPATIENT VISIT DATE10/22/17OUTPATIENT VISIT TYPEESTABLISHEDPRERLANGER WESTERN CAROLINA HOSPITALRY CARE PHYSICIAN:Nixon Garay MD[address] [facility] [address]Jrqbu: [phone]: [phone] COMPLAINT:AFIBHISTORY OF PRESENT ILLNESS:Linda Lee is a [...] CATH 10/02/13 50% mid LM. Proxima LAD CASHIER OFFICE with L-L collateral. Proximal RCA CASHIER OFFICE.Co-dominat LCX with L-R collateral. EF 55%.- COLONOSCOPY [...] Stroke Mother in her 80's- Heart Father OK, in mid 50 s.- Coronary Artery Disease Brother OK, in his 40's. in his 50's.ALLERGIES:ALLERGIESAllerg en [...] minutes per week as tolerated. Continueaspirin, beta yasimne, MATTY-I, statinHypertension: Adequately controlled at homeTobacco use: [...] further questions or concerns.Jason Tamayoment of Cardiovascular MedicineKettering Health Greene Memorialrt and Vascular Institute[address] [address]Twgdoo: [phone] [facility] CNOVon 08-28-2017 CNOV Office Visit (CARDFT) NO LINDA VALDEZ ([id number]) 1950 [facility] Provider Department08/28/17 11:00 AM HOLDEN EDWARDS During your visit today, we recorded the following information about you: Pulse Respiration Blood pressure 64/minute 14/minute 147/91Holden Edwards MD 08/28/2017 11:03 AM formerly [facility] Randee Mcneal Department of Cardiovascular MedicineOUTPATIENT VISIT DATE08/28/17OUTPATIENT VISIT TYPEESTABLISHEDPRIMARY CARE PHYSICIAN:Nixon Garay MD[address] [facility] [facility] [address]Agkbo: [phone]: [phone] COMPLAINT:AFIBHISTORY OF PRESENT ILLNESS:Linda Lee is a [...] CATH 10/02/13 50% mid LM. Proxima LAD CASHIER OFFICE with L-L collateral. Proximal RCA CASHIER OFFICE. Co-dominatLCX with L-R collateral. EF 55%.- COLONOSCOPY [...] Stroke Mother in her 80's- Heart Father OK, in mid 50ANDquot;s.- Coronary Artery Disease Brother OK, in his 40's. in his 50's.ALLERGIES:ALLERGIESAllerg en [...] his Xarelto (rivaroxaban) for upcoming dental procedure and we will plan for cardioversion October [...] cardioversion Pending studies:[facility] October 14 [facility] INFORMATION:Thank you for allowing us to assist in the care your patient. As always pleasedo not hesitate to contact us with further questions or concerns.Holden Edwards M.D.Linda and Randee Aguilera of Cardiovascular MedicineKettering Health Greene Memorialrt and Vascular Institute[address] [address]Raajmk: [phone] Referring Provider: NIXON GARAY [[id number]]Allergies As of Date: 08/28/2017 Noted Allergy ReactionALDACTONE (SPIRONOLACTONE) 11/04/2015 14 - Other: See Comments Comments: Muscle crapmDate Reviewed: 08/28/2017Reviewed by: Gasper Louie RN - Fully AssessedPrimary Visit Diagnosis:Atrial fibrillation, unspecified type (HCC) [I48.91] Other Visit Diagnosis:Coronary artery disease involving [place] heart without angina pectoris, unspecified vessel or lesion type [I25.10]Order(s):ECG COMPLETE W INTERPRETATION [ECG01] Order #: [id number] FUTUREPrescriptions as of 08/28/2017 Sig: AMOXICILLIN 500 [...] by HOLDEN EDWARDS MD on 08/28/17 Normal [facility] PROGRESSon 08-26-2017 Protein mass conc HNO ID: [id number] thor: Holden EdwardsSer: (none)Author Type: PhysicianType: Progress NotesFiled: 08/28/2017 11:03 AMNote Text:Heart and Vascular InstituteCameron and [facility] Department of Cardiovascular MedicineOUTPATIENT VISIT DATE08/28/17OUTPATIENT VISIT TYPEESTABLISHEDPRIMARY CARE PHYSICIAN:Nixon Garay MD[address] [address]Uymjp: [phone]: [phone] COMPLAINT:AFIBHISTORY OF PRESENT ILLNESS:Linda Lee is a [...] CATH 10/02/13 50% mid LM. Proxima LAD CASHIER OFFICE with L-L collateral. Proximal RCA CASHIER OFFICE.Co-dominat LCX with L-R collateral. EF 55%.- COLONOSCOPY [...] Stroke Mother in her 80's- Heart Father OK, in mid 50 s.- Coronary Artery Disease Brother OK, in his 40's. in his 50's.ALLERGIES:ALLERGIESAllerg en [...] to contact us with further questions or concerns.Corinne Tamayo and Randee Carteradvanced care hospital of southern new mexicoment of Cardiovascular MedicineKettering Health Greene Memorialrt and Vascular InstituteBilly Ville [address], [place] [address]Atsetn: [phone] Normal [facility] CNOVon 08-23-2017 CNOV Office Visit (CARDFT) NO LINDA VALDEZ ([id number]) 1950 MDate Time Provider Department08/23/17 10:30 AM HOLDEN EDWARDS During your visit today, we recorded the following information about you: Pulse Respiration Blood pressure Weight 60/minute 18/minute 138/83 111.1 kg Height 1.956 Brian Edwards MD 08/23/2017 10:45 AM formerly [facility] InstituteRob[facility] and Rand[facility] Mcne[facility] Department of Cardiovascular MedicineOUTPATIENT VISIT DATE 08/23/17OUTPATIENT VISIT TYPEESTABLISHEDPRIMARY CARE PHYSICIAN:Nixon Garay MD[address] [address]Grfax: [phone]: [phone] COMPLAINT:AFIBHISTORY OF PRESENT ILLNESS:Linda Lee is a [...] CATH 10/02/13 50% mid LM. Proxima LAD CASHIER OFFICE with L-L collateral. Proximal RCA CASHIER OFFICE. Co-dominatLCX with L-R collateral. EF 55%.- COLONOSCOPY [...] Stroke Mother in her 80's- Heart Father OK, in mid 50ANDquot;s.- Coronary Artery Disease Brother OK, in his 40's. in his 50's.ALLERGIES:ALLERGIESAllerg en [...] 111.1 kg (245lb) SpO2 98% BMI 29.05 kg/v6Csskcit: Well appearing, in no acute distress. ObeseNeuro: [...] or concerns.Holden Edwards M.D.Doroteo Aguilera of Cardiovascular MedicineHeart and Vascular InstituteWyandot Memorial Hospital[address] [facility].[place], [place] [address]Wezkcx: [phone] Referring Provider: NIXON GARAY [[id number]]Allergies As of Date: 08/23/2017 Noted Allergy ReactionALDACTONE [...] (around 08/30/2017).Follow-up and Disposition History RecordedEncounter Number: [id number] Status:Closed by HOLDEN EDWARDS MD on 08/23/17 Normal [facility] PROGRESSon 08-22-2017 Protein mass conc HNO ID: [id number] thor: Holden EdwardsSersherlye: (none)Author Type: PhysicianType: Progress NotesFiled: 08/23/2017 10:45 AMNote Text:Heart and Vascular InstituteCameron and Randee Mcneal Department of Cardiovascular MedicineOUTPATIENT VISIT DATE 08/23/17OUTPATIENT VISIT TYPEESTABLISHEDPRIMARY CARE PHYSICIAN:Nixon Garay MD[address] [facility] [place] [place] [address]Vnacy: [phone]: [phone] COMPLAINT:AFIBHISTORY OF PRESENT ILLNESS:Linda Lee is a [...] CATH 10/02/13 50% mid LM. Proxima LAD CASHIER OFFICE with L-L collateral. Proximal RCA CASHIER OFFICE.Co-dominat LCX with L-R collateral. EF 55%.- COLONOSCOPY [...] Stroke Mother in her 80's- Heart Father OK, in mid 50 s.- Coronary Artery Disease Brother OK, in his 40's. in his 50's.ALLERGIES:ALLERGIESAllerg en [...] 111.1 kg (245lb) SpO2 98% BMI 29.05 kg/v9Cchtjhn: Well appearing, in no acute distress. ObeseNeuro: [...] or concerns.Holden Edwards M.D.Doroteo Carterpartment of Cardiovascular MedicineKettering Health Greene Memorialrt and Vascular InstituteBilly Ville [address], [place] [address]Sqrbnp: [phone] Normal [facility] Vital Signs Date Time Vital Sign Value Performing Clinician Juanito moeller 02-22-2023 14:34-0400 Blood Pressure Location Keyon HUGHES [facility] 02-22-2023 14:34-0400 Diastolic blood pressure 70 mm[Hg] Keyon HUGHES [facility] 02-22-2023 14:34-0400 Heart rate 68 /min Keyon HUGHES [facility] 02-22-2023 14:34-0400 Respiratory rate 16 /min Keyon HUGHES [facility] 02-22-2023 14:34-0400 Systolic blood pressure 142 mm[Hg] Keyon HUGHES [facility] Encounters Encounter Date Encounter Type Care Provider Facility Start: 10-08-2024 End: 10-08-2024 ambulatory [facility] Start: 04-13-2024 End: 04-13-2024 ambulatory [facility] Start: 02-11-2024 End: 02-11-2024 ambulatory [facility] Start: 01-27-2024 ambulatory [facility] Start: 01-27-2024 End: 01-27-2024 ambulatory [facility] Start: 12-10-2023 End: 12-10-2023 ambulatory [facility] Start: 11-18-2023 End: 11-18-2023 ambulatory [facility] Start: 11-06-2023 ambulatory [facility] Start: 11-06-2023 ambulatory [facility] Start: 11-06-2023 End: 11-06-2023 ambulatory [facility] Start: 11-01-2023 End: 11-01-2023 ambulatory [facility] Start: 10-29-2023 End: 10-29-2023 ambulatory [facility] Start: 04-16-2023 End: 04-17-2023 ambulatory Keyon R NILL Facility:[facility] Start: 04-16-2023 End: 04-16-2023 Patient encounter procedure Keyon Raygoza NILL General Surgery [facility] Start: 03-27-2023 End: 03-28-2023 ambulatory Keyon R NILL Facility:[facility] Start: 03-20-2023 End: 03-21-2023 ambulatory Keyon R NILL Facility:CD:[id number] Start: 02-22-2023 End: 02-23-2023 ambulatory Nixon Garay Facility:[facility] Start: 02-22-2023 End: 02-22-2023 Patient encounter procedure Keyon Raygoza ELLEN General Surgery Nill/[facility] Start: 02-08-2023 ambulatory Nixon Garay Facility:[facility] Start: 10-12-2022 End: 10-12-[address] NIXON GARAY . Facility: Start: 10-11-2022 End: 10-12-[address] NIXON GARAY . Facility: Start: 09-19-2020 End: 09-20-2020 ambulatory NIXON GARAY Facility:[facility] Start: 04-30-2018 End: 05-13-2018 Patient encounter procedure MIKEY HALELORENA BESS [facility] Start: 10-22-2017 End: 10-25-2017 Patient encounter procedure [facility] Start: 10-14-2017 End: 10-14-2017 Patient encounter procedure [facility] Start: 08-28-2017 End: 09-03-2017 Patient encounter procedure [facility] Start: 08-23-2017 End: 08-28-2017 Patient encounter procedure [facility] Procedures Date Procedure Procedure Detail Performing Clinician Start: 03-20-2023 Repair of right ingu inal hernia Keyon HUGHES Start: 10-11-[address] REVA GARAY . Comment on above: Performed By: #### [facility] #### [facility] [address] [place] [address] Dr. Estephania Small Start: 08-15-2020 Coronary artery bypa ss graft Keyon HGUHES Appendectomy Keyon HUGHES Vasectomy Keyon BERNALL Immunizations Immunization Date Immunization Notes Care Provider Fa cili 04-06-2022 SARS-CoV-2 (COVID-19 ) mRNAMUL.[id number] Keyon HUGHES [facility] 05-03-2021 SARS-CoV-2 (COVID-19 ) mRNA BNT-162b2 vax Keyon BERNALL [facility] 10-07-2020 SARS-CoV-2 (COVID-19 ) mRNA BNT-162b2 vax Keyon BERNALL [facility] Comment on above: Result Comment: 2022: [id number] 09-16-2020 SARS-CoV-2 (COVID-19 ) mRNA BNT-162b2 vax Keyon BERNALL [facility] Comment on above: Result Comment: 2022: [id number] Payers Date Payer Category Payer Private Health Insurance [id number] 2017 Medicare [id number] 1959 Medicare [id number] 1959 Private Health Insurance [facility] [id number] 1950 Unknown [id number] 2.16.8 [id number] 1950 Unknown [id number] 2.16.84 [id number] 1950 Unknown [id number] 2.16.84 [id number] 1950 Unknown [id number] 2.16.8 [id number] 1950 Unknown [id number] 2.16.8 [id number] 1950 Unknown [id number] 2.16.8 [id number] 1950 Unknown [id number] 2.16.8 [id number] 1950 Unknown [id number] 2.16.8 [id number] Social History Date Type Detail Facility Start: 02-22-2023 Tobacco smoking status Ex-smoker (fi nding) [facility] Tobacco smoking status Never [facility] Sex Assigned At Male [facility] Functional Status Date Assessment Result Facility 02-22-2023 Functional Status N/A [facility] Clinical Notes 09-20-2020 to 10-08-2024 Note Date & Type Note Facility 10-08-2024 Note Patient here for 6 m o follow up CAD, HFmrEF, valve disease, and PAF. Had echo back in Mar 2024 after last apt. He will have routine labs drawn next month for Dr. Garay. Patient denies chest pain, SOB, palpitations, lightheadedness/syncope, and bleeding on Eliquis. Review of Systems Musculoskeletal: Positive for arthritis and joint pain. All other systems reviewed and are negative. [facility] 10-08-2024 Note Cardiovascular Medic [facility] SUBJECTIVE Chief Complaint Patient presents with Coronary Artery Disease Hypertension Hyperlipidemia Linda Lee is a 74 y.o. male here for follow-up. HPI PMHx: CAD s/p 4-vessel coronary artery bypass graft surgery and maze procedure in 2020 (CORDOVA to LAD, SVG- D2 and ramus, SVG -OM1 and Cryomaze procedure + Atriclip in 08/25/2020), a.fib s/p ablation 11/06/2023, a.flutter s/p ablation 01/27/2024, hypertension, dyslipidemia 10/08/2024 He has been feeling well. BP at home has been running 130/80 before meds, after meds 120/70-60s. HR running 60s-70s. He notes when he took coreg his HR would go down into the 40s, and average in the 50s. HE feels better not taking it. He is exercising with lifting weights 3x a week, with warmer weather coming he plans to walk. Denies c/o CP, dyspnea, orthopnea, PND, LE edema, dizziness/LH, palpitations, syncope. Patient Active Problem List Diagnosis Abnormal stress test Atrial fibrillation (CMS/HCC) CAD (coronary artery disease) Coronary arteriosclerosis Type 2 diabetes mellitus, without long-term current use of insulin ([facility]) Hyperlipidemia Hypertension Acute combined systolic (congestive) and diastolic (congestive) heart failure ([facility]) BMI 27.0-27.9,adult BPH (benign prostatic hyperplasia) Bradycardia Heart failure with reduced left ventricular function ([facility]) DULCE MARIA (obstructive sleep apnea) Overweight Right inguinal hernia Atypical atrial flutter ([facility]) Cellulitis Contracture of palmar fascia Cramps of lower extremity Osteoarthritis Past Medical History: Diagnosis Date Abnormal ECG Arrhythmia Atrial fibrillation ([facility]) CHF (congestive heart failure) ([facility]) Chronic kidney disease Coronary artery disease Diabetes mellitus ([facility]) Hyperlipidemia Hypertension Family History Problem Relation Name Age of Onset Heart attack Father Heart attack Brother Social History Tobacco Use Smoking status: Former Types: Cigarettes Smokeless tobacco: Never Substance Use Topics Alcohol use: Yes Comment: occasional No Known Allergies ROS Musculoskeletal: Positive for arthritis and joint pain. All other systems reviewed and are negative. OBJECTIVE Visit Vitals BP 130/84 (BP Location: Left arm, Patient Position: Sitting) Pulse 63 Ht 1.93 m (6' 4 ) Wt 97.1 kg (214 lb) SpO2 97% BMI 26.05 kg/m??? Smoking Status Former BSA 2.28 m??? Medications: Current Outpatient Medications: apixaban (Eliquis) 5 mg tablet, Take 1 tablet (5 mg) by mouth two times daily., Disp: 60 tablet, Rfl: 11 aspirin 81 mg EC tablet, Take 81 mg by mouth in the morning., Disp: , Rfl: atorvastatin (Lipitor) 80 mg tablet, TAKE 1 TABLET BY MOUTH EVERY DAY, Disp: 90 tablet, Rfl: 3 chlorthalidone (Hygroton) 25 mg tablet, Take 1 tablet (25 mg) by mouth in the morning., Disp: 90 tablet, Rfl: 3 furosemide (Lasix) 80 mg tablet, Take 80 [...] THREE TIMES A DAY, Disp: , Rfl: carvedilol (Coreg) 25 mg tablet, Take 1 tablet (25 mg) by mouth with breakfast and with evening meal. (Patient not taking: Reported on 04/13/2024), Disp: 180 tablet, Rfl: 3 Physical Exam Constitutional: Appearance: Normal appearance. He is normal weight. HENT: Head: Normocephalic and atraumatic. Right Ear: External ear normal. Left Ear: External ear normal. Eyes: Extraocular Movements: Extraocular movements intact. Pupils: Pupils are equal, round, and reactive to light. Neck: Vascular: No carotid bruit. Cardiovascular: Rate and Rhythm: Normal rate and regular rhythm. Pulses: Normal pulses. Heart sounds: Normal heart sounds. Pulmonary: Effort: Pulmonary effort is normal. Breath [...] normal. Judgment: Judgment normal. Labs: Admission on 01/27/2024, Discharged on 01/27/2024 Component Date Value Ref Range Status (more content not included)... [facility] 04-13-2024 Note [facility] Cardiology Clinic Note Chief Complaint: Patient here for 4 mo follow up CAD, HFmrEF, valve disease, and afib. He's no longer taking carvedilol because of bradycardia and hypotension. He can't remember who he spoke to but he claims someone told him it was ok to stop it. He feels much better not taking it. HR has been steady between 65-75 per patient. He denies chest pain, SOB, palpitations, and bleeding on Eliquis. HPI: Linda Lee [...] in the morning., Disp: 90 tablet, Rfl: 3 furosemide (Lasix) 80 mg tablet, Take 80 [...] Disp: , Rfl: Last Recorded Vitals BP 144/86 (BP Location: Right arm, Patient Position: Sitting) Pulse 67 Ht 1.93 m (6' 4 ) Wt 101 kg (222 lb) SpO2 98% BMI 27.02 kg/m??? Physical Examination: GENERAL: alert and oriented [...] greater saphenous vein Serum creatinine 1.18 02/2023 Echocardiogram 09/2023: Global left ventricular systolic function is difficult to assess but appears mildly reduced; visually estimated ejection fraction is 40 to 45% Normal ri (more content not included)... [facility] 02-11-2024 Note [place] Electrophysiology Consult Note [place] Cardiology [facility] Reason for visit: Afib 02/11/24 Patient had an initial A-fib ablation done on 11/06/2023. At that time he was noted to have atypical flutter which could not be terminated despite creation of an anterior mitral line and the posterior mitral line. Given that he presented again with flutter he was taken again to the lab on 01/27/2024. The cycle length of the atrial flutter was 280 ms. Mapping revealed the pulmonary veins and the posterior box to be isolated and it revealed to be a perimitral flutter. Ablation at the base of the appendage resulted in termination of this flutter with reinitiation of CTI flutter which was successfully ablated. He has been in sinus rhythm since then and he feels remarkably well. EKG 02/11/2024 sinus rhythm Prior HPI: Linda Lee is a 74 y.o. year old with past medical history [...] on file Intimate Partner Violence: Unknown (08/08/2023) [place] Safety & Environment Fear of Current or Ex-Partner: Not on file Emotionally Abused: Not on file Physically Abused: Not on file Sexually Abused: Not on file Physically or Sexually Abused: Not on file Depression: Not on file Housing Stability: Not on file Utilities: Not on file Allergies: No Known Allergies Weight: 97.1kg Visit Vitals BP 126/78 (BP Location: Left arm, Patient Position: Sitting) Pulse 59 Ht 1.93 m (6' 4 ) Wt 97.1 kg (214 lb) SpO2 97% BMI 26.05 kg/m??? Smoking Status Former BSA 2.28 m??? Meds: Current Outpatient Medications on File [...] 80 mg by mouth in the morning. glimepiride (Amaryl) 2 mg tablet Take 2 mg by mouth before breakfast. lisinopril 20 mg tablet Take 40 mg by mouth at bedtime. magnesium oxide (Mag-Ox) 400 mg (241.3 mg magnesium) tablet Take 1 tablet by mouth in the morning and at bedtime. metFORMIN (Glucophage) 500 mg tablet Take 500 mg by mouth in the morning, afternoon, and at bedtime. potassium chloride CR (Klor-Con M20) 20 mEq ER (more content not included)... [facility] 01-27-2024 Note ATYPICAL FLUTTER ABL ATION PROCEDURE NOTE DATE OF PROCEDURE: 01/27/2024 PERFORMING PHYSICIAN: Dr. Scout Tirado VERIFICATION CLERK: LISA CONSENT: Patient NAME OF THE PROCEDURE: Pulmonary Vein Isolation and Comprehensive EP study. INDICATIONS FOR PROCEDURE: 1. Atypical flutter 2. Persistent atrial fibrillation s/p Cryomaze+ Atriclip with recurrence: s/p PVI+post box+CTI+ Anterior mitral line/ post mitral line. FLUROSCOPY: 0.9min/11mGy. EBL: 20cc SPECIMEN REMOVED: None PROCEDURES PERFORMED: 1. Sonosite [...] assess ablation results. 6. Left heart pressure measurements. 7. Fluroscopy. INDICATION: 74year old with past medical history of coronary disease s/p CABG: CORDOVA to LAD, SVG- D2 and ramus, SVG -OM1 and Cryomaze procedure + Atrriclip in 08/25/2020. Dr. KEVIN 30 event monitor was performed, [...] of A-fib up until recently. He was taken for ablation in October 2023 and was noted to have atypical flutter which appeared to be perimitral. Despite mitral line, block could not be attained. PVI and posterior box isolation was done and CTI ablation done. He was brought for atypical flutter ablation. PROCEDURE NOTE: On the day of presentation, he was noted to be in atrial flutter and ICE was done to rule out LA thrombus. [...] were placed in the right as noted below. RFV: 8Fx3, [employer] ThermoCool SF Bi-Directional over [...] atriclip stump. Esophagus was mapped using the FanMilesUND 3D mapping software and noted to be towards the LSPV. Transeptal access was procured with ICE guidance using a SL-1 sheath and Grant needle. Following this, Octoray, catheter was advanced and the multipolar mapping performed of the LA creating a geometry as well as bipolar voltage assessment was made. It appeared the veins were isolated with posterior wall also. The earliest activation was CS 1/2 which suggested atypical flutter with CL of 280ms. Careful mapping was performed and this revealed a perimitral flutter activation. I then looked at bipolar mapping and did another line from Anterior aspect of right sided WACA to Anterior mitral valve as well as posterior mitral isthumus line. There was no termination. I then brenda an ablation more anteriorly from the roof to the anterior mitral line anterior to appendage stump. While the ablation was performed near the base of the appendage, the flutter activation changed with earliest A in the proximal CS. Entrainment revealed this to be right sided and CTI dependent. I proceeded to perform CTI ablation. Using ICE, the His and IVC junctions were marked with 3D CARTO mapping software. ICE revealed a small subeustachian pouch. Vizigo sheath was koffi to the right side. Ablation was performed on the CTI line starting at the tricuspid valve aspect. 40W was utilized and I extended the ablation from the TV to the IVC aspect focusing on where I felt the leak was from prior ablation. Ablation tom few seconds led to termination to Sinus rhythm. I verified CTI block with timing noted to be 222ms. Differential pacing confirmed bidirectional block. EP study was then performed. No re (more content not included)... [facility] 12-10-2023 Note Patient here for fol low [...] All other systems reviewed and are negative. [facility] 12-10-2023 Note Cardiovascular Medic [facility] SUBJECTIVE Chief Complaint Patient presents with [...] Labs: Admission on (more content not included)... [facility] 11-18-2023 Note [facility] Cardiology Clinic Note Chief Complaint: Patient [...] diagonal and fransisca (more content not included)... [facility] 11-06-2023 Note ATRIAL FIBRILLATION ABLATION PROCEDURE NOTE DATE OF PROCEDURE: 11/06/2023 PERFORMING PHYSICIAN: Dr. Scout Tirado VERIFICATION CLERK: LISA CONSENT: Patient NAME OF THE PROCEDURE: [...] atriclip stump. Esophagus was mapped using the FanMilesUND 3D mapping software and noted to be [...] with PPI as follows: CS 1/2: 272ms: MACEDONIAN 4'o clock, CS 3/4: 276ms MACEDONIAN 6'o clock, CS 7/8: 277ms, Base of [...] junctions were mar (more content not included)... 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 No notable events documented. [facility] 11-06-2023 Note Patient: Linda valdez Procedure Summary Date: 11/06/23 Room / Location: [facility] [employer] [facility]SEM[facility]ER 1 EP / [facility] HV VASCULAR LAB (Cath) Anesthesia Start: 838 Anesthesia [...] Line Transport: uneventful Patient condition is: stable [facility] 11-06-2023 Note Airway Date/Time: 11/06/2023 8:54 AM Urgency: elective General Information and Staff Patient location during procedure: [place] Anesthesiologist: Zoey Sanchez MD Resident/UNIT TRUST MANAGER/CAA: Vinicio Arthur DO Performed: resident/UNIT TRUST MANAGER/CAA Indications and Patient Condition Indications for airway [...] 1 Number of other approaches attempted: 0 [facility] 11-06-2023 Note Patient: Linda valdez Procedure Information Date/Time: 11/06/23 0830 Procedure: Ablation a-fib paroxysmal Location: [facility] [employer]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 ASSEM[facility]ER 1 EP / [facility] HVC VASCULAR LAB (Cath) Providers: Scout Tirado MD Relevant Problems Anesthesia (+) DULCE MARIA (obstructive sleep apnea) Cardio Activity: >4 METs 4-vessel CABG in 2010 (+) Atrial fibrillation (CMS/[facility]) (+) Coronary arteriosclerosis (+) Hypertension Endo (+) Type 2 diabetes mellitus, without long-term current use of insulin ([facility]) Encounter Date: 11/06/23 Electrocardiogram, 12-lead Result Value Ventricular Rate 76 QRS DURATION 92 QT Interval 404 QTC CALCULATION(BAZETT) 454 R-[place] 58 T Wave [place] 44 Impression Atrial fibrillation with a competing [...] with attending and resident. Additional Equipment Requests [facility] 11-06-2023 Note Arterial Line: Date/Time: 11/06/2023 8:22 [...] mL - 11/06/2023 8:22:00 AM Staffing Performed: resident/UNIT TRUST MANAGER/CAA Anesthesiologist: Zoey Sanchez MD Resident/UNIT TRUST MANAGER: Vinicio Arthur DO Performed by: Vinicio Arthur DO Authorized by: Zoey Sanchez MD [facility] 10-29-2023 Note [place] Electrophysiology Consult Note [place] Cardiology [facility] Reason for visit: Afib HPI: Linda [...] Abnormal ECG Arrhythmia CHF (congestive heart failure) (CMS/HCC) Chronic kidney [...] on file Intimate Partner Violence: Unknown (08/08/2023) [place] Safety & Environment Fear of Current or [...] bilateral normal upstroke, (more content not included)... [facility] 02-22-2023 Note Chief Complaint consultation for right [...] Smokeless Tobacco Use: (more content not included)... [facility] Comment on above: Result Comment: Elec tronically Signed By: ELLEN MARTINEZ, Keyon Savage\Date and Time Signed: 02/22/23 16:24 EDT 09-20-2020 Note MR#: [id number] [facility] Pt. Name: Linda Lee Admitted: 09/19/2020 Discharged: [...] heart rate was high. He called his shift boss who has increased his metoprolol to 25 [...] and chills. The patient was seen at [facility], but the EKG shows tachycardia in the 130s. He was given 2 days of blood pressure without change. They spoke with cardiology, who recommend transferring to the [facility]. LABORATORY DATA: Labs at [facility] showed magnesium 1.5, creatinine 1.3, high sensitive [...] Hernandez MD Date Trans: 09/20/2020 01:33 P/mmo [id number] cc: Nixon Garay M.D. [address], [facility] [id number] [facility] Evaluation + Plan note No data available for this section General Surgery [facility] Discharge instructions No data available for this section General Surgery Sarah Progress note No data available for this section General Surgery [facility] Summary Purpose Family History No Family History [...] section and content) DATE CREATED AUTHOR 05/26/2018 [facility] DATE CREATED AUTHOR AUTHOR'S ORGANIZ ATION 09/06/2021 [facility] DATE CREATED AUTHOR AUTHOR'S ORGANIZ ATION 10/19/2022 [facility] DATE CREATED AUTHOR AUTHOR'S ORGANIZ ATION 04/17/2023 [facility] DATE CREATED AUTHOR AUTHOR'S JESUS RIBERA 10/10/2024 [facility] Patient Care team informatio n (unrecognized section and content) Personnel Name: Nixon Garay MD Address: Address: [address] [place] [address] Personnel Name: Nixon Garay MD Address: Address: [address] [place] [address] FOR RECORDS PERTAINING TO PATIENTS WHO ARE [...] BE BASED ON THE PRIMARY CLINICAL RECORDS. [employer] provides no warranty or guarantee of the accuracy or completeness of information in this document.
[2024-10-24 07:56] LABS: Basophils Percent Auto 0.5 % (0.2-2.0); Eosinophils Absolute Auto 0.6 10^3/uL (0.0-0.7); Eosinophils Percent Auto 9.4 % (0.9-7.0); Hematocrit 47.5 % (42.0-54.0); Immature Granulocytes Abs Auto 0.03 10^3/uL (0.00-0.03); Immature Granulocytes Pct Auto 0.5 % (0.0-0.5); Lymphocytes Absolute Auto 1.4 10^3/uL (1.2-3.8); Lymphocytes Percent Auto 22.8 % (20.5-60.0); Mean Corpuscular HGB Conc 33.7 g/dL (29.9-35.2); Mean Corpuscular Hemoglobin 30.9 pg (25.9-34.0); Mean Corpuscular Volume 91.7 fL (80.0-94.0); Mean Platelet Volume 8.9 fL (9.5-13.5); Monocytes Absolute Auto 0.6 10^3/uL (0.3-0.8); Monocytes Percent Auto 9.7 % (1.7-12.0); Neutrophils Absolute Auto 3.5 10^3/uL (1.4-6.5); Neutrophils Percent Auto 57.1 % (43.0-75.0); Platelet Count 215 10^3/uL (150-450); Red Blood Count 5.18 10^6/uL (4.70-6.10); Red Cell Distribution Width 12.8 % (11.0-15.0); White Blood Count 6.1 10^3/uL (4.0-11.0)
[2024-10-24 08:04] LABS: Estimated Average Glucose 120 mg/dL; Glycohemoglobin A1C 5.8 % (4.5-6.2)
[2024-10-24 08:41] LABS: Alanine Aminotransferase 30 U/L (16-63); Albumin Globulin Ratio 1.1; Albumin Level 4.1 g/dL (3.4-5.0); Alkaline Phosphatase 81 U/L (46-116); Anion Gap 9.4; Aspartate Amino Transferase 24 U/L (15-37); BUN Creatinine Ratio 26.1; Bilirubin Total 0.5 mg/dL (0.2-1.0); Calcium 9.7 mg/dL (8.5-10.1); Carbon Dioxide 32.3 mmol/L (21.0-32.0); Chloride 98 mmol/L (98-107); Chol HDL Ratio 3.1; Cholesterol 126 mg/dL (<=200); Estimated GFR (African America >60 (>=60 mL/min/1.73m^2); Estimated GFR (Non-African Ame 52 (>=60 mL/min/1.73m^2); Free T3 3.17 pg/mL (2.18-3.98); Globulin 3.7 g/dL; Glucose 112 mg/dL (74-106); HDL Cholesterol 41 mg/dL (40-60); Potassium 4.7 mmol/L (3.5-5.1); Sodium 135 mmol/L (136-145); Thyroid Stimulating Hormone 0.963 uIU/mL (0.358-3.740); Total Protein 7.8 g/dL (6.4-8.2); Triglycerides 192 mg/dL (<=150); VLDL CHOLESTEROL 38.4 mg/dL
[2024-10-24 11:41] LABS: Prostate Specific Antigen Scrn 2.36 ng/mL (<=4.00)
== END 2024-10-24 07:25 | disposition home or self-care (01) ==
LOC: LAB 07:25
PROVIDERS: PCP Family Medicine; Visit Provider Family Medicine
DX: I25.10 Atherosclerotic heart disease of native coronary artery without angina pectoris (principal); Z12.5 Encounter for screening for malignant neoplasm of prostate; I50.41 Acute combined systolic (congestive) and diastolic (congestive) heart failure; I48.0 Paroxysmal atrial fibrillation; E11.9 Type 2 diabetes mellitus without complications; E78.5 Hyperlipidemia, unspecified; I10 Essential (primary) hypertension
CPT/HCPCS: 36415; 80053; 80061; 83036; 83880; 84436; 84443; 84481; 84550; 85025; G0103

== ENCOUNTER 2025-02-17 11:01 | Outpatient (OUT) | payer MEDICARE, SELFPAY ==
--- OUTSIDE RECORDS SUMMARY | 2025-02-17 11:04 | XMS_ITS | Clinical Summary ---
Author Organization [facility] Address [address] [place] [address] Care Team Providers Care Acoustical Carpenter Name Role Phone Conrado Bassett MD Primary Care Provider [phone] Allergies No known active allergies Medications atorvastatin (Lipitor) 80 mg tabletIndications: Mixed hyperlipidemia TAKE 1 TABLET BY MOUTH EVERY DAY 90 tablet 3 07/31/19 23 Active aspirin 81 mg EC tablet Take 81 mg by mouth in the morning. 10/01/19 14 Active lisinopril 20 mg tablet Take 40 mg by mouth at bedtime. 11/29/19 23 Active metFORMIN (Glucophage) 500 mg tablet Take 500 mg by mouth in the morning, afternoon, and at bedtime. 11/11/19 23 Active furosemide (Lasix) 80 mg tablet Take 80 mg by mouth in the morning. 10/15/19 23 Active magnesium oxide (Mag-Ox) 400 mg (241.3 mg magnesium) tablet Take 1 tablet by mouth in the morning and at bedtime. 10/05/19 23 Active potassium chloride CR (Klor-Con M20) 20 mEq ER tablet Klor-Con M20 mEq tablet,extended release TAKE 1 TABLET BY MOUTH THREE TIMES A DAY Active carvedilol (Coreg) 25 mg tabletIndications: Essential hypertension Take 1 tablet (25 mg) by mouth with breakfast and with evening meal. 180 tablet 3 09/11/19 24 Active Additional Information Patient not taking.Reported on 04/13/2024 glimepiride (Amaryl) 2 mg tablet Take 2 mg by mouth before breakfast. 11/01/19 24 Active apixaban (Eliquis) 5 mg tabletIndications: Paroxysmal atrial fibrillation (CMS/HCC) Take 1 tablet (5 mg) by mouth two times daily. 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 10/29/2023 10/29/2023 BMI 27.0-27.9,adult 10/29/2023 10/29/2023 BPH (benign prostatic hyperplasia) 10/29/2023 10/29/2023 Bradycardia 10/29/2023 10/29/2023 Heart failure with reduced left ventricular func tion 10/29/2023 10/29/2023 DULCE MARIA (obstructive sleep apnea) 10/29/2023 Overweight 10/29/2023 10/29/2023 Right inguinal hernia 10/29/2023 10/29/2023 Coronary arteriosclerosis 08/17/2020 Type 2 diabetes mellitus, [facility] long-term current use of insulin 08/01/2020 CAD (coronary artery disease) 10/26/2013 Assessment & Plan (12/11/2022 11:33 AM EDT): Coronary artery disease is stable without any [...] as tolerated and continue all medications. Hyperlipidemia 10/26/2013 Assessment & Plan (12/11/2022 11:33 AM EDT): Lipid abnormalities are well controlled Liver function normal Continue lipitor Abnormal stress test 09/30/2013 Atrial fibrillation 09/30/2013 Assessment & Plan (12/11/2022 11:31 AM EDT): Denied any palpitations or reoccurance of a fib- CT surgery Dr Keily metzger anticoaguation Continue coreg Hypertension 09/30/2013 Assessment & Plan (12/11/2022 11:34 AM EDT): Hypertension is well controlled 133/70 Continue coreg and lisniopril, and imdur Encounters Date Type Department Care Team Description 12/17/[address] [facility] [address] [place] [phone] Yakov Pyle MD Essential hypertension from Last 3 Months Family History Medical History Relation Name Comments Heart attack Brother Heart attack Father Relation Name Status Comments Brother Father Social History Tobacco Use Types Packs/Day Years Used Date Smoking Tobacco: Former Cigarettes Smokeless Tobacco: Never Tobacco Cessation:Counseling Given: Not Answered Alcohol Use Standard Drinks/Week Comments Yes 0 (1 standard drink = 0.6 oz pur e alcohol) occasional [place] Safety & Environment Answer Date Rec orded Fear of Current or Ex-Partner Not on file Emotionally Abused Not on file 08/08/2023 Physically Abused Not on file 08/08/2023 Sexually Abused Not on file 08/08/2023 Physically or Sexually Abused Not on file Sex and Gender Information Value Date Recorded Sex Assigned at Not on file Legal Sex Male 12:13 AM EDT Gender Identity Not on file Sexual Orientation Not on file Last Filed Vital Signs Vital Sign Reading Time Taken Comments Blood Pressure 130/84 10/08/2024 9:01 AM EDT Pulse 63 10/08/2024 9:01 AM EDT Temperature 36.2 C (97.2 F) 11/06/2023 4:10 PM EDT Respiratory Rate 16 01/27/2024 2:00 PM EDT Oxygen Saturation 97% 10/08/2024 9:01 AM EDT Inhaled Oxygen Concentration - - Weight 97.1 kg (214 lb) 10/08/2024 9:01 AM EDT Height 193 cm (6' 4 ) 10/08/2024 9:01 AM EDT Body Mass Index 26.05 10/08/2024 9:01 AM EDT Plan of Treatment Health Maintenance Due Date Last Done Comments CT Colonography 1950 Colonoscopy 1950 Colorectal Cancer Screening 1950 FIT-DNA 1950 FIT 1950 FOBT 1950 Medicare Annual Wellness (AWV) 1950 Sigmoidoscopy 1950 Diabetes: Retinopathy Screening 01/23/1960 Depression Screening 1962 Diabetes: Urine Protein Screening 1969 Fall Risk Screening 2015 Pneumococcal Vaccine: 50+ Years (2 of 2 - PCV) 01/02/2018 01/02/2017 Diabetes: Hemoglobin A1C 11/02/2020 08/05/2020 COVID-19 Vaccine ( season) 2024 02/19/2024, 03/11/2023, 04/06/2022, Additional history exists Influenza Vaccine (#1) 2025 , 02/26/2023, 03/06/2021, Additional history exists Adult Tetanus 01/18/2031 01/18/2021 Zoster Vaccines Completed 05/23/2024, 03/04/2024 HIB Vaccines Aged Out No longer eligi ble based on patient's age to complete this topic HPV Vaccines Aged Out No longer eligi ble based on patient's age to complete this topic IPV Vaccines Aged Out No longer eligi ble based on patient's age to complete this topic Meningococcal B Vaccine Aged Out No l onger eligible based on patient's age to complete this topic Meningococcal Vaccine Aged Out No bridgett tania eligible based on patient's age to complete this topic Rotavirus Vaccines Aged Out No longer eligible based on patient's age to complete this topic Procedures Procedure Name Priority Date/Time Associated Diagnosis Comments HEMOGLOBIN A1C Routine 08/05/2020 2:15 PM EST from Last 3 Months or Most Recently Relevant to Health Maintenance Results * (ABNORMAL) Hemoglobin A1c (08/05/2020 2:15 PM EST) Hemoglobin A1C 6.2(H) 4.0 - 6.0 % LAB CONVERSIONS Estimated Average Glucose 131 mmol/L LAB CONVERSIONS 08/05/2020 2:15 PM EST 08/05/2020 3:38 PM EST us Yakov Pyle MD LAB BLOOD ORDERABLES Final Resu lt LAB CONVERSIONS from Last 3 Months or Most Recently Relevant to Health Maintenance Insurance MEDICARE AETNA AETNA Advance Directives * Full Code (Latest Code Status on File) Date Activated Date Inactivated Comments 11/06/2023 12:49 PM 11/06/2023 6:54 PM Care Teams Acoustical Carpenter Relationship Specialty Start Date End Date Conrado Bassett MD [address] [place] [place] [address] PCP - General 12/06/22
--- OUTSIDE RECORDS SUMMARY | 2025-02-17 11:04 | XMS_ITS | Clinical Summary ---
Author Organization [facility] Address [address] [place] [address] Care Team Providers Care Medical Records Receptionist Name Role Phone Unavailable Primary Care Provider Unavailabl e Social History Tobacco Use Types Packs/Day Years Used Date Smoking Tobacco: Never Assessed Sex and Gender Information Value Date Recorded Sex Assigned at Not on file Legal Sex Male 6:38 PM EDT Gender Identity Not on file Sexual Orientation Not on file Plan of Treatment Not on file
--- NOTE | 2025-02-17 11:09 | XR_ITS ---
The [address] [address] Patient Name: LINDA SOSA MRN: [id number] date: 1950 Sex: M Assigned Patient Location: [facility] Current Patient Location: [facility] Accession/Order Number: [id number] Exam Date: 02/17/2025 11:12 Report Date: 02/17/2025 11:55 At the request of: NIXON GARAY MD Procedure: XR chest 2V CLINICAL HISTORY: trapezius muscle spasm THORACIC SPINE - 3 views: COMPARISON: Chest x-ray 03/13/2023 AP, lateral and swimmer's views were obtained. There is prior median sternotomy. There is osteopenia. Subtle dextroscoliotic curvature is noted. There is no evidence of compression fracture or displacement. The pedicles are intact. There is degenerative change with endplates spurring involving the thoracic as well as the imaged cervical and lumbar spine. There are no paraspinal soft tissue abnormalities. XR/XR chest 2V IMPRESSION: OSTEOPENIA, SUBTLE SCOLIOSIS AND DEGENERATIVE CHANGES PA AND LATERAL CHEST: COMPARISON: 03/13/2023 There are median sternotomy wires. The left hemidiaphragm is still slightly elevated. Minor pleural-parenchymal scarring is again noted. There is no developing consolidation, effusion or pneumothorax. The cardiac, hilar and mediastinal silhouettes are within normal limits. There is no vascular congestion. The visualized bony thorax is intact. Endplate spurring is visualized at the spine. IMPRESSION: MINOR CHRONIC CHANGES. NO ACUTE CARDIOPULMONARY ABNORMALITY. Impression dictated by: Shannan Renteria M.D. 02/17/2025 11:55 AM Dictation Location: [place] Electronically authenticated by: [id number] Y Date: 02/17/2025 11:55
--- NOTE | 2025-02-17 11:09 | XR_ITS ---
The [address] [address] Patient Name: LINDA SOSA MRN: [id number] date: 1950 Sex: M Assigned Patient Location: [facility] Current Patient Location: [facility] Accession/Order Number: [id number] Exam Date: 02/17/2025 11:12 Report Date: 02/17/2025 11:55 At the request of: NIXON GARAY MD Procedure: XR chest 2V CLINICAL HISTORY: trapezius muscle spasm THORACIC SPINE - 3 views: COMPARISON: Chest x-ray 03/13/2023 AP, lateral and swimmer's views were obtained. There is prior median sternotomy. There is osteopenia. Subtle dextroscoliotic curvature is noted. There is no evidence of compression fracture or displacement. The pedicles are intact. There is degenerative change with endplates spurring involving the thoracic as well as the imaged cervical and lumbar spine. There are no paraspinal soft tissue abnormalities. XR/XR thoracic spine 3V IMPRESSION: OSTEOPENIA, SUBTLE SCOLIOSIS AND DEGENERATIVE CHANGES PA AND LATERAL CHEST: COMPARISON: 03/13/2023 There are median sternotomy wires. The left hemidiaphragm is still slightly elevated. Minor pleural-parenchymal scarring is again noted. There is no developing consolidation, effusion or pneumothorax. The cardiac, hilar and mediastinal silhouettes are within normal limits. There is no vascular congestion. The visualized bony thorax is intact. Endplate spurring is visualized at the spine. IMPRESSION: MINOR CHRONIC CHANGES. NO ACUTE CARDIOPULMONARY ABNORMALITY. Impression dictated by: Shannan Renteria M.D. 02/17/2025 11:55 AM Dictation Location: [facility] Electronically authenticated by: [id number] Y Date: 02/17/2025 11:55
--- OUTSIDE RECORDS SUMMARY | 2025-02-17 14:00 | XMS_ITS | CCD ---
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 M.D. FELLOW: Renan Hernandes MD. PROCEDURE IN DETAIL: Informed consent was obtained from the patient after explaining indication, risks, benefits, and alternatives. The patient understood and agreed and signed the consent form. The patient was brought to the dental laboratory supervisor and transesophageal echocardiogram was performed under conscious [...] Hernandes MD Date Trans: 09/21/2020 06:48 A/godwin [id number] cc: Nixon Bassett M.D. [address] [id number] Normal [facility] APTTon 09-20-2020 aPTT Coag (Bld) [Time] 54.0 s High 25.0-35.0 [facility] Comment on above: Order Comment: [...] THIS PURPOSE. Performed By: #### 5 6101, 27277, 92906 #### [facility] [address] [place] [address], [place] aPTT Coag (Bld) [Time] 29.2 s Normal 25.0-35.0 [facility] Comment on above: Order Comment: [...] THIS PURPOSE. Performed By: #### 5 7307, 40066, 25210, 28997 #### [facility] [address] [place] [address], [place] BASIC METABOLIC PANELon 04-0 -2020 Calcium [Mass/Vol] 9.1 mg/dL Normal 8.6-10.3 [facility] Comment on above: Order Comment: No: D o not add to previous draw Performed By: #### 8 [id number] #### [facility] [address] [place] [address], [place] Chloride [Moles/Vol] 102 mmol/L Normal 98-107 [facility] Comment on above: Order Comment: No: D o not add to previous draw Performed By: #### 8 5499 #### [facility] [address] [place] [id number], [place] CO2 [Moles/Vol] 28 mmol/L Normal 21-31 [facility] Comment on above: Order Comment: No: D o not add to previous draw Performed By: #### 8 [id number] #### [facility] [address] [place] [address], [place] Creatinine [Mass/Vol] 1.07 mg/dL Normal 0.70-1.30 [facility] Comment on above: Order Comment: No: D o not add to previous draw Performed By: #### 8 5499 #### [facility] [address] [place] [address], [place] GFR/1.73 sq M.predicted among blacks MDRD (S/P/Bld) [Vol rate/Area] mL/min/{1.73_m2} Normal >60 [facility] Comment on above: Order Comment: No: D o not add to previous draw Performed By: #### 8 5499 #### [facility] [address] [place] [address], [place] GFR/1.73 sq M.predicted among non-blacks MDRD (S/P/Bld) [Vol rate/Area] mL/min/{1.73_m2} Normal >60 [facility] Comment on above: Order Comment: No: D o not add to previous draw Performed By: #### 8 [id number] #### [facility] [address] [place] [address], [place] Glucose [Mass/Vol] 109 mg/dL High 70-100 [facility] Comment on above: Order Comment: No: D o not add to previous draw Performed By: #### 8 5499 #### [facility] [address] [place] [address], [place] Potassium [Moles/Vol] 4.3 mmol/L Normal 3.5-5.1 [facility] Comment on above: Order Comment: No: D o not add to previous draw Performed By: #### 8 5499 #### [facility] [address] [place] [address], [place] Sodium [Moles/Vol] 139 mmol/L Normal 136-145 [facility] Comment on above: Order Comment: No: D o not add to previous draw Performed By: #### 8 5499 #### [facility] [address] [place] [address], [place] Urea nitrogen [Mass/Vol] 27 mg/dL High 7-25 [facility] Comment on above: Order Comment: No: D o not add to previous draw Performed By: #### 8 5499 #### [facility] [address] [place] [address], [place] Calcium [Mass/Vol] 9.5 mg/dL Normal 8.6-10.3 [facility] Comment on above: Order Comment: No: D o not add to previous draw Performed By: #### 8 [id number] #### [facility] [address] [place] [address], [place] Chloride [Moles/Vol] 101 mmol/L Normal 98-107 [facility] Comment on above: Order Comment: No: D o not add to previous draw Performed By: #### 8 5499 #### [facility] [address] [place] [address], [place] CO2 [Moles/Vol] 25 mmol/L Normal 21-31 [facility] Comment on above: Order Comment: No: D o not add to previous draw Performed By: #### 8 5499 #### [facility] [address] [place] [address], [place] Creatinine [Mass/Vol] 1.13 mg/dL Normal 0.70-1.30 [facility] Comment on above: Order Comment: No: D o not add to previous draw Performed By: #### 8 5499 #### [facility] [address] [place] [address], [place] GFR/1.73 sq M.predicted among blacks MDRD (S/P/Bld) [Vol rate/Area] mL/min/{1.73_m2} Normal >60 [facility] Comment on above: Order Comment: No: D o not add to previous draw Performed By: #### 8 5499 #### [facility] [address] [place] [address], [place] GFR/1.73 sq M.predicted among non-blacks MDRD (S/P/Bld) [Vol rate/Area] mL/min/{1.73_m2} Normal >60 [facility] Comment on above: Order Comment: No: D o not add to previous draw Performed By: #### 8 [id number] #### [facility] [address] [place] [address], [place] Glucose [Mass/Vol] 121 mg/dL High 70-100 [facility] Comment on above: Order Comment: No: D o not add to previous draw Performed By: #### 8 5499 #### [facility] [address] [place] [address], [place] Potassium [Moles/Vol] 4.6 mmol/L Normal 3.5-5.1 [facility] Comment on above: Order Comment: No: D o not add to previous draw Performed By: #### 8 5499 #### [facility] [address] [place] [address], [place] Sodium [Moles/Vol] 137 mmol/L Normal 136-145 [facility] Comment on above: Order Comment: No: D o not add to previous draw Performed By: #### 8 5499 #### [facility] [address] [place] [address], [place] Urea nitrogen [Mass/Vol] 27 mg/dL High 7-25 [facility] Comment on above: Order Comment: No: D o not add to previous draw Performed By: #### 8 5499 #### [facility] [address] [place] [address], [place] CBC COMPLETE BLOOD COUNTon 0 - Erythrocyte distribution width (RBC) [Ratio] 12.8 % Normal 11.5-15.0 [facility] Comment on above: Order Comment: No: D o not add to previous draw Performed By: #### 5 0608 #### [facility] [address] [place] [address], [place] Hematocrit (Bld) [Volume fraction] 40.1 % Normal 39.0-50.0 [facility] Comment on above: Order Comment: No: D o not add to previous draw Performed By: #### 5 0608 #### [facility] [address] [place] [address], [place] Hemoglobin (Bld) [Mass/Vol] 12.6 g/dL Low 13.0-17.0 [facility] Comment on above: Order Comment: No: D o not add to previous draw Performed By: #### 5 0608 #### [facility] [address] [place] [address], [place] MCH (RBC) [Entitic mass] 27.6 pg Normal 27.0-33.0 [facility] Comment on above: Order Comment: No: D o not add to previous draw Performed By: #### 5 0608 #### [facility] [address] [place] [address], [place] MCHC (RBC) [Mass/Vol] 31.4 g/dL Low 32.0-35.0 [facility] Comment on above: Order Comment: No: D o not add to previous draw Performed By: #### 5 0608 #### [facility] [address] [place] [address], [place] MCV (RBC) [Entitic vol] 87.7 fL Normal 82.0-98.0 [facility] Comment on above: Order Comment: No: D o not add to previous draw Performed By: #### 5 0608 #### [facility] [address] [place] [address], [place] Nucleated RBC/100 WBC (Bld) [Ratio] 0 % Normal 0-0 [facility] Comment on above: Order Comment: No: D o not add to previous draw Performed By: #### 5 0608 #### [facility] [address] [place] [id number], [place] PLAT CNT 261 10*3/uL Normal 150-400 [facility] Comment on above: Order Comment: No: D o not add to previous draw Performed By: #### 5 0608 #### [facility] [address] [place] [address], [place] RBC (Bld) [#/Vol] 4.57 10*6/uL Normal 4.20-5.70 [facility] Comment on above: Order Comment: No: D o not add to previous draw Performed By: #### 5 0608 #### [facility] [address] [place] [address], [place] WBC (Bld) [#/Vol] 8.46 10*3/uL Normal 4.00-10.60 [facility] Comment on above: Order Comment: No: D o not add to previous draw Performed By: #### 5 0608 #### [facility] [address] [place] [address], [place] CBC W/DIFFon 09-20-2020 ABS IMM GRANS 0.0 10*3/uL Normal 0.0-0.2 [facility] Comment on above: Order Comment: No: D o not add to previous draw Performed By: #### 5 0608 #### [facility] [address] [place] [address], [place] ABS NEUTROPHILS 3.8 10*3/uL Normal 1.6-7.6 [facility] Comment on above: Order Comment: No: D o not add to previous draw Performed By: #### 5 0608 #### [facility] [address] [place] [address], [place] Basophils (Bld) [#/Vol] 0.0 10*3/uL Normal 0.0-0.2 [facility] Comment on above: Order Comment: No: D o not add to previous draw Performed By: #### 5 0608 #### [facility] [address] [place] [address], [place] Basophils/100 WBC (Bld) 0.5 % Normal 0.0-1.0 [facility] Comment on above: Order Comment: No: D o not add to previous draw Performed By: #### 5 0608 #### [facility] [address] [place] [address], [place] Eosinophils (Bld) [#/Vol] 0.6 10*3/uL High 0.0-0.5 [facility] Comment on above: Order Comment: No: D o not add to previous draw Performed By: #### 5 0608 #### [facility] [address] [place] [address], [place] Eosinophils/100 WBC (Bld) 9.6 % High 0.0-6.0 [facility] Comment on above: Order Comment: No: D o not add to previous draw Performed By: #### 5 0608 #### [facility] [address] [place] [address], [place] Erythrocyte distribution width (RBC) [Ratio] 12.7 % Normal 11.5-15.0 [facility] Comment on above: Order Comment: No: D o not add to previous draw Performed By: #### 5 0608 #### [facility] [address] [facility] [place] [address], [place] Hematocrit (Bld) [Volume fraction] 37.2 % Low 39.0-50.0 [facility] Comment on above: Order Comment: No: D o not add to previous draw Performed By: #### 5 0608 #### [facility] [address] [place] [place] [address], [place] Hemoglobin (Bld) [Mass/Vol] 11.9 g/dL Low 13.0-17.0 [facility] Comment on above: Order Comment: No: D o not add to previous draw Performed By: #### 5 0608 #### [facility] [address] [place] [id number], [place] IMMATURE GRANS 0.3 % Normal 0.0-1.0 [facility] Comment on above: Order Comment: No: D o not add to previous draw Performed By: #### 5 0608 #### [facility] [address] [facility] [place] [address], [place] Lymphocytes (Bld) [#/Vol] 1.4 10*3/uL Normal 1.2-4.0 [facility] Comment on above: Order Comment: No: D o not add to previous draw Performed By: #### 5 0608 #### [facility] [address] [place] [place] [address], [place] Lymphocytes/100 WBC (Bld) 21.9 % Normal 20.0-45.0 [facility] Comment on above: Order Comment: No: D o not add to previous draw Performed By: #### 5 0608 #### [facility] [address] [facility] [place] [address], [place] MCH (RBC) [Entitic mass] 28.1 pg Normal 27.0-33.0 [facility] Comment on above: Order Comment: No: D o not add to previous draw Performed By: #### 5 0608 #### [facility] [address] [place] [place] [address], [place] MCHC (RBC) [Mass/Vol] 32.0 g/dL Normal 32.0-35.0 [facility] Comment on above: Order Comment: No: D o not add to previous draw Performed By: #### 5 0608 #### [facility] [address] [place] [place] [address], [place] MCV (RBC) [Entitic vol] 87.7 fL Normal 82.0-98.0 [facility] Comment on above: Order Comment: No: D o not add to previous draw Performed By: #### 5 0608 #### [facility] [address] [place] [address], [place] Monocytes (Bld) [#/Vol] 0.6 10*3/uL Normal 0.1-1.0 [facility] Comment on above: Order Comment: No: D o not add to previous draw Performed By: #### 5 0608 #### [facility] [address] [place] [address], [place] MONOS 9.2 % Normal 5.0-12.0 [facility] Comment on above: Order Comment: No: D o not add to previous draw Performed By: #### 5 0608 #### [facility] [address] [place] [address], [place] Neutrophils/100 WBC (Bld) 58.5 % Normal 40.0-72.0 [facility] Comment on above: Order Comment: No: D o not add to previous draw Performed By: #### 5 0608 #### [facility] [address] [place] [address], [place] Nucleated RBC/100 WBC (Bld) [Ratio] 0 % Normal 0-0 [facility] Comment on above: Order Comment: No: D o not add to previous draw Performed By: #### 5 0608 #### [facility] [address] [place] [address], [place] PLAT CNT 222 10*3/uL Normal 150-400 [facility] Comment on above: Order Comment: No: D o not add to previous draw Performed By: #### 5 0608 #### [facility] [address] [place] [id number], [place] RBC (Bld) [#/Vol] 4.24 10*6/uL Normal 4.20-5.70 [facility] Comment on above: Order Comment: No: D o not add to previous draw Performed By: #### 5 0608 #### [facility] [address] [place] [id number], [place] WBC (Bld) [#/Vol] 6.44 10*3/uL Normal 4.00-10.60 [facility] Comment on above: Order Comment: No: D o not add to previous draw Performed By: #### 5 0608 #### [address] CHEST AND LATERALon 09-21-19 CHEST AND LATERAL [facility] Department of Radiology [address] [place] [id number] Patient Name: LINDA SOSA : 1950 Sex: M Age: Race: White Pt. Location: [id number] Patient Status: I Ordered Date: 09/19/2020 10:55:00 [...] reports Electronically signed: Edith Penny. Transcribed by: [email or web address], User Resident: KRISTY FOLEY Electronically Signed by: EDITH PENNY @ 09/20/2020 12:37 AM I personally read this/these film(s) with this resident Normal [facility] Comment on above: Order Comment: No: D o not add to previous draw CTA CHESTon 09-20-2020 CTA CHEST [facility] Department of Radiology [address] [place] [phone] Patient Name: LINDA SOSA : 1950 Sex: M Age: Race: White Pt. Location: [id number] Patient Status: O Ordered Date: 09/20/2020 3:30:00 [...] AP Electronically signed: Edith Penny. Transcribed by: [email or web address], User Resident: Electronically Signed by: EDITH PNENY @ 09/20/2020 05:54 AM Normal [facility] Comment on above: Order Comment: No: D o not add to previous draw D DIMER TESTon 09-20-2020 D-DIMER TEST 3.43 mcg/mL FEU High 0.27-0.49 [facility] Comment on above: Result Comment: D-Di alyssa values of less than 0.50 ug/ml (FEU) are considered to be a negative predictor of thrombosis. However, the D-Dimer result should be used in conjunction with pretest probability and should not be used alone to diagnose a thrombotic event. Performed By: #### 5 7307, 14331, 24977, 70821 #### [facility] [address] [place] [address], [place] MAGNESIUM BLOODon 09-20-2020 Magnesium [Mass/Vol] 1.5 mg/dL Low 1.9-2.7 [facility] Comment on above: Order Comment: No: D o not add to previous draw Performed By: #### 8 [id number] #### [facility] [address] [place] [address], [place] Magnesium [Mass/Vol] 1.5 mg/dL Low 1.9-2.7 [facility] Comment on above: Order Comment: No: D o not add to previous draw Performed By: #### 8 5499 #### [facility] [address] [place] [address], [place] PHOSPHORUS BLOODon 1 Phosphate [Mass/Vol] 4.3 mg/dL Normal 2.5-5.0 [facility] Comment on above: Order Comment: No: D o not add to previous draw Performed By: #### 8 5499 #### [facility] [address] [facility] [place] [address], [place] POC GLUCOSE LABon 09-20-2020 Glucose [Mass/Vol] 125 mg/dL High 70-100 [facility] Comment on above: Performed By: #### 8 5499 #### [facility] [address] [facility] [place] [address], [place] Glucose [Mass/Vol] 145 mg/dL High 70-100 [facility] Comment on above: Performed By: #### 5 0608 #### [facility] [address] [place] [id number], [place] Glucose [Mass/Vol] 127 mg/dL High 70-100 [facility] Comment on above: Performed By: #### 8 5499 #### [facility] [address] [place] [id number], [place] PROTHROMBIN TIMEon 1 INR Coag (PPP) [Relative time] 1.22 {INR} High 0.91-1.16 [facility] Comment on above: Order Comment: [...] CHEST 1995;108:[id number]. Performed By: #### 5 6101, 42930, 83746 #### [facility] [address] [facility]. [address] PT Coag (PPP) [Time] 15.4 s High 12.3-14.8 [facility] Comment on above: Order Comment: No: D o not add to previous draw Result Comment: ALL RESULTS MUST BE INTERPRETED WITH RESPECT TO BLOOD DRAWING ARTIFACT OR DILUTION ERROR OF ANTICOAGULANT AT THE TIME OF SAMPLING. Performed By: #### 5 6101, 83322, 36009 #### [facility] [address] INR Coag (PPP) [Relative time] 1.13 {INR} Normal 0.91-1.16 [facility] Comment on above: Order Comment: [...] CHEST 1995;108:[id number]. Performed By: #### 5 7307, 82641, 98884, 12945 #### [facility] [address] [place] [address], [place] PT Coag (PPP) [Time] 14.5 s Normal 12.3-14.8 [facility] Comment on above: Order Comment: No: D o not add to previous draw Result Comment: ALL RESULTS MUST BE INTERPRETED WITH RESPECT TO BLOOD DRAWING ARTIFACT OR DILUTION ERROR OF ANTICOAGULANT AT THE TIME OF SAMPLING. Performed By: #### 5 7307, 17571, 93082, 02610 #### [facility] [address] [place] [address], [place] TROPONIN-Ion 09-20-2020 Troponin I.cardiac [Mass/Vol] 0.07 ng/mL High 0.00-0.04 The [facility] Comment on above: Order Comment: No: D o not add to previous draw Result Comment: REFE RENCE RANGES: 0.00 - 0.04 ng/ml NORMAL 0.05 - 0.50 ng/ml INDETERMINATE > 0.50 ng/ml CONSISTENT WITH AN M.I. Performed By: #### 8 [id number] #### [facility] [address] [place] [address], [place] TSH3on 09-20-2020 TSH 3RD GENERATION 2.08 uIU/mL Normal 0.34-5.60 [facility] Comment on above: Order Comment: No: D o not add to previous draw Performed By: #### 8 5499 #### [facility] [address] [place] [address], [place] UFH HEPARIN ASSAYon 04-06-20 21 UNFRACTIONATED HEPARIN 0.46 IU/mL Normal 0.30-0.70 [facility] Comment on above: Result Comment: Desi roxaban and Apixaban will interfere with the anti Xa assay used to monitor UFH and LMWH. Performed By: #### 5 0608 #### [facility] [address] [place] [address], [place] UNFRACTIONATED HEPARIN 0.48 IU/mL Normal 0.30-0.70 [facility] Comment on above: Result Comment: Syk[place] roxaban and Apixaban will interfere with the anti Xa assay used to monitor UFH and LMWH. Performed By: #### 8 5499 #### [facility] [address] [place] [address], [place] UNFRACTIONATED HEPARIN 0.17 IU/mL Low 0.30-0.70 [facility] Comment on above: Result Comment: [place] roxaban and Apixaban will interfere with the anti Xa assay used to monitor UFH and LMWH. Performed By: #### 5 6101, [id number], 62724 #### [facility] [address] [place] [address], [place] UNFRACTIONATED HEPARIN <0.10 Critically low 0.30-0.70 [facility] Comment on above: Result Comment: Syk[place] roxaban and Apixaban will interfere with the anti Xa assay used to monitor UFH and LMWH. RESULTS CHECKED AND CALLED. ACCURATELY READ BACK BY JONNIE SINGLETNO RN AT 0208. Performed By: #### 5 7307, 25000, 36109, 18654 #### [facility] [address] [place] [address], [place] BASIC METABOLIC PANELon 03-2 Calcium [Mass/Vol] 9.9 mg/dL Normal 8.6-10.3 [facility] Comment on above: Performed By: #### 5 0608 #### [facility] [address] [place] [address], [place] Chloride [Moles/Vol] 99 mmol/L Normal 98-107 [facility] Comment on above: Performed By: #### 5 0608 #### [facility] [address] [place] [address], [place] CO2 [Moles/Vol] 29 mmol/L Normal 21-31 [facility] Comment on above: Performed By: #### 5 0608 #### [facility] [address] [place] [address], [place] Creatinine [Mass/Vol] 1.07 mg/dL Normal 0.70-1.30 [facility] Comment on above: Performed By: #### 5 0608 #### [facility] [address] [place] [address], [place] GFR/1.73 sq M.predicted among blacks MDRD (S/P/Bld) [Vol rate/Area] mL/min/{1.73_m2} Normal >60 [facility] Comment on above: Performed By: #### 5 0608 #### [facility] [address] [place] [address], [place] GFR/1.73 sq M.predicted among non-blacks MDRD (S/P/Bld) [Vol rate/Area] mL/min/{1.73_m2} Normal >60 [facility] Comment on above: Performed By: #### 5 0608 #### [facility] [address] [place] [address], [place] Glucose [Mass/Vol] 75 mg/dL Normal 70-100 [facility] Comment on above: Performed By: #### 5 0608 #### [facility] [address] [place] [address], [place] Potassium [Moles/Vol] 4.1 mmol/L Normal 3.5-5.1 [facility] Comment on above: Performed By: #### 5 0608 #### [facility] [address] [place] [address], [place] Sodium [Moles/Vol] 138 mmol/L Normal 136-145 [facility] Comment on above: Performed By: #### 5 0608 #### [facility] [address] [place] [address], [place] Urea nitrogen [Mass/Vol] 22 mg/dL Normal 7-25 [facility] Comment on above: Performed By: #### 5 0608 #### [facility] [address] [place], [place] [address] CHEST AND LATERALon 09-13-19 21 CHEST AND LATERAL [facility] Department of Radiology [address] [place] [id number] Patient Name: LINDA SOSA : 1950 Sex: M Age: Race: White Pt. Location: Patient Status: O Ordered Date: 09/12/2020 11:40:00 AM Completed Date: 09/12/2020 11:44 AM Requesting Provider: SAURABH MOREL Attending Provider: KRISTY CARREON Report Copy To: NIXON BASSETT Signs & Symptoms: I25.10 Athscl heart disease of [place] coronary artery w/o ang pctrs I10 History: Mona Comments: evaluate Exam: CHEST AND LATERAL CHEST AND LATERAL 09/12/2020 11:44 AM CLINICAL INDICATIONS: I25.10 Athscl heart disease of [place] coronary artery w/o ang pctrs I10 TECHNOLOGIST [...] scarring Electronically signed: Corry Hall. Transcribed by: [email or web address], User Resident: Electronically Signed by: CORRY HALL @ 09/12/2020 12:12 PM Normal [facility] Comment on above: Order Comment: evalu ate MAGNESIUM BLOODon 09-12-2020 Magnesium [Mass/Vol] 1.5 mg/dL Low 1.9-2.7 [facility] Comment on above: Performed By: #### 5 0608 #### [facility] [address] CNOVon 04-30-2018 CNOV Office Visit (CARDFT) NO LINDA VALDEZ ([id number]) 1950 UPADate Time Provider Opnsnbpnii59/14/18 10:00 AM MIKEY HERNANDEZ During your visit today, we recorded the following information about you: Pulse Blood pressure Weight 61/minute 134/89 114.3 kgMikey Hernandez MD 04/30/2018 10:20 AM [facility] hospitalrt [facility] InstituteH[facility] Randee Nieto Department of Cardiovascular MedicineOUTPATIENT VISIT DATE 04/30/18OUTPATIENT VISIT TYPEESTABLCRITICAL ACCESS HOSPITALPRATRIUM HEALTH SOUTHPARKRY CARE PHYSICIAN:Nixon Bassett MD[address] [facility] [place] [place] [address]Xqwki: [phone]: [phone] COMPLAINT:Patient presents with:Established PatientHISTORY OF PRESENT ILLNESS:Linda [...] CATH 10/02/13 50% mid LM. 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 Co-dominatLCX with L-R collateral. EF 55%.- CARDIOVERSION [...] Stroke Mother in her 80's- Heart Father NM, in mid 50 s.- Coronary Artery Disease Brother NM, in his 40's. in his 50's.ALLERGIES:ALLERGIESAllerg en [...] ICD10: I48.1 (primarydiagnosis)2. Coronary artery disease involving [place] coronary artery of [place] heartwithout angina pectoris - ICD9: 414.01, ICD10: [...] via U.S. Mail.This document was generated utilizing [employer] dictation. I have reviewed andverified that the contents of the document are accurate with the exception ofminor grammatical, spelling and punctuation errors.CONTACT INFORMATION:Thank you for allowing us to participate in the care of this very pleasantpatient. Please free to contact us if we can be of any further assistance.Mikey Hernandez MD, [facility] and Randee Carterpartment of Cardiovascular MedicineAcmc Healthcare System Glenbeighrt and Vascular Institute[address] [address]Kbmwzj: [phone] Referring Provider: NIXON BASSETT [[id number]]Allergies As of Date: 04/30/2018 Noted Allergy ReactionALDACTONE (SPIRONOLACTONE) 11/04/2015 14 - Other: See Comments Comments: Muscle crapmDate Reviewed: 04/30/2018Reviewed by: Mikey Hernandez - Fully AssessedReason for Visit: Established Patient [175]Primary Visit Diagnosis:Persistent atrial fibrillation (HCC) [I48.1] Other Visit Diagnoses:Coronary artery disease involving [place] coronary artery of [place] heart without angina pectoris [I25.10] Essential hypertension [...] by ALANIS HERNANDEZ MD on 04/30/18 Normal [facility] PROGRESSon 04-30-2018 Protein mass conc HNO ID: [id number] thor: Mikey Leeervice: (none)Author Type: PhysicianType: Progress NotesFiled: 04/30/2018 10:20 AMNote Text:Heart and Vascular InstituteRobert and Randee Mcneal Department of Cardiovascular MedicineOUTPATIENT VISIT DATE 04/30/18OUTPATIENT VISIT TYPEESTABLISHEDPRIMARY CARE PHYSICIAN:Nixon Bassett MD[address] [facility] [address]Dugfl: [phone]: [phone] COMPLAINT:Patient presents with:Established PatientHISTORY OF PRESENT ILLNESS:Linda [...] CATH 10/02/13 50% mid LM. 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Co-dominat LCX with L-R collateral. EF 55%.- CARDIOVERSION [...] Stroke Mother in her 80's- Heart Father NM, in mid 50 s.- Coronary Artery Disease Brother NM, in his 40's. in his 50's.ALLERGIES:ALLERGIESAllerg en [...] ICD10: I48.1(primary diagnosis)2. Coronary artery disease involving [place] coronary artery of [place] without angina pectoris [...] provided to the requesting provider by [facility] or via U.S. Mail.This document was generated utilizing [employer] dictation. I have reviewedand verified that the contents of the document are accurate with theexception of minor grammatical, spelling and punctuation errors.CONTACT INFORMATION:Thank you for allowing us to participate in the care of this very pleasantpatient. Please free to contact us if we can be of any furtherassistance.Mikey Hernandez MD, FACCRobert and Randee Aguilera of Cardiovascular MedicineAcmc Healthcare System Glenbeighrt and Vascular InstituteLinda Ville [address], [place] [address]Jwpjto: [phone] Normal [facility] CNOVon 10-22-2017 CNOV Office Visit (CARDFT) NO LINDA VALDEZ ([id number]) 1950 MDate Time Provider Department10/22/17 9:00 AM HOLDEN EDWARDS During your visit today, we recorded the following information about you: Pulse Respiration Blood pressure 69/minute 16/minute 139/76Holden Edwards 10/22/2017 9:28 AM [facility] InstituteN[facility] [place] and Randee Mcneal Department of Cardiovascular MedicineOUTPATIENT VISIT DATE10/22/17OUTPATIENT VISIT TYPEESTABLISHEDPRIMARY CARE PHYSICIAN:Nixon Bassett MD[address] [facility] [address]Emtvf: [phone]: [phone] COMPLAINT:AFIBHISTORY OF PRESENT ILLNESS:Linda Sosa is a [...] CATH 10/02/13 50% mid LM. 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 Co-dominatLCX with L-R collateral. EF 55%.- COLONOSCOPY [...] Stroke Mother in her 80's- Heart Father NM, in mid 50 s.- Coronary Artery Disease Brother NM, in his 40's. in his 50's.ALLERGIES:ALLERGIESAllerg en [...] or concerns.Holden Edwards M.D.Doroteo Aguilera of Cardiovascular MedicineAcmc Healthcare System Glenbeighrt and Vascular InstituteOhio State East Hospital[address], [place] [address]Lxprpc: [phone] Referring Provider: NIXON BASSETT [[id number]]Allergies As of Date: 10/22/2017 Noted Allergy ReactionALDACTONE (SPIRONOLACTONE) 11/04/2015 14 - Other: See Comments Comments: Muscle crapmDate Reviewed: 10/22/2017Reviewed by: Gasper Louie RN - Fully AssessedPrimary Visit Diagnosis:Atrial fibrillation, unspecified type (HCC) [I48.91]Order(s):ECG B/O W INTERP (MED OFFICE) [ECG06] Order #: [id number] as of 10/22/2017 Sig: METFORMIN 500 MG [...] (around 04/24/2018).Follow-up and Disposition History RecordedEncounter Number: [id number] Status:Closed by HOLDEN EDWARDS MD on 10/22/17 Normal [facility] PROGRESSon 10-21-2017 Protein mass conc HNO ID: [id number] thor: Lamar Edwards: (none)Author Type: PhysicianType: Progress NotesFiled: 10/22/2017 9:28 AMNote Text:Heart and Vascular InstituteNortheast Harbor and Randee Nieto Department of Cardiovascular MedicineOUTPATIENT VISIT DATE10/22/17OUTPATIENT VISIT TYPEESTABLISHEDPRIMARY CARE PHYSICIAN:Nixon Bassett MD[address] [facility] [address]Eufjz: [phone]: [phone] COMPLAINT:AFIBHISTORY OF PRESENT ILLNESS:Linda Sosa is a [...] CATH 10/02/13 50% mid LM. 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Co-dominat LCX with L-R collateral. EF 55%.- COLONOSCOPY [...] Stroke Mother in her 80's- Heart Father NM, in mid 50 s.- Coronary Artery Disease Brother NM, in his 40's. in his 50's.ALLERGIES:ALLERGIESAllerg en [...] contact us with further questions or concerns.Jason TamayoNdgertrudis of Cardiovascular MedicineBanner Heart Hospital and Vascular Institute[address] [address]Ctrnjh: [phone] [facility] CNOVon 08-28-2017 CNOV Office Visit (CARDFT) NO LINDA VALDEZ ([id number]) 1950 MDate Time Provider Department08/28/17 11:00 AM HOLDEN EDWARDS During your visit today, we recorded the following information about you: Pulse Respiration Blood pressure 64/minute 14/minute 147/91Holden Edwards MD 08/28/2017 11:03 AM [facility] and Randee Mcneal Department of Cardiovascular MedicineOUTPATIENT VISIT DATE08/28/17OUTPATIENT VISIT TYPEESTABLISHEDPRATRIUM HEALTH SOUTHPARKRY CARE PHYSICIAN:Nixon Bassett MD[address] [facility] [address]Suizt: [phone]: [phone] COMPLAINT:AFIBHISTORY OF PRESENT ILLNESS:Linda Sosa is a [...] CATH 10/02/13 50% mid LM. 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 Co-dominatLCX with L-R collateral. EF 55%.- COLONOSCOPY [...] Stroke Mother in her 80's- Heart Father NM, in mid 50ANDquot;s.- Coronary Artery Disease Brother NM, in his 40's. in his 50's.ALLERGIES:ALLERGIESAllerg en [...] cardioversion Pending studies:Cardioversion October 14 at 10 [facility] INFORMATION:Thank you for allowing us to assist in the care your patient. As always pleasedo not hesitate to contact us with further questions or concerns.Jason TamayoDepartment of Cardiovascular MedicineAcmc Healthcare System Glenbeighrt and Vascular Institute[address] [address]Gajgkt: [phone] Referring Provider: NIXON BASSETT [[id number]]Allergies As of Date: 08/28/2017 Noted Allergy ReactionALDACTONE (SPIRONOLACTONE) 11/04/2015 14 - Other: See Comments Comments: Muscle crapmDate Reviewed: 08/28/2017Reviewed by: Gasper Louie RN - Fully AssessedPrimary Visit Diagnosis:Atrial fibrillation, unspecified type (HCC) [I48.91] Other Visit Diagnosis:Coronary artery disease involving [place] heart without angina pectoris, unspecified vessel or lesion type [I25.10]Order(s):ECG COMPLETE W INTERPRETATION [ECG01] Order #: [id number] FUTUREPrescriptions as of 08/28/2017 Sig: AMOXICILLIN 500 [...] by HOLDEN EDWARDS MD on 08/28/17 Normal [facility] PROGRESSon 08-26-2017 Protein mass conc HNO ID: [id number] thor: Holden EdwardsSer: (none)Author Type: PhysicianType: Progress NotesFiled: 08/28/2017 11:03 AMNote Text:Heart and Vascular [facility] Department of Cardiovascular MedicineOUTPATIENT VISIT DATE08/28/17OUTPATIENT VISIT TYPEESTABLISHEDPRATRIUM HEALTH SOUTHPARKRY CARE PHYSICIAN:Nixon Bassett MD[address] [facility] [address]Ebmfq: [phone]: [phone] COMPLAINT:AFIBHISTORY OF PRESENT ILLNESS:Linda Sosa is a [...] CATH 10/02/13 50% mid LM. 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Co-dominat LCX with L-R collateral. EF 55%.- COLONOSCOPY [...] Stroke Mother in her 80's- Heart Father NM, in mid 50 s.- Coronary Artery Disease Brother NM, in his 40's. in his 50's.ALLERGIES:ALLERGIESAllerg en [...] cardioversion Pendingstudies: Cardioversion October 14 at 10 [facility]CT INFORMATION:Thank you for allowing us to assist in the care your patient. As alwaysplease do not hesitate to contact us with further questions or concerns.Jason Tamayoment of Cardiovascular MedicineAcmc Healthcare System Glenbeighrt and Vascular Institute[address], [place] [address]Ksvssc: [phone] Normal [facility] CNOVon 08-23-2017 CNOV Office Visit (CARDFT) NO LINDA VALDEZ ([id number]) 1950 MDate Time Provider Department08/23/17 10:30 AM HOLDEN EDWARDS During your visit today, we recorded the following information about you: Pulse Respiration Blood pressure Weight 60/minute 18/minute 138/83 111.1 kg Height 1.956 Brian Edwards MD 08/23/2017 10:45 AM [facility] and Randee Mcneal Department of Cardiovascular MedicineOUTPATIENT VISIT DATE 08/23/17OUTPATIENT VISIT TYPEESTABLISHEDPRIMARY CARE PHYSICIAN:Nixon Bassett MD[address] [facility] [address]Tdjnq: [phone]: [phone] COMPLAINT:AFIBHISTORY OF PRESENT ILLNESS:Linda Sosa is a [...] CATH 10/02/13 50% mid LM. 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 Co-dominatLCX with L-R collateral. EF 55%.- COLONOSCOPY [...] Stroke Mother in her 80's- Heart Father NM, in mid 50ANDquot;s.- Coronary Artery Disease Brother NM, in his 40's. in his 50's.ALLERGIES:ALLERGIESAllerg en [...] 111.1 kg (245lb) SpO2 98% BMI 29.05 kg/x1Mztmkob: Well appearing, in no acute distress. ObeseNeuro: [...] or concerns.Holden Edwards M.D.Doroteo Aguilera of Cardiovascular MedicineBanner Heart Hospital and Vascular Institute[address] [address]Wthicx: [phone] Referring Provider: NIXON BASSETT [[id number]]Allergies As of Date: 08/23/2017 Noted Allergy ReactionALDACTONE [...] (around 08/30/2017).Follow-up and Disposition History RecordedEncounter Number: [id number] Status:Closed by HOLDEN EDWARDS MD on 08/23/17 Normal [facility] PROGRESSon 08-22-2017 Protein mass conc HNO ID: [id number] thor: Holden EdwardsSer: (none)Author Type: PhysicianType: Progress NotesFiled: 08/23/2017 10:45 AMNote Text:Heart and Vascular InstituteNortheast Harbor and Randee [facility] Department of Cardiovascular MedicineOUTPATIENT VISIT DATE 08/23/17OUTPATIENT VISIT TYPEESTABLISHEDPRATRIUM HEALTH SOUTHPARKRY CARE PHYSICIAN:Nixon Bassett MD[address] [facility] [address]Wojol: [phone]: [phone] COMPLAINT:AFIBHISTORY OF PRESENT ILLNESS:Linda Sosa is a [...] CATH 10/02/13 50% mid LM. 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Co-dominat LCX with L-R collateral. EF 55%.- COLONOSCOPY [...] Stroke Mother in her 80's- Heart Father NM, in mid 50 s.- Coronary Artery Disease Brother NM, in his 40's. in his 50's.ALLERGIES:ALLERGIESAllerg en [...] 111.1 kg (245lb) SpO2 98% BMI 29.05 kg/b8Baifwgj: Well appearing, in no acute distress. ObeseNeuro: [...] or concerns.Holden Edwards M.D.Doroteo Carterpartment of Cardiovascular MedicineHeart and Vascular InstituteOhio State East Hospital[address], [place] [address]Eslnsm: [phone] Normal [facility] Vital Signs Date Time Vital Sign Value Performing Clinician Juanito moeller 02-22-2023 14:34-0400 Blood Pressure Location Keyon HUGHES [facility] [place] 02-22-2023 14:34-0400 Diastolic blood pressure 70 mm[Hg] Keyon NILL [facility] [place] 02-22-2023 14:34-0400 Heart rate 68 /min Keyon NILL [facility] 02-22-2023 14:34-0400 Respiratory rate 16 /min Keyon NILL [facility] 02-22-2023 14:34-0400 Systolic blood pressure 142 mm[Hg] Keyon NILL [facility] [place] Encounters Encounter Date Encounter Type Care Provider Facility Start: 10-08-2024 End: 10-08-2024 ambulatory [facility] Start: 04-13-2024 End: 04-13-2024 ambulatory [facility] Start: 02-11-2024 End: 02-11-[address] [facility] Start: 01-27-[address] [facility] Start: 01-27-2024 End: 01-27-[address] [facility] Start: 12-10-2023 End: 12-10-2023 ambulatory [facility] Start: 11-18-2023 End: 11-18-2023 ambulatory [facility] Start: 11-06-[address] [facility] Start: 11-06-[address] [facility] Start: 11-06-2023 End: 11-06-[address] [facility] Start: 04-16-2023 End: 04-17-2023 ambulatory Keyon R NILL Facility: [facility] Start: 04-16-2023 End: 04-16-2023 Patient encounter procedure Keyon Jaret NILL General [facility] Start: 03-27-2023 End: 03-28-2023 ambulatory Keyon R NILL Facility:[facility] Start: 03-20-2023 End: 03-21-2023 ambulatory Keyon Raygoza ELLEN Facility:CD:[id number] Start: 02-22-2023 End: 02-23-2023 ambulatory Nixon Bassett Facility:[facility] Start: 02-22-2023 End: 02-22-2023 Patient encounter procedure Keyon Raygoza ELLEN [facility] Start: 02-08-2023 ambulatory Nixon Bassett Facility:[facility] Start: 10-12-2022 End: 10-12-[address] NIXON BASSETT . Facility: Start: 10-11-2022 End: 10-12-[address] NIXON BASSETT . Facility: Start: 09-19-2020 End: 09-20-2020 ambulatory NIXON BASSETT Facility:[facility] Start: 04-30-2018 End: 05-13-2018 Patient encounter procedure MIKEY ANTONIO HERNANDEZ [facility] Start: 10-22-2017 End: 10-25-2017 Patient encounter procedure [facility] Start: 10-14-2017 End: 10-14-2017 Patient encounter procedure [facility] Start: 08-28-2017 End: 09-03-2017 Patient encounter procedure [facility] Start: 08-23-2017 End: 08-28-2017 Patient encounter procedure [facility] Procedures Date Procedure Procedure Detail Performing Clinician Start: 03-20-2023 Repair of right ingu inal hernia Keyon HUGHES Start: 10-11-[address] REVA BASSTET . Comment on above: Performed By: #### P [facility] #### [facility] [address] [place] [address] Dr. Estephania Small Start: 08-15-2020 Coronary artery bypa ss graft Keyon HUGHES Appendectomy Keyon HUGHES Vasectomy Keyon HUGHES Immunizations Immunization Date Immunization Notes Care Provider Fa [facility] 04-06-2022 SARS-CoV-2 (COVID-19 ) mRNAMUL.ORD![id number] Keyon BERNALL [facility] [place] 05-03-2021 SARS-CoV-2 (COVID-19 ) mRNA BNT-162b2 vax Keyon BERNALL [facility] [place] 10-07-2020 SARS-CoV-2 (COVID-19 ) mRNA BNT-162b2 vax Keyon BERNALL [facility] [place] Comment on above: Result Comment: 2022: [id number] 09-16-2020 SARS-CoV-2 (COVID-19 ) mRNA BNT-162b2 vax Keyon BERNALL [facility] [place] Comment on above: Result Comment: 2022: [id number] Payers Date Payer Category Payer Private Health Insurance [id number] 2017 Medicare [id number] 1959 Medicare [id number] 1959 Private Health Insurance [facility] [id number] 1950 Unknown [id number] 2.16.8 [id number] 1950 Unknown [id number] 2.16.84 [id number] 1950 Unknown [id number] 2.16.84 [id number] 1950 Unknown [id number] 2.16.8 [id number] 1950 Unknown [id number] 2.16.8 [id number] 1950 Unknown [id number] 2.16.8 [id number] 1950 Unknown [id number] 2.16.8 [id number] 1950 Unknown [id number] 2.16.8 [id number] Social History Date Type Detail Facility Start: 02-22-2023 Tobacco smoking status Ex-smoker (fi nding) [facility] [place] Tobacco smoking status Never Gener al [facility] [place] Sex Assigned At Male [facility] Functional Status Date Assessment Result Facility 02-22-2023 Functional Status N/A [facility]2020 to 10-08-2024 Note Date & Type Note Facility 10-08-2024 Note Cardiovascular Medic [facility] SUBJECTIVE Chief Complaint Patient presents with Coronary Artery Disease Hypertension Hyperlipidemia Linda Sosa is a 74 y.o. male here for [...] Overweight Right inguinal hernia Atypical atrial flutter (CMS/HCC) Cellulitis Contracture of palmar fascia Cramps of [...] Ref Range Status (more content not included)... [facility] 10-08-2024 Note Patient here for 6 m o follow up CAD, HFmrEF, valve disease, and PAF. Had echo back in Mar 2024 after last apt. He will have routine labs drawn next month for Dr. Bassett. Patient denies chest pain, SOB, palpitations, lightheadedness/syncope, and bleeding on Eliquis. Review of Systems Musculoskeletal: Positive for arthritis and joint pain. All other systems reviewed and are negative. [facility] 04-13-2024 Note [facility] Cardiology Clinic Note Chief Complaint: Patient [...] palpitations, and bleeding on Eliquis. HPI: Linda Sosa is a 73 y.o. [...] 45% Normal ri (more content not included)... [facility] 02-11-2024 Note [place] Electrophysiology Consult Note [place] Cardiology - [facility] Reason for visit: Afib 02/11/24 Patient [...] EKG 02/11/2024 sinus rhythm Prior HPI: Linda Sosa is a 74 y.o. year old with [...] on file Intimate Partner Violence: Unknown (08/08/2023) [place] Safety & Environment Fear of Current or [...] 20 mEq ER (more content not included)... [facility] 01-27-2024 Note ATYPICAL FLUTTER ABL ATION PROCEDURE NOTE DATE OF PROCEDURE: 01/27/2024 PERFORMING PHYSICIAN: Dr. Scout Jean Baptiste FOOTBALL PAD REPAIRER: LISA CONSENT: Patient NAME OF THE PROCEDURE: [...] atriclip stump. Esophagus was mapped using the [employer] 3D mapping software and noted to be [...] performed. No re (more content not included)... [facility] 12-10-2023 Note Patient here for fol low up afib ablation performed on 11/06/[address] Jean Baptiste. He was seen a few weeks ago by Dr. Pyle to follow up on elevated BP's. HR is all over the place still he says. Gets a little lightheaded when BP goes low. Still denies chest pain, SOB, palpitations, syncope, and bleeding on Eliquis and aspirin. Review of Systems Musculoskeletal: Positive for arthritis and joint pain. All other systems reviewed and are negative. [facility] 12-10-2023 Note Cardiovascular Medic [facility] SUBJECTIVE Chief Complaint Patient presents with Atrial Fibrillation S/p ablation Atrial Flutter Coronary Artery Disease Hypertension Linda Sosa is a 73 y.o. male here for follow-up. HPI PMHx: coronary artery disease, 4-vessel coronary artery bypass graft surgery and maze procedure in 2020, hypertension, dyslipidemia Patient here for follow up afib ablation performed on 11/06/[address] Jean Baptiste. He was seen a few weeks ago [...] is in a.flutter - reviewed with Dr. Jean Baptiste. Discussed next step is a.flutter ablation. Explained [...] Labs: Admission on (more content not included)... [facility] 11-18-2023 Note [facility] Cardiology Clinic Note Chief Complaint: Patient here for follow up hypertension. He is scheduled for see Kalee Ovalles CNP in a few weeks for follow up s/p ablation and cardioversion. Says he stopped taking isosorbide a few days after ablation on 11/05 since BP was going low. Still denies chest pain, SOB, palpitations, lightheadedness/syncope, and bleeding on Eliquis. HPI: Linda Sosa is a 73 y.o. [...] diagonal and fransisca (more content not included)... [facility] 11-06-2023 Note ATRIAL FIBRILLATION ABLATION PROCEDURE NOTE DATE OF PROCEDURE: 11/06/2023 PERFORMING PHYSICIAN: Dr. Scout Jean Baptiste FOOTBALL PAD REPAIRER: NA CONSENT: Patient NAME OF THE PROCEDURE: Pulmonary [...] atriclip stump. Esophagus was mapped using the [employer] 3D mapping software and noted to be [...] with PPI as follows: CS 1/2: 272ms: NORWEGIAN 4'o clock, CS 3/4: 276ms NORWEGIAN 6'o clock, CS 7/8: 277ms, Base of [...] junctions were mar (more content not included)... [facility] 11-06-2023 Note Patient: Linda valdez Procedure Summary Date: 11/06/23 Room / Location: [facility] RELATIONS OR PERSONNEL NEGOTIATOR 1 EP / [facility] (Cath) Anesthesia Start: 838 Anesthesia Stop: 1248 Procedures: Ablation a-fib paroxysmal ITZEL during EP case Cardioversion/defibrillation Diagnosis: Paroxysmal atrial fibrillation (CMS/HCC) (Paroxysmal atrial fibrillation (CMS/HCC) [I48.0]) Providers: Scout Jean Baptiste MD Responsible Provider: Zoey Sanchez MD Anesthesia [...] per anesthesia protocol. No notable events documented. [facility] 11-06-2023 Note Patient: Linda valdez Procedure Summary Date: 11/06/23 Room / Location: [facility] REL[facility] OR PERSONNEL NEGOTIATOR 1 EP / [facility] (Cath) Anesthesia Start: 0839 Anesthesia Stop: 1248 Procedures: Ablation a-fib paroxysmal ITZEL during EP case Cardioversion/defibrillation Diagnosis: Paroxysmal atrial fibrillation (CMS/HCC) (Paroxysmal atrial fibrillation (CMS/HCC) [I48.0]) Providers: Scout Jean Baptiste MD Responsible Provider: Zoey Sanchez MD Anesthesia Type: general ASA Status: 3 Anesthesia Post Transport Note Transport to: PACU O2 Route: nasal cannula Oxygen Flow (L/min): 6 Patient Monitor: transport monitor Transport monitor type: ECG, SpO2 and Art Line Transport: uneventful Patient condition is: stable [facility] 11-06-2023 Note Airway Date/Time: 11/06/2023 8:54 AM Urgency: elective General Information and Staff Patient location during procedure: OR Anesthesiologist: Zoey Sanchez MD Resident/SUPERVISOR ROLLING ROOM/CAA: Vinicio Arthur DO Performed: resident/SUPERVISOR ROLLING ROOM/CAA Indications and Patient Condition Indications for airway [...] 1 Number of other approaches attempted: 0 [facility] 11-06-2023 Note Patient: Linda valdez Procedure Information Date/Time: 11/06/23 0830 Procedure: Ablation a-fib paroxysmal Location: [facility] PERSONNEL NEGOTIATOR 1 EP / [facility] (Cath) Providers: Scout Jean Baptiste MD Relevant Problems Anesthesia (+) DULCE MARIA (obstructive sleep apnea) Cardio Activity: >4 METs 4-vessel CABG in 2010 (+) Atrial fibrillation (CMS/HCC) (+) Coronary arteriosclerosis (+) Hypertension Endo (+) Type 2 diabetes mellitus, without long-term current use of insulin (CMS/HCC) Encounter Date: 11/06/23 Electrocardiogram, 12-lead Result Value Ventricular Rate 76 QRS DURATION 92 QT Interval 404 QTC CALCULATION(BAZETT) 454 R-Bancroft 58 T Wave [place] 44 Impression Atrial fibrillation with a competing [...] with attending and resident. Additional Equipment Requests [facility] 11-06-2023 Note Arterial Line: Date/Time: [...] mL - 11/06/2023 8:22:00 AM Staffing Performed: resident/SUPERVISOR ROLLING ROOM/CAA Anesthesiologist: Zoey Sanchez MD Resident/SUPERVISOR ROLLING ROOM: Vinicio Arthur DO Performed by: Vinicio Arthur DO Authorized by: Zoey Sanchez MD [facility] 02-22-2023 Note Chief Complaint consultation [...] Tobacco Use: (more content not included)... [facility] Comment on above: Result Comment: Elec tronically Signed By: ELLEN MARTINEZ, Keyon Savage\Date and Time Signed: 02/22/23 16:24 EDT 09-20-2020 Note MR#: [id number] [facility] Pt. Name: Linda Sosa Admitted: [...] heart rate was high. He called his window systems administrator who has increased his metoprolol to 25 [...] and chills. The patient was seen at [place], but the EKG shows tachycardia in the 130s. He was given 2 days of blood pressure without change. They spoke with cardiology, who recommend transferring to the [facility] DATA: Labs at [place] showed magnesium 1.5, creatinine 1.3, high sensitive [...] Hernandez MD Date Trans: 09/20/2020 01:33 P/mmo [id number] cc: Nixon Bassett M.D. [address], [facility] [id number] [facility] Evaluation + Plan note No data available for this section General Surgery [facility] Discharge instructions No data available for this section General Surgery [place] Progress note No data available for this section General Surgery [place] Summary Purpose Family History No Family History [...] section and content) DATE CREATED AUTHOR 05/26/2018 [facility] DATE CREATED AUTHOR AUTHOR'S ORGANIZ ATION 09/06/2021 [facility] DATE CREATED AUTHOR AUTHOR'S ORGANIZ ATION 10/19/2022 [facility] DATE CREATED AUTHOR AUTHOR'S ORGANIZ ATION 04/17/2023 [facility] DATE CREATED AUTHOR AUTHOR'S ORGANIZ ATION 11/03/2024 [facility] Patient Care team informatio n (unrecognized section and content) Personnel Name: Nixon Bassett MD Address: Address: [address] [place] [address] Personnel Name: Nixon Bassett MD Address: Address: [address] [place] [address] FOR RECORDS PERTAINING TO PATIENTS WHO ARE [...] BE BASED ON THE PRIMARY CLINICAL RECORDS. [facility] provides no warranty or guarantee of the accuracy or completeness of information in this document.
== END 2025-02-17 11:02 | disposition home or self-care (01) ==
LOC: RAD 11:03
PROVIDERS: PCP Family Medicine; Visit Provider Family Medicine
DX: M62.838 Other muscle spasm (principal); M85.88 Other specified disorders of bone density and structure, other site; M51.34 Other intervertebral disc degeneration, thoracic region
CPT/HCPCS: 71046; 72072

== ENCOUNTER 2025-02-18 12:45 | Outpatient (RCR) | payer MEDICARE, SELFPAY | END 2025-03-10 13:39 | disposition home or self-care (01) | LOC: PT 12:45 | PROVIDERS: PCP Family Medicine; Visit Provider Family Medicine | DX: M62.838 Other muscle spasm (principal) | CPT/HCPCS: 97010; 97140; 97162; G0283 ==

== ENCOUNTER 2025-03-02 06:32 | Outpatient (OUT) | payer MEDICARE, SELFPAY ==
--- OUTSIDE RECORDS SUMMARY | 2025-02-17 06:00 | XMS_ITS ---
Author Organization [facility] [place] Address [address] [place] [address] Care Team Providers Care Helicopter Mechanic Name Role Phone Brad Garay Primary Care Provider Allergies No Known Allergies Results Component Value Reference Range Notes XR thoracic spine 3V Reviewed date:02/17/2025 01:05:19 PM Interpretation: Performing Lab: Notes/Report: Source Facility: [place] [address] XRay Report Signed Patient: LINDA SOSA MR#: [id number] : 1950 Acct:[id number] Age/Sex: 75 / M ADM Date: 02/17/25 Loc: RAD Attending Dr: Nixon Garay M.D. Ordering Physician: Nixon Garay M.D. Date of Service: 02/17/25 Procedure(s): XR thoracic spine 3V Accession Number(s): [id number] cc: Nixon Garay M.D. [place] [address] Patient Name: LINDA SOSA MRN: [id number] date: 1950 Sex: M Assigned Patient Location: RAD Current Patient Location: RAD Accession/Order Number: [id number] Exam Date: 02/17/2025 11:12 Report Date: 02/17/2025 11:55 At the request of: NIXON GARAY MD Procedure: XR chest 2V CLINICAL HISTORY: trapezius muscle spasm THORACIC SPINE - 3 views: COMPARISON: Chest x-ray 03/13/2023 AP, lateral and swimmer's views were obtained. There is prior median sternotomy. There is osteopenia. Subtle dextroscoliotic curvature is noted. There is no evidence of compression fracture or displacement. The pedicles are intact. There is degenerative change with endplates spurring involving the thoracic as well as the imaged cervical and lumbar spine. There are no paraspinal soft tissue abnormalities. XR/XR thoracic spine 3V IMPRESSION: OSTEOPENIA, SUBTLE SCOLIOSIS AND DEGENERATIVE CHANGES PA AND LATERAL CHEST: COMPARISON: 03/13/2023 There are median sternotomy wires. The left hemidiaphragm is still slightly elevated. Minor pleural-parenchymal scarring is again noted. There is no developing consolidation, effusion or pneumothorax. The cardiac, hilar and mediastinal silhouettes are within normal limits. There is no vascular congestion. The visualized bony thorax is intact. Endplate spurring is visualized at the spine. IMPRESSION: MINOR CHRONIC CHANGES. NO ACUTE CARDIOPULMONARY ABNORMALITY. Impression dictated by: Shannan Renteria M.D. 02/17/2025 11:55 AM Dictation Location: [employer] Electronically authenticated by: [id number] Y Date: 02/17/2025 11:55 Dictated By: Shannan Renteria M.D. 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) Referral Organization [facility] Medicine Referring Provider First Name Brad Referring Provider Last Name Danyelle Referring Provider Speciality Family Med icine Referred Provider [facility], Physical Therap y Referred Provider Specialty Physical The rapist Referral Priority Routine REASON FOR VISIT back pain, shoulder pain- was here last week for this, said just has gotten worse, Med did help fora couple of days then pain was back Medications Medication SIG (Take, Route, Frequency, Duration) Notes Start Date End Date Status Magnesium Oxide 400 MG TAKE 1 TABLET BY MOUTH TWICE A DAY WITH FOOD; Duration: 90 Active Klor-Con M20 20 MEQ TAKE 1 TABLET BY MIRZA THREE TIMES A DAY; Duration: 90 days Active Lisinopril 20 MG TAKE 2 TABLETS BY MO UTH EVERYDAY AT BEDTIME; Duration: 90 Active Furosemide 80 MG TAKE 1 TABLET BY MIRZA TH EVERY DAY; Duration: 90 Active Glimepiride 2 MG TAKE 1 TABLET BY MIRZA TH EVERY DAY WITH BREAKFAST OR THE FIRST MAIL MEAL OF THE DAY; Duration: 90 Active Eliquis 5 MG 1 tablet Orally Twic e a day; Duration: 30 days Active Chlorthalidone 25 MG 1 tablet in the mor janell with food Orally once a day; Duration: 90 days Active Cholecalciferol 125 MCG (500 0 UT) as directed Orally Active Atorvastatin Calcium 80 MG TAKE 1 TABLET BY MOUTH EVERY DAY; Duration: 90 days Active Blood Glucose Monitor System w/Device as directed Active Aspirin 81 MG 1 tablet Orally Once a day Active tiZANidine HCl 4 MG 2 tabs Orally qhs; Duration: 30 days 02/10/2025 Active OneTouch Ultra Blue Active OneTouch Ultra - USE TO TEST ONCE A D AY *DX E11.9*; Duration: 90 Active metFORMIN HCl 500 MG TAKE 1 TABLET BY MO UTH THREE TIMES A DAY; Duration: 90 days Active OneTouch Delica Lancets 30G 1 lancet to poke finger once daily DX E11.9; Duration: 90 days Active Social History Tobacco Use: Social History Observation Description Date Details (start date - stop date) Former Smoker 10/19/1970 - 10/19/2014 Tobacco Use/Smoking Question Answer Notes Patient is a former smoker When did you start smoking? 10/19/1970 When did you stop smoking? 10/19/2014 How long has it been since you last smoked? > 10 years Vital Signs Weight 219.4 lbs 02/17/2025 Height 76 in 02/17/2025 Blood pressure systolic 142 mm Hg 02/18/20 25 Blood pressure diastolic 74 mm Hg 025 BMI 26.7 kg/m2 02/17/2025 Encounters Encounter Location Date Provider Diagnosis [facility] [address] [place] [address] 02/17/2025 Brad Garay Trapezius muscle spa M62.838 Assessments Encounter Date Diagnosis (ICD Code) Assessment Notes Treatment Notes Treatment Clinical Notes Section Notes 02/17/2025 Trapezius muscle spasm (ICD-10 - M62.838) 02/17/2025 Other Recommended to rest and use a heating pad on the area. Take NSAIDs for pain as needed Plan Of Treatment Treatment Notes Assessment Notes Other Recommended to rest and use a heating pad on the area. Take NSAIDs for pain as needed Pending Test Test Name Order Date XR CHEST 2 V 02/17/2025 Referrals Referral Date Details 02/17/2025 02/17/2025, Physical Therapy [facility] Medications Administered Medication Instructions Date of Administration Dosage Notes Triamcinolone 40 mg/ml 02/17/2025 120 mg Ketorolac Tromethamine 02/17/2025 60 mg Progress Notes * Linda SOSADOB:1950 (75 yo M)Acc No.[id number]:02/17/2025 Progress Note Patient: Linda SWEENEY Provider: Gregorio Garay ([facility])MD :1950 A ge:75 Y S ex:Male Date:02/17/2025 Address:[address] [place], [place] [id number] Check In:09:50 AM ESTCheck O ut:10:52 AM EST Subjective: * Chief Complaints: * B ack pain, shoulder pain- was here last week for this, said just has gotten worseMed did help for a couple of days then pain was back * HPI: G eneral: Uper back nsd r shoulder - meds helped at first but not now no injury - no repetitive -. B ack Pain: The patient complains of -. The symptoms have been present for 1-2 days. The patient believes symptoms are injury related No. The symptoms are mild. Symptomatic treatment has included heating pad, stretching. Associated symptoms include None. * ROS: G eneral/Constitutional: Lightheadedness d enies. C hange in appetite d enies. W eight Change d enies. C ardiovascular: Irregular heartbeat d enies. S welling in hands/feet?denies. R espiratory: Shortness of breath d enies. S hortness of breath with exertion d enies. W heezing d enies. M usculoskeletal: Comments S [facility] for details. N eurologic: Dizziness d enies. F ainting d enies. H eadache?denies. 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 Modified On:06/12/2023 Status:confirmed E78.5 Hyperlipidemia Modified On:10/10/2022 Status:confirmed I10 Hypertension Modified On:06/12/2023 Status:confirmed M19.90 Osteoarthritis Modified On:06/12/2023 Status:confirmed I25.10 CAD (coronary artery disease) Modified On:10/10/2022 Status:confirmed R00.1 Bradycardia Modified On:10/08/2022 Status:confirmed M10.9 Gout Modified On:10/26/2024 Status:confirmed G47.33 Obstructive sleep ap primo Modified On:10/08/2022 Status:confirmed I48.0 Paroxysmal atrial fi brillation Modified On:06/12/2023 Status:confirmed E78.1 Hypertriglyceridemia Modified On:10/08/2022 Status:confirmed Z00.00 Well adult Modified On:10/08/2022 Status:confirmed L03.90 Cellulitis Modified On:10/08/2022 Status:confirmed R25.2 Leg cramps Modified On:10/08/2022 Status:confirmed N40.0 Benign prostate hype rplasia Modified On:10/08/2022 Status:confirmed I50.9 Heart failure with r educed left ventricular function Modified On:10/08/2022 Status:confirmed E11.9 Diabetes mellitus Modified On:02/06/2023 Status:confirmed M72.0 Dupuytren's disease of both palm and finger Modified On:10/08/2022 Status:confirmed K40.90 Right inguinal herni a Modified On:02/06/2023 Status:confirmed M62.838 Trapezius muscle spa sm Modified On:02/10/2025 Status:confirmed * Medical History: * Surgical History: C ABG 08/2020Inguinal herniorrhaphy 03/20/23appendectomy cardiac catherization cardioversion ct chest angiogram w and/or wo iv contrast vasectomy atrial fibrillation ablation procedure pulmonary vein isolation and comprehensive EP study * Hospitalization/Major Diagno stic Procedure: s ee above * Family History: F ather: 55 yrs, diagnosed with Unspecified heart disease. M other: 83 yrs, CVA. B rother(s): 55 yrs, diagnosed with Unspecified heart disease. S ister(s): alive. D veto(s): alive. 2 sister(s) - healthy. 2 daughter(s) - healthy. . * Social History: T obacco Use: T obacco Use/Smoking P atient is a f ormer smoker W hen did you start smoking? 0 10/19/1970 W hen did you stop smoking? 0 10/19/2014 H ow long has it been since you last smoked??> 10 years * Medications: T akingAspirin 81 MG Tablet Chewable 1 tablet Orally Once a day Atorvastatin Calcium 80 MG Tablet TAKE 1 TABLET BY MOUTH EVERY DAY Blood Glucose Monitor System w/Device Kit as directed Chlorthalidone 25 MG Tablet 1 tablet in the morning with food Orally once a day Cholecalciferol 125 MCG (5000 UT) Capsule as directed Orally Eliquis(Apixaban) 5 MG Tablet 1 tablet Orally Twice a day Furosemide 80 MG Tablet TAKE 1 TABLET BY MOUTH EVERY DAY Glimepiride 2 MG Tablet TAKE 1 TABLET BY MOUTH EVERY DAY WITH BREAKFAST OR THE FIRST MAIL MEAL OF THE DAY Klor-Con M20(Potassium Chloride Delmis ER) 20 MEQ Tablet Extended Release TAKE 1 TABLET BY MOUTH THREE TIMES A DAY Lisinopril 20 MG Tablet TAKE 2 TABLETS BY MOUTH EVERYDAY AT BEDTIME Magnesium Oxide 400 MG Tablet TAKE 1 TABLET BY MOUTH TWICE A DAY WITH FOOD metFORMIN HCl 500 MG Tablet TAKE 1 TABLET BY MOUTH THREE TIMES A DAY OneTouch Delica Lancets 30G 1 lancet to poke finger once daily DX E11.9 OneTouch Ultra(Glucose Blood) - Strip USE TO TEST ONCE A DAY *DX E11.9* OneTouch Ultra Blue tiZANidine HCl 4 MG Tablet 2 tabs Orally qhs Taking Aspirin 81 MG Tablet Chewable 1 tablet Orally Once a day Taking Atorvastatin Calcium 80 MG Tablet TAKE 1 TABLET BY MOUTH EVERY DAY Taking Blood Glucose Monitor System w/Device Kit as directed Taking Chlorthalidone 25 MG Tablet 1 tablet in the morning with food Orally once a day Taking Cholecalciferol 125 MCG (5000 UT) Capsule as directed Orally Taking Eliquis(Apixaban) 5 MG Tablet 1 tablet Orally Twice a day Taking Furosemide 80 MG Tablet TAKE 1 TABLET BY MOUTH EVERY DAY Taking Glimepiride 2 MG Tablet TAKE 1 TABLET BY MOUTH EVERY DAY WITH BREAKFAST OR THE FIRST MAIL MEAL OF THE DAY Taking Klor-Con M20(Potassium Chloride Delmis ER) 20 MEQ Tablet Extended Release TAKE 1 TABLET BY MOUTH THREE TIMES A DAY Taking Lisinopril 20 MG Tablet TAKE 2 TABLETS BY MOUTH EVERYDAY AT BEDTIME Taking Magnesium Oxide 400 MG Tablet TAKE 1 TABLET BY MOUTH TWICE A DAY WITH FOOD Taking metFORMIN HCl 500 MG Tablet TAKE 1 TABLET BY MOUTH THREE TIMES A DAY Taking OneTouch Delica Lancets 30G 1 lancet to poke finger once daily DX E11.9 Taking OneTouch Ultra(Glucose Blood) - Strip USE TO TEST ONCE A DAY *DX E11.9* Taking OneTouch Ultra Blue Taking tiZANidine HCl 4 MG Tablet 2 tabs Orally qhs DiscontinuedpredniSONE 20 MG Tablet 2 tablets Orally Once a day Medication List reviewed and reconciled with the patientDiscontinued predniSONE 20 MG Tablet 2 tablets Orally Once a day Medication List reviewed and reconciled with the patient * Allergies: N .K.D.A.no[Allergies Verified] Objective: * Vitals: W t:219.4lbs, Ht: 76 in, BP:142/74mm Hg, BMI:26.7Index, Ht-cm: 193.04 cm, Wt-k.52 kg. * Examination: G eneral Examination: GENERAL APPEARANCE: i n no acute distress, well developed, well nourished. LUNGS: clear to auscultation bilaterally. CARDIO: S1, S2 normal, no murmurs, rubs, gallops. MUSCULOSKELETAL: R upper trapezous tendnernss. EXTREMITIES: no clubbing, cyanosis, or edema. NEUROLOGIC: alert, oriented to time, place, & person.? Assessment: * Assessment: 1. T rapezius muscle spasm - M62.838 (Primary) Plan: * Treatment: 2. O thers Notes: Recommended to rest and use a heating pad on the area. Take NSAIDs for pain as needed ? * Therapeutic Injections: Triamcinolone 40 mg/ml : 120 mg (Route: Intramuscular) given by Emili Britt SA on right deltoid (Trapezius muscle spasm) Ketorolac Tromethamine : 60 mg (Route: Intramuscular) given by Emili Britt SA on left deltoid (Trapezius muscle spasm) * Procedure Codes: 9 6372 THERAP.INJ. OF MED. INTRAMUSCULAR OR [id number] TMC ACET,PER 10MG., Units: 12.00 J1885 TORADOL, PER 15 MG, Units: 4.00 , Modifiers: JZ * Preventive Medicine: Screenings/Counseling: B [facility] ACTION PLAN Above Normal BMI Follow-up D ietary management education, guidance, and counseling * * Sign off status: Completed Visit Status: C HK (Check Out) true * Provider: Gregorio Garay ([facility])MD Date: 0 02/17/2025 Generated for Printi ng/Faxing/eTransmitting on: 0 03/02/2025 06:35 AM EDT History and Physical Notes * HPI (History of Present Illness) Category Sub-Category Detail Notes Category Not es General Uper back nsd r shoulder - meds helped at first but not now no injury - no repetitive - Examination Category Sub-Category Detail Notes Category Not es General Examination GENERAL APPEARANCE: in no ac [place] distress, well developed, well nourished CARDIO: S1, S2 normal, no mu rmurs, rubs, gallops LUNGS: clear to auscultatio n bilaterally NEUROLOGIC: alert, oriented to t sonja, place, & person EXTREMITIES: no clubbing, cyanosi s, or edema MUSCULOSKELETAL: R upper trapezous te ndnernss Consultation Request Notes Referral Date Referring Provider Referred Provider Not es 02/17/2025 Brad Garay [facility], Physical Therapy
--- OUTSIDE RECORDS SUMMARY | 2025-02-24 09:00 | XMS_ITS ---
Author Organization [facility] in [place] Address [address] [place] [address] Care Team Providers Care Construction Project Mgr Name Role Phone Brad Bassett Primary Care Provider Allergies No Known Allergies REASON FOR VISIT 4mon, Back Pain, Would like order for MRI Medications Medication SIG (Take, Route, Frequency, Duration) Notes Start Date End Date Status traMADol HCl 50 MG 1 tablet as needed Orally tid; Duration: 7 days 02/24/2025 Active Chlorthalidone 25 MG 1 tablet in the mor janell with food Orally once a day; Duration: 90 days Active Cholecalciferol 125 MCG (500 0 UT) as directed Orally Active Eliquis 5 MG 1 tablet Orally Twic e a day; Duration: 30 days Active Furosemide 80 MG TAKE 1 TABLET BY MIRZA TH EVERY DAY; Duration: 90 Active Atorvastatin Calcium 80 MG TAKE 1 TABLET BY MOUTH EVERY DAY; Duration: 90 days Active Blood Glucose Monitor System w/Device as directed Active OneTouch Ultra Blue Active tiZANidine HCl 4 MG 2 tabs Orally qhs; Duration: 30 days 02/10/2025 Active Aspirin 81 MG 1 tablet Orally Once a day Active OneTouch Ultra - USE TO TEST ONCE A D AY *DX E11.9*; Duration: 90 Active Lisinopril 20 MG TAKE 2 TABLETS BY MO UTH EVERYDAY AT BEDTIME; Duration: 90 Active Magnesium Oxide 400 MG TAKE 1 TABLET BY MOUTH TWICE A DAY WITH FOOD; Duration: 90 Active metFORMIN HCl 500 MG TAKE 1 TABLET BY MO UTH THREE TIMES A DAY; Duration: 90 days Active OneTouch Delica Lancets 30G 1 lancet to poke finger once daily DX E11.9; Duration: 90 days Active Glimepiride 2 MG TAKE 1 TABLET BY MIRZA TH EVERY DAY WITH BREAKFAST OR THE FIRST MAIL MEAL OF THE DAY; Duration: 90 Active Klor-Con M20 20 MEQ TAKE 1 TABLET BY MIRZA TH THREE TIMES A DAY; Duration: 90 days Active Social History Tobacco Use: Social History Observation Description Date Details (start date - stop date) Former Smoker 10/19/1970 - 10/19/2014 Tobacco Use/Smoking Question Answer Notes Patient is a former smoker When did you start smoking? 10/19/1970 When did you stop smoking? 10/19/2014 How long has it been since you last smoked? > 10 years AUDIT-C (Standard) Question Answer Notes Did you have a drink containing alcohol in the p ast year? 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 ; Diabetes mellitus E11.9 and Dupuytren's disease of both palm and finger M72.0 Assessments Encounter Date Diagnosis (ICD Code) Assessment Notes Treatment Notes Treatment Clinical Notes Section Notes 02/24/2025 Cervical radiculopathy (ICD-10 - M54.12) Failing meds - doing pt with no sig improvement and now twih eakness and tinglin into R hand consistent with Cervical radiculopathy - needs MRI 02/24/2025 Hypertension (ICD-10 - I10) 02/24/2025 Acute combined systolic (congestive) and diastolic (congestive) heart failure (ICD-10 - I50.41) 02/24/2025 Diabetes mellitus (ICD-10 - E11.9) 02/24/2025 Dupuytren's disease of both palm and finger (ICD-10 - M72.0) 02/24/2025 Other Recommended to rest and use a heating pad on the area. Take NSAIDs for pain as needed Plan Of Treatment Medication Medication Name Sig Start Date Stop Date Notes traMADol HCl 50 MG 1 tablet as needed O rally tid; Duration: 7 days 02/24/2025 Treatment Notes Assessment Notes Cervical radiculopathy Failing meds - do ing pt with no sig improvement and now twih eakness and tinglin into R hand consistent with Cervical radiculopathy - needs MRI Other Recommended to rest and use a heating pad on the area. Take NSAIDs for pain as needed Pending Test Test Name Order Date MRI CSPINE WO CON 02/24/2025 Progress Notes * Mayank SOSADOB:1950 (75 yo M)Acc No.[id number]:02/24/2025 Progress Note Patient: Mayank SWEENEY Provider: Gregorio Bassett ([facility])MD :1950 A ge:75 Y S ex:Male Date:02/24/2025 Address:[address] [place], [place] [id number] Check In:12:58 PM ESTCheck O ut:01:15 PM EST Subjective: * Chief Complaints: * 4 monBack Pain, Would like order for MRI * HPI: G eneral: Disuccse low back pain - getting worse R arm with tingling - 4th and 5th digits Did pt last adn saturday am needs MRI c-s[pint DM - ding well BP controlled at home CHF with Reduced EF - controle d - no edema. B ack Pain: The patient complains of [...] heezing d enies. M usculoskeletal: Comments S anders PACK for details. N eurologic: Dizziness d enies. F ainting d enies. H eadache?denies. * Active Problem List I25.10 CAD (coronary artery disease) Modified On:10/10/2022 Status:confirmed R00.1 Bradycardia Modified On:10/08/2022 Status:confirmed M10.9 Gout Modified On:10/26/2024 Status:confirmed G47.33 Obstructive sleep ap primo Modified On:10/08/2022 Status:confirmed I48.0 Paroxysmal atrial fi brillation Modified On:06/12/2023 Status:confirmed E78.1 Hypertriglyceridemia Modified On:10/08/2022 Status:confirmed Z00.00 Well adult Modified On:10/08/2022 Status:confirmed L03.90 Cellulitis Modified On:10/08/2022 Status:confirmed R25.2 Leg cramps Modified On:10/08/2022 Status:confirmed E66.3 Overweight Modified On:10/08/2022 Status:confirmed I50.41 Acute combined systo lic (congestive) and diastolic (congestive) heart failure Modified On:06/12/2023 Status:confirmed E78.5 Hyperlipidemia Modified On:10/10/2022 Status:confirmed I10 Hypertension Modified On:06/12/2023 Status:confirmed M19.90 Osteoarthritis Modified On:06/12/2023 Status:confirmed N40.0 Benign prostate hype rplasia Modified On:10/08/2022 Status:confirmed I50.9 Heart failure with r educed left ventricular function Modified On:10/08/2022 Status:confirmed E11.9 Diabetes mellitus Modified On:02/06/2023 Status:confirmed M72.0 Dupuytren's disease of both palm and finger Modified On:10/08/2022 Status:confirmed K40.90 Right inguinal herni a Modified On:02/06/2023W/U Status:confirmed M62.838 Trapezius muscle spa sm Modified On:02/10/2025W/U Status:confirmed M54.12 Cervical radiculopat hy Modified On:02/24/2025W/U Status:confirmed * Medical History: * Surgical History: [...] been since you last smoked??> 10 years D rug/Alcohol: A AMANUEL-C (Standard) D id you have a drink containing alcohol in the past year? N o P oints 0 I nterpretation N egative * Medications: T akingAspirin 81 MG Tablet [...] 4 MG Tablet 2 tabs Orally qhs Medication List reviewed and reconciled with the patientTaking Aspirin 81 MG Tablet Chewable 1 tablet [...] FIRST MAIL MEAL OF THE DAY Taking Klor- Con M20(Potassium Chloride Delmis ER) 20 MEQ Tablet [...] 4 MG Tablet 2 tabs Orally qhs Medication List reviewed and reconciled with the patient * Allergies: N .K.D.A.no[Allergies Verified] Objective: * Vitals: W t:214.0lbs, Ht: 76 in, BP:140/72mm Hg, BMI:26.05Index, Ht-cm: 193.04 cm, Wt-k.07 kg. * Examination: G eneral Examination: GENERAL APPEARANCE: i n no acute distress, well developed, well nourished. LUNGS: clear to auscultation bilaterally. CARDIO: S1, S2 normal, no murmurs, rubs, gallops. MUSCULOSKELETAL: ____. EXTREMITIES: no clubbing, cyanosis, or edema. NEUROLOGIC: alert, oriented to time, place, & person.? Assessment: * Assessment: 1. C ervical radiculopathy - M54.12 (Primary) 2 . H ypertension - I10 ? 3 . A cute combined systolic (congestive) and diastolic (congestive) heart failure - I50.41 4 . D iabetes mellitus - E11.9 5 . D upuytren's disease of both palm and finger - M72.0 Plan: * Treatment: 2. O thers Notes: Recommended to rest and use a heating pad on the area. Take NSAIDs for pain as needed ? * Procedure Codes: * Preventive Medicine: Screenings/Counseling: B KS ACTION PLAN Above Normal BMI Follow-up D ietary management education, guidance, and counseling * * Sign off status: Completed Visit Status: C HK (Check Out) true * Provider: Gregorio Bassett ([facility])MD Date: 0 02/24/2025 Generated for Printi ng/Briseydag/eTransmitting on: 0 03/02/2025 06:35 AM EDT History and Physical Notes * HPI (History of Present Illness) Category Sub-Category Detail Notes Category Not es General Disuccse low back pain - getting worse R arm with tingling - 4th and 5th digits Did pt last adn saturday am needs MRI c-s[pint DM - ding well BP controlled at home CHF with Reduced EF - controle d - no edema Examination Category Sub-Category Detail Notes Category Not es General Examination GENERAL APPEARANCE: in no ac ak chin distress, well developed, well nourished CARDIO: S1, S2 normal, no mu rmurs, rubs, gallops LUNGS: clear to auscultatio n bilaterally NEUROLOGIC: alert, oriented to t sonja, place, & person EXTREMITIES: no clubbing, cyanosi s, or edema MUSCULOSKELETAL: ____
--- OUTSIDE RECORDS SUMMARY | 2025-03-02 06:35 | XMS_ITS | Clinical Summary ---
Author Organization [facility] Address [address] [place] [address] Care Team Providers Care Air Analysis Engineering Technician Name Role Phone Unavailable Primary Care Provider [...]
--- OUTSIDE RECORDS SUMMARY | 2025-03-02 06:35 | XMS_ITS | Clinical Summary ---
Author Organization [facility] Address [address] [place], [place] [id number] Care Team Providers Care Legislative Correspondent Name Role Phone Conrado Bassett MD Primary Care Provider [phone] Allergies Active Allergy Reactions Criticality Noted Date Comments Spironolactone Other: See Comments 11/04/2015 Muscle crapm Medications Fenofibrate (LOFIBRA) 160 mg tablet Take 160 mg by mouth once daily. Active carvedilol (COREG) 25 mg tablet Take 25 mg by mouth twice daily with meals. Active pravastatin (PRAVACHOL) 40 mg tablet Take 40 mg by mouth once daily. Active lisinopril 40 mg tablet Take 40 mg by mouth once daily. Active rivaroxaban (XARELTO) 20 mg tablet Take 20 mg by mouth daily with dinner. Active aspirin, enteric coated (ADULT LOW DOSE ASPIRIN) 81 mg EC tablet Take 1 tablet by mouth once daily. 0 09/30/2013 Active amoxicillin (POLYMOX, AMOXIL) 500 mg capsule Take 500 mg by mouth every 8 hours. 08/26/2017 Active metFORMIN (GLUCOPHAGE) 500 mg tablet Take 500 mg by mouth twice daily. 11 07/21/2017 Active amLODIPine (NORVASC) 10 mg tablet Take 1 tablet by mouth once daily. 90 tablet 5 02/18/2018 Active Active Problems Problem Noted Date Diagnosed Date CAD (coronary artery disease) 10/26/2013 Hyperlipidemia 10/26/2013 Atrial fibrillation 09/30/2013 Abnormal stress test 09/30/2013 Hypertension 09/30/2013 Family History Medical History Relation Comments Coronary Artery Disease Brother 2 [place], in h is 40's. in his 50's. Heart Father [place], in mid 50 s. Stroke Mother in her 80's Relation Status Comments Brother 1 (Age 55) [place] Brother 2 Father (Age 55) [place] Mother Social History Tobacco Use Types Packs/Day Years Used Date Smoking Tobacco: Former Cigarettes 1 30 0 10/04/1983 - 10/03/2013 Smokeless Tobacco: Never Alcohol Use Standard Drinks/Week Comments Yes 2 (1 standard drink = 0.6 oz pur e alcohol) Area Deprivation Index Answer Date Shai rded National Score (1-100), lower number is lower ri sk Not on file 05/25/2020 State Score (1-10), lower number is lower risk N ot on file 05/25/2020 Data from: https://www.neighborhoodatlas.medicine.[facility].edu/. 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 Not on file Not on file Not on file Last Filed Vital Signs Vital Sign Reading Time Taken Comments Blood Pressure 134/89 04/30/2018 9:50 AM EST Pulse 61 04/30/2018 9:50 AM EST Temperature 36.1 C (97 F) 11/04/2015 9:21 AM EDT Respiratory Rate 16 10/22/2017 8:57 AM EDT Oxygen Saturation 97% 10/22/2017 8:57 AM EDT Inhaled Oxygen Concentration - - Weight 114.3 kg (252 lb) 04/30/2018 9:50 AM EST Height 195.6 cm (6' 5 ) 08/23/2017 10:07 AM EST Body Mass Index 29.88 08/23/2017 10:07 AM EST Plan of Treatment Health Maintenance Due Date Last Done Comments Anxiety Screening 01/23/1968 Depression Screening 01/23/1968 Hepatitis C Screening 01/23/1968 DTaP,Tdap,Td Vaccine (1 - Tdap) [address] Colonography 1995 Cologuard (FIT-DNA) 1995 Colonoscopy 1995 Colorectal Cancer Screening 1995 Diabetes Screening 1995 Fecal Occult Blood 1995 Sigmoidoscopy 1995 Pneumococcal Vaccine: 50+ (1 of 1 - PCV) 01/23/2000 Shingrix Vaccine (1 of 2) 01/23/2000 Advance Directive Discussion 06/17/2024 RSV Vaccine (1 - 1-dose 75+ series) 2025 Influenza Vaccine (#1) 2025 Insurance MEDICARE Care Teams Legislative Correspondent Relationship Specialty Start Date End Date Conrado Bassett MD PCP - General Family Medicine 09/16/13
--- OUTSIDE RECORDS SUMMARY | 2025-03-02 06:35 | XMS_ITS | CCD ---
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 No: D o not add to previous draw Performed By: #### 8 [id number] #### [facility] [address] [place] [address], [place] Sodium [Moles/Vol] 139 mmol/L Normal 136-145 [facility] Comment on above: Order Comment: No: D o not add to previous draw Performed By: #### 8 [id number] #### [facility] [address] [place] [address], [place] Urea nitrogen [Mass/Vol] 27 mg/dL High 7-25 [facility] Comment on above: Order Comment: No: D o not add to previous draw Performed By: #### 8 [id number] #### [facility] [address] [place] [address], [place] Calcium [Mass/Vol] 9.5 mg/dL Normal 8.6-10.3 [facility] Comment on above: Order Comment: No: D o not add to previous draw Performed By: #### 8 [id number] #### [facility] [address] [place] [address], [place] Chloride [Moles/Vol] 101 mmol/L Normal 98-107 [facility] Comment on above: Order Comment: No: D o not add to previous draw Performed By: #### 8 [id number] #### [facility] [address] [place] [address], [place] CO2 [Moles/Vol] 25 mmol/L Normal 21-31 [facility] Comment on above: Order Comment: No: D o not add to previous draw Performed By: #### 8 [id number] #### [facility] [address] [place] [address], [place] Creatinine [Mass/Vol] 1.13 mg/dL Normal 0.70-1.30 [facility] Comment on above: Order Comment: No: D o not add to previous draw Performed By: #### 8 [id number] #### [facility] [address] [place] [address], [place] GFR/1.73 sq M.predicted among blacks MDRD (S/P/Bld) [Vol rate/Area] mL/min/{1.73_m2} Normal >60 [facility] Comment on above: Order Comment: No: D o not add to previous draw Performed By: #### 8 [id number] #### [facility] [address] [place] [address], [place] GFR/1.73 sq M.predicted among non-blacks MDRD (S/P/Bld) [Vol rate/Area] mL/min/{1.73_m2} Normal >60 [facility] Comment on above: Order Comment: No: D o not add to previous draw Performed By: #### 8 [id number] #### [facility] [address] [place] [address], [place] Glucose [Mass/Vol] 121 mg/dL High 70-100 [facility] Comment on above: Order Comment: No: D o not add to previous draw Performed By: #### 8 [id number] #### [facility] [address] [place] [address], [place] Potassium [Moles/Vol] 4.6 mmol/L Normal 3.5-5.1 [facility] Comment on above: Order Comment: No: D o not add to previous draw Performed By: #### 8 [id number] #### [facility] [address] [place] [address], [place] Sodium [Moles/Vol] 137 mmol/L Normal 136-145 [facility] Comment on above: Order Comment: No: D o not add to previous draw Performed By: #### 8 [id number] #### [facility] [address] [place] [address], [facility] Urea nitrogen [Mass/Vol] 27 mg/dL High 7-25 [facility] Comment on above: Order Comment: No: D o not add to previous draw Performed By: #### 8 [id number] #### [facility] [address] [place] [address], [place] CBC COMPLETE BLOOD COUNTon 0 - Erythrocyte distribution width (RBC) [Ratio] 12.8 % Normal 11.5-15.0 [facility] Comment on above: Order Comment: No: D o not add to previous draw Performed By: #### 5 0608 #### [facility] [address] [place] [address], [place] Hematocrit (Bld) [Volume fraction] 40.1 % Normal 39.0-50.0 [facility] Comment on above: Order Comment: No: D o not add to previous draw Performed By: #### 5 0608 #### [facility] [address] [place] [address], [facility] Hemoglobin (Bld) [Mass/Vol] 12.6 g/dL Low 13.0-17.0 [facility] Comment on above: Order Comment: No: D o not add to previous draw Performed By: #### 5 0608 #### [facility] [address] [place] [address], [facility] MCH (RBC) [Entitic mass] 27.6 pg Normal 27.0-33.0 [facility] Comment on above: Order Comment: No: D o not add to previous draw Performed By: #### 5 0608 #### [facility] [address] [place] [address], [facility] MCHC (RBC) [Mass/Vol] 31.4 g/dL Low 32.0-35.0 [facility] Comment on above: Order Comment: No: D o not add to previous draw Performed By: #### 5 0608 #### [facility] [address] [facility] [place] [address], [facility] MCV (RBC) [Entitic vol] 87.7 fL Normal 82.0-98.0 [facility] Comment on above: Order Comment: No: D o not add to previous draw Performed By: #### 5 0608 #### [facility] [address] [place] [address], [facility] Nucleated RBC/100 WBC (Bld) [Ratio] 0 % Normal 0-0 [facility] Comment on above: Order Comment: No: D o not add to previous draw Performed By: #### 5 0608 #### [facility] [address] [place] [id number], [facility] PLAT CNT 261 10*3/uL Normal 150-400 [facility] Comment on above: Order Comment: No: D o not add to previous draw Performed By: #### 5 0608 #### [facility] [address] [place] [address], [facility] RBC (Bld) [#/Vol] 4.57 10*6/uL Normal 4.20-5.70 [facility] Comment on above: Order Comment: No: D o not add to previous draw Performed By: #### 5 0608 #### [facility] [address] [facility] [place] [place] [address], [facility] WBC (Bld) [#/Vol] 8.46 10*3/uL Normal 4.00-10.60 [facility] Comment on above: Order Comment: No: D o not add to previous draw Performed By: #### 5 0608 #### [facility] [address] [place] [address], [facility] CBC W/DIFFon 09-20-2020 ABS IMM GRANS 0.0 10*3/uL Normal 0.0-0.2 [facility] Comment on above: Order Comment: No: D o not add to previous draw Performed By: #### 5 0608 #### [facility] [address] [place] [address], [facility] ABS NEUTROPHILS 3.8 10*3/uL Normal 1.6-7.6 [facility] Comment on above: Order Comment: No: D o not add to previous draw Performed By: #### 5 0608 #### [facility] [address] [place] [address], [facility] Basophils (Bld) [#/Vol] 0.0 10*3/uL Normal 0.0-0.2 [facility] Comment on above: Order Comment: No: D o not add to previous draw Performed By: #### 5 0608 #### [facility] [address] [place] [address], [facility] Basophils/100 WBC (Bld) 0.5 % Normal 0.0-1.0 [facility] Comment on above: Order Comment: No: D o not add to previous draw Performed By: #### 5 0608 #### [facility] [address] [place] [address], [facility] Eosinophils (Bld) [#/Vol] 0.6 10*3/uL High 0.0-0.5 [facility] Comment on above: Order Comment: No: D o not add to previous draw Performed By: #### 5 0608 #### [facility] [address] [place] [address], [facility] Eosinophils/100 WBC (Bld) 9.6 % High 0.0-6.0 [facility] Comment on above: Order Comment: No: D o not add to previous draw Performed By: #### 5 0608 #### [facility] [address] [place] [address], [facility] Erythrocyte distribution width (RBC) [Ratio] 12.7 % Normal 11.5-15.0 [facility] Comment on above: Order Comment: No: D o not add to previous draw Performed By: #### 5 0608 #### [facility] [address] [facility] [place] [address], [facility] Hematocrit (Bld) [Volume fraction] 37.2 % Low 39.0-50.0 [facility] Comment on above: Order Comment: No: D o not add to previous draw Performed By: #### 5 0608 #### [facility] [address] [facility] [place] [address], [facility] Hemoglobin (Bld) [Mass/Vol] 11.9 g/dL Low 13.0-17.0 [facility] Comment on above: Order Comment: No: D o not add to previous draw Performed By: #### 5 0608 #### [facility] [address] [place] [id number], [facility] IMMATURE GRANS 0.3 % Normal 0.0-1.0 [facility] Comment on above: Order Comment: No: D o not add to previous draw Performed By: #### 5 0608 #### [facility] [address] [facility] [address], [facility] Lymphocytes (Bld) [#/Vol] 1.4 10*3/uL Normal 1.2-4.0 [facility] Comment on above: Order Comment: No: D o not add to previous draw Performed By: #### 5 0608 #### [facility] [address] [facility] [place] [address], [facility] Lymphocytes/100 WBC (Bld) 21.9 % Normal 20.0-45.0 [facility] Comment on above: Order Comment: No: D o not add to previous draw Performed By: #### 5 0608 #### [facility] [address] [facility] [place] [address], [facility] MCH (RBC) [Entitic mass] 28.1 pg Normal 27.0-33.0 [facility] Comment on above: Order Comment: No: D o not add to previous draw Performed By: #### 5 0608 #### [facility] [address] [facility] [place] [address], [facility] MCHC (RBC) [Mass/Vol] 32.0 g/dL Normal 32.0-35.0 [facility] Comment on above: Order Comment: No: D o not add to previous draw Performed By: #### 5 0608 #### [facility] [address] [facility] [place] [address], [facility] MCV (RBC) [Entitic vol] 87.7 fL Normal 82.0-98.0 [facility] Comment on above: Order Comment: No: D o not add to previous draw Performed By: #### 5 0608 #### [facility] [address] [place] [address], [facility] Monocytes (Bld) [#/Vol] 0.6 10*3/uL Normal 0.1-1.0 [facility] Comment on above: Order Comment: No: D o not add to previous draw Performed By: #### 5 0608 #### [facility] [address] [place] [address], [facility] MONOS 9.2 % Normal 5.0-12.0 [facility] Comment on above: Order Comment: No: D o not add to previous draw Performed By: #### 5 0608 #### [facility] [address] [place] [address], [facility] Neutrophils/100 WBC (Bld) 58.5 % Normal 40.0-72.0 [facility] Comment on above: Order Comment: No: D o not add to previous draw Performed By: #### 5 0608 #### [facility] [address] [place] [address], [facility] Nucleated RBC/100 WBC (Bld) [Ratio] 0 % Normal 0-0 [facility] Comment on above: Order Comment: No: D o not add to previous draw Performed By: #### 5 0608 #### [facility] [address] [place] [address], [facility] PLAT CNT 222 10*3/uL Normal 150-400 [facility] Comment on above: Order Comment: No: D o not add to previous draw Performed By: #### 5 0608 #### [facility] [address] [place] [id number], [facility] RBC (Bld) [#/Vol] 4.24 10*6/uL Normal 4.20-5.70 [facility] Comment on above: Order Comment: No: D o not add to previous draw Performed By: #### 5 0608 #### [facility] [address] [place] [id number], [place] WBC (Bld) [#/Vol] 6.44 10*3/uL Normal 4.00-10.60 [facility] Comment on above: Order Comment: No: D o not add to previous draw Performed By: #### 5 0608 #### [address] CHEST AND LATERALon 09-21-19 CHEST AND LATERAL [facility] Department of Radiology [address] [place] [id number] Patient Name: LINDA SOSA : 1950 Sex: M Age: Race: White Pt. Location: [id number] Patient Status: I Ordered Date: 09/19/2020 10:55:00 [...] reports Electronically signed: Edith Penny. Transcribed by: [email or web address], User Resident: KRISTY FOLEY Electronically Signed by: EDITH PENNY @ 09/20/2020 12:37 AM I personally read this/these film(s) with this resident Normal [facility] Comment on above: Order Comment: No: D o not add to previous draw CTA CHESTon 09-20-2020 CTA CHEST [facility] Department of Radiology [address] [place] [id number] Patient Name: LINDA SOSA : 1950 Sex: M Age: Race: White Pt. Location: [id number] Patient Status: O Ordered Date: 09/20/2020 3:30:00 [...] AP Electronically signed: Edith Penny. Transcribed by: [email or web address], User Resident: Electronically Signed by: EDITH PENNY @ 09/20/2020 05:54 AM Normal [facility] Comment on above: Order Comment: No: D o not add to previous draw D DIMER TESTon 09-20-2020 D-DIMER TEST 3.43 mcg/mL FEU High 0.27-0.49 [facility] Comment on above: Result Comment: D-Di alyssa values of less than 0.50 ug/ml (FEU) are considered to be a negative predictor of thrombosis. However, the D-Dimer result should be used in conjunction with pretest probability and should not be used alone to diagnose a thrombotic event. Performed By: #### 5 7307, 71594, 53602, 07373 #### [facility] [address] [place] [address], [facility] MAGNESIUM BLOODon 09-20-2020 Magnesium [Mass/Vol] 1.5 mg/dL Low 1.9-2.7 [facility] Comment on above: Order Comment: No: D o not add to previous draw Performed By: #### 8 [id number] #### [facility] [address] [place] [address], [facility] Magnesium [Mass/Vol] 1.5 mg/dL Low 1.9-2.7 [facility] Comment on above: Order Comment: No: D o not add to previous draw Performed By: #### 8 [id number] #### [facility] [address] [place] [address], [facility] PHOSPHORUS BLOODon 1 Phosphate [Mass/Vol] 4.3 mg/dL Normal 2.5-5.0 [facility] Comment on above: Order Comment: No: D o not add to previous draw Performed By: #### 8 [id number] #### [facility] [address] [facility] [place] [address], [facility] POC GLUCOSE LABon 09-20-2020 Glucose [Mass/Vol] 125 mg/dL High 70-100 [facility] Comment on above: Performed By: #### 8 [id number] #### [facility] [address] [facility] [place] [address], [facility] Glucose [Mass/Vol] 145 mg/dL High 70-100 [facility] Comment on above: Performed By: #### 5 0608 #### [facility] [address] [facility] [place] [id number], [facility] Glucose [Mass/Vol] 127 mg/dL High 70-100 [facility] Comment on above: Performed By: #### 8 [id number] #### [facility] [address] [facility] [place] [id number], [facility] PROTHROMBIN TIMEon 1 INR Coag (PPP) [Relative time] 1.22 {INR} High 0.91-1.16 [facility] Comment on above: Order Comment: No: [...] CHEST 1995;108:[id number]. Performed By: #### 5 6101, 86552, 59701 #### [facility] [address] [facility]. [address] PT Coag (PPP) [Time] 15.4 s High 12.3-14.8 [facility] Comment on above: Order Comment: No: D o not add to previous draw Result Comment: ALL RESULTS MUST BE INTERPRETED WITH RESPECT TO BLOOD DRAWING ARTIFACT OR DILUTION ERROR OF ANTICOAGULANT AT THE TIME OF SAMPLING. Performed By: #### 5 6101, 53796, 92510 #### [facility] [address] INR Coag (PPP) [Relative time] 1.13 {INR} Normal 0.91-1.16 [facility] Comment on above: Order Comment: No: [...] CHEST 1995;108:[id number]. Performed By: #### 5 7307, 61606, 06662, 15949 #### [facility] [address] [place] [address], [facility] PT Coag (PPP) [Time] 14.5 s Normal 12.3-14.8 [facility] Comment on above: Order Comment: No: D o not add to previous draw Result Comment: ALL RESULTS MUST BE INTERPRETED WITH RESPECT TO BLOOD DRAWING ARTIFACT OR DILUTION ERROR OF ANTICOAGULANT AT THE TIME OF SAMPLING. Performed By: #### 5 7307, 24934, 93019, [id number] #### [facility] [address] [place] [address], [facility] TROPONIN-Ion 09-20-2020 Troponin I.cardiac [Mass/Vol] 0.07 ng/mL High 0.00-0.04 [facility] Comment on above: Order Comment: No: D o not add to previous draw Result Comment: REFE RENCE RANGES: 0.00 - 0.04 ng/ml NORMAL 0.05 - 0.50 ng/ml INDETERMINATE > 0.50 ng/ml CONSISTENT WITH AN M.I. Performed By: #### 8 5499 #### [facility] [address] [place] [address], [facility] TSH3on 09-20-2020 TSH 3RD GENERATION 2.08 uIU/mL Normal 0.34-5.60 [facility] Comment on above: Order Comment: No: D o not add to previous draw Performed By: #### 8 5499 #### [facility] [address] [place] [address], [facility] UFH HEPARIN ASSAYon 04-06-20 21 UNFRACTIONATED HEPARIN 0.46 IU/mL Normal 0.30-0.70 [facility] Comment on above: Result Comment: [place] roxaban and Apixaban will interfere with the anti Xa assay used to monitor UFH and LMWH. Performed By: #### 5 0608 #### [facility] [address] [place] [address], [facility] UNFRACTIONATED HEPARIN 0.48 IU/mL Normal 0.30-0.70 [facility] Comment on above: Result Comment: Desi roxaban and Apixaban will interfere with the anti Xa assay used to monitor UFH and LMWH. Performed By: #### 8 5499 #### [facility] [address] [place] [address], [facility] UNFRACTIONATED HEPARIN 0.17 IU/mL Low 0.30-0.70 [facility] Comment on above: Result Comment: Desi roxaban and Apixaban will interfere with the anti Xa assay used to monitor UFH and LMWH. Performed By: #### 5 6101, 45732, 03880 #### [facility] [address] [place] [address], [facility] UNFRACTIONATED HEPARIN <0.10 Critically low 0.30-0.70 [facility] Comment on above: Result Comment: [place] roxaban and Apixaban will interfere with the anti Xa assay used to monitor UFH and LMWH. RESULTS CHECKED AND CALLED. ACCURATELY READ BACK BY JONNIE SINGLETON RN AT 0208. Performed By: #### 5 7307, 35489, 07385, 53050 #### [facility] [address] [place] [address], [facility] BASIC METABOLIC PANELon 03-2 Calcium [Mass/Vol] 9.9 mg/dL Normal 8.6-10.3 [facility] Comment on above: Performed By: #### 5 0608 #### [facility] [address] [place] [address], [facility] Chloride [Moles/Vol] 99 mmol/L Normal 98-107 [facility] Comment on above: Performed By: #### 5 0608 #### [facility] [address] [place] [address], [place] CO2 [Moles/Vol] 29 mmol/L Normal 21-31 [facility] Comment on above: Performed By: #### 5 0608 #### [facility] [address] [place] [address], [place] Creatinine [Mass/Vol] 1.07 mg/dL Normal 0.70-1.30 [facility] Comment on above: Performed By: #### 5 0608 #### [facility] [address] [place] [address], [place] GFR/1.73 sq M.predicted among blacks MDRD (S/P/Bld) [Vol rate/Area] mL/min/{1.73_m2} Normal >60 [facility] Comment on above: Performed By: #### 5 0608 #### [facility] [address] [place] [address], [place] GFR/1.73 sq M.predicted among non-blacks MDRD (S/P/Bld) [Vol rate/Area] mL/min/{1.73_m2} Normal >60 [facility] Comment on above: Performed By: #### 5 0608 #### [facility] [address] [place] [address], [place] Glucose [Mass/Vol] 75 mg/dL Normal 70-100 [facility] Comment on above: Performed By: #### 5 0608 #### [facility] [address] [place] [address], [place] Potassium [Moles/Vol] 4.1 mmol/L Normal 3.5-5.1 [facility] Comment on above: Performed By: #### 5 0608 #### [facility] [address] [place] [address], [place] Sodium [Moles/Vol] 138 mmol/L Normal 136-145 [facility] Comment on above: Performed By: #### 5 0608 #### [facility] [address] [place] [place] [address], [facility] Urea nitrogen [Mass/Vol] 22 mg/dL Normal 7-25 [facility] Comment on above: Performed By: #### 5 0608 #### [facility] [address] [facility] [place], [place] [address] CHEST AND LATERALon 09-13-19 21 CHEST AND LATERAL [facility] Department of Radiology [address] [place] [id number] Patient Name: LINDA SOSA : 1950 Sex: M Age: Race: White Pt. 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 Transcribed by: [email or web address], User Resident: Electronically Signed by: CORRY HALL @ 09/12/2020 12:12 PM Normal [facility] Comment on above: Order Comment: evalu ate MAGNESIUM BLOODon 09-12-2020 Magnesium [Mass/Vol] 1.5 mg/dL Low 1.9-2.7 [facility] Comment on above: Performed By: #### 5 0608 #### [facility] [address] CNOVon 04-30-2018 CNOV Office Visit (CARDFT) NO LINDA VALDEZ ([id number]) 1950 UPADate Time Provider Srjuxidwbf57/14/18 10:00 AM MIKEY HERNANDEZ During your visit today, we recorded the following information about you: Pulse Blood pressure Weight 61/minute 134/89 114.3 kgMikey Hernandez MD 04/30/2018 10:20 AM [facility] InstituteSaint [facility] Randee Nieto Department of Cardiovascular MedicineOUTPATIENT VISIT DATE 04/30/18OUTPATIENT VISIT TYPEESTABLLIFECARE HOSPITALS OF NORTH CAROLINAPRNOVANT HEALTH BRUNSWICK MEDICAL CENTERRY CARE PHYSICIAN:Nixon Bassett MD[address] [facility] [place] [address]Nvowt: [phone]: [phone] COMPLAINT:Patient presents with:Established PatientHISTORY OF PRESENT ILLNESS:Linda [...] CATH 10/02/13 50% mid LM. 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 Co-dominatLCX with L-R collateral. EF 55%.- CARDIOVERSION [...] Stroke Mother in her 80's- Heart Father [place], in mid 50 s.- Coronary Artery Disease Brother [place], in his 40's. in his 50's.ALLERGIES:ALLERGIESAllerg en [...] ICD10: I48.1 (primarydiagnosis)2. Coronary artery disease involving o[place] coronary artery of [place] si[place] heartwithout angina pectoris - ICD9: 414.01, ICD10: [...] via U.S. Mail.This document was generated utilizing [employer] dictation. I have reviewed andverified that the contents of the document are accurate with the exception ofminor grammatical, spelling and punctuation errors.CONTACT INFORMATION:Thank you for allowing us to participate in the care of this very pleasantpatient. Please free to contact us if we can be of any further assistance.Mikey Hernandez MD, [facility] and Randee Carterpartment of Cardiovascular MedicinePremier Health Atrium Medical Centerrt and Vascular Institute[address] [address]Ycflis: [phone] Referring Provider: NIXON ABSSETT [[id number]]Allergies As of Date: 04/30/2018 Noted Allergy ReactionALDACTONE (SPIRONOLACTONE) 11/04/2015 14 - Other: See Comments Comments: Muscle crapmDate Reviewed: 04/30/2018Reviewed by: Mikey Hernandez - Fully AssessedReason for Visit: Established Patient [175]Primary Visit Diagnosis:Persistent atrial fibrillation (HCC) [I48.1] Other Visit Diagnoses:Coronary artery disease involving [place] coronary artery of [place] heart without angina pectoris [I25.10] Essential hypertension [...] by ALANIS HERNANDEZ MD on 04/30/18 Normal [facility] PROGRESSon 04-30-2018 Protein mass conc HNO ID: [id number] thor: Mikey Leeervice: (none)Author Type: PhysicianType: Progress NotesFiled: 04/30/2018 10:20 AMNote Text:Heart and Vascular InstituteRobert and Randee Mcneal Department of Cardiovascular MedicineOUTPATIENT VISIT DATE 04/30/18OUTPATIENT VISIT TYPEESTABLISHEDPRIMARY CARE PHYSICIAN:Nixon Bassett MD[address] [facility] [address]Zxndz: [phone]: [phone] COMPLAINT:Patient presents with:Established PatientHISTORY OF PRESENT ILLNESS:Linda [...] CATH 10/02/13 50% mid LM. 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 EF 55%.- CARDIOVERSION [...] Stroke Mother in her 80's- Heart Father [place], in mid 50 s.- Coronary Artery Disease Brother [place], in his 40's. in his 50's.ALLERGIES:ALLERGIESAllerg en [...] ICD10: I48.1(primary diagnosis)2. Coronary artery disease involving ogl[place] sioux coronary artery of nativeheart without angina pectoris [...] provided to the requesting provider by [facility] or via U.S. Mail.This document was generated utilizing [employer] dictation. I have reviewedand verified that the contents of the document are accurate with theexception of minor grammatical, spelling and punctuation errors.CONTACT INFORMATION:Thank you for allowing us to participate in the care of this very pleasantpatient. Please free to contact us if we can be of any furtherassistance.Mikey Hernandez MD, FACCRobert and Randee Aguilera of Cardiovascular MedicinePremier Health Atrium Medical Centerrt and Vascular InstituteVanessa Ville [address], [place] [address]Qtvhcr: [phone] Normal [facility] CNOVon 10-22-2017 CNOV Office Visit (CARDFT) NO LINDA VALDEZ ([id number]) 1950 MDate Time Provider Department10/22/17 9:00 AM HOLDEN EDWARDS During your visit today, we recorded the following information about you: Pulse Respiration Blood pressure 69/minute 16/minute 139/76Holden Edwards 10/22/2017 9:28 AM [facility] and Vascular InstituteDiamondhead and Randee Mcneal Department of Cardiovascular MedicineOUTPATIENT VISIT DATE10/22/17OUTPATIENT VISIT TYPEESTABLISHEDPRIMARY CARE PHYSICIAN:Nixon Bassett MD[address] [facility] [address]Djxgf: [phone]: [phone] COMPLAINT:AFIBHISTORY OF PRESENT ILLNESS:Linda Sosa is a [...] CATH 10/02/13 50% mid LM. 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 Co-dominatLCX with L-R collateral. EF 55%.- COLONOSCOPY [...] Stroke Mother in her 80's- Heart Father [place], in mid 50 s.- Coronary Artery Disease Brother [place], in his 40's. in his 50's.ALLERGIES:ALLERGIESAllerg en [...] or concerns.Holden Edwards M.D.Doroteo Aguilera of Cardiovascular MedicinePremier Health Atrium Medical Centerrt and Vascular InstituteUniversity Hospitals Parma Medical Center[address], [place] [address]Zuvuhc: [phone] Referring Provider: NIXON BASSETT [[id number]]Allergies As of Date: 10/22/2017 Noted Allergy ReactionALDACTONE (SPIRONOLACTONE) 11/04/2015 14 - Other: See Comments Comments: Muscle crapmDate Reviewed: 10/22/2017Reviewed by: Gasper Louie RN - Fully AssessedPrimary Visit Diagnosis:Atrial fibrillation, unspecified type (HCC) [I48.91]Order(s):ECG B/O W INTERP (MED OFFICE) [ECG06] Order #: [id number] as of 10/22/2017 Sig: METFORMIN 500 MG [...] (around 04/24/2018).Follow-up and Disposition History RecordedEncounter Number: [id number] Status:Closed by HOLDEN EDWARDS MD on 10/22/17 Normal [facility] PROGRESSon 10-21-2017 Protein mass conc HNO ID: [id number] thor: Lamar Edwards: (none)Author Type: PhysicianType: Progress NotesFiled: 10/22/2017 9:28 AMNote Text:Heart and Vascular InstituteDiamondhead and Randee Nieto Department of Cardiovascular MedicineOUTPATIENT VISIT DATE10/22/17OUTPATIENT VISIT TYPEESTABLISHEDPRIMARY CARE PHYSICIAN:Nixon Bassett MD[address] [facility] [address]Qgjhj: [phone]: [phone] COMPLAINT:AFIBHISTORY OF PRESENT ILLNESS:Linda Sosa is a [...] CATH 10/02/13 50% mid LM. 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 EF 55%.- COLONOSCOPY [...] Stroke Mother in her 80's- Heart Father GA, in mid 50 s.- Coronary Artery Disease Brother [place], in his 40's. in his 50's.ALLERGIES:ALLERGIESAllerg en [...] contact us with further questions or concerns.Jason TamayoIlgertrudis of Cardiovascular MedicineHonorhealth [facility] and Vascular Institute[address] [address]Snbyxi: [phone] [facility] CNOVon 08-28-2017 CNOV Office Visit (CARDFT) NO LINDA VALDEZ ([id number]) 1950 MDate Time Provider Department08/28/17 11:00 AM HOLDEN EDWARDS During your visit today, we recorded the following information about you: Pulse Respiration Blood pressure 64/minute 14/minute 147/91Holden Edwards MD 08/28/2017 11:03 AM [facility] and Vascular [facility] and Randee Mcneal Department of Cardiovascular MedicineOUTPATIENT VISIT DATE08/28/17OUTPATIENT VISIT TYPEESTABLISHEDPRNOVANT HEALTH BRUNSWICK MEDICAL CENTERRY CARE PHYSICIAN:Nixon Bassett MD[address] [facility] [address]Ozcdj: [phone]: [phone] COMPLAINT:AFIBHISTORY OF PRESENT ILLNESS:Linda Sosa is a [...] CATH 10/02/13 50% mid LM. 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 Co-dominatLCX with L-R collateral. EF 55%.- COLONOSCOPY [...] Stroke Mother in her 80's- Heart Father GA, in mid 50ANDquot;s.- Coronary Artery Disease Brother [place], in his 40's. in his 50's.ALLERGIES:ALLERGIESAllerg en [...] cardioversion Pending studies:Cardioversion October 14 at 10 [facility] [place]STERONTACT INFORMATION:Thank you for allowing us to assist in the care your patient. As always pleasedo not hesitate to contact us with further questions or concerns.Jason TamayoDepartment of Cardiovascular MedicinePremier Health Atrium Medical Centerrt and Vascular Institute[address] [address]Khijiy: [phone] Referring Provider: NIXON BASSETT [[id number]]Allergies As of Date: 08/28/2017 Noted Allergy ReactionALDACTONE (SPIRONOLACTONE) 11/04/2015 14 - Other: See Comments Comments: Muscle crapmDate Reviewed: 08/28/2017Reviewed by: Gasper Louie RN - Fully AssessedPrimary Visit Diagnosis:Atrial fibrillation, unspecified type (HCC) [I48.91] Other Visit Diagnosis:Coronary artery disease involving ogl[place] sioux heart without angina pectoris, unspecified vessel or lesion type [I25.10]Order(s):ECG COMPLETE W INTERPRETATION [ECG01] Order #: [id number] FUTUREPrescriptions as of 08/28/2017 Sig: AMOXICILLIN 500 [...] by HOLDEN EDWARDS MD on 08/28/17 Normal [facility] PROGRESSon 08-26-2017 Protein mass conc HNO ID: [id number] thor: Holden EdwardsSer: (none)Author Type: PhysicianType: Progress NotesFiled: 08/28/2017 11:03 AMNote Text:Heart and Vascular [facility] Department of Cardiovascular MedicineOUTPATIENT VISIT DATE08/28/17OUTPATIENT VISIT TYPEESTABLISHEDPRNOVANT HEALTH BRUNSWICK MEDICAL CENTERRY CARE PHYSICIAN:Nixon Bassett MD[address] [facility] [address]Odgce: [phone]: [phone] COMPLAINT:AFIBHISTORY OF PRESENT ILLNESS:Linda Sosa is a [...] CATH 10/02/13 50% mid LM. 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 EF 55%.- COLONOSCOPY [...] Stroke Mother in her 80's- Heart Father [place], in mid 50 s.- Coronary Artery Disease Brother [place], in his 40's. in his 50's.ALLERGIES:ALLERGIESAllerg en [...] cardioversion Pendingstudies: Cardioversion October 14 at 10 [facility] [place]STERONTACT INFORMATION:Thank you for allowing us to assist in the care your patient. As alwaysplease do not hesitate to contact us with further questions or concerns.Jason Tamayoment of Cardiovascular MedicinePremier Health Atrium Medical Centerrt and Vascular Institute[address], [place] [address]Twacir: [phone] Normal [facility] CNOVon 08-23-2017 CNOV Office Visit (CARDFT) NO LINDA VALDEZ ([id number]) 1950 MDate Time Provider Department08/23/17 10:30 AM HOLDEN EDWARDS During your visit today, we recorded the following information about you: Pulse Respiration Blood pressure Weight 60/minute 18/minute 138/83 111.1 kg Height 1.956 Brian Edwards MD 08/23/2017 10:45 AM [facility] and Vascular [facility] and Randee Mcneal Department of Cardiovascular MedicineOUTPATIENT VISIT DATE 08/23/17OUTPATIENT VISIT TYPEESTABLISHEDPRIMARY CARE PHYSICIAN:Nixon Bassett MD[address] [facility] [address]Iwmyx: [phone]: [phone] COMPLAINT:AFIBHISTORY OF PRESENT ILLNESS:Linda Sosa is a [...] CATH 10/02/13 50% mid LM. 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 Co-dominatLCX with L-R collateral. EF 55%.- COLONOSCOPY [...] Stroke Mother in her 80's- Heart Father [place], in mid 50ANDquot;s.- Coronary Artery Disease Brother [place], in his 40's. in his 50's.ALLERGIES:ALLERGIESAllerg en [...] 111.1 kg (245lb) SpO2 98% BMI 29.05 kg/y9Ujvysno: Well appearing, in no acute distress. ObeseNeuro: [...] or concerns.Holden Edwards M.D.Doroteo Aguilera of Cardiovascular MedicineHonorhealth [facility] and Vascular Institute[address] [address]Rsckmg: [phone] Referring Provider: NIXON BASSETT [[id number]]Allergies As of Date: 08/23/2017 Noted Allergy ReactionALDACTONE [...] (around 08/30/2017).Follow-up and Disposition History RecordedEncounter Number: [id number] Status:Closed by HOLDEN EDWARDS MD on 08/23/17 Normal [facility] PROGRESSon 08-22-2017 Protein mass conc HNO ID: [id number] thor: Holden EdwardsSer: (none)Author Type: PhysicianType: Progress NotesFiled: 08/23/2017 10:45 AMNote Text:Heart and Vascular InstituteDiamondhead and Randee [facility] Department of Cardiovascular MedicineOUTPATIENT VISIT DATE 08/23/17OUTPATIENT VISIT TYPEESTABLISHEDPRNOVANT HEALTH BRUNSWICK MEDICAL CENTERRY CARE PHYSICIAN:Nixon Bassett MD[address] [facility] [address]Jwcxv: [phone]: [phone] COMPLAINT:AFIBHISTORY OF PRESENT ILLNESS:Linda Sosa is a [...] CATH 10/02/13 50% mid LM. 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 EF 55%.- COLONOSCOPY [...] Stroke Mother in her 80's- Heart Father [place], in mid 50 s.- Coronary Artery Disease Brother [place], in his 40's. in his 50's.ALLERGIES:ALLERGIESAllerg en [...] 111.1 kg (245lb) SpO2 98% BMI 29.05 kg/g6Cirzpwi: Well appearing, in no acute distress. ObeseNeuro: [...] M.D.Doroteo Carterpartment of Cardiovascular MedicineHeart and Vascular InstituteUniversity Hospitals Parma Medical Center[address], [place] [address]Mbdnon: [phone] Normal [facility] Vital Signs Date Time Vital Sign Value Performing Clinician Juanito moeller 02-22-2023 14:34-0400 Blood Pressure Location Keyon HUGHES [facility] 02-22-2023 14:34-0400 Diastolic blood pressure 70 mm[Hg] Keyon NILL [facility] [place] 02-22-2023 14:34-0400 Heart rate 68 /min Keyon NILL [facility] [place] 02-22-2023 14:34-0400 Respiratory rate 16 /min Keyon NILL [facility] [place] 02-22-2023 14:34-0400 Systolic blood pressure 142 mm[Hg] Keyon NILL [facility] Encounters Encounter Date Encounter Type Care Provider Facility Start: 10-08-2024 End: 10-08-2024 ambulatory [facility] Start: 04-13-2024 End: 04-13-2024 ambulatory [facility] Start: 02-11-2024 End: 02-11-2024 ambulatory [facility] Start: 01-27-2024 ambulatory [facility] Start: 01-27-2024 End: 01-27-2024 ambulatory [facility] Start: 12-10-2023 End: 12-10-2023 ambulatory [facility] Start: 11-18-2023 End: 11-18-2023 ambulatory [facility] Start: 11-06-2023 ambulatory [facility] Start: 11-06-2023 ambulatory [facility] Start: 11-06-2023 End: 11-06-2023 ambulatory [facility] Start: 04-16-2023 End: 04-17-2023 ambulatory Keyon R NILL Facility: [place] Start: 04-16-2023 End: 04-16-2023 Patient encounter procedure Keyon Jaret NILL [facility]aid [facility] Start: 03-27-2023 End: 03-28-2023 ambulatory Keyon R NILL Facility:[facility] Start: 03-20-2023 End: 03-21-2023 ambulatory Keyon Raygoza ELLEN Facility:CD:[id number] Start: 02-22-2023 End: 02-23-2023 ambulatory Nixon Bassett Facility:[facility] Start: 02-22-2023 End: 02-22-2023 Patient encounter procedure Keyon Raygoza ELLEN [facility] N[facility] [place] Start: 02-08-2023 ambulatory Nixon Bassett Facility:[facility] Start: 10-12-2022 End: 10-12-[address] NIXON BASSETT . Facility: Start: 10-11-2022 End: 10-12-[address] NIXON BASSETT . Facility: Start: 09-19-2020 End: 09-20-2020 ambulatory NIXON BASSETT Facility:[facility] Start: 04-30-2018 End: 05-13-2018 Patient encounter procedure MIKEY ANTONIO HERNANDEZ [facility] Start: 10-22-2017 End: 10-25-2017 Patient encounter procedure [facility] Start: 10-14-2017 End: 10-14-2017 Patient encounter procedure [facility] Start: 08-28-2017 End: 09-03-2017 Patient encounter procedure [facility] Start: 08-23-2017 End: 08-28-2017 Patient encounter procedure [facility] Procedures Date Procedure Procedure Detail Performing Clinician Start: 03-20-2023 Repair of right ingu inal hernia Keyon HUGHES Start: 10-11-[address] REVA BASSETT . Comment on above: Performed By: #### P [facility] #### [facility] [address] [place] [address] Dr. Estephania Small Start: 08-15-2020 Coronary artery bypa ss graft Keyon HUGHES Appendectomy Keyon HUGHES Vasectomy Keyon HUGHES Immunizations Immunization Date Immunization Notes Care Provider Fa [facility] 04-06-2022 SARS-CoV-2 (COVID-19 ) mRNAMUL.ORD![id number] Keyon BERNALL [facility] [place] 05-03-2021 SARS-CoV-2 (COVID-19 ) mRNA BNT-162b2 vax Keyon BERNALL [facility] [place] 10-07-2020 SARS-CoV-2 (COVID-19 ) mRNA BNT-162b2 vax Keyon BERNALL [facility] [place] Comment on above: Result Comment: 2022: [id number] 09-16-2020 SARS-CoV-2 (COVID-19 ) mRNA BNT-162b2 vax Keyon BERNALL [facility] [place] Comment on above: Result Comment: 2022: [id number] Payers Date Payer Category Payer Private Health Insurance [id number] 2017 Medicare [id number] 1959 Medicare [id number] 1959 Private Health Insurance [facility] [id number] 1950 Unknown [id number] 2.16.8 [id number] 1950 Unknown [id number] 2.16.84 [id number] 1950 Unknown [id number] 2.16.84 [id number] 1950 Unknown [id number] 2.16.8 [id number] 1950 Unknown [id number] 2.16.8 [id number] 1950 Unknown [id number] 2.16.8 [id number] 1950 Unknown [id number] 2.16.8 [id number] 1950 Unknown [id number] 2.16.8 [id number] Social History Date Type Detail Facility Start: 02-22-2023 Tobacco smoking status Ex-smoker (fi nding) [facility] Tobacco smoking status Never [facility] Sex Assigned At Male Crystal [facility] Functional Status Date Assessment Result Facility 02-22-2023 Functional Status N/A [facility] 09-20-2020 to 10-08-2024 Note Date & Type Note Facility 10-08-2024 Note Cardiovascular Medic [facility] SUBJECTIVE Chief Complaint Patient presents with [...] Ref Range Status (more content not included)... [facility] 10-08-2024 Note Patient here for 6 m [...] All other systems reviewed and are negative. [facility] 04-13-2024 Note [facility] Note Chief Complaint: Patient here [...] 45% Normal ri (more content not included)... [facility] 02-11-2024 Note [place] Electrophysiology Consult Note [place] Cardiology - [facility] Reason for visit: Afib 02/11/24 Patient [...] on file Intimate Partner Violence: Unknown (08/08/2023) [place] Safety & Environment Fear of Current or [...] 20 mEq ER (more content not included)... [facility] 01-27-2024 Note ATYPICAL FLUTTER ABL ATION PROCEDURE NOTE DATE OF PROCEDURE: 01/27/2024 PERFORMING PHYSICIAN: Dr. Scout Jean Baptiste VOCATIONAL ED INSTRUCTOR: LISA CONSENT: Patient NAME OF THE PROCEDURE: [...] atriclip stump. Esophagus was mapped using the VeebeamUND 3D mapping software and noted to be [...] performed. No re (more content not included)... [facility] 12-10-2023 Note Patient here for fol [...] All other systems reviewed and are negative. [facility] 12-10-2023 Note Cardiovascular Medic [facility] SUBJECTIVE Chief Complaint Patient presents with Atrial [...] Labs: Admission on (more content not included)... [facility] 11-18-2023 Note [facility] Note Chief Complaint: Patient here [...] diagonal and fransisca (more content not included)... [facility] 11-06-2023 Note ATRIAL FIBRILLATION ABLATION PROCEDURE NOTE DATE OF PROCEDURE: 11/06/2023 PERFORMING PHYSICIAN: Dr. Scout JeanB aptiste VOCATIONAL ED INSTRUCTOR: NA CONSENT: Patient NAME OF THE PROCEDURE: [...] with PPI as follows: CS 1/2: 272ms: IRISH 4'o clock, CS 3/4: 276ms IRISH 6'o clock, CS 7/8: 277ms, Base of [...] junctions were mar (more content not included)... [facility] 11-06-2023 Note Patient: Linda valdez Procedure Summary Date: 11/06/23 Room / Location: [facility] 1 EP / [facility] VASCULAR LAB (Cath) Anesthesia Start: 838 [...] per anesthesia protocol. No notable events documented. [facility] 11-06-2023 Note Patient: Linda valdez Procedure Summary Date: 11/06/23 Room / Location: [facility] 1 EP / [facility] (Cath) Anesthesia Start: 0839 [...] Line Transport: uneventful Patient condition is: stable [facility] 11-06-2023 Note Airway Date/Time: 11/06/2023 8:54 AM Urgency: elective General Information and Staff Patient location during procedure: OR Anesthesiologist: Zoey Sanchez MD Resident/BROKERAGE BRANCH MANAGER/CAA: Vinicio Arthur DO Performed: resident/BROKERAGE BRANCH MANAGER/CAA Indications and Patient Condition Indications for [...] 1 Number of other approaches attempted: 0 [facility] 11-06-2023 Note Patient: Linda valdez Procedure Information Date/Time: 11/06/23 0830 Procedure: Ablation a-fib paroxysmal Location: [facility] 1 EP / [facility]ASC[facility] (Cath) Providers: Scout Jean [...] 92 QT Interval 404 QTC CALCULATION(BAZETT) 454 R-[place] 58 T Wave [place] 44 Impression Atrial fibrillation with a competing [...] with attending and resident. Additional Equipment Requests [facility] 11-06-2023 Note Arterial Line: Date/Time: 11/06/2023 [...] mL - 11/06/2023 8:22:00 AM Staffing Performed: resident/BROKERAGE BRANCH MANAGER/CAA Anesthesiologist: Zoey Sanchez MD Resident/BROKERAGE BRANCH MANAGER: Vinicio Arthur DO Performed by: Vinicio Arthur DO Authorized by: Zoey Sanchez MD [facility] 02-22-2023 Note Chief Complaint consultation for [...] Smokeless Tobacco Use: (more content not included)... [facility] Comment on above: Result Comment: Elec tronically Signed By: ELLEN MARTINEZ, Keyon Savage\Date and Time Signed: 02/22/23 16:24 EDT 09-20-2020 Note MR#: [id number] 2 [facility] Pt. Name: Linda Sosa Admitted: 09/19/2020 Discharged: [...] heart rate was high. He called his culinary arts instructor who has increased his metoprolol to 25 [...] and chills. The patient was seen at [facility], but the EKG shows tachycardia in the 130s. He was given 2 days of blood pressure without change. They spoke with cardiology, who recommend transferring to the [facility]. LABORATORY DATA: Labs at [facility] showed magnesium 1.5, creatinine 1.3, high sensitive [...] Hernandez MD Date Trans: 09/20/2020 01:33 P/mmo [id number] cc: Nixon Bassett M.D. [address], [facility] [id number] [facility] Evaluation + Plan note No data available for this section General Surgery [facility] Discharge instructions No data available for this section General Surgery [place] Progress note No data available for this section General Surgery [place] Summary Purpose Family History No Family History [...] section and content) DATE CREATED AUTHOR 05/26/2018 [facility] DATE CREATED AUTHOR AUTHOR'S ORGANIZ ATION 09/06/2021 [facility] DATE CREATED AUTHOR AUTHOR'S ORGANIZ ATION 10/19/2022 [facility] DATE CREATED AUTHOR AUTHOR'S ORGANIZ ATION 04/17/2023 [facility] DATE CREATED AUTHOR AUTHOR'S ORGANIZ ATION 11/03/2024 [facility] Patient Care team informatio n (unrecognized section and content) Personnel Name: Nixon Bassett MD Address: Address: [address] [place] [address] Personnel Name: Nixon Bassett MD Address: Address: [address] [place] [address] FOR RECORDS PERTAINING TO PATIENTS WHO ARE [...] BE BASED ON THE PRIMARY CLINICAL RECORDS. [facility]. provides no warranty or guarantee of the accuracy or completeness of information in this document.
--- OUTSIDE RECORDS SUMMARY | 2025-03-02 06:36 | XMS_ITS | Patient Health Record ---
Author Organization [facility] in [place] Address [address] [place] [address] Care Team Providers Care Travel Registered Nurse Icu Name Role Phone Brad Garay Primary Care Provider Poornima Shaw Unavailable [phone] Allergies No Known Allergies Results Component Value Reference Range Notes XR thoracic spine 3V Reviewed date:02/17/2025 01:05:19 PM Interpretation: Performing Lab: Notes/Report: Source Facility: [place] [address] XRay Report Signed Patient: LINDA SOSA MR#: [id number] : 1950 Acct:[id number] Age/Sex: 75 / M ADM Date: 02/17/25 Loc: RAD Attending Dr: Nixon Garay M.D. Ordering Physician: Nixon Garay M.D. Date of Service: 02/17/25 Procedure(s): XR thoracic spine 3V Accession Number(s): [id number] cc: Nixon Garay M.D. [place] [address] Patient Name: LINDA SOSA MRN: [id number] date: 1950 Sex: M Assigned Patient Location: RAD Current Patient Location: [facility] Accession/Order Number: [id number] Exam Date: 02/17/2025 11:12 Report Date: 02/17/2025 [...] Renteria M.D. 02/17/2025 11:55 AM Dictation Location: [place] [address] Electronically authenticated by: [id number] Y Date: 02/17/2025 11:55 Dictated By: Shannan Renteria M.D. Signed By: 02/17/25 1157 DD/ 1155 TD/TT: Hand Edge Bander: FRANCO echo doppler complete Reviewed date:04/15/2024 08:06:55 PM Interpretation: Performing Lab: Notes/Report: Source Facility: [place] [address] Cardiology Report Signed Patient: LINDA SOSA MR#: [id number] : 1950 Acct:[id number] Age/Sex: 74 / M ADM Date: 04/15/24 Loc: CARD Attending Dr: Yakov Napoles M.D. Ordering Physician: Yakov Napoles M.D. Date of Service: 04/15/24 Procedure(s): FRANCO echo doppler complete Accession Number(s): [id number] cc: Yakov Napoles M.D.; Nixon Garay M.D. Patient Name: LINDA SOSA MR#: [id number] : 1950 Exam Date: 04/15/2024 Ordering Doctor: DR YAKOV NAPOLES M.D. ECHOCARDIOGRAM REPORT PROCEDURE: CA ECHO DOPPLER COMPLETE INDICATIONS: Heart failure with low ejection fraction, CABG COMPARISON: None. DESCRIPTION: COMPLETE ECHOCARDIOGRAM Real-time transthoracic echocardiography with 2D, M-mode, spectral and color flow Doppler performed. QUALITY: Technical quality was good. LEFT VENTRICLE: Normal chamber size. Mildly thickened septal wall. LV EF: Normal left ventricular ejection fraction, 65%. No kevon wall motion abnormalities. DIASTOLIC: Normal diastolic function. ATRIAL SEPTUM: Visually appears intact. LEFT ATRIUM: Moderate dilatation. RIGHT ATRIUM: Moderate dilatation. RIGHT VENTRICLE: Mild dilatation. Systolic function appears normal. Can not calculate RVSP due to lack of adequate tricuspid regurgitation Doppler signal TRICUSPID VALVE: Normal mobility and thickness. No stenosis with trivial regurgitation. MITRAL VALVE: Normal mobility and thickness. No evidence of mitral valve stenosis. There is no mitral annular calcification. Trivial mitral regurgitation. AORTIC VALVE: Normal trileaflet appearance. Mildly calcified aortic valve. Normal leaflet mobility. No evidence of aortic valve stenosis. No aortic regurgitation. AORTIC ROOT: Normal diameter and appearance. PULMONIC VALVE: Normal thickness and mobility. No stenosis. Trivial regurgitation. PERICARDIUM: No evidence of pericardial effusion. IVC: Collapes with inspirations. PLEURA: CONCLUSION: Normal left ventricle chamber size. Mildly thickened septal wall. Normal left ventricular ejection fraction, 65%. No kevon wall motion abnormalities. Normal diastolic function Mild right ventricle dilatation. Systolic function appears normal. No significant valvular abnormalities Adult Echocardiography Procedure Report Left Ventricle LVEDD (3.7 - 5.6 cm): 4.68 cm LVESD (2.2 - 4.0 cm): 2.97 cm LVIVS thickness (0.6 - 1.2 cm): 1.30 cm LVPW thickness (0.5 - 1.0 cm): 1.01 cm e': 0.14 m/s E - e': 6.29 LVOT Max Gradient: 3.88 mm[Hg] LVOT Area (cm2): 0.98 m/s Peak Velocity (LVOT): 0.98 m/s Mean Velocity (LVOT): 0.66 m/s LVOT Diameter 2.12 cm Left Atrium LA Volume Index (2D A2C): 43.95 ml/m2 Left Atrium Systolic Dimension: 4.59 cm Mitral Valve MV E to A Ratio: 1.96 Mitral Valve A-Wave Peak Velocity: 0.46 m/s Mitral Valve E-Wave Peak Velocity: 0.90 m/s Right Ventricle Aorta AO Root Diam: 3.43 cm Aortic Valve AoV Area (Peak Chaka): 2.69 cm2, 2.69 cm2 AoV Area (VTI): 2.73 cm2, 2.73 cm2 Peak Velocity(Antegrade Flow): 1.29 m/s Peak Gradient(Antegrade Flow): 6.64 mm[Hg] Mean Velocity(Antegrade Flow): 0.86 m/s Mean Gradient(Antegrade Flow): 3.48 mm[Hg] Velocity Time Integral: 26.61 cm Tricuspid Valve Pulmonic Valve Mean Gradient: 2.76 mm[Hg] Mean Velocity: 0.76 m/s Peak Velocity: 1.22 m/s, 1.22 m/s Peak Gradient: 5.93 mm[Hg], 5.93 mm[Hg] Right Atrium Right Atrium Systolic Pressure: 86.53 ml, 86.53 ml Dictated by: Flor Stubbs MD on 04/15/2024 at 18:34 Approved by: Flor Stubbs MD on 04/15/2024 at 18:43 Dictated By: Flor Stubbs M.D. Signed By: 04/15/241843 DD/ 42 TD/TT: Hand Edge Bander: GLYCOHEMOGLOBIN A1C Reviewed date:10/25/2024 06:19:42 PM Interpretation: Performing Lab: Notes/Report: [facility] , Glycohemoglobin A1C 5.8 4.5-6.2 % ADA THERAPEUTIC TARGET < 7.0 ACTION SUGGESTED > 7.0 ADA RECOMMENDED LIMIT 4.0 - 6.0 Estimated Average Glucose 120 Performing Lab: see note ML - [facility] LB LIPID PROFILE Reviewed date:10/25/2024 06:19:42 PM Interpretation: Performing Lab: Notes/Report: [facility] , Triglycerides 192 <=150 mg/dL Cholesterol 126 <=200 mg/dL HDL Cholesterol 41 40-60 mg/dL <40 mg/dl - HIGH CARDIOVASCULAR RISK > or =60 mg/dl - LOW CARDIOVASCULAR RISK LDL Cholesterol Calculated 47.0 160-189 mg/dl HIGH 100-129 mg/dl NEAR OR ABOVE OPTIMAL <100 mg/dl OPTIMAL >190 mg/dl VERY HIGH 130-159 mg/dl BORDERLINE HIGH VLDL CHOLESTEROL 38.4 Chol HDL Ratio 3.1 >11.0 HIGH RISK 7.1 - 11.0 MODERATE RISK 4.4 - 7.1 AVERAGE RISK 3.3 - 4.4 LOW RISK Performing Lab: see note - [facility] PROF 14(COMP METB) Reviewed date:10/25/2024 06:19:42 PM Interpretation: Performing Lab: Notes/Report: [facility] , Sodium 135 136-145 mmol/L Potassium 4.7 3.5-5.1 mmol/L Chloride 98 98-107 mmol/L Carbon Dioxide 32.3 21.0-32.0 mmol/L Anion Gap 9.4 Glucose 112 74-106 mg/dL Blood Urea Nitrogen 35.0 7.0-18.0 mg/dL Creatinine 1.34 0.70-1.30 mg/dL Estimated GFR ( Shanta >60 >=60 mL/min/1.73m 2 Estimated GFR (Non- Sophia 52 >=60 mL/min/1.73m 2 BUN Creatinine Ratio 26.1 Calcium 9.7 8.5-10.1 mg/dL Bilirubin Total 0.5 0.2-1.0 mg/dL Aspartate Amino Transferase 24 15-37 U/L Alanine Aminotransferase 30 16-63 U/L Alkaline Phosphatase 81 46-116 U/L Total Protein 7.8 6.4-8.2 g/dL Albumin Level 4.1 3.4-5.0 g/dL Globulin 3.7 Albumin Globulin Ratio 1.1 Performing Lab: see note ML - [facility] LB T4 Reviewed date:10/25/2024 06:19:42 PM Interpretation: Performing Lab: Notes/Report: [facility] , T4 Thyroxine 7.20 4.50-12.10 ug/dL Performing Lab: see note - [facility] LB TSH Reviewed date:10/25/2024 06:19:42 PM Interpretation: Performing Lab: Notes/Report: [facility] , Thyroid Stimulating Hormone 0.963 0.358-3.740 u IU/mL Performing Lab: see note ML - [facility] LB URIC ACID SERUM Reviewed date:10/25/2024 06:19:42 PM Interpretation: Performing Lab: Notes/Report: [facility] , Uric Acid 9.0 3.5-7.2 mg/dL Performing Lab: see note ML - [facility] LB PSA SCREENING Reviewed date:10/25/2024 06:19:42 PM Interpretation: Performing Lab: Notes/Report: [facility] , Prostate Specific Antigen Scrn 2.36 <=4.00 ng/mL Performing Lab: see note ML - [facility] LB FREE T3 Reviewed date:10/25/2024 06:19:42 PM Interpretation: Performing Lab: Notes/Report: [facility] , Free T3 3.17 2.18-3.98 pg/mL Performing Lab: see note ML - [facility] LB CBC AUTO DIFF Reviewed date:10/25/2024 06:19:42 PM Interpretation: Performing Lab: Notes/Report: [facility] , White Blood Count 6.1 4.0-11.0 10 3/uL Red Blood Count 5.18 4.70-6.10 10 6/uL Hemoglobin 16.0 14.0-18.0 g/dL Hematocrit 47.5 42.0-54.0 % Mean Corpuscular Volume 91.7 80.0-94.0 fL Mean Corpuscular Hemoglobin 30.9 25.9-34.0 pg Mean Corpuscular HGB Conc 33.7 29.9-35.2 g/dL Red Cell Distribution Width 12.8 11.0-15.0 % Platelet Count 215 150-450 10 3/uL Mean Platelet Volume 8.9 9.5-13.5 fL Neutrophils Percent Auto 57.1 43.0-75.0 % Lymphocytes Percent Auto 22.8 20.5-60.0 % Monocytes Percent Auto 9.7 1.7-12.0 % Eosinophils Percent Auto 9.4 0.9-7.0 % Basophils Percent Auto 0.5 0.2-2.0 % Immature Granulocytes Pct Auto 0.5 0.0-0.5 % Neutrophils Absolute Auto 3.5 1.4-6.5 10 3/uL Lymphocytes Absolute Auto 1.4 1.2-3.8 10 3/uL Monocytes Absolute Auto 0.6 0.3-0.8 10 3/uL Eosinophils Absolute Auto 0.6 0.0-0.7 10 3/uL Basophils Absolute Auto 0.0 0.0-0.1 10 3/uL Immature Granulocytes Abs Auto 0.03 0.00-0.03 10 3/uL Performing Lab: see note ML - [facility] LB BNP Reviewed date:10/25/2024 06:19:42 PM Interpretation: Performing Lab: Notes/Report: [facility] , NT Pro B Type Natriuretic Pept 109.0 <=900.0 pg/mL Performing Lab: see note ML - [facility] LB XR chest 2V Reviewed date:02/17/2025 01:05:19 PM Interpretation: Performing Lab: Notes/Report: Source Facility: [facility] [place] [address] [place] [address] XRay Report Signed Patient: LINDA SOSA MR#: [id number] : 1950 Acct:[id number] Age/Sex: 75 / M ADM Date: 02/17/25 Loc: RAD Attending Dr: Nixon Garay M.D. Ordering Physician: Nixon Garay M.D. Date of Service: 02/17/25 Procedure(s): XR chest 2V Accession Number(s): [id number] cc: Nixon Garay M.D. [place] [address] Patient Name: LINDA SOSA MRN: [id number] date: 1950 Sex: M Assigned Patient Location: [facility] Current Patient Location: RAD Accession/Order Number: [id number] Exam Date: 02/17/2025 11:12 Report Date: 02/17/2025 [...] are no paraspinal soft tissue abnormalities. XR/XR chest 2V IMPRESSION: OSTEOPENIA, SUBTLE SCOLIOSIS AND DEGENERATIVE CHANGES [...] Renteria M.D. 02/17/2025 11:55 AM Dictation Location: [place] [address] Electronically authenticated by: [id number] Y Date: 02/17/2025 11:55 Dictated By: Shannan Renteria M.D. Signed By: 02/17/25 1157 DD/ 1155 TD/TT: Hand Edge Bander: Reason For Referral Diagnosis 1 Trapezius muscle spa sm (M62.838) Referral Organization [facility] Referring Provider First Name Brad Referring Provider Last Name Davidaki Referring Provider Speciality Family Med icine Referred Provider [facility], Physical Therap y Referred Provider Specialty Physical The rapist Referral Priority Routine Medications Medication SIG (Take, Route, Frequency, Duration) Notes Start Date End Date Status Lisinopril 20 MG TAKE 2 TABLETS BY MO UT EVERYDAY AT BEDTIME; Duration: 90 Active Magnesium Oxide 400 MG TAKE 1 TABLET BY MOUTH TWICE A DAY WITH FOOD; Duration: 90 Active metFORMIN HCl 500 MG TAKE 1 TABLET BY MO UT THREE TIMES A DAY; Duration: 90 days Active OneTouch Delica Lancets 30G 1 lancet to poke finger once daily DX E11.9; Duration: 90 days Active Atorvastatin Calcium 80 MG TAKE 1 TABLET BY MOUTH EVERY DAY; Duration: 90 days Active traMADol HCl 50 MG 1 tablet as needed Orally tid; Duration: 7 days 02/24/2025 Active Blood Glucose Monitor System w/Device as directed Active OneTouch Ultra - USE TO TEST ONCE A D AY *DX E11.9*; Duration: 90 Active Chlorthalidone 25 MG 1 tablet in the mor janell with food Orally once a day; Duration: 90 days Active OneTouch Ultra Blue Active Cholecalciferol 125 MCG (500 0 UT) as directed Orally Active tiZANidine HCl 4 MG 2 tabs Orally qhs; Duration: 30 days 02/10/2025 Active Eliquis 5 MG 1 tablet Orally [...] TIMES A DAY; Duration: 90 days Active Aspirin 81 MG 1 tablet Orally Once a day Active Immunizations Vaccine Route Administration Date Status Comme [facility] Comirnaty Pfizer Single-Dose 30 mcg/0.3mL Unknown 03/11/2023 Administered RSV Vaccine Unknown 06/12/2023 Administered SARS-COV-2 (COVID 19 Pfizer Booster 0.3mL) Unknown 09/16/2020 Administered SARS-COV-2 (COVID 19 Pfizer Booster 0.3mL) Unknown 10/07/2020 Administered SARS-COV-2 (COVID 19 Pfizer Booster 0.3mL) Unknown 05/03/2021 Administered SARS-COV-2 (COVID 19 Pfizer Comirnaty 12+, SDV, 9040-3687) Unknown 04/06/2022 Administered Social History Tobacco Use: Social History Observation Description Date Details (start date - stop date) Former Smoker 10/19/1970 - 10/19/2014 Tobacco Use/Smoking Question Answer Notes Patient is a former smoker When did you start smoking? 10/19/1970 When did you stop smoking? 10/19/2014 How long has it been since you last smoked? > 10 years Alcohol Screen (Audit-C) Question Answer Notes Did you have a drink contain ing alcohol in the past year? Yes How often did you have 6 or more drinks on one occasion in the past year? Never (0 point) How many drinks did you have on a typical day when you were drinking in the past year? 1 or 2 drinks (0 point) How often did you have a dri nk containing alcohol in the past year? Less than monthly (1 point) Points 1 Interpretation Negative AUDIT-C (Standard) Question Answer Notes Did you have a drink containing alcohol in the p ast year? 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) Active confirmed Problem Hyperlipidemia (39102684) Hyperlipidemia (E78.5) Active confirmed Problem Hypertension (34072157) Hypertension (I10) Active confirmed Problem Osteoarthritis (880912632) Osteoarthritis (M19.90) Active confirmed Problem Cervical radiculopathy (38950722) Cervical radiculopathy (M54.12) Active confirmed Problem Coronary artery disease (27467171) CAD (coronary artery disease) (I25.10) Active confirmed Problem Bradycardia (66722787) Bradycardia (R00.1) Active confirmed Problem Gout (57415574) Gout (M10.9) Active confirmed Problem Obstructive sleep apnea (04616230) Obstructive sleep apnea (G47.33) Active confirmed Problem Paroxysmal atrial fibrillation (298654206) Paroxysmal atrial fibrillation (I48.0) Active confirmed Problem Hypertriglyceridemia (351400502) Hypertriglyceridemia (E78.1) Active confirmed Problem Well adult (298438060) Well adult (Z00.00) Active confirmed Problem Cellulitis (526101877) Cellulitis (L03.90) Active confirmed Problem Cramp in lower limb (346087305) Leg cramps (R25.2) Active confirmed Problem Right inguinal herni a (262687703) Right inguinal hernia (K40.90) Active confirmed Problem Benign prostatic hyperplasia (318828467) Benign prostate hyperplasia (N40.0) Active confirmed Problem Spasm (14366934) Trapezius muscl e spasm (M62.838) Active confirmed Problem Heart failure (31530573) Heart failure with reduced left ventricular function (I50.9) Active confirmed Problem Diabetes mellitus (88873851) Diabetes mellitus (E11.9) Active confirmed Problem Contracture of galloway r fascia (148430852) Dupuytren's disease of both palm and finger (M72.0) Active confirmed Vital Signs Heart Rate 69 /min 07/16/2024 Temperature 98.6 degrees Fahrenheit 07/16/2024 Oximetry 97 % 07/16/2024 Blood pressure diastolic 72 mm Hg 02/24/2025 Height 76 in 02/24/2025 Blood pressure systolic 140 mm Hg 02/24/2025 Weight 214.0 lbs 02/24/2025 BMI 26.05 kg/m2 02/24/2025 Encounters Encounter Location Date Provider Diagnosis [address] [address] 06/19/2024 Bard Hoy Hyperlipidemia E78.5 ; Hypertension I10 ; CAD (coronary artery disease) I25.10 ; Paroxysmal atrial fibrillation I48.0 and Diabetes mellitus E11.[address] [address] 10/22/2024 Brad Hoy Acute combined systo lic (congestive) and diastolic (congestive) heart failure I50.41 ; Hyperlipidemia E78.5 ; Hypertension I10 ; CAD (coronary artery disease) I25.10 ; Paroxysmal atrial fibrillation I48.0 and Diabetes mellitus E11.[address] [address] 07/16/2024 Poornima Valeria Bronchitis J40 [address] [address] 02/24/2025 Brad Hoy Cervical radiculopat hy M54.12 ; Hypertension I10 ; Acute combined systolic (congestive) and diastolic (congestive) heart failure I50.41 ; Diabetes mellitus E11.9 and Dupuytren's disease of both palm and finger M72.[address] [address] 02/10/2025 Brad Hoy Trapezius muscle spa sm M62.[address] [address] 02/17/2025 Brad Hoy Trapezius muscle spa sm M62.[address] [address] 10/25/2024 Brad Garay [facility] [address] [place] [address] 02/17/2025 Brad Garay Assessments Encounter Date Diagnosis (ICD Code) Assessment Notes Treatment Notes Treatment Clinical Notes Section Notes 06/19/2024 Hyperlipidemia (ICD-10 - E78.5) 06/19/2024 Hypertension (ICD-10 - I10) 10/22/2024 Acute combined systolic (congestive) and diastolic (congestive) heart failure (ICD-10 - I50.41) 10/22/2024 Hyperlipidemia (ICD-10 - E78.5) 07/16/2024 Bronchitis (ICD-10 - J40) fu if not improving, worsens 02/24/2025 Hypertension (ICD-10 - I10) 02/24/2025 Cervical radiculopathy (ICD-10 - M54.12) Failing meds - doing pt with no sig improvement and now twih eakness and tinglin into R hand consistent with Cervical radiculopathy - needs MRI 02/10/2025 Trapezius muscle spasm (ICD-10 - M62.838) 02/17/2025 Trapezius muscle spasm (ICD-10 - M62.838) 02/24/2025 Acute combined systolic (congestive) and diastolic (congestive) heart failure (ICD-10 - I50.41) 10/22/2024 Hypertension (ICD-10 - I10) 06/19/2024 CAD (coronary artery disease) (ICD-10 - I25.10) 06/19/2024 Paroxysmal atrial fibrillation (ICD-10 - I48.0) 10/22/2024 CAD (coronary artery disease) (ICD-10 - I25.10) 02/24/2025 Diabetes mellitus (ICD-10 - E11.9) 02/24/2025 Dupuytren's disease of both palm and finger (ICD-10 - M72.0) 10/22/2024 Paroxysmal atrial fibrillation (ICD-10 - I48.0) 06/19/2024 Diabetes mellitus (ICD-10 - E11.9) 10/22/2024 Diabetes mellitus (ICD-10 - E11.9) 02/24/2025 Other Recommended to rest and use a heating pad on the area. Take NSAIDs for pain as needed 02/17/2025 Other Recommended to rest and use a heating pad on the area. Take NSAIDs for pain as needed Plan Of Treatment Pending Test Test Name Order Date CMP (COMPLETE METABOLIC PANEL) 3 CMP (COMPLETE METABOLIC PANEL) 4 HEMOGLOBIN A1C (GLYCO) 10/22/2024 HEMOGLOBIN A1C (GLYCO) 10/10/2022 INSULIN, TOTAL 10/10/2022 LIPID PANEL (CHOL/TRIG/HDL/LDL) 10/11/19 23 LIPID PANEL (CHOL/TRIG/HDL/LDL) 10/23/19 25 CBC WITH DIFF 10/10/2022 PSA, PROSTATE-SPECIFIC ANTIGEN 3 PSA, PROSTATE-SPECIFIC ANTIGEN 4 URIC ACID 10/10/2022 URIC ACID 10/22/2024 CBC W/AUTO DIFF 10/03/2023 STOOL OCCULT BLOOD 10/03/2023 STOOL OCCULT BLOOD 10/10/2022 GLYCOHEMOGLOBIN A1C 10/03/2023 LIPID PROFILE 10/03/2023 VITAMIN D 25 OH 10/10/2022 MRI CSPINE WO CON 02/24/2025 XR CHEST 2 V 02/17/2025 THYROID PANEL (T4/TSH/FREE T3) 4 THYROID PANEL (T4/TSH/FREE T3) 5 THYROID PANEL (T4/TSH/FREE T3) 3 PSA, SCREENING 10/22/2024 CMP (COMP MET MOONEY) w/eGFR CKD-EPI 2024 CBC WITH DIFF 10/22/2024 Insurance Providers Payer Name Payer Address Payer Phone Subscriber Number Group Number Insured Name Patient Relationship to Insured Coverage Start Date Coverage End Date MEDICARE [place] [address] [facility] [place] SAHIL [phone] [id number] Linda Sosa Self - patient is the insured 6 [employer] Rebls SUPPLEMENTAL INSURANCE [address] [address] [facility] [place] [address] [id number] PLAN G Linda Sosa Self - patient is the insured 6 Medications Administered Medication Instructions Date of Administration Dosage Notes Ketorolac Tromethamine 02/17/2025 60 mg Triamcinolone 40 mg/ml 02/17/2025 120 mg Medical (General) History Medical History History ICD Code Overweight E66.3 Cellulitis L03.90 Heart failure with reduced left ventricu lar function I50.9 Acute combined systolic (con gestive) and diastolic (congestive) heart failure I50.41 Well adult Z00.00 Paroxysmal atrial fibrillation I48.0 Dupuytren's disease of both palm and fin tania M72.0 Diabetes mellitus E11.9 Obstructive sleep apnea G47.33 Osteoarthritis M19.90 Leg cramps R25.2 Hyperlipidemia E78.5 CAD (coronary artery disease) I25.10 Bradycardia R00.1 Benign prostate hyperplasia N40.0 Hypertriglyceridemia E78.1 Hypertension I10 Gout M10.9 Surgical History Surgery Date(Month/Year) atrial fibrillation ablation procedure vasectomy ct chest angiogram w and/or wo iv contra st cardioversion CABG 08/2020 Inguinal herniorrhaphy 03/20/23 appendectomy cardiac catherization pulmonary vein isolation and comprehensi ve EP study Hospitalization History Reason Date(Month/Year) see above
--- OUTSIDE RECORDS SUMMARY | 2025-03-02 06:36 | XMS_ITS | Clinical Summary ---
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 Name Role Phone Conrado Bassett MD Primary Care Provider [phone] Allergies No known active allergies Medications atorvastatin [...] Coronary arteriosclerosis 08/17/2020 Type 2 diabetes mellitus, [facility] long-term current use of insulin 08/01/2020 CAD [...] Date Type Department Care Team Description 12/17/2024 [facility] [address] [place] [id number] Yakov Pyle MD Essential hypertension from Last [...] 10/08/2024 9:01 AM EDT Plan of Treatment Upcoming Encounters Date Type Department Care Team (Late st Contact Info) Description 04/15/2025 2:15 PM EDT Office Visit [facility] [address] [place] [address] Yakov Pyle MD [address] [facility] [place] [address] Health Maintenance Due Date Last Done Comments [...] A1C 11/02/2020 08/05/2020 COVID-19 Vaccine ( season) 2025 02/19/2024, 03/11/2023, 04/06/2022, Additional history exists Adult Tetanus 01/18/2031 01/18/2021 Zoster Vaccines Completed 05/23/2024, 03/04/2024 Influenza Vaccine Completed 02/13/2025, , 02/26/2023, Additional history exists HIB Vaccines Aged Out No longer eligi [...] PM EST 08/05/2020 3:38 PM EST [facility] LAB BLOOD ORDERABLES Final Resu lt LAB CONVERSIONS from Last 3 Months or Most Recently Relevant to Health Maintenance Insurance MEDICARE T [employer] Advance Directives * Full Code (Latest Code Status on File) Date Activated Date Inactivated Comments 11/06/2023 12:49 PM 11/06/2023 6:54 PM 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
--- NOTE | 2025-03-02 06:40 | MR_ITS ---
The [address] [address] Patient Name: LINDA SOSA MRN: [id number] date: 1950 Sex: M Assigned Patient Location: MRI Current Patient Location: MRI Accession/Order Number: [id number] Exam Date: 03/02/2025 06:50 Report Date: 03/02/2025 11:50 At the request of: NIXON GARAY MD Procedure: MR cervical spine wo con EXAMINATION: MRI OF THE CERVICAL SPINE WITHOUT CONTRAST CLINICAL DATA: M54.12 Cervical Radiculopathy TECHNIQUE: Multiecho imaging was performed in the sagittal and axial plane without contrast administration. FINDINGS: Straightening and mild reversal normal cervical lordosis. Moderate intervertebral space narrowing C5-C7. T1 hypointense and T2 evidence of inflammatory changes sclerosis C6-C7. T1-T2 hyperintense endplate marrow changes changes C4-C5. Cervical cord demonstrates normal signal and morphology. There is mild motion degradation of images which does degrade imaging quality. Craniocervical junction maintained. C2-C3: There is qdju-ya-guokkgdm left greater than right facet arthropathy C2-3 with mild right-sided and mild to moderate left-sided narrowing. No focal disc protrusion. Canal is patent. C3-C4: Broad-based disc osteophyte complex with spurring and facet arthropathy causing moderate right greater left neural foraminal narrowing and moderate canal narrowing. C4-C5: Broad-based disc osteophyte complex with uncovertebral and facet arthropathy causing mild right moderate left neural foraminal narrowing. Mild central stenosis. C5-6: Broad-based disc osteophyte complex with uncovertebral and facet arthropathy identified causing mild right moderate left neural foraminal narrowing. Right subarticular T2 hyperintensity identified could represent a focal disc protrusion, best seen axial image 17. Vnth-us-ukdlqfpt central canal stenosis. C6-7: Circumferential disc osteophyte complex with uncovertebral spurring. There is complete effacement right foramina. Moderate left foraminal narrowing. Facet arthropathy. C7-T1: Moderate severe right and moderate left-sided facet arthropathy. Moderate severe right foraminal narrowing. Mild left foraminal encroachment. Canal is patent. MR/MR cervical spine wo con Impression: Multilevel degenerative changes greatest in the right from C5 through T1 Impression dictated by: Mandeep Herron M.D. 03/02/2025 11:50 AM Dictation Location: [place] [address] Electronically authenticated by: [id number] Y Date: 03/02/2025 11:50
== END 2025-03-02 06:33 | disposition home or self-care (01) ==
LOC: MRI 06:33
PROVIDERS: PCP Family Medicine; Visit Provider Family Medicine
DX: M54.12 Radiculopathy, cervical region (principal)
CPT/HCPCS: 72141

== ENCOUNTER 2025-05-06 13:14 | Outpatient (OUT) | payer MEDICARE, SELFPAY ==
--- OUTSIDE RECORDS SUMMARY | 2025-04-29 10:40 | XMS_ITS | Encounter Summary ---
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 Electric Furnace Operator Name Role Phone Conrado Bassett MD Primary Care Provider [phone] Reason for Referral * Imaging (Routine) - Pending ReviewSpecialtyDiagnoses / ProceduresReferred By ContactReferred To ContactCardiology Diagnoses Chronic systolic heart failure (CMS/HCC) Procedures Transthoracic echo (TTE) complete Laura Rodrigez CNP [address] [place] [address] Phone: tel: fax: Referral IDStatusReasonStart DateExpiration DateVisits RequestedVisits [id number] Review Perform Procedure Reason for Visit * ReasonCommentsFollow-upPatient is here today for a 6 month follow up. Patient denies chest pain, SOB/LEA, edema, racing heart/palpitations, dizziness/lightheaded, abnormal bleeding/bruising. 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); Coronary artery disease involving bad river band coronary artery of bad river band heart without angina pectoris; Paroxysmal atrial fibrillation (CMS/HCC); S/P ablation of atrial flutter; Benign hypertensive heart disease with heart failure (CMS/HCC); Mixed hyperlipidemia; History of cardiac ablation for atrial fibrillation (CMS/HCC); Nonrheumatic mitral valve regurgitation; Hx of CABG Social History Tobacco UseTypesPacks/DayYears UsedDateSmoking Tobacco: FormerCigarettes Smokeless Tobacco: NeverAlcohol UseStandard Drinks/WeekCommentsYes0 (1 standard drink = 0.6 oz pure alcohol)occasionalPHQ-2AnswerDate RecordedPatient Health Questionnaire-2 Umxxl896UT Safety & EnvironmentAnswerDate RecordedFear of Current or Ex-PartnerNot on file08/08/2023Emotionally AbusedNot on file 4Physically AbusedNot on file08/08/2023Sexually AbusedNot on file 4Physically or Sexually AbusedNot on file08/08/2023Sex and Gender InformationValueDate RecordedSex Assigned at ZciftCprd57/24/2025 9:48 AM EDT Legal SgoMtoe1812/14/2021 12:13 AM EDTGender RbefsexcYsau18/27/2025 1:22 PM EDT Sexual OrientationHeterosexual or Cnjvydnp40/27/2025 1:22 PM EDTdocumented as of this encounter Last Filed Vital Signs Vital SignReadingTime TakenCommentsBlood Kgabcyxn079/7604/29/2025 11:07 AM EST Azvuc935504/29/2025 11:07 AM ESTTemperature--Respiratory Rate--Oxygen Saturation 96%04/29/2025 11:07 AM ESTInhaled Oxygen Concentration--Bronup297 kg (221 lb) 04/29/2025 11:07 AM GZVGronrj225 cm (6' 4 )04/29/2025 11:07 AM ESTBody Mass Index26.911/ 11:07 AM ESTdocumented in this encounter Functional Status * BPAnswerDate of NspwikimauMjgnfk951/76/ 11:07 AM Alie Edwards MA * PulseAnswerDate of KptnkhwxhvUprzqa4076/13/2025 11:07 AM Alie Edwards MA * Audit Alcohol ScreeningQuestionAnswerDate of AssessmentAuthorHow often do you have a drink containing alcohol? 11:12 AM Alie Edwards MA * Patient PositionAnswerDate of XcvlrajcipZtpnrvNycwptq31/13/2025 11:07 AM Alie Porras MA * BPAnswerDate of XzgqzchxedPgyhfq811/7604/29/2025 11:07 AM Alie Edwards MA * PulseAnswerDate of XjdvwxkgbyHkbwxl3508/13/2025 11:07 AM Alie Edwards MA * VkM5KvrztpBrhc of RvgucthmwvZnlmsy4951/13/2025 11:07 AM Alie Edwards MA * BP LocationAnswerDate of AssessmentAuthorLeft arm04/29/2025 11:07 AM Alie Porras MA * Audit Alcohol ScreeningQuestionAnswerDate of AssessmentAuthorHow often do you have a drink containing alcohol? 11:12 AM Alie Edwards MA * Patient PositionAnswerDate of FmfgapbuisJnbymgAbmjevr73/13/2025 11:07 AM Alie Porras MA documented as of this encounter Progress Notes * Laura Rodrigez, ALEXIA - 04/29/2025 10:40 AM EST Images from the original note were not included. Cardiovascular Medicine [facility] SUBJECTIVE Chief Complaint Patient presents with Follow-up Patient is here today for a 6 month follow up. Patient denies chest pain, SOB/LEA, edema, racing heart/palpitations, dizziness/lightheaded, abnormal bleeding/bruising. Patient complains of leg fatigue with activity Atrial Fibrillation Coronary Artery Disease Hyperlipidemia Congestive Heart Failure Bradycardia Atypical Atrial flutter Hypertension Mayank Lee is a 75 y.o. male here for follow-up. Atrial Fibrillation Past medical history includes atrial fibrillation, CAD, CHF and hyperlipidemia. Coronary Artery Disease Risk factors include hyperlipidemia. His past medical history is significant for CHF. Hyperlipidemia Congestive Heart Failure His past medical history is significant for CAD. Hypertension PMHx: CAD s/p 4-vessel coronary artery bypass [...] orthopnea, PND, LE edema, dizziness/LH, palpitations, syncope. 04/29/2025 He denies any changes since last seen. BP running 120s/70s after medications, HR 60-70s Denies c/o CP, dyspnea, orthopnea, PND, LE edema, dizziness/LH, palpitations, syncope. Patient Active Problem List Diagnosis Abnormal stress test Atrial fibrillation ([facility]) CAD (coronary artery disease) Coronary arteriosclerosis Type 2 diabetes mellitus, without long-term current use of insulin ([facility]) Hyperlipidemia Hypertension Acute combined systolic (congestive) and diastolic (congestive) heart failure ([facility]) BMI 27.0-27.9,adult BPH (benign prostatic hyperplasia) Bradycardia Heart failure with reduced left ventricular function ([facility]) DULCE MARIA (obstructive sleep apnea) Overweight Right inguinal hernia Atypical atrial flutter ([facility]) Cellulitis Contracture of palmar fascia Cramps of lower extremity Osteoarthritis Abnormal MRI Cervical radiculopathy Spasm Past Medical History: Diagnosis Date Abnormal ECG Arrhythmia Atrial fibrillation ([facility]) CHF (congestive heart failure) ([facility]) Chronic kidney disease Coronary artery disease Diabetes mellitus ([facility]/H[facility]) Hyperlipidemia Hypertension Family History Problem Relation Name Age of Onset Heart attack Father Heart attack Brother Social History Tobacco Use Smoking status: Former Types: Cigarettes Smokeless tobacco: Never Substance Use Topics Alcohol use: Yes Comment: occasional Drug use: Never No Known Allergies ROS Musculoskeletal: Positive for arthritis and joint pain. All other systems reviewed and are negative. OBJECTIVE Visit Vitals BP 136/76 (BP Location: Left arm, Patient Position: Sitting) Pulse 65 Ht 1.93 m (6' 4 ) Wt 100 kg (221 lb) SpO2 96% BMI 26.90 kg/m?? Smoking Status Former BSA 2.32 m?? Medications: Current Outpatient Medications: acetaminophen (Tylenol) 500 mg tablet, Take by mouth every 6 (six) hours if needed for mild pain (1-3 pain score)., Disp: , Rfl: apixaban (Eliquis) 5 mg tablet, Take 1 tablet (5 mg) by mouth two times daily., Disp: 60 tablet, Rfl: 11 aspirin 81 mg EC tablet, Take 81 mg by mouth in the morning., Disp: , Rfl: atorvastatin (Lipitor) 80 mg tablet, TAKE 1 TABLET BY MOUTH EVERY DAY, Disp: 90 tablet, Rfl: 3 chlorthalidone (Hygroton) 25 mg tablet, TAKE 1 TABLET BY MOUTH EVERY DAY IN THE MORNING, Disp: 90 tablet, Rfl: 3 furosemide (Lasix) [...] 01/27/2024 Component Date Value Ref Range Status Ventricular Rate 01/27/2024 80 BPM Final Atrial Rate 01/27/2024 80 BPM Final MD Interval 01/27/2024 146 ms Final QRS DURATION 01/27/2024 92 ms Final QT Interval 01/27/2024 392 ms Final QTC CALCULATION(BAZETT) 01/27/2024 452 ms Final P [place] 01/27/2024 96 degrees Final R-[place] 01/27/2024 63 degrees Final T Wave [place] 01/27/2024 -45 degrees Final Ventricular Rate 01/27/2024 70 BPM Final Atrial Rate 01/27/2024 70 BPM Final MD Interval 01/27/2024 196 ms Final QRS DURATION 01/27/2024 96 ms Final QT Interval 01/27/2024 426 ms Final QTC CALCULATION(BAZETT) 01/27/2024 460 ms Final P [place] 01/27/2024 78 degrees Final R-[place] 01/27/2024 73 degrees Final T Wave [place] 01/27/2024 -18 degrees Final POCT ACT 01/27/2024 161 (A) 82 - 152 seconds Final QC Pass/Fail 01/27/2024 Passed Final QC LOT # 01/27/2024 18 Final QC Expiration Date 01/27/2024 22,825 Final POCT ACT 01/27/2024 331 (A) 82 - 152 seconds Final QC Pass/Fail 01/27/2024 Passed Final QC LOT # 01/27/2024 18 Final QC Expiration Date 01/27/2024 22,825 Final POCT ACT 01/27/2024 364 (A) 82 - 152 seconds Final QC Pass/Fail 01/27/2024 Passed Final QC LOT # 01/27/2024 18 Final QC Expiration Date 01/27/2024 22,825 Final POCT ACT 01/27/2024 378 (A) 82 - 152 seconds Final QC Pass/Fail 01/27/2024 Passed Final QC LOT # 01/27/2024 18 Final QC Expiration Date 01/27/2024 22,825 Final POCT ACT 01/27/2024 387 (A) 82 - 152 seconds Final QC Pass/Fail 01/27/2024 Passed Final QC LOT # 01/27/2024 18 Final QC Expiration Date 01/27/2024 22,825 Final No results found for: EXTCMP , BMPR1A , CBCDIF , BNP , LASAP , RED 10/24/2024 Hgb 16, plt 215 HgbA1c 5.8 Cr 1.34, BUN 35, K 4.7, Na 135, eGFR 52, AST 24, ALT 30 NTproBNP 109 Chol 126, trig 192, HDL 41, LDL 47 TSH 0.963, T4 7.2 Testing/Procedures: ECHO 04/15/2024 LVEF normal at 65%, no RWMA, mildly thickened septal wall. Normal diastolic function Mild RV dilatation, normal systolic function No significant valvular abnormalities ATYPICAL FLUTTER ABLATION PROCEDURE NOTE DATE OF PROCEDURE: 01/27/2024 PERFORMING PHYSICIAN: Dr. Scout Jean Baptiste NAME OF THE PROCEDURE: Pulmonary Vein Isolation and Comprehensive EP study. INDICATIONS FOR PROCEDURE: 1. Atypical flutter 2. Persistent atrial fibrillation s/p Cryomaze+ Atriclip with recurrence: s/p PVI+post box+CTI+ Anterior mitral line/ post mitral line. PROCEDURES PERFORMED: 1. Sonosite guided venous access [...] 6. Left heart pressure measurements. 7. Fluroscopy. Echocardiogram 09/2023: Global left ventricular systolic function is difficult to assess but appears mildly reduced; visually estimated ejection fraction is 40 to 45% Normal right ventricular size and systolic function Moderate tricuspid regurgitation Biatrial enlargement Moderately elevated left ventricular systolic pressure; RVSP 47 mmHg Moderate mitral regurgitation Mild pulmonic regurgitation POST PROCEDURE DIAGNOSIS Atypical LA flutter successfully terminated with ablation at the base of RAFFI stump. Persistent atrial fibrillation s/p prior Cryo maze+LA atriclip: PVI ([facility])+ Superior and Inferior roof line (Post Box isolation+ Anterior and posterior mitral line ablation. Atrial flutter s/p CTI ablation with bidirectional block. Elevated LA filling pressures with tachycardia. No VA conduction. PLAN: 1. Anticoagulation after 4 hrs of sheath removal. 2. Protonix 40mg bid x 1 month 3. Groin precautions. Scout Jean Baptiste MD Cardiac Electrophysiology ATRIAL FIBRILLATION ABLATION PROCEDURE NOTE DATE OF PROCEDURE: 11/06/2023 PERFORMING PHYSICIAN: Dr. Scout Jean Baptiste HEATER FURNACE: LISA CONSENT: Patient NAME OF THE PROCEDURE: Pulmonary Vein Isolation and Comprehensive EP study. INDICATIONS FOR PROCEDURE: 1. Persistent atrial fibrillation s/p Cryomaze+ Atriclip in the past. PROCEDURES PERFORMED: 1. Sonosite guided venous access [...] results using intravenous adenosine infusion. 8. Fluroscopy. POST PROCEDURE DIAGNOSIS 1. Persistent atrial fibrillation s/p prior Cryo maze= LA atriclip: PVI ([facility])+ Superior and Inferior roof line (Post Box isolaton+ Anterior and posterior mitral line ablation. 2. Atrial flutter s/p CTI ablation with bidirectional block. 3. Elevated LA filling pressures with tachycardia. 4. No VA conduction. PLAN: 1. Anticoagulation after 4 hrs of sheath removal. 2. Protonix 40mg bid x 1 month 3. Groin precautions. Scout Jean Baptiste MD Cardiac Electrophysiology 07/2021 Echo Operative report 08/25/2020: Coronary artery bypass grafting x 4; CORDOVA to LAD, saphenous vein graft to second diagonal and ramusintermedius, saphenous vein graft obtuse marginal 1 Extended left atrial cryo-maze procedure and exclusion of the left atrial appendage with 45 mm atrial clip device Endoscopic vein harvesting of the left greater saphenous vein ASSESSMENT/PLAN: Coronary artery disease, history of coronary artery bypass graft surgery 2020 HFimpEF (hx EF 40-45%, most recent EF 65% per 03/2024 TTE) Valvular heart disease Atrial fibrillation s/p Maze procedure 2020 and Ablation 10/2023, s/p post box isolation ablation 11/06/23 - on Eliqus Atypical atrial flutter s/p ablation 01/27/2024 Dyslipidemia Hypertension Diastolic dysfunction Plan: Patient is doing well from a cardiac standpoint. His most recent ECHO from 03/2024 showed his EF had improved to normal function. Will order for a yearly follow-up ECHO. Continue ASA, statin for CAD management. No BB due to issues with bradycardia while on coreg. He also notes he feels better being off of coreg. His lipids were fairly controlled from 10/2024 labs. Discussed he needed to watch his carb/sugar/ETOH intake given his triglycerides were elevated at 192. He stated understanding. LDL well controlled at 47. GDMT for HF: continue lisinopril 40mg daily. Unable to afford SGLT2i. He notes his weights have been stable. He appears compensated on exam, continue lasix 80mg daily. Labs from 10/2024 showed elevated Cr of 1.34. Discussed repeating labs, he declines at this time. BP well controlled, continue chlorthalidone, lisinopril. RRR on exam. He denies bleeding issues. Continue Eliquis 5mg BID for stroke prophylaxis. Most recent ECHO 03/2024 showed no significant valve abnormalities. Continue to monitor. Follow up in about 6 months (around 10/27/2025). Laura Rodrgiez CNP [facility] Cardiovascular Medicine documented in this encounter Plan of Treatment NameTypePriorityAssociated DiagnosesOrder ScheduleTransthoracic echo (TTE) completeEchocardiographyRoutine Chronic systolic heart failure (CMS/HCC) Expected: 04/29/2025 (Approximate), Expires: 04/29/2027documented as of this encounter Visit Diagnoses Diagnosis Chronic systolic heart failure (CMS/HCC)- Primary Chronic systolic heart failure Heart failure with improved ejection fraction (HFimpEF) (CMS/HCC) Coronary artery disease involving bad river band coronary artery of bad river band heart without angina pectoris Paroxysmal atrial fibrillation (CMS/HCC) Atrial fibrillation S/P ablation of atrial flutter Other postprocedural status Benign hypertensive heart disease with heart failure (CMS/HCC) Mixed hyperlipidemia History of cardiac ablation for atrial fibrillation (CMS/HCC) Nonrheumatic mitral valve regurgitation Hx of CABG Postsurgical aortocoronary bypass status documented in this encounter Care Teams Team MemberRelationshipSpecialtyStart DateEnd Conrado Bassett MD [address] [facility] [place] [place] [address] PCP - 12/06/22documented as of this encounter
--- OUTSIDE RECORDS SUMMARY | 2025-05-06 13:18 | XMS_ITS | Clinical Summary ---
Author Organization [facility] Address [address] [address] Care Team Providers Care Clinical Research Monitor Name Role Phone Conrado Bassett MD Primary Care Provider [phone] Allergies No known active allergies Medications MedicationSigDispense QuantityRefillsLast FilledStart DateEnd DateStatus atorvastatin (Lipitor) 80 mg tablet Indications:Mixed hyperlipidemiaTAKE 1 TABLET BY MOUTH EVERY DAY 90 tablet ctive aspirin 81 mg EC tablet Take 81 mg by mouth in the morning.09/30/2013ctive lisinopril 20 mg tablet Take 40 mg by mouth at bedtime.11/28/2022ctive metFORMIN (Glucophage) 500 mg tablet Take 500 mg by mouth in the morning, afternoon, and at bedtime.11/10/2022ctive furosemide (Lasix) 80 mg tablet Take 80 mg by mouth in the morning.10/14/2022ctive magnesium oxide (Mag-Ox) 400 mg (241.3 mg magnesium) tablet Take 1 tablet by mouth in the morning and at bedtime.10/04/2022ctive potassium chloride CR (Klor-Con M20) 20 mEq ER tablet Klor-Con M20 mEq tablet,extended release TAKE 1 TABLET BY MOUTH THREE TIMES A DAYActive glimepiride (Amaryl) 2 mg tablet Take 2 mg by mouth before breakfast.11/01/2023ctive apixaban (Eliquis) 5 mg tablet Indications:Paroxysmal atrial fibrillation (CMS/HCC)Take 1 tablet (5 mg) by mouth two times daily. 60 tablet 1104504/6Active chlorthalidone (Hygroton) 25 mg tablet Indications:Essential hypertensionTAKE 1 TABLET BY MOUTH EVERY DAY IN THE MORNING 90 tablet 5Active acetaminophen (Tylenol) 500 mg tablet Take by mouth every 6 (six) hours if needed for mild pain (1-3 pain score). Active carvedilol (Coreg) 25 mg tablet Indications:Essential hypertensionTake 1 tablet (25 mg) by mouth with breakfast and with evening meal. 180 tablet Discontinued(Med List Cleanup) Active Problems ProblemNoted DateDiagnosed DateAbnormal MRI04/14/2025ervical radiculopathy 04/14/20253440Zycnv72/29/6207Wlkygxbotw50/28/2024ontracture of palmar fascia 04/13/2024ramps of lower ppxsqzedi81/28/1384Ovorbcugspjvvs72/28/2024typical atrial bnyoazd0412/10/2023cute combined systolic (congestive) and diastolic (congestive) heart vmuhmzh07MI 27.0-27.9,adult10/29/2023 10/29/2023PH (benign prostatic hyperplasia)radycardia Heart failure with reduced left ventricular function OSA (obstructive sleep apnea)Overweight ight inguinal juhcjw13oronary wfsbabdnznkxuvhp59/03/2021Type 2 diabetes mellitus, without long-term current use of xfaactl8708/01/2020AD (coronary artery disease)10/26/2013 Assessment & Plan (12/11/2022 11:33 AM EDT): [...] exercise as tolerated and continue all medications. Kkxfpfyprsitan83/12/2014 Assessment & Plan (12/11/2022 11:33 AM EDT): Lipid abnormalities are well controlled Liver function normal Continue lipitor Abnormal stress test09/30/2013trial eurrbqlvxhmr62/16/2014 Assessment & Plan (12/11/2022 11:31 AM EDT): Denied any palpitations or reoccurance of a fib- CT surgery Dr Keily gillette'fei anticoaguation Continue coreg Xmhatzytipgy39/16/2014 Assessment & Plan (12/11/2022 11:34 AM EDT): Hypertension is well controlled 133/70 Continue coreg and lisniopril, and imdur Encounters DateTypeDepartmentCare RisuDcqmibxqfpl92/13/2025 10:40 AM ESTOffice Visit [facility] [address] [place] [address] Laura Rodrigez CNP Chronic systolic heart failure (CMS/HCC) (Primary Dx); Heart failure with improved ejection fraction (HFimpEF) (CMS/HCC); Coronary artery disease involving [place] coronary artery of [place] heart without angina pectoris; Paroxysmal atrial fibrillation (CMS/HCC); S/P ablation of atrial flutter; Benign hypertensive heart disease with heart failure (CMS/HCC); Mixed hyperlipidemia; History of cardiac ablation for atrial fibrillation (CMS/HCC); Nonrheumatic mitral valve regurgitation; Hx of CABG04/12/2025 2:00 PM EDTConsult [facility] [address] [place] [phone] Sacha Johnston MD Cervical spondylosis (Primary Dx)03/10/2025 12:05 AM EDT - 03/10/2025 11:59 PM EDTHospital Encounter [facility] Radiology External Films [address] [place] [phone] Discharge Disposition: Home or Self Care (01)03/10/2025 - 03/10/2025 12:04 AM EDTHospital Encounter [facility] Radiology External Films [address] [place] [phone] Discharge Disposition: Home or Self Care ()from Last 3 Months Family History Medical HistoryRelationNameCommentsHeart attackBrotherHeart attackFatherRelation NameStatusCommentsBrotherFatherDeceasedMotherDeceased Social History Tobacco UseTypesPacks/DayYears UsedDateSmoking Tobacco: FormerCigarettes Smokeless Tobacco: Never Tobacco Cessation:Counseling Given: Not Answered Alcohol UseStandard Drinks/WeekCommentsYes0 (1 standard drink = 0.6 oz pure alcohol)occasionalPHQ-2AnswerDate RecordedPatient Health Questionnaire-2 Score0 04/12/2025UT Safety & EnvironmentAnswerDate RecordedFear of Current or Ex-PartnerNot on file08/08/2023Emotionally AbusedNot on file08/08/2023hysically AbusedNot on 08/08/2023Sexually AbusedNot on file08/08/2023hysically or Sexually AbusedNot on file08/08/2023Sex and Gender InformationValueDate Recorded Sex Assigned at RrwcyDvow00/24/2025 9:48 AM EDTLegal VjzFbej0512/14/2021 12:13 AM EDTGender KoklhjghBhnl50/27/2025 1:22 PM EDTSexual OrientationHeterosexual or Rkcbwnht79/27/2025 1:22 PM EDT Last Filed Vital Signs Vital SignReadingTime TakenCommentsBlood Xmprrwxo367/7604/29/2025 11:07 AM EST Eavbr819404/29/2025 11:07 AM MGFWsrvtdagokt42.2 ??C (97.2 ??F)11/06/2023 4:10 PM EDTRespiratory Nntx647601/27/2024 2:00 PM EDTOxygen Zmbnvnjifx60%04/29/2025 11:07 AM ESTInhaled Oxygen Concentration--Lgcunz548 kg (221 lb)04/29/2025 11:07 AM EST Oejkwx809 cm (6' 4 )04/29/2025 11:07 AM ESTBody Mass Index26.9106/29/2024 11:07 AM EST Plan of Treatment Health MaintenanceDue DateLast DoneCommentsCT Mzdewywvrjfi1950Colonoscopy 1950Colorectal Cancer Bwecljtjg1950FIT-DNA1950FIT1950 FOBT1950Medicare Annual Wellness (AWV)1950 1794Bakjkztkpzevs1950 Diabetes: Retinopathy Ljqmstdct64/08/1960Diabetes: Urine Protein Screening 1969Pneumococcal Vaccine: 50+ Years (2 of 2 - PCV) Diabetes: Hemoglobin A1COVID-19 Vaccine ( season), 02/19/2024, 03/11/2023, Additional history exists Depression Jmrftfobq74Fall Risk Ucxggpsrf91 Adult Snngerb89Zoster PujqvkrhKovnofpph37/07/2024, 03/04/2024 Influenza MfkwozuXxkcshufx57/30/2025, 02/19/2024, 02/26/2023, Additional history existsHIB VaccinesAged OutNo longer eligible based on patient's age to complete this topicHPV VaccinesAged OutNo longer eligible based on patient's age to complete this topicIPV VaccinesAged OutNo longer eligible based on patient's age to complete this topicMeningococcal B VaccineAged OutNo longer eligible based on patient's age to complete this topicMeningococcal VaccineAged OutNo longer eligible based on patient's age to complete this topicRotavirus VaccinesAged Out No longer eligible based on patient's age to complete this topic Procedures Procedure NamePriorityDate/TimeAssociated DiagnosisCommentsMR TRANSFER OF OUTSIDE ILTMEPzrmjtd93/24/2025 12:05 AM EDT XR TRANSFER OF OUTSIDE SUTAENhmtwqs57/24/2025 12:00 AM EDT HEMOGLOBIN H1RGvuywov87/19/2021 2:15 PM EST from Last 3 Months or Most Recently Relevant to Health Maintenance Results * MR transfer of outside films (03/10/2025 12:05 AM EDT)Specimen (Source) Anatomical Location / LateralityCollection Method / VolumeCollection Time Received Time Narrative IMAGING - 03/10/2025 2:29 PM EDT This order has been auto-finalized and does not contain a result. Authorizing ProviderResult TypeResult StatusSacha Johnston MDIMG MRI PROCEDURES Final ResultPerforming OrganizationAddressCity/State/ZIP CodePhone Number IMAGING * XR transfer of outside films (03/10/2025 12:00 AM EDT)Specimen (Source) Anatomical Location / LateralityCollection Method / VolumeCollection Time Received Time Narrative IMAGING - 03/10/2025 2:29 PM EDT This order has been auto-finalized and does not contain a result. Authorizing ProviderResult TypeResult StatusAlastair Johnston MDIMG XR PROCEDURES Final ResultPerforming OrganizationAddressCity/State/ZIP CodePhone Number IMAGING * (ABNORMAL) Hemoglobin A1c (08/05/2020 2:15 PM EST)ComponentValueRef RangeTest MethodAnalysis TimePerformed AtPathologist SignatureHemoglobin A1C6.2(H)4.0 - 6.0 %LAB CONVERSIONSEstimated Average Ktvlnwc764ejtr/LLAB CONVERSIONSSpecimen (Source)Anatomical Location / LateralityCollection Method / VolumeCollection TimeReceived Time08/05/2020 2:15 PM EST08/05/2020 3:38 PM EST Narrative Authorizing ProviderResult TypeResult StatusEhab Edenilson [place] BLOOD ORDERABLES Final ResultPerforming OrganizationAddressCity/State/ZIP CodePhone Number LAB CONVERSIONS from Last 3 Months or Most Recently Relevant to Health Maintenance Insurance Advance Directives * Full Code (Latest Code Status on File) Date ActivatedDate InactivatedCommclean hospital11/06/2023 12:49 PM11/06/2023 6:54 PM Care Teams Team MemberRelationshipSpecialtyStart DateEnd Date Conrado Bassett MD [address] [place] [address] [facility] - [facility]12/06/22
--- OUTSIDE RECORDS SUMMARY | 2025-05-06 13:18 | XMS_ITS | Clinical Summary ---
Author Organization [facility] Address [address] [place] [address] Care Team Providers Care Take Up Supervisor Name Role Phone Conrado Bassett MD Primary Care Provider [phone] Allergies Active AllergyReactionsCriticalityNoted DateCommentsSpironolactoneOther: See Texqvvii70/20/2016 Muscle crapm Medications MedicationSigDispense QuantityRefillsLast FilledStart DateEnd DateStatus Fenofibrate (LOFIBRA) 160 mg tablet Take 160 mg by mouth once daily.Active carvedilol (COREG) 25 mg tablet Take 25 mg by mouth twice daily with meals.Active pravastatin (PRAVACHOL) 40 mg tablet Take 40 mg by mouth once daily.Active lisinopril 40 mg tablet Take 40 mg by mouth once daily.Active rivaroxaban (XARELTO) 20 mg tablet Take 20 mg by mouth daily with dinner.Active aspirin, enteric coated (ADULT LOW DOSE ASPIRIN) 81 mg EC tablet Take 1 tablet by mouth once daily.ctive amoxicillin (POLYMOX, AMOXIL) 500 mg capsule Take 500 mg by mouth every 8 hours.08/26/2017Active metFORMIN (GLUCOPHAGE) 500 mg tablet Take 500 mg by mouth twice daily.11007/21/2017Active amLODIPine (NORVASC) 10 mg tablet Take 1 tablet by mouth once daily. 90 tablet Active Active Problems ProblemNoted DateDiagnosed DateCAD (coronary artery disease)10/26/2013 Naerxaxmehynum60/12/2014trial zzrhhrnoagaj80/16/2014bnormal stress test 09/30/20130197Ngefmtpgnuth92/16/2014 Family History Medical HistoryRelationCommentsCoronary Artery DiseaseBrother 2MI, in his 40's. in his 50's.HeartFatherMI, in mid 50 s.StrokeMotherin her 80'sRelation StatusCommentsBrother 1Deceased (Age 55)MIBrother 2FatherDeceased (Age 55)DC MotherDeceased Social History Tobacco UseTypesPacks/DayYears UsedDateSmoking Tobacco: PngxctEfthkrxbic138 10/04/1983 - 10/03/2013Smokeless Tobacco: NeverAlcohol UseStandard Drinks/Week CommentsYes2 (1 standard drink = 0.6 oz pure alcohol)Area Deprivation Index AnswerDate RecordedNational Score (1-100), lower number is lower riskNot on file 05/25/2020State Score (1-10), lower number is lower riskNot on file05/25/2020 Data from: https://www.neighborhoodatlas.medicine.[facility].edu/. Last address used for calculationNot on file05/25/2020Sex and Gender InformationValueDate Recorded Sex Assigned at BirthNot on fileLegal FrsVkye0809/16/2013 1:42 PM EDTGender IdentityNot on fileSexual OrientationNot on fileOccupationIndustryJob Start Date Job End DatelaborerNot on fileNot on fileNot on file Last Filed Vital Signs Vital SignReadingTime TakenCommentsBlood Wldlyeip166/8911 9:50 AM EST Zigrx035804/30/2018 9:50 AM TAZPtqkjbikxnl56.1 ??C (97 ??F)11/04/2015 9:21 AM EDT Respiratory Ddrl2884 8:57 AM EDTOxygen Dvugunyobw23%10/22/2017 8:57 AM EDTInhaled Oxygen Concentration--Ehtdhk990.3 kg (252 lb)04/30/2018 9:50 AM EST Gimwjw920.6 cm (6' 5 )08/23/2017 10:07 AM ESTBody Mass Index29.8808/23/2017 10:07 AM EST Plan of Treatment Health MaintenanceDue DateLast DoneCommentsAnxiety Rgjhgagqc75/08/1968Depression Bnsrdderx33/08/1968Hepatitis C Uuiwgxext50/08/1968DTaP,Tdap,Td Vaccine (1 - Tdap)1969Lipid Jpubegmaq84/08/1985CT Biudbkfcljit68/08/1995Cologuard (FIT-DNA)01/22/19950702Qedbcuacjya16/08/1995Colorectal Cancer Lwvpgadiz14/08/1995 Diabetes Zdmbtteuq13/08/1995Fecal Occult Blood01/22/19951824Uarlgirdbditz24/08/1995 Pneumococcal Vaccine: 50+ (1 of 1 - PCV)01/23/2000Shingrix Vaccine (1 of 2) 01/23/2000Advance Directive Ofyjiewsqh08/01/2025RSV Vaccine (1 - 1-dose 75+ series)2025ovid-19 Vaccine (1 - 2024- season)2025Influenza Vaccine (#1)2025 Insurance Care Teams Team MemberRelationshipSpecialtyStart DateEnd Conrado Bassett MD PCP - GeneralFamily Medicine09/16/13
--- OUTSIDE RECORDS SUMMARY | 2025-05-06 13:18 | XMS_ITS | Clinical Summary ---
Author Organization [facility] Address [address] [place] [address] Care Team Providers Care Manager [place] Name Role Phone Unavailable Primary Care Provider Unavailabl e Social History Tobacco UseTypesPacks/DayYears UsedDateSmoking Tobacco: Never AssessedSex and Gender InformationValueDate RecordedSex Assigned at BirthNot on fileLegal Sex Male08/29/2022 6:38 PM EDTGender IdentityNot on fileSexual OrientationNot on file Plan of Treatment Not on file
--- OUTSIDE RECORDS SUMMARY | 2025-05-06 13:19 | XMS_ITS | Patient Health Record ---
Author Organization [facility] in [place] Address [address] [place] [address] Care Team Providers Care Resource Teacher Name Role Phone Brad Garay Primary Care Provider Poornima Shaw Unavailable [phone] Allergies No Known Allergies Results Component Value Reference Range Notes XR thoracic spine 3V Reviewed date:02/17/2025 01:05:19 PM Interpretation: Performing Lab: Notes/Report: Source Facility: [place] [address] XRay Report Signed Patient: LINDA SOSA MR#: [id number] : 1950 Acct:[id number] Age/Sex: 75 / M ADM Date: 02/17/25 Loc: RAD Attending Dr: Nixon Garay M.D. Ordering Physician: Nixon Garay M.D. Date of Service: 02/17/25 Procedure(s): XR thoracic spine 3V Accession Number(s): [id number] cc: Nixon Garay M.D. [place] [address] Patient Name: LINDA SOSA MRN: [id number] date: 1950 Sex: M Assigned Patient Location: RAD Current Patient Location: [facility] Accession/Order Number: [id number] Exam Date: 02/17/2025 11:12 Report Date: 02/17/2025 [...] Renteria M.D. 02/17/2025 11:55 AM Dictation Location: [place] [address] Electronically authenticated by: [id number] Y Date: 02/17/2025 11:55 Dictated By: Shannan Renteria M.D. Signed By: 02/17/25 1157 DD/ 1155 TD/TT: Director Of Cloud Services: PSA SCREENING Reviewed date:10/25/2024 06:19:42 PM Interpretation: Performing Lab: Notes/Report: [facility] , Prostate Specific Antigen Scrn 2.36 <=4.00 ng/ mL Performing Lab:see noteML - [facility] LBXR chest 2V Reviewed date:02/17/2025 01:05:19 PM Interpretation: Performing Lab: Notes/Report: Source Facility: [facility]-[address] [place] [address] [place] [address] XRay Report Signed Patient: LINDA SOSA MR#: [id number] : 1950 Acct:[id number] Age/Sex: 75 / M ADM Date: 02/17/25 Loc: RAD Attending Dr: Nixon Garay M.D. Ordering Physician: Nixon Garay M.D. Date of Service: 02/17/25 Procedure(s): XR chest 2V Accession Number(s): [id number] cc: iNxon Garay M.D. [address] [address] Patient Name: LINDA SOSA MRN: [facility]:[id number] date: 1950 Sex: M Assigned Patient Location: [facility] Current Patient Location: [facility] Accession/Order Number: [id number] Exam Date: 02/17/2025 11:12 Report Date: 02/17/2025 [...] Renteria M.D. 02/17/2025 11:55 AM Dictation Location: [place] [address] Electronically authenticated by: [id number] Y Date: 02/17/2025 11:55 Dictated By: Shannan Renteria M.D. Signed By: 02/17/25 1157 DD/ 1155 TD/TT: Director Of Cloud Services:MR cervical spine wo con Reviewed date:03/02/2025 05:19:57 PM Interpretation: Performing Lab: Notes/Report: Source Facility: [place] [address] Magnetic Resonance Report Signed Patient: LINDA SOSA MR#: [id number] : 1950 Acct:[id number] Age/Sex: 75 / M ADM Date: 03/02/25 Loc: MRI Attending Dr: Nixon Garay M.D. Ordering Physician: Nixon Garay M.D. Date of Service: 03/02/25 Procedure(s): MR cervical spine wo con Accession Number(s): [id number] cc: Nixon Garay M.D. [place] [address] Patient Name: LINDA SOSA MRN: [id number] date: 1950 Sex: M Assigned Patient Location: MRI Current Patient Location: MRI Accession/Order Number: [id number] Exam Date: 03/02/2025 06:50 Report Date: 03/02/2025 11:50 At the request of: NIXON GARAY MD Procedure: MR cervical spine wo con EXAMINATION: MRI OF THE CERVICAL SPINE WITHOUT CONTRAST CLINICAL DATA: M54.12 Cervical Radiculopathy TECHNIQUE: Multiecho imaging was performed in the sagittal and axial plane without contrast administration. FINDINGS: Straightening and mild reversal normal cervical lordosis. Moderate intervertebral space narrowing C5-C7. T1 hypointense and T2 evidence of inflammatory changes sclerosis C6-C7. T1-T2 hyperintense endplate marrow changes changes C4-C5. Cervical cord demonstrates normal signal and morphology. There is mild motion degradation of images which does degrade imaging quality. Craniocervical junction maintained. C2-C3: There is tgwc-ke-zkmtrbwj left greater than right facet arthropathy C2-3 with mild right-sided and mild to moderate left-sided narrowing. No focal disc protrusion. Canal is patent. C3-C4: Broad-based disc osteophyte complex with spurring and facet arthropathy causing moderate right greater left neural foraminal narrowing and moderate canal narrowing. C4-C5: Broad-based disc osteophyte complex with uncovertebral and facet arthropathy causing mild right moderate left neural foraminal narrowing. Mild central stenosis. C5-6: Broad-based disc osteophyte complex with uncovertebral and facet arthropathy identified causing mild right moderate left neural foraminal narrowing. Right subarticular T2 hyperintensity identified could represent a focal disc protrusion, best seen axial image 17. Dvrq-od-npyjhxsw central canal stenosis. C6-7: Circumferential disc osteophyte complex with uncovertebral spurring. There is complete effacement right foramina. Moderate left foraminal narrowing. Facet arthropathy. C7-T1: Moderate severe right and moderate left-sided facet arthropathy. Moderate severe right foraminal narrowing. Mild left foraminal encroachment. Canal is patent. MR/MR cervical spine wo con Impression: Multilevel degenerative changes greatest in the right from C5 through T1 Impression dictated by: Mandeep Herron M.D. 03/02/2025 11:50 AM Dictation Location: [place] [address] Electronically authenticated by: [id number] Y Date: 03/02/2025 11:50 Dictated By: Mandeep Herron M.D. Signed By: 03/02/25 1153 DD/ 1150 TD/TT: Director Of Cloud Services:URIC ACID SERUM Reviewed date:10/25/2024 06:19:42 PM Interpretation: Performing Lab: Notes/Report: [facility] ,Uric Acid9.03.5-7.2 mg/dLPerforming Lab:see noteML - [facility] LB TSH Reviewed date:10/25/2024 06:19:42 PM Interpretation: Performing Lab: Notes/Report: [facility] ,Thyroid Stimulating Hormone0.9630.358-3.740 uIU/mLPerforming Lab:see noteML - [facility] LBT4 Reviewed date:10/25/2024 06:19:42 PM Interpretation: Performing Lab: Notes/Report: [facility] ,T4 Thyroxine7.204.50-12.10 ug/dLPerforming Lab:see noteML - [facility] LBPROF 14(COMP METB) Reviewed date:10/25/2024 06:19:42 PM Interpretation: Performing Lab: Notes/Report: [facility] ,Dtjvwi603149-325 mmol/LPotassium4.73.5-5.1 mmol/IRxfxgdmg3016-358 mmol/LCarbon Vyrywkp59.321.0-32.0 mmol/LAnion Gap9.5Wgagycg52936-859 mg/dLBlood Urea Nitrogen 35.07.0-18.0 mg/dLCreatinine1.340.70-1.30 mg/dLEstimated GFR ( Shanta>60 >=60 mL/min/1.73m 2Estimated GFR (Non- Ame52>=60 mL/min/1.73m 2BUN Creatinine Ratio26.6Nbtfenq6.78.5-10.1 mg/dLBilirubin Total0.50.2-1.0 mg/dL Aspartate Amino Aajtozloqcq3683-09 U/LAlanine Mtecttazlgqqdnmj2316-66 U/L Alkaline Fhlpzkbpjle1934-706 U/LTotal Protein7.86.4-8.2 g/dLAlbumin Level4.13.4- 5.0 g/dLGlobulin3.7Albumin Globulin Ratio1.1Performing Lab:see noteML - [facility] LBLIPID PROFILE Reviewed date:10/25/2024 06:19:42 PM Interpretation: Performing Lab: Notes/Report: [facility] ,Uopalhsbghxjl935<=150 mg/lTQiloiigrxmm694<=200 mg/dLHDL Rzjxbqogkut6631-36 mg/dL <40 mg/dl - HIGH CARDIOVASCULAR RISK > or =60 mg/dl - LOW CARDIOVASCULAR RISK LDL Cholesterol Qbqgdxsccu18.0 160-189 mg/dl HIGH 100-129 mg/dl NEAR OR ABOVE OPTIMAL <100 mg/dl OPTIMAL >190 mg/dl VERY HIGH 130-159 mg/dl BORDERLINE HIGH VLDL JPVENKOZRPU48.4Chol HDL Ratio3.1 >11.0 HIGH RISK 7.1 - 11.0 MODERATE RISK 4.4 - 7.1 AVERAGE RISK 3.3 - 4.4 LOW RISK Performing Lab:see note - [facility] LBGLYCOHEMOGLOBIN A1C Reviewed date:10/25/2024 06:19:42 PM Interpretation: Performing Lab: Notes/Report: [facility] ,Glycohemoglobin A1C5.84.5-6.2 % ADA THERAPEUTIC TARGET < 7.0 ACTION SUGGESTED > 7.0 ADA RECOMMENDED LIMIT 4.0 - 6.0 Estimated Average Wvfdbqv964Diptfyvjli Lab:see noteML - [facility] LB FREE T3 Reviewed date:10/25/2024 06:19:42 PM Interpretation: Performing Lab: Notes/Report: [facility] ,Free T33.172.18-3.98 pg/mLPerforming Lab:see noteML - [facility] LB CBC AUTO DIFF Reviewed date:10/25/2024 06:19:42 PM Interpretation: Performing Lab: Notes/Report: [facility] ,White Blood Count6.14.0-11.0 10 3/uLRed Blood Count5.184.70-6.10 10 6/uL Qyvvgpquup32.014.0-18.0 g/cDPtlcqnpwwm61.542.0-54.0 %Mean Corpuscular Nhljdg78.7 80.0-94.0 fLMean Corpuscular Pzumampwrb06.925.9-34.0 pgMean Corpuscular HGB Conc 33.729.9-35.2 g/dLRed Cell Distribution Width12.811.0-15.0 %Platelet Lzwoo958 150-450 10 3/uLMean Platelet Volume8.99.5-13.5 fLNeutrophils Percent Auto57.1 43.0-75.0 %Lymphocytes Percent Auto22.820.5-60.0 %Monocytes Percent Auto9.71.7- 12.0 %Eosinophils Percent Auto9.40.9-7.0 %Basophils Percent Auto0.50.2-2.0 % Immature Granulocytes Pct Auto0.50.0-0.5 %Neutrophils Absolute Auto3.51.4-6.5 10 3/uLLymphocytes Absolute Auto1.41.2-3.8 10 3/uLMonocytes Absolute Auto0.60.3-0.8 10 3/uLEosinophils Absolute Auto0.60.0-0.7 10 3/uLBasophils Absolute Auto0.00.0- 0.1 10 3/uLImmature Granulocytes Abs Auto0.030.00-0.03 10 3/uLPerforming Lab:see noteML - [facility] LBBNP Reviewed date:10/25/2024 06:19:42 PM Interpretation: Performing Lab: Notes/Report: [facility] ,NT Pro B Type Natriuretic Wfpu911.0<=900.0 pg/mLPerforming Lab:see noteML - [facility] LB Reason For Referral Diagnosis 1 Trapezius muscle spa sm (M62.838) Referral Organization [facility] Referring Provider First Name Brad Referring Provider Last Name [facility] Referring Provider [facility] Referred Provider [facility], Physical Therap y Referred Provider Specialty Physical The rapist Referral Priority Routine Diagnosis 1 Abnormal MRI (R93.89 ) Referral Organization [facility] Referring Provider First Name Brad Referring Provider Last Name [facility] Referring Provider [facility] Referred Provider Skyler Xavier Referred Provider Specialty Neurosurgery Referral Priority Routine Diagnosis 1 Abnormal MRI (R93.89 ) Referral Organization [facility] Referring Provider First Name Brad Referring Provider Last Name David Referring Provider [facility] Referred Provider Sacha Johnston Referred Provider Specialty Neurosurgery Referral Priority Routine Medications Medication SIG (Take, Route, Frequency, Duration) Notes Start Date End Date Status Lisinopril 20 MG TAKE 2 TABLETS BY MOUTH EVERYDA Y AT BEDTIME; Duration: 90 ActiveMagnesium Oxide 400 MGTAKE 1 TABLET BY MOUTH TWICE A DAY WITH FOOD; Duration: 90ActivemetFORMIN HCl 500 MGTAKE 1 TABLET BY MOUTH THREE TIMES A DAY; Duration: 90 daysActiveOneTouch Delica Lancets 30G1 lancet to poke finger once daily DX E11.9; Duration: 90 daysActiveAtorvastatin Calcium 80 MGTAKE 1 TABLET BY MOUTH EVERY DAY; Duration: 90 daysActivetraMADol HCl 50 MG1 tablet as needed Orally tid; Duration: 7 days5ActiveBlood Glucose Monitor System w/Deviceas directedActiveOneTouch Ultra -USE TO TEST ONCE A DAY *DX E11.9*; Duration: 90ActiveChlorthalidone 25 MG1 tablet in the morning with food Orally once a day; Duration: 90 daysActiveOneTouch Ultra BlueActiveCholecalciferol 125 MCG (5000 UT)as directed OrallyActivetiZANidine HCl 4 MG2 tabs Orally qhs; Duration: 30 days5ActiveEliquis 5 MG1 tablet Orally Twice a day; Duration: 30 daysActiveFurosemide 80 MGTAKE 1 TABLET BY MOUTH EVERY DAY; Duration: 90ActiveGlimepiride 2 MGTAKE 1 TABLET BY MOUTH EVERY DAY WITH BREAKFAST OR THE FIRST MAIL MEAL OF THE DAY; Duration: 90ActiveKlor-Con M20 20 MEQTAKE 1 TABLET BY MOUTH THREE TIMES A DAY; Duration: 90 daysActiveAspirin 81 MG1 tablet Orally Once a dayActive Immunizations Vaccine Route Administration Date Status Comme nts Comirnaty Pfizer Single-Dose 30 mcg/0.3mL Unknown 03/11/2023 Administered RSV WtbflqsGytjwuj89/27/6748LtlvspmxtokaECCM-UUT-8 (COVID 19 Pfizer Booster 0.3mL)Vxfihjn42/02/1941FpjlipaurouhLISW-APT-9 (COVID 19 Pfizer Booster 0.3mL) Ummdziw91/23/8243AsqokjtzftszQCUU-WCE-8 (COVID 19 Pfizer Booster 0.3mL)Unknown 5782ObjwykfgzpjlTLMD-PCM-5 (COVID 19 Pfizer Comirnaty 12+, SDV, 2377-1289) Uksyyai35/21/2022Administered Social History Tobacco Use: Social History Observation Description Date Details (start date - stop date) Former Smoker 10/19/1970 - 10/19/2014 Tobacco Use/Smoking Question Answer Notes Patient is a former smoker When did you start smoking?10/19/1970When did you stop smoking?10/19/2014How long has it been since you last smoked?> 10 yearsAlcohol Screen (Audit-C) Question Answer Notes Did you have a drink containing alcohol in the p ast year? Yes How often did you have 6 or more drinks on one occasion in the past year?Never (0 point)How many drinks did you have on a typical day when you were drinking in the past year?1 or 2 drinks (0 point)How often did you have a drink containing alcohol in the past year?Less than monthly (1 point)Jislji7Aupdalzniivbtt NegativeAUDIT-C (Standard) Question Answer Notes Did you have a drink containing alcohol in the p ast year? 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)ActiveconfirmedProblemHyperlipidemia (07556423) Hyperlipidemia (E78.5)ActiveconfirmedProblemHypertension (55858553)Hypertension (I10)ActiveconfirmedProblemOsteoarthritis (132590618)Osteoarthritis (M19.90) ActiveconfirmedProblemCervical radiculopathy (96289138)Cervical radiculopathy (M54.12)ActiveconfirmedProblemCoronary artery disease (33090004)CAD (coronary artery disease) (I25.10)ActiveconfirmedProblemBradycardia (27694428)Bradycardia (R00.1)ActiveconfirmedProblemGout (07183841)Gout (M10.9)ActiveconfirmedProblem Obstructive sleep apnea (00407503)Obstructive sleep apnea (G47.33)Active confirmedProblemParoxysmal atrial fibrillation (964099917)Paroxysmal atrial fibrillation (I48.0)ActiveconfirmedProblemHypertriglyceridemia (711186511) Hypertriglyceridemia (E78.1)ActiveconfirmedProblemWell adult (547533020)Well adult (Z00.00)ActiveconfirmedProblemCellulitis (880678794)Cellulitis (L03.90) ActiveconfirmedProblemCramp in lower limb (653044295)Leg cramps (R25.2)Active confirmedProblemRight inguinal hernia (670741967)Right inguinal hernia (K40.90) ActiveconfirmedProblemBenign prostatic hyperplasia (318420941)Benign prostate hyperplasia (N40.0)ActiveconfirmedProblemSpasm (05877728)Trapezius muscle spasm (M62.838)ActiveconfirmedProblemHeart failure (82029725)Heart failure with reduced left ventricular function (I50.9)ActiveconfirmedProblemMRI Scan Abnormal (428345601)Abnormal MRI (R93.89)ActiveconfirmedProblemDiabetes mellitus (37711110)Diabetes mellitus (E11.9)ActiveconfirmedProblemContracture of palmar fascia (330053527)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 [address] [place] [address] 10/25/[address] [facility] [place] [address] 02/17/2025Doug [facility] [place] [address]/Doug HoyAbnormal MRI R93.89[facility] [place] [address]/Doug HoyAbnormal MRI R93.89[facility] [place] [address]/08/2024Doug HoyHyperlipidemia E78.5 ; Hypertension I10 ; CAD (coronary artery disease) I25.10 ; Paroxysmal atrial fibrillation I48.0 and Diabetes mellitus E11.9[facility] ([place] [place] [place] [address]/01/2025Doug HoyAcute combined systolic (congestive) and diastolic (congestive) heart failure I50.41 ; Hyperlipidemia E78.5 ; Hypertension I10 ; CAD (coronary artery disease) I25.10 ; Paroxysmal atrial fibrillation I48.0 and Diabetes mellitus E11.9BSt. [facility] ([place] [place] [address] [place] [address]/30/2025Pamela CramerBronchitis C73KxwzxqlSt. [facility] [place] [address] 02/24/2025Doug HoyCervical radiculopathy M54.12 ; Hypertension I10 ; Acute combined systolic (congestive) and diastolic (congestive) heart failure I50.41 ; Diabetes mellitus E11.9 and Dupuytren's disease of both palm and finger M72.0 [facility] [place] [address] 02/10/2025Doug HoyTrapezius muscle spasm M62.838[facility] [address] [place] [address]/03/2025Do HoyTrapezius muscle spasm M62.838 Assessments Encounter Date Diagnosis (ICD Code) Assessment Notes Treatment Notes Treatment Clinical Notes Section Notes 06/19/2024 Hyperlipidemia (ICD-10 - E78.5) 06/19/2024Hypertension (ICD-10 - I10)10/22/2024ute combined systolic (congestive) and diastolic (congestive) heart failure (ICD-10 - I50.41) 10/22/2024Hyperlipidemia (ICD-10 - E78.5)07/16/2024ronchitis (ICD-10 - J40)fu if not improving, gugzypb0102/24/2025ervical radiculopathy (ICD-10 - M54.12) Failing meds - doing pt with no sig improvement and now twih eakness and tinglin into R hand consistent with Cervical radiculopathy - needs MRI02/24/2025 Hypertension (ICD-10 - I10)02/10/2025Trapezius muscle spasm (ICD-10 - M62.838) 02/17/2025Trapezius muscle spasm (ICD-10 - M62.838)03/02/2025bnormal MRI (ICD- 10 - R93.89)03/09/2025bnormal MRI (ICD-10 - R93.89)5Acute combined systolic (congestive) and diastolic (congestive) heart failure (ICD-10 - I50.41) 10/22/2024Hypertension (ICD-10 - I10)01/03/2025CAD (coronary artery disease) (ICD-10 - I25.10)06/19/2024Paroxysmal atrial fibrillation (ICD-10 - I48.0) 5CAD (coronary artery disease) (ICD-10 - I25.10)02/24/2025Diabetes mellitus (ICD-10 - E11.9)02/24/2025Dupuytren's disease of both palm and finger (ICD-10 - M72.0)10/22/2024Paroxysmal atrial fibrillation (ICD-10 - I48.0) 06/19/2024Diabetes mellitus (ICD-10 - E11.9)10/22/2024Diabetes mellitus (ICD-10 - E11.9)02/24/2025OtherRecommended to rest and use a heating pad on the area. Take NSAIDs for pain as khouyh1302/17/2025OtherRecommended to rest and use a heating pad [...] End Date [employer] [place] [address] [place] [address] [id number] Mariann Sosasarah - patient is the [id number] 2015AE[facility] [employer] - [place] [facility] [address] [place] [id number] G Radha Sosa - patient is the [id number] 2015 Medications Administered Medication Instructions Date of Administration Dosage Notes Ketorolac Tromethamine 560 mgTriamcinolone 40 mg/ml5120 mg Medical (General) History Medical History History [...] I10 Gout M10.9 Surgical History Surgery Date(Month/Year) pulmonary vein isolation and comprehensi ve EP study atrial fibrillation ablation procedurevasectomyct chest angiogram w and/or wo iv contrastcardioversioncardiac catherizationappendectomyInguinal herniorrhaphy 03/20/23CABG08/2020Hospitalization History Reason Date(Month/Year) see above
--- OUTSIDE RECORDS SUMMARY | 2025-05-06 13:20 | XMS_ITS | CCD ---
Author Organization [facility] Care Team Providers Care Entry Operator Name Role Phone HAMPOLE, HOLDEN Unavailable Unavailable [...] Unavailable HOY ., DR ALICEA Consulting Unavailable DAVIDY ., DR ALICEA Primary Care Unavailable Nixon Garay Primary Care Physician [phone] Nixon Garay Referring Unavailable NILL, Keyon R Attending Unavailable NILL, Keyon R Attending Unavailable NILL, Keyon R Attending Unavailable NILL, Keyon R Attending Unavailable DavidyBradNixon Referring Unavailable NILL, Keyon R Attending Unavailable SYLVIA, KATERINA Referring Unavailable SYLVIA, KATERINA Referring Unavailable LEYLA RODRIGEZ Attending Unavailable SYLVIA, KATERINA Attending Unavailable Allergies Allergy ClassificationReported Allergen(s)Allergy TypeDate of OnsetReaction(s) Facility (1 source)Spironolactone; Translations: [SPIRONOLACTONE]Drug [id number] [facility] ([facility] source)No Known Medication Allergies; Translations: [No Known Medication Allergies]Propensity to adverse reactions (disorder)[facility] Repository Medications Current Medications MedicationDrug Class(es)DatesSig (Normalized)Sig (Original)aspirin 81 mg oral tablet (2 sources)Platelet Aggregation Inhibitor, Nonsteroidal Anti-inflammatory Drug Start: 52-36-6146irkq 81 mg by mouth once dailyaspirin 81 mg, Oral, Daily, Refills(s) 0 Start Date: 10/02/13 Status: Orderedcarvedilol 6.25 mg oral tablet (2 sources)alpha-Adrenergic Yasmine, beta-Adrenergic BlockerStart: 02-14-2023 take 1 tablet by mouth twice dailyCoreg 6.25 mg Tab 6.25 mg = 1 tab(s), Oral, BID, Refills(s) 0 Start Date: 02/14/23 Status: Orderedfurosemide 80 mg oral tablet (2 sources)Loop DiureticStart: 41-23-1698ijya 1 tablet by mouth once dailyLasix 80 mg Tab 80 mg = 1 tab(s), Oral, Daily, Refills(s) 0 Start Date: 02/14/23 Status: Fjsbyrn77 hr isosorbide mononitrate 60 mg extended release oral tablet (2 sources)Nitrate VasodilatorStart: 94-28-8743ushm 1 tablet by mouth once daily in the morningisosorbide mononitrate 60 mg ER Tab 60 mg = 1 tab(s), Oral, qAM, Refills(s) 0 Start Date: 02/14/23 Status: Orderedlisinopril 20 mg oral tablet (2 sources)Angiotensin Converting Enzyme InhibitorStart: 61-66-1261wvcv 2 tablets by mouth once dailylisinopril 20 mg Tab 40 mg = 2 tab(s), Oral, Daily, Refills(s) 0 Start Date: 10/02/13 Status: Orderedmagnesium oxide 400 mg oral tablet (2 sources)Start: 37-28-4832bpah 1 tablet by mouth three times dailymagnesium oxide 400 mg Tab 400 mg = 1 tab(s), Oral, TID, Refills(s) 0 Start Date: 02/14/23 Status: OrderedmetFORMIN hydrochloride 500 mg oral tablet (2 sources)BiguanideStart: 43-05-1544frnz 1 tablet by mouth three times daily metformin 500 mg Tab 500 mg = 1 tab(s), Oral, TID, Refills(s) 0 Start Date: 02/14/23 Status: OrderedVitamin D3 5000 intl units oral capsule (2 sources)Start: 68-40-1008jtgk 1 capsule by mouth once daily at mealtime Vitamin D3 5000 intl units oral capsule 125 mcg = 1 cap(s), Oral, Daily, with food, Refills(s) 0 Start Date: 02/14/23 Status: Ordered Completed/Discontinued Medications MedicationDrug Class(es)DatesSig (Normalized)Sig (Original)potassium chloride 20 meq extended release oral tablet (2 sources)Start: 05-29-8004trnn 1 tablet by mouth three times dailypotassium chloride 20 mEq ER Tab 20 mEq = 1 tab(s), Oral, TID, Refills(s) 0 Start Date: 02/14/23 Status: Ordered Problems Active Problems Problem ClassificationProblemDateDocumented DateEpisodic/ChronicAbdominal hernia (4 sources)Inguinal hernia; Translations: [Unilateral inguinal hernia, without obstruction or gangrene, not specified as recurrent]Onset: 75-35-8719Azrfpbfi Cardiac dysrhythmias (3 sources)Paroxysmal atrial fibrillation; Translations: [Paroxysmal atrial fibrillation]Onset: 533466-84-9715RuedvkpOcompxx dysrhythmias (3 sources)Bradycardia, unspecified; Translations: [Bradycardia]Onset: 226032-08-6224NvremewsKgpglpvmlb heart failure; nonhypertensive (4 sources)Acute combined systolic and diastolic heart failure; Translations: [Heart failure]63-65-7791QqckaweTnosqcmb atherosclerosis and other heart disease (5 sources)Atherosclerotic heart disease of samish coronary artery without angina pectoris; Translations: [Coronary arteriosclerosis]Onset: 10-18-2022 35-21-6700UxmhmxzUkewwuvi mellitus without complication (3 sources)Type 2 diabetes mellitus without complications; Translations: [Diabetes mellitus]Onset: 440553-77-0760JglguneNpaxdobwx of lipid metabolism (9 sources)Hyperlipidemia, unspecified; Translations: [Hypercholesterolemia] Onset: 577884-96-7138XnhftggAoghjbihw hypertension (11 sources)Essential (primary) hypertension; Translations: [Essential hypertension]Onset: 74-88-5262NhentlyEtskxeldyrz of prostate (2 sources)Benign prostatic xqxczzhpgka47-36-6735DqlzkjuBcmjn nutritional; endocrine; and metabolic disorders (2 sources)Mxmafpwoco79-67-1452TyzmaztrYoueo nutritional; endocrine; and metabolic disorders (2 sources)Overweight in adulthood with body mass index of 25 or more but less than 7050-97-2150TyqukizxWdhfj screening for suspected conditions (not mental disorders or infectious disease) (6 sources)Encounter for screening for malignant neoplasm of rectum; Translations: [Encounter for screening for malignant neoplasm of prostate]Onset: 02-04-3115KonaaicxKlyvmgnl codes; unclassified (2 sources)Obstructive sleep apnea -36-1907VrbcysiSyjmssqcnrtr (2 sources)Consult; Translations: [Consult]Onset: 04-12-2025 Past or Other Problems Problem ClassificationProblemDateDocumented DateEpisodic/ChronicOther aftercare (1 source)Encounter for follow-up examination after completed treatment for conditions other than malignant neoplasm; Translations: [Encounter for follow-up examination after completed treatment for conditionsother than malignant neoplasm]Onset: 66-33-1484Abkabcnq Results Test NameValueInterpretationReference RangeFacilityConsulton 74-28-9238Uppbpgk [id number] Linda Lee 1950 M Date Provider Department Center 04/12/2025 [place]0-KATERINA WARD [facility] SURG Second Fl Family History Problem Relation Age of Onset Heart attack Father Heart attack Brother Family Status - Relation Status Age at Father Brother Level of Service:74795 [place] OFFICE/OUTPATIENT [facility] LOW MDM 30 MINUTES Reason for Visit and Comments: Consult [484] - Patient is here today for a consult for abnormal Cervical Spine MRINormalUniversAultman Hospital36on 78-23-147558Abllmippg lab results from 10/24/2024: Leyla Rodrigez, ALEXIA Pantoja MA [...] may help as well. Thanks! Tawny Patient informed.[facility] CenterOffice Visiton 77-62-6457Arspdj-up [id number] JesusLinda Howard 1950 M Date Provider Department Center 10/08/2024 LEYLA KUMAR Hos Family History Problem Relation Age of Onset Heart attack Father Heart attack Brother Family Status - Relation Status Age at Father Brother Level of Service:55225 UT OFFICE/OUTPATIENT ESTABLISHED MOD MDM 30 MIN Reason for Visit and Comments: Coronary Artery Disease [187] Hypertension [728992] Hyperlipidemia [182]NormalFostoria City HospitalAmbulatory Visit Summaryon 16-49-2523Rvcfhunjvy Visit Summary LINDA LEE Lee :1950 Visit Date:04/16/2023 Ambulatory Visit Instructions Your [...] you for choosing us for your care. [facility] Noteon 09-23-8925Rrtwvip Surgery Office/Clinic NoteChief Complaint post operative follow up HPI Staff [...] swallowing difficulties, no hearing loss, no ear infection(s),no nose bleeds. Cardiovascular: normal blood pressure, no [...] Tobacco Use:. Never Smokeless Tobacco Use:. Cigarettes, 2per day. Started age 21.0 Years. Stopped age 65 Years., 02/22/2023 Family History Acute myocardial infarction: Father and Brother. Heart disease: Brother. Hypertension: Sister. Stroke: Mother. Immunizations Vaccine Date Status Comments SARS-CoV-2 (COVID-19) mRNAMUL.ORD![id number] 04/06/2022 Recorded SARS-CoV-2 (COVID-19) mRNA BNT-162b2 vax 05/03/2021 Recorded SARS-CoV-2 (COVID-19) mRNA BNT-162b2 vax 10/07/2020 Recorded 2023-02-14: TPV70 SARS-CoV-2 (COVID-19) mRNA BNT-162b2 vax 09/16/2020 Recorded 2023-02-14: TPV70 [facility] ClinicComment on above:Result Comment: Electronically Signed By: ELLEN MARTINEZ, Keyon Savage\Date and Time Signed: 04/16/23 13:23 EDT General Surgery Office/Clinic Noteon 75-91-1699Dqsssfn Surgery Office/Clinic NoteChief Complaint post operative follow up HPI Staff 7 day post operative follow up post right inguinal hernia repair. Denies discomfort, no use of painmedication. Denies bleeding or drainage. Bowels moving well. [...] swallowing difficulties, no hearing loss, no ear infection(s),no nose bleeds. Cardiovascular: normal blood pressure, no [...] Tobacco Use:. Never Smokeless Tobacco Use:. Cigarettes, 2per day. Started age 21.0 Years. Stopped age 65 Years., 02/22/2023 Family History Acute myocardial infarction: Father and Brother. Heart disease: Brother. Hypertension: Sister. Stroke: Mother. Immunizations Vaccine Date Status Comments SARS-CoV-2 (COVID-19) mRNAMUL.ORD![id number] 04/06/2022 Recorded SARS-CoV-2 (COVID-19) mRNA BNT-162b2 vax 05/03/2021 Recorded SARS-CoV-2 (COVID-19) mRNA BNT-162b2 vax 10/07/2020 Recorded 2023-02-14: TPV70 SARS-CoV-2 (COVID-19) mRNA BNT-162b2 vax 09/16/2020 Recorded 2023-02-14: TPV70 [facility] ClinicComment on above:Result Comment: Electronically Signed By: ELLEN MARTINEZ, Keyon Savage\Date and Time Signed: 03/27/23 15:52 EDT Pathology Noteon 30-93-7954Kkxhgvzzj Note [id number]#1.00TIFFort Hamilton HospitalOperative Reporton 75-83-9790Xexzdnohg Report [id number]#1.00TIFFort Hamilton HospitalLab Reportson 22-44-1550Mwm Reports [id number]#1.00CD:[address] [place], [place] [address]Lab Reportson 37-27-3783Zqd Reports [id number]#1.00CD:[address] [place], [place] [address]RAD - MISCon 90-03-3742KLX - MISC [id number]#1.00CD:[address] [place], [place] [address]Lab Reportson 28-93-6678Ndc Reports [id number]#1.00CD:127[facility] ClinicLab [id number]#1.00CD:[address] [place], [place] [address]Consultation Noteon 58-98-9947Vnwbacdztvld Note [id number]#1.00CD:[address] [place], [place] [address]Consent for Procedure/Surgeryon 19-85-2684Ogcbavi for Procedure/Surgery [id number]#1.00CD:[address] [place], [place] [address]Facesheeton 20-94-6584Biiliywge [id number]#1.00CD:[address] [place], [place] [address]Ambulatory Visit Summaryon 29-46-7336Yhbmdsuprz Visit Summary LINDA LEE :1950 Visit Date:02/22/2023 [...] longer receiving treatment for. High cholesterol Hypertension [facility] ClinicProvider Letteron 02-12-2023 Provider Letter February 12, 2023 LINDA LEE [address] [place] [id number] : 1950 Dear Jesus , We have been trying to reach you with no success. It is important that you return our call regarding your referral from Dr. Duque upon receiving this letter. Also, at the time of your call, please provide us with your current information including your insurance information. Thank you for your prompt attention to this matter. Sincerely, General Surgery [phone] Medical CenterConsultation Noteon 02-11-2023 Consultation [id number]#1.00CD:127NormalWvumedicine Harrison Community HospitalINSULINon 90-30-5722Uuxjdxh93.2 uIU/mLNormal2.6-24.9The [facility] HospitalComment on above:Performed By: #### A1C #### [facility] [address] [address] [address] Estephania Yan BLD IMMUNO SCREENon 63-56-2596IBDQVJ BLOODNegativeNormal NEGATIVEThe [facility] HospitalComment on above:Performed By: #### A1C #### [facility] [address] [place] [address] Dr. Estephania NunesC AUTO DIFFon 80-69-9528DXOQ #0.0 103/ulNormal0.0-0.1The [facility] HospitalComment on above:Performed By: #### CBC #### [facility] [address] [place] [address] Dr. Estephania SmallBasophils/100 WBC (Bld)0.3 %Normal0.2-2.0[facility] Comment on above:Performed By: #### CBC #### [facility] [address] [address] [address] Estephania Farah #0.5 103/ulNormal0.0-0.7The [facility] HospitalComment on above: Performed By: #### CBC #### [facility] [address] [place] [address] Dr. Estephania Martinezosinophils/100 WBC (Bld)7.8 %Critically high0.9-7.0The [facility] HospitalComment on above:Performed By: #### CBC #### [facility] [address] [address] [address] Estephania Martinezrythrocyte distribution width (RBC) [Ratio]13.4 %Pfgnpy72.0-15.0 The [facility] HospitalComment on above:Performed By: #### CBC #### [facility] [address] [place] [address] Dr. Estephania SmallHematocrit (Bld) [Volume fraction]44.4 %Oedetu61.0-54.0The [facility] HospitalComment on above:Performed By: #### CBC #### [facility] [address] [place] [address] Dr. Estephania SmallHemoglobin (Bld) [Mass/Vol]14.5 g/dKYuoenq92.0-18.0The [facility] HospitalComment on above:Performed By: #### CBC #### [facility] [address] [place] [address] Dr. Estephania Chaves #0.02 10e3/ulNormal0.00-0.03The [facility] HospitalComment on above:Performed By: #### CBC #### [facility] [address] [place] [address] Dr. Estephania Chaves %0.3 %Normal0.0-0.5The [facility] HospitalComment on above: Performed By: #### CBC #### [facility] [address] [place] [address] Dr. Estephania May #1.3 103/ulNormal1.2-3.8The [facility] HospitalComment on above:Performed By: #### CBC #### [facility] [address] [place] [address] Dr. Estephania Villarrealhocytes/100 WBC (Bld)19.4 %Critically low20.5-60.0The [facility] HospitalComment on above:Performed By: #### CBC #### [facility] [address] [place] [address] Dr. Estephania ValverdeUAL DIFF REQNONormalThe [facility] HospitalComment on above: Performed By: #### CBC #### [facility] [address] [place] [address] Dr. Estephania Jaimes (RBC) [Entitic mass]28.5 cmRmjbwx47.9-34.0The [facility] HospitalComment on above:Performed By: #### CBC #### [facility] [address] [place] [address] Dr. Estephania Jean-Baptiste (RBC) [Mass/Vol]32.7 g/jDIsbpbr43.9-35.2The [facility] HospitalComment on above:Performed By: #### CBC #### [facility] [address] [place] [address] Dr. Estephania Taylor (RBC) [Entitic vol]87.2 bVVbjsfx57.0-94.0The [facility] HospitalComment on above:Performed By: #### CBC #### [facility] [address] [place] [address] Dr. Estephania Tirado #0.6 103/ulNormal0.3-0.8The [facility] HospitalComment on above:Performed By: #### CBC #### [facility] [address] [place] [address] Dr. Estephania Alvarezocytes/100 WBC (Bld)8.7 %Normal1.7-12.0The [facility] Comment on above:Performed By: #### CBC #### [facility] [address] [place] [address] Dr. Estephania Pearson #4.2 103/ulNormal1.4-6.5The [facility] HospitalComment on above:Performed By: #### CBC #### [facility] [address] [place] [address] Dr. Estephania Osunautrophils/100 WBC (Bld)63.5 %Ogphjc53.0-75.0The [facility] HospitalComment on above:Performed By: #### CBC #### [facility] [address] [place] [address] Dr. Estephania Jenkins mean volume (Bld) [Entitic vol]9.4 fLCritically low 9.5-13.5The [facility] HospitalComment on above:Performed By: #### CBC #### [facility] [address] [place] [address] Dr. Estephania BenitoT223 103/jwBxvqjm115-324Mjl [facility] HospitalComment on above: Performed By: #### CBC #### [facility] [address] [place] [address] Dr. Estephania SmallRBC5.09 106/ulNormal4.70-6.10The [facility] on above:Performed By: #### CBC #### [facility] [address] [address] [address] Estephania SmallWBC6.5 103/ulNormal4.0-11.0The [facility] on above: Performed By: #### CBC #### [facility] [address] [address] [address] Estephania SmallFREE T3on 39-16-5311MUPA T32.48 pg/mlLNormal2.18-3.98The [facility] on above:Performed By: #### LIPID, CMP, FT3, MG, T4, TSH, URIC #### [facility] [address] [place] [address] Dr. Estephania SmallGLYCOHEMOGLOBIN A1Con 14-33-7064OGX RECOMMENDATIONSEE [facility] Medical CenterCommymichigan medical center [facility] branch on above:Result Comment: ADA RECOMMENDED LIMIT 4.0 - 6.0 ADA THERAPEUTIC TARGET < 7.0 ACTION SUGGESTED > 7.0Performed By: #### A1C #### [facility] [address] [place] [address] Dr. Estephania SmallGlucose [Mass/Vol]143 mg/dLNoTriHealth [facility] on above:Performed By: #### A1C #### [facility] [address] [place] [address] Dr. Estephania SmallHbA1c (Bld) [Mass fraction]6.6 %Critically high4.5-6.2The [facility] on above:Performed By: #### A1C #### [facility] [address] [place] [address] Dr. Estephania SmallLIPID PROFILEon 44-55-3139TFPR-HDL RATIO NORMSEE [facility] SystemCommymichigan medical center [facility] on above:Result Comment: 3.3 - 4.4 LOW RISK 4.4 - 7.1 AVERAGE RISK 7.1 - 11.0 MODERATE RISK >11.0 HIGH RISKPerformed By: #### LIPID, CMP, FT3, MG, T4, TSH, URIC #### [facility] [address] [address] [address] Estephania Benoitesterol [Mass/Vol]127 mg/dLNormal<=200[facility] Comment on above:Performed By: #### LIPID, CMP, FT3, MG, T4, TSH, URIC #### [facility] [address] [address] [address] Estephania Benoitesterol in HDL [Mass/Vol]34 mg/dLCritically xic39-32Dyy [facility] HospitalComment on above:Performed By: #### LIPID, CMP, FT3, MG, T4, TSH, URIC #### [facility] [address] [place] [address] Dr. Estephania Benoitestermarcia in LDL [Mass/Vol]68.2 mg/dLNormCleveland Clinic Lutheran HospitalComment on above:Performed By: #### LIPID, CMP, FT3, MG, T4, TSH, URIC #### [facility] [address] [place] [address] Dr. Estephania Delacruz.total/Cholesterol in HDL [Mass ratio]3.7 {ratio} NormalThe [facility] HospitalComment on above:Performed By: #### LIPID, CMP, FT3, MG, T4, TSH, URIC #### [facility] [address] [place] [address] Dr. Estephania Benz NORMAL> or = 60 mg/dl - LOW CARDIOVASCULAR RISK <40 mg/dl - HIGH CARDIOVASCULAR RISKCleveland Clinic South Pointe HospitalComment on above:Performed By: #### LIPID, CMP, FT3, MG, T4, TSH, URIC #### [facility] [address] [place] [address] Dr. Estephania Padilla CALC NORMALSEE BELOWCleveland Clinic South Pointe HospitalCommymichigan medical center west branch on above:Result Comment: <100 mg/dl OPTIMAL 100 - 129 mg/dl NEAR OR ABOVE OPTIMAL 130 - 159 mg/dl BORDERLINE HIGH 160 - 189 mg/dl HIGH >190 mg/dl VERY HIGH Performed By: #### LIPID, CMP, FT3, MG, T4, TSH, URIC #### [facility] [address] [address] [address] Estephania SmallTriglyceride [Mass/Vol]124 mg/dLNormal<=150The [facility] Comment on above:Performed By: #### LIPID, CMP, FT3, MG, T4, TSH, URIC #### [facility] [address] [address] [address] Estephania SmallVLDL CALC24.8 mg/dLNormalThe [facility] HospitalComment on above: Performed By: #### LIPID, CMP, FT3, MG, T4, TSH, URIC #### [facility] [address] [place] [address] Dr. Estephania SmallMAGNESIUMon 77-58-4472Ggbriutlb [Mass/Vol]1.5 mg/dLCritically low 1.8-2.4The [facility] HospitalComment on above:Performed By: #### LIPID, CMP, FT3, MG, T4, TSH, URIC #### [facility] [address] [place] [address] Dr. Estephania SmallPROF 14(COMP METB)on 82-52-3022Sdakdbi [Mass/Vol]4.0 g/dLNormal 3.4-5.0The [facility] HospitalComment on above:Performed By: #### LIPID, CMP, FT3, MG, T4, TSH, URIC #### [facility] [address] [place] [address] Dr. Estephania SmallAlbumin/Globulin [Mass ratio]1.1 {ratio}NormalThe [facility] HospitalComment on above:Performed By: #### LIPID, CMP, FT3, MG, T4, TSH, URIC #### [facility] [address] [place] [address] Dr. Estephania Alvarez [Catalytic activity/Vol]88 U/DOumsjq60-422Its [facility] HospitalComment on above:Performed By: #### LIPID, CMP, FT3, MG, T4, TSH, URIC #### [facility] [address] [place] [address] Dr. Estephania Hinton [Catalytic activity/Vol]33 U/YVrphsn66-27Asl [facility] HospitalComment on above:Performed By: #### LIPID, CMP, FT3, MG, T4, TSH, URIC #### [facility] [address] [place] [address] Dr. Estephania Butcher gap [Moles/Vol]13.6 mmol/LNormalMary [facility] Comment on above:Performed By: #### LIPID, CMP, FT3, MG, T4, TSH, URIC #### [facility] [address] [place] [address] Dr. Estephania SmallAST [Catalytic activity/Vol]24 U/TWchaaz28-27AzyMary Rutan HospitalComment on above:Performed By: #### LIPID, CMP, FT3, MG, T4, TSH, URIC #### [facility] [address] [place] [address] Dr. Estephania SmallBilirubin [Mass/Vol]0.5 mg/dLNormal0.2-1.0[facility] Comment on above:Performed By: #### LIPID, CMP, FT3, MG, T4, TSH, URIC #### [facility] [address] [place] [address] Dr. Estephania SmallCalcium [Mass/Vol]9.1 mg/dLNormal8.5-10.1[facility] Comment on above:Performed By: #### LIPID, CMP, FT3, MG, T4, TSH, URIC #### [facility] [address] [place] [address] Dr. Estephania SmallChloride [Moles/Vol]102 mmol/KQctiip78-833Zio [facility] Comment on above:Performed By: #### LIPID, CMP, FT3, MG, T4, TSH, URIC #### [facility] [address] [place] [address] Dr. Estephania SmallCO2 [Moles/Vol]30.0 mmol/MPaydoz12.0-32.0The [facility] Comment on above:Performed By: #### LIPID, CMP, FT3, MG, T4, TSH, URIC #### [facility] [address] [place] [address] Dr. Estephania SmallCreatinine [Mass/Vol]1.03 mg/dLNormal0.70-1.30The [facility] Hospitalment on above:Performed By: #### LIPID, CMP, FT3, MG, T4, TSH, URIC #### [facility] [address] [place] [address] Dr. Estephania MartinezGFR-AF SAO TOMEAN>60Normal>=60The [facility] HospitalComment on above:Performed By: #### LIPID, CMP, FT3, MG, T4, TSH, URIC #### [facility] [address] [place] [address] Dr. Estephania MartinezGFR-NON AF SAO TOMEAN>60Normal>=60The [facility] HospitalComment on above:Performed By: #### LIPID, CMP, FT3, MG, T4, TSH, URIC #### [facility] [address] [place] [address] Dr. Estephania SmallGlobulin (S) [Mass/Vol]3.8 g/dLNormalThe [facility] HospitalComment on above:Performed By: #### LIPID, CMP, FT3, MG, T4, TSH, URIC #### [facility] [address] [place] [address] Dr. Estephania SmallGlucose [Mass/Vol]128 mg/dLCritically yptc41-619Jmu [facility] on above:Performed By: #### LIPID, CMP, FT3, MG, T4, TSH, URIC #### [facility] [address] [place] [address] Dr. Estephania SmallPotassium [Moles/Vol]4.6 mmol/LNormal3.5-5.1The [facility] Comment on above:Performed By: #### LIPID, CMP, FT3, MG, T4, TSH, URIC #### [facility] [address] [place] [address] Dr. Estephania SmallProtein [Mass/Vol]7.8 g/dLNormal6.4-8.2The [facility] Comment on above:Performed By: #### LIPID, CMP, FT3, MG, T4, TSH, URIC #### [facility] [address] [place] [address] Dr. Estephania oRsedium [Moles/Vol]141 mmol/JZykwsc463-370Lbp [facility] Comment on above:Performed By: #### LIPID, CMP, FT3, MG, T4, TSH, URIC #### [facility] [address] [place] [address] Dr. Estephania SmallUrea nitrogen [Mass/Vol]27.0 mg/dLCritically high7.0-18.0The [facility] HospitalComment on above:Performed By: #### LIPID, CMP, FT3, MG, T4, TSH, URIC #### [facility] [address] [place] [address] Dr. Estephania Silverman nitrogen/Creatinine [Mass ratio]26.2 mg/mgNormalThe [facility] HospitalComment on above:Performed By: #### LIPID, CMP, FT3, MG, T4, TSH, URIC #### [facility] [address] [place] [address] Dr. Estephania SmallT4on [id number] [Mass/Vol]7.20 ug/dLNormal4.50-12.10The [facility] HospitalComment on above:Performed By: #### LIPID, CMP, FT3, MG, T4, TSH, URIC #### [facility] [address] [place] [address] Dr. Estephania Ramos [id number] uIU/mLNormal0.358-3.740The [facility] HospitalComment on above:Performed By: #### LIPID, CMP, FT3, MG, T4, TSH, URIC #### [facility] [address] [place] [address] Dr. Estephania SmallURIC ACID SERUMon [id number] [Mass/Vol]7.6 mg/dLCritically high3.5-7.2The [facility] HospitalComment on above:Performed By: #### LIPID, CMP, FT3, MG, T4, TSH, URIC #### [facility] [address] [place] [address] Dr. Yilan ChangCardiovascular Lab Reporton [id number] Lab Report [facility] Patient Name: Linda Lee [facility] MR #: [id number] Physician: Torin Henderson, Department of M.D. Medicine Service Date: 09/20/2020 Division of Birthdate: 1950 Cardiology Room #: [facility] [id number] Adult Cardiovascular Services [place] [address] Cardiovascular Laboratory Report PROCEDURE: Transesophageal echocardiogram and cardioversion. INDICATION: Atrial fibrillation/flutter. ATTENDING DOCTOR: Torin Henderson M.D. FELLOW: Renan Hernandes MD. PROCEDURE IN DETAIL: Informed consent was obtained from the patient after explaining indication, risks, benefits, and alternatives. The patient understood and agreed and signed the consent form. The patient was brought to the [facility] and transesophageal echocardiogram was performed under conscious [...] Hernandes MD Date Trans: 09/21/2020 06:48 A/godwin [id number] cc: Nixon Garay M.D. [address], [place] [address]CifgzyIoxAv[facility] [id number] Coag (Bld) [Time]54.0 sHigh25.0-35.0The [facility] HospitalComment on above:Order Comment: No: Do not add to previous draw Result Comment: [...] ASSAY (ANTI-XA ACTIVITY) BE USED FOR THIS PURPOSE.Performed By: #### 01591, 55087, 38158 #### [facility] [address] [facility] [place] [address], USAaPTT Coag (Bld) [Time]29.2 nNzvkeq37.0-35.0The [facility] HospitalComment on above:Order Comment: No: Do not add to previous drawResult Comment: ALL RESULTS MUST BE INTERPRETED WITH RESPECT TO BLOOD DRAWING ARTIFACT OR DILUTION ERROR OF ANTICOAGULANT AT THE TIME OF SAMPLING. THE APTT SHOULD NOT BE USED TO MONITOR UNFRACTIONATED HEPARIN THERAPY, THIS LABORATORY NO LONGER HAS AN ESTABLISHED THERAPEUTIC RANGE BASED ON THE APTT. IT IS RECOMMENDED THAT THE [facility] - HEPARIN ASSAY (ANTI-XA ACTIVITY) BE USED FOR THIS PURPOSE.Performed By: #### 54450, 41867, 30041, 47825 #### [facility] [address] [facility] [place] [address], USABASIC METABOLIC PANELon [id number] [Mass/Vol]9.1 mg/dLNormal8.6-10.3The [facility] HospitalComment on above:Order Comment: No: Do not add to previous drawPerformed By: #### 47099 #### [facility] [address] [facility] [place] [address], USAChloride [Moles/Vol]102 mmol/HAupqob06-348Cce [facility] HospitalComment on above:Order Comment: No: Do not add to previous drawPerformed By: #### 22144 #### [facility] [address] [place] [address], USACO2 [Moles/Vol]28 mmol/FIkmqzm15-76Eml [facility] HospitalComment on above:Order Comment: No: Do not add to previous draw Performed By: #### 38038 #### [facility] [address] [place] [address], USACreatinine [Mass/Vol]1.07 mg/dLNormal0.70-1.30The [facility] HospitalComment on above:Order Comment: No: Do not add to previous drawPerformed By: #### 30714 #### [facility] [address] [place] [address], USAGFR/1.73 sq M.predicted among blacks MDRD (S/P/Bld) [Vol rate/Area]mL/min/{1.73_m2}Normal>60The [facility] Comment on above:Order Comment: No: Do not add to previous drawPerformed By: #### 19834 #### [facility] [address] [place] [address], USAGFR/1.73 sq M.predicted among non-blacks MDRD (S/P/Bld) [Vol rate/Area]mL/min/{1.73_m2}Normal>60The [facility] Comment on above:Order Comment: No: Do not add to previous drawPerformed By: #### 07962 #### [facility] [address] [place] [address], USAGlucose [Mass/Vol]109 mg/rXKnoo73-897Ryg [facility] HospitalComment on above:Order Comment: No: Do not add to previous drawPerformed By: #### [id number] #### [facility] [address] [place] [address], USAPotassium [Moles/Vol]4.3 mmol/LNormal3.5-5.1The [facility] HospitalComment on above:Order Comment: No: Do not add to previous drawPerformed By: #### 68553 #### [facility] [address] [place] [address], USASodium [Moles/Vol]139 mmol/CPpjqxl807-286Per [facility] HospitalComment on above:Order Comment: No: Do not add to previous drawPerformed By: #### 99835 #### [facility] [address] [place] [address], USAUrea nitrogen [Mass/Vol]27 mg/dLHigh7-25The [facility] HospitalComment on above:Order Comment: No: Do not add to previous drawPerformed By: #### 51701 #### [facility] [address] [place] [address], USACalcium [Mass/Vol]9.5 mg/dLNormal8.6-10.3The [facility] HospitalComment on above:Order Comment: No: Do not add to previous drawPerformed By: #### 77533 #### [facility] [address] [place] [address], USAChloride [Moles/Vol]101 mmol/LObokms02-307Ava [facility] HospitalComment on above:Order Comment: No: Do not add to previous drawPerformed By: #### 94561 #### [facility] [address] [place] [address], USACO2 [Moles/Vol]25 mmol/PVwxnbj95-41Byr [facility] HospitalComment on above:Order Comment: No: Do not add to previous draw Performed By: #### 03786 #### [facility] [address] [place] [address], USACreatinine [Mass/Vol]1.13 mg/dLNormal0.70-1.30The [facility] HospitalComment on above:Order Comment: No: Do not add to previous drawPerformed By: #### 00039 #### [facility] [address] [place] [address], USAGFR/1.73 sq M.predicted among blacks MDRD (S/P/Bld) [Vol rate/Area]mL/min/{1.73_m2}Normal>60The [facility] Comment on above:Order Comment: No: Do not add to previous drawPerformed By: #### 75349 #### [facility] [address] [place] [address], USAGFR/1.73 sq M.predicted among non-blacks MDRD (S/P/Bld) [Vol rate/Area]mL/min/{1.73_m2}Normal>60The [facility] Comment on above:Order Comment: No: Do not add to previous drawPerformed By: #### 69839 #### [facility] [address] [place] [address], USAGlucose [Mass/Vol]121 mg/tCOqwy99-372Rav [facility] HospitalComment on above:Order Comment: No: Do not add to previous drawPerformed By: #### 36423 #### [facility] [address] [place] [address], USAPotassium [Moles/Vol]4.6 mmol/LNormal3.5-5.1The [facility] HospitalComment on above:Order Comment: No: Do not add to previous drawPerformed By: #### 06901 #### [facility] [address] [place] [address], USASodium [Moles/Vol]137 mmol/FSpummf500-663Dfj [facility] HospitalComment on above:Order Comment: No: Do not add to previous drawPerformed By: #### 27827 #### [facility] [address] [place] [address], USAUrea nitrogen [Mass/Vol]27 mg/dLHigh7-25The [facility] HospitalComment on above:Order Comment: No: Do not add to previous drawPerformed By: #### 14236 #### [facility] [address] [place] [address], USACBC COMPLETE BLOOD COUNTon 52-75-5438Dmsbihewral distribution width (RBC) [Ratio]12.8 %Wcivqd50.5-15.0The [facility] HospitalComment on above:Order Comment: No: Do not add to previous draw Performed By: #### 62639 #### [facility] [address] [place] [address], USAHematocrit (Bld) [Volume fraction]40.1 %Bjdaji77.0-50.0The [facility] HospitalComment on above:Order Comment: No: Do not add to previous drawPerformed By: #### 71505 #### [facility] [address] [place] [address], USAHemoglobin (Bld) [Mass/Vol]12.6 g/dLLow13.0-17.0The [facility] HospitalComment on above:Order Comment: No: Do not add to previous drawPerformed By: #### 18531 #### [facility] [address] [place] [address], [facility]LEH (RBC) [Entitic mass]27.6 dtNdlvam71.0-33.0The [facility] HospitalComment on above:Order Comment: No: Do not add to previous drawPerformed By: #### [id number] #### [facility] [address] [place] [address], [facility]OSPITALMCHC (RBC) [Mass/Vol]31.4 g/dLLow32.0-35.0The [facility] HospitalComment on above:Order Comment: No: Do not add to previous drawPerformed By: #### 85464 #### [facility] [address] [place] [address], [facility] HOSPITALMCV (RBC) [Entitic vol]87.7 vLSblyje55.0-98.0The [facility] HospitalComment on above:Order Comment: No: Do not add to previous drawPerformed By: #### 04019 #### [facility] [address] [place] [address], USANucleated RBC/100 WBC (Bld) [Ratio]0 %Normal0-0The [facility] HospitalComment on above:Order Comment: No: Do not add to previous drawPerformed By: #### 08681 #### [facility] [address] [place] [id number], USAPLAT IBV535 10*3/yZWwoloe167-465Blk [facility] HospitalComment on above:Order Comment: No: Do not add to previous draw Performed By: #### 28021 #### [facility] [address] [facility] [place] [address], M[facility] HOSPITALRBC (Bld) [#/Vol]4.57 10*6/uLNormal4.20-5.70The [facility] HospitalComment on above:Order Comment: No: Do not add to previous drawPerformed By: #### 34690 #### [facility] [address] [place] [address], [facility] HOSPITALWBC (Bld) [#/Vol]8.46 10*3/uLNormal4.00-10.60The [facility] HospitalComment on above:Order Comment: No: Do not add to previous drawPerformed By: #### 07351 #### [facility] [address] [facility] [place] [id number], [facility] HOSPITALCBC W/DIFFon [id number] IMM GRANS0.0 10*3/uLNormal 0.0-0.2The [facility] HospitalComment on above:Order Comment: No: Do not add to previous drawPerformed By: #### 82132 #### [facility] [address] [place] [id number], USAABS NEUTROPHILS3.8 10*3/uLNormal1.6-7.6The [facility] HospitalComment on above:Order Comment: No: Do not add to previous drawPerformed By: #### 11216 #### [facility] [address] [place] [address], USABasophils (Bld) [#/Vol]0.0 10*3/uLNormal0.0-0.2The [facility] HospitalComment on above:Order Comment: No: Do not add to previous drawPerformed By: #### 88153 #### [facility] [address] [facility] [place] [address], USABasophils/100 WBC (Bld)0.5 %Normal0.0-1.0The [facility] HospitalComment on above:Order Comment: No: Do not add to previous drawPerformed By: #### 66757 #### [facility] [address] [facility] [place] [address], USAEosinophils (Bld) [#/Vol]0.6 10*3/uLHigh0.0-0.5The [facility] HospitalComment on above:Order Comment: No: Do not add to previous drawPerformed By: #### 37716 #### [facility] [address] [facility] [place] [address], USAEosinophils/100 WBC (Bld)9.6 %High0.0-6.0The [facility] HospitalComment on above:Order Comment: No: Do not add to previous drawPerformed By: #### 85838 #### [facility] [address] [facility]. [place] [id number], USAErythrocyte distribution width (RBC) [Ratio]12.7 %Normal 11.5-15.0The [facility] HospitalComment on above:Order Comment: No: Do not add to previous drawPerformed By: #### 50873 #### [facility] [address] [facility] [place] [address], USAHematocrit (Bld) [Volume fraction]37.2 %Low39.0-50.0The [facility] HospitalComment on above:Order Comment: No: Do not add to previous drawPerformed By: #### 67019 #### [facility] [address] [facility] [place] [address], USAHemoglobin (Bld) [Mass/Vol]11.9 g/dLLow13.0-17.0The [facility] HospitalComment on above:Order Comment: No: Do not add to previous drawPerformed By: #### 67486 #### [facility] [address] [facility] [place] [address], USAIMMATURE GRANS0.3 %Normal0.0-1.0The [facility] HospitalComment on above:Order Comment: No: Do not add to previous draw Performed By: #### 20105 #### [facility] [address] [facility] [place] [address], USALymphocytes (Bld) [#/Vol]1.4 10*3/uLNormal1.2-4.0The [facility] HospitalComment on above:Order Comment: No: Do not add to previous drawPerformed By: #### 71297 #### [facility] [address] [facility] [place] [address], USALymphocytes/100 WBC (Bld)21.9 %Iftymp01.0-45.0The [facility] HospitalComment on above:Order Comment: No: Do not add to previous drawPerformed By: #### 93893 #### [facility] [address] [facility] [place] [address], USAMCH (RBC) [Entitic mass]28.1 rfPbrdkd28.0-33.0The [facility] HospitalComment on above:Order Comment: No: Do not add to previous drawPerformed By: #### 95622 #### [facility] [address] [place] [address], [facility] HOSPITALMCHC (RBC) [Mass/Vol]32.0 g/tVUoohgf90.0-35.0The [facility] HospitalComment on above:Order Comment: No: Do not add to previous drawPerformed By: #### 13205 #### [facility] [address] [place] [address], [facility] HOSPITALMCV (RBC) [Entitic vol]87.7 oXItilxt57.0-98.0The [facility] HospitalComment on above:Order Comment: No: Do not add to previous drawPerformed By: #### 89324 #### [facility] [address] [place] [address], [facility] HOSPITALMonocytes (Bld) [#/Vol]0.6 10*3/uLNormal0.1-1.0The [facility] HospitalComment on above:Order Comment: No: Do not add to previous drawPerformed By: #### 93736 #### [facility] [address] [place] [address], USAMONOS9.2 %Normal5.0-12.0The [facility] HospitalComment on above:Order Comment: No: Do not add to previous drawPerformed By: #### 13890 #### [facility] [address] [place] [address], USANeutrophils/100 WBC (Bld)58.5 %Olwvon46.0-72.0The [facility] HospitalComment on above:Order Comment: No: Do not add to previous drawPerformed By: #### 98393 #### [facility] [address] [place] [address], USANucleated RBC/100 WBC (Bld) [Ratio]0 %Normal0-0The [facility] HospitalComment on above:Order Comment: No: Do not add to previous drawPerformed By: #### 70385 #### [address] [place] [address], USAPLAT TMK615 10*3/gAAlgkoa752-795Yvr [facility] HospitalComment on above:Order Comment: No: Do not add to previous draw Performed By: #### 19481 #### [facility] [address] [facility] [place] [address], USARBC (Bld) [#/Vol]4.24 10*6/uLNormal4.20-5.70The [facility] HospitalComment on above:Order Comment: No: Do not add to previous drawPerformed By: #### 15831 #### [address] [place] [address], M[facility] HOSPITALWBC (Bld) [#/Vol]6.44 10*3/uLNormal4.00-10.60The [facility] HospitalComment on above:Order Comment: No: Do not add to previous drawPerformed By: #### 69708 #### [address] [place] [address], USACHEST AND [facility] [id number] AND [facility] Department of Radiology [address] [place] [phone] Patient Name: LINDA LEE : 1950 Sex: M Age: Race: White Pt. Location: [id number] Patient Status: I Ordered Date: 09/19/2020 10:55:00 [...] reports Electronically signed: Edith Penny. Transcribed by: [email or web address], User Resident: KRISTY FOLEY Electronically Signed by: EDITH PENNY @ 09/20/2020 12:37 AM I personally read this/these film(s) with this [facility] HospitalComment on above:Order Comment: No: Do not add to previous drawCTA CHESTon [id number] CHESTFostoria City Hospital Department of Radiology [address] [place] [id number] Patient Name: LINDA LEE : 1950 Sex: M Age: Race: White Pt. Location: [id number] Patient Status: O Ordered Date: 09/20/2020 3:30:00 AM Completed Date: 09/20/2020 05:33 AM Requesting Provider: ARLETTE RODRIGUEZ Attending Provider: DORA GARCIA Report Copy To: Signs & Symptoms: Shortness of Breath History: See Comments Comments: Pulmonary Embolism, recent CABG, shortness of breath with tachy, D- dimer 3+ Exam: CTA CHEST Clinical history: Tachycardia [...] AP Electronically signed: Edith Penny. Transcribed by: [email or web address], User Resident: Electronically Signed by: EDITH PENNY @ 09/20/2020 05:54 AMNormalThe [facility] HospitalComment on above:Order Comment: No: Do not add to previous drawD DIMER TESTon [id number]-DIMER TEST3.43 mcg/mL FEUHigh 0.27-0.49The [facility] HospitalComment on above:Result Comment: D-Dimer values of less than 0.50 ug/ml (FEU) are considered to be a negative predictor of thrombosis. However, the D-Dimer result should be used in conjunction with pretest probability and should not be used alone to diagnose a thrombotic event.Performed By: #### 77111, 66431, 32331, 56846 #### [facility] [address] [place] [address], USAMAGNESIUM BLOODon [id number] [Mass/Vol]1.5 mg/dL Low1.9-2.7The [facility] HospitalComment on above:Order Comment: No: Do not add to previous drawPerformed By: #### 52188 #### [facility] [address] [place] [address], USAMagnesium [Mass/Vol]1.5 mg/dLLow1.9-2.7The [facility] HospitalComment on above:Order Comment: No: Do not add to previous drawPerformed By: #### 07226 #### [facility] [address] [place] [address], USAPHOSPHORUS BLOODon 18-24-3987Vzhvwmldc [Mass/Vol]4.3 mg/dL Normal2.5-5.0The [facility] HospitalComment on above:Order Comment: No: Do not add to previous drawPerformed By: #### 87131 #### [facility] [address] [place] [address], USAPOC GLUCOSE LABon [id number] [Mass/Vol]125 mg/dLHigh 70-100The [facility] HospitalComment on above:Performed By: #### 76600 #### [facility] [address] [place] [address], USAGlucose [Mass/Vol]145 mg/kPMbxq59-228Ryb [facility] HospitalComment on above:Performed By: #### 16390 #### [facility] [address] [place] [address], USAGlucose [Mass/Vol]127 mg/dTOskw54-956Ubc [facility] HospitalComment on above:Performed By: #### 28322 #### [facility] [address] [facility] [place] [address], USAPROTHROMBIN TIMEon [id number] Coag (PPP) [Relative time] 1.22 {INR}High0.91-1.16The [facility] HospitalComment on above: Order Comment: No: Do not add to previous drawResult Comment: ACCCP RECOMMENDED INR FOR WARFARIN THERAPY ------- CONDITION INR PROPHYLAXIS OF VENOUS THROMBOSIS 2-3 (HIGH-RISK SURGERY) TREATMENT OF VENOUS THROMBOSIS 2-3 TREATMENT OF PULMONARY EMBOLISM 2-3 PREVENTION OF SYSTEMIC EMBOLISM: 2-3 ACUTE MYOCARDIAL INFARCTION TISSUE HEART VALVES VALVULAR HEART DISEASE ATRIAL FIBRILLATION RECURRENT SYSTEMIC EMBOLISM MECHANICAL HEART VALVE 2.5-3.5 FROM: ORAL ANTICOAGULANTS. MECHANISM OF ACTION, CLINICAL EFFECTIVENESS, AND OPTIMAL THERAPEUTIC RANGE. CHEST 1995;108:231S-246S.Performed By: #### 56446, 61382, 07588 #### [facility] [address] [place] [address], USAPT Coag (PPP) [Time]15.4 sHigh12.3-14.8The [facility] HospitalComment on above:Order Comment: No: Do not add to previous drawResult Comment: ALL RESULTS MUST BE INTERPRETED WITH RESPECT TO BLOOD DRAWING ARTIFACT OR DILUTION ERROR OF ANTICOAGULANT AT THE TIME OF SAMPLING.Performed By: #### 16242, 99688, 39307 #### [facility] [address] [place] [address], USAINR Coag (PPP) [Relative time]1.13 {INR}Normal0.91-1.16The [facility] HospitalComment on above:Order Comment: No: Do not add to previous drawResult Comment: [facility] RECOMMENDED INR FOR WARFARIN THERAPY ------- CONDITION INR PROPHYLAXIS OF VENOUS THROMBOSIS 2-3 (HIGH-RISK SURGERY) TREATMENT OF VENOUS THROMBOSIS 2-3 TREATMENT OF PULMONARY EMBOLISM 2-3 PREVENTION OF SYSTEMIC EMBOLISM: 2-3 ACUTE MYOCARDIAL INFARCTION TISSUE HEART VALVES VALVULAR HEART DISEASE ATRIAL FIBRILLATION RECURRENT SYSTEMIC EMBOLISM MECHANICAL HEART VALVE 2.5-3.5 FROM: ORAL ANTICOAGULANTS. MECHANISM OF ACTION, CLINICAL EFFECTIVENESS, AND OPTIMAL THERAPEUTIC RANGE. CHEST 1995;108:231S-246S.Performed By: #### [id number], 19146, 80494, 01974 #### [facility] [address] [place] [address], USAPT Coag (PPP) [Time]14.5 fJriuay35.3-14.8The Fostoria City HospitalComment on above:Order Comment: No: Do not add to previous drawResult Comment: ALL RESULTS MUST BE INTERPRETED WITH RESPECT TO BLOOD DRAWING ARTIFACT OR DILUTION ERROR OF ANTICOAGULANT AT THE TIME OF SAMPLING.Performed By: #### 93581, 16122, 87012, 40151 #### [facility] [address] [place] [address], USATROPONIN-Ion [id number] I.cardiac [Mass/Vol]0.07 ng/mLHigh0.00-0.04The Fostoria City HospitalComment on above:Order Comment: No: Do not add to previous drawResult Comment: REFERENCE RANGES: 0.00 - 0.04 ng/ml NORMAL 0.05 - 0.50 ng/ml INDETERMINATE > 0.50 ng/ml CONSISTENT WITH AN M.I.Performed By: #### [id number] #### [facility] [address] [place] [address], XOXUBX3nk [id number] 3RD GENERATION2.08 uIU/mLNormal 0.34-5.60The [facility]ostoria City HospitalComment on above:Order Comment: No: Do not add to previous drawPerformed By: #### 27939 #### [facility] [address] [place] [address], USAUFH HEPARIN ASSAYon [id number] HEPARIN0.46 IU/mLNormal0.30-0.70The [facility] City HospitalComment on above: Result Comment: Rivaroxaban and Apixaban will interfere with the anti Xa assay used to monitor UFH and LMWH.Performed By: #### 24836 #### [facility] [address] [facility] [place] [address], USAUNFRACTIONATED HEPARIN0.48 IU/mLNormal0.30-0.70The [facility] City HospitalComment on above:Result Comment: Rivaroxaban and Apixaban will interfere with the anti Xa assay used to monitor UFH and LMWH.Performed By: #### 00913 #### [facility] [address] [place] [address], USAUNFRACTIONATED HEPARIN0.17 IU/mLLow0.30-0.70The [facility] of Hunter Medical CenterComment on above:Result Comment: Rivaroxaban and Apixaban will interfere with the anti Xa assay used to monitor UFH and LMWH.Performed By: #### 49612, 48679, 87715 #### [facility] [address] [facility] [place] [address], USAUNFRACTIONATED HEPARIN<0.10Critically low0.30-0.70The [facility]ostoria City HospitalComment on above:Result Comment: Rivaroxaban and Apixaban will interfere with the anti Xa assay used to monitor UFH and LMWH. RESULTS CHECKED AND CALLED. ACCURATELY READ BACK BY JONNIE SINGLETON RN AT 0208.Performed By: #### 70902, 29255, 87655, 35251 #### [facility] [address] [facility] [place] [address], USABASIC METABOLIC PANELon [id number] [Mass/Vol]9.9 mg/dLNormal8.6-10.3The [facility] City HospitalComment on above: Performed By: #### 38388 #### [facility] [address] [place] [address], USAChloride [Moles/Vol]99 mmol/KEbgrvx89-646Fjp [facility] City HospitalComment on above:Performed By: #### 11836 #### [facility] [address] [facility] [place] [address], USACO2 [Moles/Vol]29 mmol/BYznwjp96-18Csh [facility] City HospitalComment on above:Performed By: #### 20964 #### [facility] [address] [place] [address], USACreatinine [Mass/Vol]1.07 mg/dLNormal0.70-1.30The [facility] City HospitalComment on above:Performed By: #### 78108 #### [facility] [address] [place] [address], USAGFR/1.73 sq M.predicted among blacks MDRD (S/P/Bld) [Vol rate/Area]mL/min/{1.73_m2}Normal>60The [facility] Comment on above:Performed By: #### 35806 #### [facility] [address] [facility] [place] [address], USAGFR/1.73 sq M.predicted among non-blacks MDRD (S/P/Bld) [Vol rate/Area]mL/min/{1.73_m2}Normal>60The [facility] Comment on above:Performed By: #### 28006 #### [facility] [address] [place] [address], USAGlucose [Mass/Vol]75 mg/cEWegnxp10-267Cuz [facility] City HospitalComment on above:Performed By: #### 49066 #### [facility] [address] [facility] [place] [address], USAPotassium [Moles/Vol]4.1 mmol/LNormal3.5-5.1The [facility] City HospitalComment on above:Performed By: #### 02853 #### [facility] [address] [facility] [place] [address], USASodium [Moles/Vol]138 mmol/THctdlb863-127Ncv [facility] HospitalComment on above:Performed By: #### 71033 #### [facility] [address] [facility] [place] [address], USAUrea nitrogen [Mass/Vol]22 mg/dLNormal7-25The [facility] City HospitalComment on above:Performed By: #### 45259 #### [facility] [address] [facility] [place] [address], USACHEST AND [facility] [phone] AND [facility] Department of Radiology [address] [place] [address] Patient Name: LINDA LEE : 1950 Sex: M Age: Race: White Pt. Location: Patient Status: O Ordered Date: 09/12/2020 11:40:00 AM Completed Date: 09/12/2020 11:44 AM Requesting Provider: SAURABH MOREL Attending Provider: KRISTY CARREON Report Copy To: NIXON GARAY Signs & Symptoms: I25.10 Athscl heart disease of samish coronary artery w/o ang pctrs I10 History: [place] Comments: evaluate Exam: CHEST AND LATERAL CHEST AND LATERAL 09/12/2020 11:44 AM CLINICAL INDICATIONS: I25.10 Athscl heart disease of samish coronary artery w/o ang pctrs I10 TECHNOLOGIST [...] scarring Electronically signed: Corry Al. Transcribed by: [email or web address], User Resident: Electronically Signed by: CORRY AL @ 09/12/2020 12:12 [facility] HospitalComment on above:Order Comment: evaluate MAGNESIUM BLOODon 35-05-4318Yqedaetue [Mass/Vol]1.5 mg/dLLow1.9-2.7The [facility] City HospitalComment on above:Performed By: #### 17176 #### [facility] [address] [place] [address], USACNOVon 06-91-0437SJQREvciwq Visit (CARDFT) --------LINDA LEE ([id number]) 1950 M UPADate Time Provider Ttrawxocxw09/14/18 10:00 AM MIKEY BESS During your visit today, we recorded the following information about you: Pulse Blood pressure Weight 61/minute 134/89 114.3 kgMikey Bess MD 04/30/2018 10:20 AM [facility] InstituteP[facility] Department of Cardiovascular MedicineOUTPATIENT VISIT DATE 04/30/18OUTPATIENT VISIT TYPEESTABLISHEDPRIMARY CARE PHYSICIAN:Nixon Garay MD[address] [facility] [address]Fbtjr: [phone]: [phone] COMPLAINT:Patient presents with:Established PatientHISTORY OF PRESENT ILLNESS:Linda Lee is a 68 year old male with a past cardiac history of persistentatrial fibrillation, coronary artery disease with an occluded LAD, RCA both ofwhich are filling via collaterals and a moderate left main stenosis, essentialhypertension, hyperlipid emia and tobacco use.The patient presents today for [...] exercises on a regular basisincluding weight lifting. Hehas not had any chest symptoms during hisexercise protocol. He has stopped smoking completely.PAST MEDICAL HISTORYDiagnosis Date- CAD (coronary artery disease) 10/02/13- High blood sugar- HTN (hypertension) 1995- Hyperlipidemia 1995- Osteoarthritis- Paroxysmal atrial fibrillation (HCC) 09/28/13- Right retinal artery branch occlusion 1995- Sleep apneaPAST SURGICAL HISTORYProcedure Laterality Date- APPENDECTOMY- CARDIAC CATH 10/02/13 50% mid LM. 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 Proximal RCA INCOME AUDITOR.Co- dominatLCX with L-R collateral. EF 55%.- CARDIOVERSION 10/14/2017- [...] Stroke Mother in her 80's- Heart Father RI, in mid 50 s.-Coronary Artery Disease Brother RI, in his 40's. in his 50's.ALLERGIES:ALLERGIESAllergen Reactions- Aldactone [Spironol* Other: See Comments Muscle [...] 114.3 kg(252 lb) BMI 29.88 kg/m?General: Well appearing,in no acute distress.Eyes: Conjunctiva normal, sclera normalNeck: No jugular venous distention, no palpable thyromegaly.Heart: Regular rhythm, S1, S2 normal, no S3, no S4. No murmur. No carotidbruits.Respiratory: Clear to auscultation bilaterally. Good respiratory effort.GI: Soft, nontender, bowel sounds normal, no palpable hepatosplenomegalyExtremities: Normal pulses in distal lower extremities.Absent lower extremityedemaNeuro: Alert, cooperative with no focal deficit.Psych: Pleasant and cooperative.Skin: No rashes or wounds.CARDIOVASCULAR MEDICINE TESTING:None.IMPRESSION:1. Persistent atrial fibrillation (HCC) - ICD9: 427.31, ICD10: I48.1 (primarydiagnosis)2. Coronary artery disease invol ving samish coronary artery of samish heartwithout angina pectoris - ICD9: 414.01, ICD10: I25.103. Essential hypertension - ICD9: 401.9, ICD10: I104. Mixed hyperlipidemia - ICD9: 272.2, ICD10: E78.2PLAN:Continue current medical regimen.Low-cholesterol, low-fat diet.Regular aerobic exercise as the patient is doing.I have congratulated him on being able to stop smoking.Suggested follow- up with local cardiology in 6 months or sooner if necessary.A copy of this note will be provided to the requesting provider by way [facility] medical [facility] or via U.S. Mail.This document was generated utilizing Zkatter dictation. I have reviewed andverified that the contents of the document are accurate with the e xception ofminor grammatical, spelling and punctuation errors.CONTACT INFORMATION:Thank you for allowing us to participate in the care of this very pleasantpatient. Please free to contact us if we can be of any further assistance.Mikey Bess MD, [facility] and Randee Carterlos alamos medical centerment of Cardiovascular MedicineHeart and Vascular InstituteFirelands Regional Medical Center[address] [facility].[place], [place] [address]Czgjde: [phone] Referring Provider: NIXON GARAY [[id number]]Allergies As of Date: 04/30/2018 Noted Allergy ReactionALDACTONE (SPIRONOLACTONE) 11/04/2015 14 - Oth er: See Comments Comments: Muscle crapmDate Reviewed: 04/30/2018Reviewed by: Mikey Bess - Fully AssessedReason for Visit: Established Patient [175]Primary Visit Diagnosis:Persistent atrialfibrillation (HCC) [I48.1] Other Visit Diagnoses:Coronary artery disease involving samish coronary artery of samish heart without angina pectoris [I25.10] Essential hypertension [I10] Mixed hyperlipidemia [E78.2]Prescriptions as of 04/30/2018 Sig: AMLODIPINE 10 MG TABLET Take 1 tablet by mouth onced* METFORMIN 500 MG TABLET Take 500 mg by mouth twice da* FENOFIBRATE 160 MG TABLET Take 160 mg by mouth once genevieve* CARVEDILOL 25 MG TABLET Take 25 mg by mouth twice genevieve* PRAVASTATIN 40 MG TABLET Take40 mg by mouth once north* LISINOPRIL 40 [...] FOR* Status:Closed by ALANIS BESS MD on 04/30/18Normal [facility] HospitalPROGRESSon [id number] mass concHNO ID: [id number]: Mikey McdermottyService: (none)Author Type: PhysicianType: Progress NotesFiled: 04/30/2018 10:20 AMNote Text:Heart and Vascular InstituteRobert and Randee Mcneal Department of Cardiovascular MedicineOUTPATIENT VISIT DATE 04/30/18OUTPATIENT VISIT TYPEESTABLSANDHILLS REGIONAL MEDICAL CENTERPRIMARY CARE PHYSICIAN:Nixon Garay MD[address] [facility] [address]Rmfpz: [phone]: [phone] COMPLAINT:Patient presents with:Established PatientHISTORY OF PRESENT ILLNESS:Linda Lee is a 68 year old male with a past cardiac history ofpersistent atrial fibrillation, coronary artery disease with an occludedLAD, RCA both of which are filling via collaterals and a moderate leftmain stenosis, essential hypertension, hyperlipidemia and tobacco use.The patient presents today fora 6 month follow-up appointment. He isnormally cared for by Dr. Edwards. He denies any chest pain, shortness ofbreath or dyspnea on exertion. He denies any palpitations, syncopal ornear syncopal episo leonard. He denies any edema, orthopnea or paroxysmalnocturnal dyspnea. He has been compliant with his medications over thepast 6 months. His primary care physician follows his lipid profile. Heexerciseson a regular basis including weight lifting. He has not had anychest symptoms during his exercise protocol. He has stopped smokingcompletely.PAST MEDICAL HISTORYDiagnosis Date- CAD (coronary artery disease) 10/02/13- High blood sugar- HTN (hypertension) 1995- Hyperlipidemia 1995- Osteoarthritis- Paroxysmal atrial fibrillation (HCC) 09/28/13- Right retinal artery branch occlusion 1995- Sleep apneaPAST SURGICAL HISTORYProcedure Laterality Date- APPENDECTOMY- CARDIAC CATH 10/02/13 50% mid LM. ProximaLAD INCOME AUDITOR with L-L collateral. Proximal RCA INCOME AUDITOR.Co-dominat LCX with L-R collateral. EF 55%.- CARDIOVERSION [...] Stroke Mother in her 80's- Heart Father RI, in mid 50 s.- Coronary Artery Disease Brother RI, in his 40's. in his 50's.ALLERGIES:ALLERGIESAllergen Reactions- Aldactone [Spironol* Other: See Comments MusclecrapmMEDICATIONS:amLODIPine (NORVASC) 10 mg tablet Take 1 tablet by mouth once daily.metFORMIN (GLUCOPHAGE) 500 mg tablet Take 500 mg by mouth twice daily.Fenofibrate (LOFIBRA) 160 mg tablet Take 160mg by mouth once daily.carvedilol (COREG) 25 mg tablet Take 25 mg by mouth twice daily withmeals.pravastatin (PRAVACHOL) 40 mg tablet Take 40 mg by mouth once daily.lisinopril 40 mg tablet Take 40 mgby mouth once daily.rivaroxaban (XARELTO) 20 mg tablet [...] BP Position: Sitting) Pulse 61 Wt114.3 kg (252lb) BMI 29.88 kg/m?General: Well appearing, in no acute distress.Eyes: Conjunctiva normal, scleranormalNeck: No jugular venous distention, no palpable thyromegaly.Heart: [...] ICD10: I48.1(primary diagnosis)2. Coronary artery disease involving samish coronary artery of nativeheart without angina pectoris - ICD9: 414.01, ICD10: I25.103. Essential hypertension - ICD9: 401.9, ICD10: I104. Mixed hyperlipidemia - ICD9: 272.2, ICD10: E78.2PLAN:Continue current medical regimen.Low-cholesterol, low-fat diet.Regular aerobic exercise as the patient is doing.I have congratulated him on being ableto stop smoking.Suggested follow-up with local cardiology in 6 months or sooner ifnecessary.A copy of this note will be provided to the requesting provider by way of[facility] medical record or via U.S. Mail.This document was generated utilizing ViaWestation. I have reviewedand verified that the contents of the document are accurate with theexception of minor grammatical, spelling and punctuationerrors.CONTACT INFORMATION:Thank you for allowing us to participate in the care of this very pleasantpatient. Please free to contact us if we can be of any furtherassistance.Mikey Bess MD, [facility] and Randee McnealLake Chelan Community Hospitalminnie of Cardiovascular MedicinePike Community Hospitalrt and Vascular Institute[address], [place] [address]Dvmtlt: [phone] NoCincinnati [facility] [phone] Visit (CARDFT) --------LINDA LEE ([id number]) 1950 MDate Time Provider Department10/22/17 9:00 AM HOLDEN EDWARDS During your visit today, we recorded the following information about you: Pulse Respiration Blood pressure 69/minute 16/minute 139/76Holden Edwards 10/22/2017 9:28 AM [facility] Angel Mcneal Department of Cardiovascular MedicineOUTPATIENT VISIT DATE10/22/17OUTPATIENT VISIT TYPEESTABLISHEDPRIMARY CARE PHYSICIAN:Nixon Garay MD[address] [facility] [id number]: [phone]: [phone] COMPLAINT:AFIBHISTORY OF PRESENT ILLNESS:Marilee is a 67 year old male who [...] artery disease) 10/02/13- High blood sugar- HTN (hypertension)1995- Hyperlipidemia 1995- Osteoarthritis- Paroxysmal atrial fibrillation (HCC) 09/28/13- Right retinal artery branch occlusion 1995- Sleep apneaPAST SURGICAL HISTORYProcedure Laterality Date- APPENDECTOMY- CARDIAC CATH 10/02/13 50% mid LM. 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 Proximal RCA INCOME AUDITOR. Co-dominatLCX with L-R collateral. EF 55%.- COLONOSCOPY [...] Stroke Mother in her 80's- Heart Father RI, in mid 50 s.- Coronary Artery Disease BrotherMI, in his 40's. in his 50's.ALLERGIES:ALLERGIESAllergen Reactions- Aldactone [Spironol* Other: See Comments Muscle [...] Fever, Fatigue.CARDIAC: See HPI above.HEENT: Negative for: Ringingin Ears, nosebleeds, bleeding gums. AdequatedentitionNECK: Negative for: Pain, stiffnessRESPIRATORY: Negative for: Blood in sputum, wheezing.GASTROINTESTINAL: Negative for: Trouble swallowing, blood in stoolMUSCULOSKELETAL: Negative for: Joint stiffness and painNEUROLOGIC: Negative for: Numbness, tremorsPSYCHIATRIC: Negative for: Anxiety, depressionSKIN: Negative for: Rashes, itchingHEMATOLOGICAL/LYMPHATIC: Negative for: Easy bruising, easy bleeding, painfullymph nodesI personally interviewed, c onfirmed and edited the above information ifobtained by others.PHYSICAL EXAMINATION:BP 139/76 (BP Site: Left Arm, BP Position: Sitting, BP Cuff Size: Large Adult) Pulse 69 Resp 16 SpO2 97%General: Well appearing, in no acute distress. ObeseNeuro: Oriented to person, place and time, alert, coope rative.Eyes: Extra ocular movements intact, pupils react to [...] rate controlled atrial fibrillation today.Reinforced a modest caffei ne diet. Continue AV radha blockade and Xarelto(rivaroxaban) [...] controlled at homeTobacco use: I have stressed th e importance of tobacco abstinence and havecounseled the patient regarding the severe adverse cardiovascular effects oftobacco use.Disposition: Follow up in clinic in 6 months. Pending studies: NoneCONTACT INFORMATION:Thank you for allowing us to assist in the care your patient. As always pleasedo not hesitate to contact us with further questions or concerns.Holden Edwards M.D.Krzysztofpartment of Cardiovascular MedicinePike Community Hospitalrt and Vascular Institute[address] [address]Mczbza: [phone] Referring Provider: NIXON GARAY [[id number]]Allergies As of Date: 10/22/2017 Noted Allergy ReactionALDACTONE (SPIRONOLACTONE) 11/04/2015 14 - Other: See Comments Comments: Muscle crapmDate Reviewed: 10/22/2017Reviewed by:Gasper Louie RN - Fully AssessedPrimary Visit Diagnosis:Atrial fibrillation, unspecified type(HCC) [I48.91]Order(s):ECG B/O W INTERP (MED OFFICE) [ECG06] Order #: [id number] as of 10/22/2017 Sig: METFORMIN 500 MG TABLET Take 500 mg by mouth twice da* AMLODIPINE 10 MG TABLET Take1 tablet by mouth once d* FENOFIBRATE 160 MG TABLET Take 160 mg by mouth once genevieve* CARVEDILOL 25 MGTABLET Take 25 mg by mouth twice genevieve* PRAVASTATIN 40 MG TABLET Take 40 mg by mouth once north* LISINOPRIL 40 MG TABLET Take 40 mg by mouth once north* RIVAROXABAN 20 MG TABLET Take 20 mg by mouth dailywit* ASPIRIN 81 MG TABLET,DELAYED * Take 1 tablet by mouth once d* AMOXICILLIN 500 MG CAPSULE Take 500 mg by mouth every 8 *Problem List As Of Date 10/22/2017 Noted Resolved Atrial fibrillation (HCC)[I48.91] INVALID FOR* Abnormal stress test [R94.39] INVALID FOR* Hypertension [I10] INVALID FOR* CAD (coronary artery disease) [I25.10] INVALID FOR* Hyperlipidemia [E78.5] INVALID FOR*Disposition: Return in about 6 months (around 04/24/2018).Follow-up and Disposition History RecordedEncounter Number: [id number] Status:Closed by HOLDEN EDWARDS MD on 10/22/17NoParkview Health [id number] mass concHNO ID: [id number]: Holden EdwardsSer: (none)Author Type: PhysicianType: Progress NotesFiled: 10/22/2017 9:28 AMNote Text:Heart and Vascular [facility] Department of Cardiovascular MedicineOUTPATIENT VISIT DATE10/22/17OUTPATIENT VISIT TYPEESTABLISHEDPRIMARY CARE PHYSICIAN:Nixon Garay MD[address] [facility] [address]Dgiak: [phone]: [phone] COMPLAINT:AFIBHISTORY OF PRESENT ILLNESS:Linda Lee is a [...] CATH 10/02/13 50% mid LM. 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 Proximal RCA INCOME AUDITOR.Co-dominat LCX with L-R collateral. EF 55%.- COLONOSCOPY [...] Stroke Mother in her 80's- Heart Father Gayle Rodriguez, in mid 50 s.- Coronary Artery Disease Brother NOMI, in his 40's. in his 50's.ALLERGIES:ALLERGIESAllergen Reactions- Aldactone [Spironol* Other: See Comments Muscle [...] 1tablet by mouth once daily.amoxicillin (POLYMOX, AMOXIL) 500mg capsule Take 500 mg by mouth every 8hours.REVIEW OF SYSTEMS:GENERAL: Negative for: Fever, Fatigue.CARDIAC: See HPI above.HEENT: Negative for: Ringing in Ears, nosebleeds, bleeding gums. AdequatedentitionNECK: Negative for: Pain, stiffnessRESPIRATORY: Negative for: Blood in sputum, wheezing.GASTROINTESTINAL: Negative for: Trouble swallowing, blood in stoolMUSCULOSKELETAL: Negative for: Joint stiffness and painNEUROLOGIC: Negative for: Numbness, tremorsPSYCHIATRIC: Negative for: Anxiety, depres sionSKIN: Negative for: Rashes, itchingHEMATOLOGICAL/LYMPHATIC: Negative for: Easy bruising, easy bleeding,painful lymph [...] No murmur.Lungs: Clear to auscultation bilaterally. Good respiratoryeffort.Abdomen: Soft, nontender, bowel sounds normal, no palpablehepatosplenomegalySkin: No clubbing, no cyanosis.Extremities: Normal pulses in distal lower extremities. Absent lowerextremity edemaEKG 10/22/17 atrial fibrillation ventricular rate 62 bpmIMPRESSION/PLAN:Linda Lee is a 67 year old male with history of AFIB, HTN, CAD herefor follow upAtrial fibrillation: Persistent, rate controlledatrial fibrillationtoday. Reinforced a modest caffeine diet. Continue [...] fats (< 7% of total energy intake) andchol esterol (< 200 mg/d)) and low sodium diet, [...] not hesitate to contact us with further questionsor concerns.Holden Edwards M.D.Doroteo Aguilera of Cardiovascular MedicinePike Community Hospitalrt and Vascular InstituteFirelands Regional Medical Center[address], [place] [address]Xfshsf: [phone] NoClermont County Hospital CNOVon [id number] Visit (CARDFT) --------JESUSLINDA ([id number]) 1950 MDate Time Provider Department08/28/17 11:00 AM DEISY EDWARDS During your visit today, we recorded the following information about you: Pulse Respiration Blood pressure 64/minute 14/minute 147/91Holden Edwards MD 08/28/2017 11:03 AM [facility] and Randee Mcneal Department of Cardiovascular MedicineOUTPATIENT VISIT DATE08/28/17OUTPATIENT VISIT TYPEESTABLISHEDPRIMARY CARE PHYSICIAN:Nixon Garay MD[address] [facility] [address]Suqic: [phone]: [phone] COMPLAINT:AFIBHISTORY OF PRESENT ILLNESS :Linda Lee is a 67 year old male [...] branch occlusion 1995- Sleep apneaPAST SURGICAL HISTORYProcedure Lateral ity Date- APPENDECTOMY- CARDIAC CATH 10/02/13 50% mid LM. Proxima LAD INCOME AUDITOR with L- L collateral. Proximal RCA INCOME AUDITOR. Co-dominatLCX with L-R collateral. EF 55%.- COLONOSCOPY 09/14/13- REMV CATARACT EXTRACAP,INSERT LENS 2007 Cataract Extraction with PC IOLSocial HistorySubstance Use Topics- Smoking status:Former Smoker Packs/day: 1.00 Years: 30.00 Types: Cigarettes Quit date: 10/03/2013- Smokeless tobacco: Never Used- Alcohol use 3.0 - 4.5 oz/week 2 - 3 Cans of Beer (12oz) per weekFAMILY HISTORYProblemRelation Age of Onset- Stroke Mother in her 80's- Heart Father RI, in mid 50ANDquot;s.- Coronary Artery Disease Brother RI, in his 40's. in his 50's.ALLERGIES:ALLERGIESAllergen Reactions- Aldactone [Spironol* Other: See Comments Muscle crapmMEDICATIONS:amoxicillin (POLYMOX, AMOXIL) 500 mgcapsule Take 500 mg by mouth every 8hours.metFORMIN (GLUCOPHAGE) 500 mg tablet Take 500 mg by mouthtwice daily.amLODIPine (NORVASC) 10 mg tablet Take 1 tablet by mouth once daily.Fenofibrate (LOFIBRA) 160 mg tablet Take 160 mg by mouth once daily.carvedilol (COREG) 25 mg tablet Take 25 mg by mouthtwice daily with meals.pravastatin (PRAVACHOL) 40 mg tablet Take 40 mg by mouth once daily.lisinopril 40 mg tablet Take 40 mg by mouth once daily.rivaroxaban (XARELTO) 20 mg tablet Take 20 mg by mouth daily with dinner.aspirin, enteric coated (ADULT LOW DOSE ASPIRIN) 81 mg EC tablet Take 1 tabletbymouth once daily.REVIEW OF SYSTEMS:GENERAL: Negative for: Fever, Fatigue.CARDIAC: See HPI above.HEENT: Negative for: Ringing in Ears, nosebleeds, bleeding gums. AdequatedentitionNECK: Negative for: Pain, stiffnessRESPIRATORY: Negative for: Blood in sputum, wheezing.GASTROINTESTINAL: Negative for: Trouble swallowing, blood in stoolMUSCULOSKELETAL: Negative for: Joint stiffness and painNEUROLOGIC: Negative for: Numbness, tremorsPSYCHIATRIC: Negative for: Anxiety, depressionSKIN: Negative for: Rashes, itchingHEMATOLOGICAL/LYMPHATIC: Negative for: Easy bruising, easy bleeding, painfullymph nodesIpersonally interviewed, confirmed and edited the above information ifobtained by others.PHYSICAL EXA MINATION:BP 147/91 (BP Site: Left Arm, BP Position: [...] upAtrial fibrillation: Paroxysmal, in rate controlled atrial fibrillationtoday.He will hold his Xarelto (rivaroxaban) for upcoming [...] intake) and cholesterol (ANDlt; 200 mg/d)) and lowsodiumdiet, weight management, and moderate aerobic exercise ANDgt;150 minutesper week as tolerated. Continue aspirin, beta yasmine, MATTY-I, statinHypertension: Adequately controlled at homeTobacco use: I have stressed the importance of tobacco abstinence and havecounseled the patient regarding the severeadverse cardiovascular effects oftobacco use.Disposition: Follow up in clinic one week after cardioversion Pending studies:Cardioversion October 14 at 10 AMCONTACT INFORMATION:Thank you for allowing us to assist in the care your patient. As always pleasedo not hesitate to contact us with further questions or concerns.Jason Tamayo of CardiovascularMedicineHeart and Vascular InstituteAndrea Ville [address] [place], [place] [address]Zjoigf: [phone] Referring Provider: NIXON GARAY [[id number]]Allergies As of Date: 08/28/2017 Noted Allergy ReactionALDACTONE (SPIRONOLACTONE) 11/04/2015 14 - Other: See Comments Comments: Muscle crapmDate Reviewed: 08/28/2017Reviewed by: Gasper Louie RN - Fully AssessedPrimary Visit Diagnosis:Atrial fibrillation, unspecified type (HCC) [I48.91] Other Visit Diagnosis:Coronary artery disease involving samish heart without angina pectoris, unspecified vessel or lesion type [I25.10]Order(s):ECG COMPLETE W INTERPRETATION [ECG01] Order #: [id number] FUTUREPrescriptions as of 08/28/2017 Sig: AMOXICILLIN 500 [...] FOR* Status:Closed by HOLDEN EDWARDS MD on 08/28/17NoAdena Pike Medical CenterESS [id number] mass concHNO ID: [id number]: Holden EdwardsService: (none)Author Type: PhysicianType: Progress NotesFiled: 08/28/2017 11:03 AMNote Text:Heart and Vascular InstitutePampa and [facility] Department of Cardiovascular MedicineOUTPATIENT VISIT DATE08/28/17OUTPATIENT VISIT TYPEESTABLISHEDPRIMARY CARE PHYSICIAN:Nixon Garay MD[address] [facility] [address]Rseig: [phone]: [phone] COMPLAINT:AFIBHISTORY OF PRESENT ILLNESS:Linda Lee is a [...] Laterality Date- APPENDECTOMY- CARDIAC CATH 10/02/13 50% midLM. 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 Proximal RCA INCOME AUDITOR.Co-dominat LCX with L-R collateral. EF 55% .- COLONOSCOPY 09/14/13- REMV CATARACT EXTRACAP,INSERT LENS 2008 Cataract Extraction with PC IOLSocial HistorySubstance Use Topics- Smoking status: Former Smoker Packs/day: 1.00 Years: 30.00 Types: Cigarettes Quit date: 10/03/2013- Smokeless tobacco: Never Used- Alcohol use 3.0 - 4.5 oz/week 2 - 3 Cans of Beer (12oz) per weekFAMILY HISTORYProblem Relation Age of Onset- Stroke Mother in her 80's- Heart Father RI, in mid 50 s.- Coronary Artery Disease Brother RI, in his 40's. in his 50's.ALLERGIES:ALLERGIESAllergen Reactions- Aldactone [Spironol* Other: See Comments Muscle crapmMEDICATIONS:amoxicillin (POLYMOX, AMOXIL) 500 mg capsule Take 500 mg by mouth every 8hours.metFORMIN (GLUCOPHAGE) 500 mg tablet Take 500 mg by mouth twice daily.amLODIPine (NORVASC) 10 mg tablet Take 1 tabletby mouth once daily.Fenofibrate (LOFIBRA) 160 mg tablet Take 160 mg by mouth once daily.carvedilol (COREG) 25 mg tablet Take 25 mg by mouth twice daily withmeals.pravastatin (PRAVACHOL) 40 mg tablet Take 40 mg by mouth once daily.lisinopril 40 mg tablet Take 40 mg by mouth once daily.rivaroxaban (XA RELTO) 20 mg tablet Take 20 mg by [...] Negative for: Anxiety, depressionSKIN: Negative for: Rashes, itchingHEMATOLOGICAL/LYMPHATIC: Negative for: Easy bruising, easy bleeding,painful lymph nodesI personally interviewed, confirmed and edited the above information ifobtained by others.PHYSICAL EXAMINATION:BP 147/91 (BP Site: Left Arm, BP Position: Sitting,BP Cuff Size: RegularAdult) Pulse 64 Resp 14 SpO2 97%General: Well appearing, in no acute distress. ObeseNeuro: Oriented to person, place and time, alert, cooperative.Eyes: Extra ocular movements intact, pupils react to lightNeck: No jugular venous distention, no palpable thyromegaly.Heart: Irregular rhythm, S1, S2 normal, no S3, no S4. No murmur.Lungs: Clear to auscultation bilaterally. Goo d respiratory effort.Abdomen: Soft, nontender, bowel sounds normal, no palpablehepatosplenomegalySkin: No clubbing, no cyanosis.Extremities: Normal pulses in [...] cardioversion October 14at 10 AM after more than30 days of uninterrupted anticoagulationCoronary artery disease: Stable, no evidence of angina on recent history.Known occluded proximal RCA and LAD with collaterals. Moderate left mainstenosis. I have recommended the ATP III guidelines that suggest amultifactorial approach to lifestyle modification including a low fat(reduced intake of saturated fats (< 7% of total energy intake) andcholestero l (< 200 mg/d)) and low sodium diet, weight management, andmoderate aerobic exercise >150 minutes per week as tolerated. Continueaspirin, beta yasmine, MATTY- I, statinHypertension: Adequately controlled at homeTobacco use: I have stressed the importance of tobacco abstinence and havecounseled the patient regarding the severe adverse cardiovascular effectsof tobacco use.Disposition: Follow up i n clinic one week after cardioversion Pendingstudies: Cardioversion October 14 at 10 AMCONTACT INFORMATION:Thank you for allowing us to assist in the care your patient. As alwaysplease do not hesitate to contact us with further questions or concerns.Holden Edwards M.D.Doroteo Aguilera of Cardiovascular MedicinePike Community Hospitalrt and Vascular InstituteFirelands Regional Medical Center[address], [place] [address]Auoywq: [phone] [facility] [id number] Visit (CARDFT) --------LINDA LEE ([id number]) 1950 MDate Time Provider Department08/23/17 10:30 AM HOLDEN EDWARDS During your visit today, we recorded the following information about you: Pulse Respiration Blood pressure Weight 60/minute 18/minute 138/83 111.1 kg Height 1.956 Brian Edwards MD 08/23/2017 10 :45 AM [facility] InstituteRobert and Randee Nieto Department of Cardiovascular MedicineOUTPATIENT VISIT DATE 08/23/17OUTPATIENT VISIT TYPEESTABLISHEDPRIMARY CARE PHYSICIAN:Nixon Garay MD[address] [facility] [address]Rxqyk: [phone]: [phone] COMPLAINT:A FIBHISTORY OF PRESENT ILLNESS:Linda Lee is a 67 [...] SURGICAL HISTORYProcedure Laterality Date- APPENDECTOMY- CARDIAC CATH 4/18/14 50% mid LM. 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 Proximal RCA INCOME AUDITOR. Co- dominatLCX with L-R collateral. EF 55%.- COLONOSCOPY 09/14/13- [...] Stroke Mother in her 80's- Heart Father RI, in mid 50ANDquot;s.- Coronary Artery Disease Brother RI, in his 40's. in his 50's.ALLERGIES:ALLERGIESAllergen Reactions- Aldactone [Spironol* Other: See Comments Muscle crapmMEDICATIONS:amLODIPine (NORVASC) 10 mg tablet Take 1 tablet by mouth once daily.Fenofibrate (LOFIBRA) 160 mgtablet Take 160 mg by mouth once daily.carvedilol [...] Negative for: Anxiety, depressionSKIN: Negative for: Rashes, itchingHEMATOLOGICAL/LYMPHATIC: Negative for: Easy bruising, easy bleeding, painfullymph nodesI personally interviewed, confirmed and edited the above information ifobtained by others.PHYSICAL EXAMINATION:BP 138/83 Pulse 60 Resp 18 Ht 195.6 cm (6' 5ANDquot;) Wt 111.1 kg (245lb) SpO2 98% BMI 29.05 kg/x7Pcsyjbr: Well appearing, in no acute distress. ObeseNeuro: [...] fibrillation ventricular rate 60 bpm with nonspecific STflatteningIMPRESSION/PLAN:Linda Lee is a 67 year old male [...] intake) and cholesterol (ANDlt; 200 mg/d)) and lowsodiumdiet, weight management, and moderate aerobic exercise ANDgt;150 minutesper week as tolerated. Continue aspirin, beta yasmine, MATTY-I, statinHypertension: Adequately controlled at homeTobacco use: I have stressed the importance of tobacco abstinence and havecounseled the patient regarding the severeadverse cardiovascular effects oftobacco use.Disposition: Follow up in clinic next Saturday for EKG. Pending studies: EKGnext week, discussed cardioversion if not returned to sinus rhythmCONTACT INFORMATION:Thank you for allowing us to assist in the care your patient. As always pleasedo not hesitate to contact us with further questions or concerns.Jason Tamayo artment of Cardiovascular MedicinePike Community Hospitalrt and Vascular InstituteAndrea Ville [address] [place], [place] [address]Htcxjj: [phone] Referring Provider: NIXON GARAY [[id number]]Allergies As of Date: 08/23/2017 Noted Allergy ReactionALDACTONE (SPIRONOLACTONE) 11/04/2015 14 - Other: See Comments Comments: Muscle crapmDate Reviewed: 08/23/2017Reviewed by: Chino Smith (Rn) MAGALIS John - Fully AssessedPrimary Visit Diagnosis:Atrial fibrillation, unspecified type (HCC) [I48.91]Prescriptions as of 08/23/2017 Sig: AMLODIPINE 10 MG TABLET Take 1 tablet by mouth onced* FENOFIBRATE 160 MG TABLET Take 160 mg by mouth once genevieve* CARVEDILOL 25 MG TABLET Take 25 mg by mouth twice genevieve* PRAVASTATIN 40 MG TABLET Take 40 mg by mouth once north* LISINOPRIL 40 MG TABLET Take40 mg by mouth once north* RIVAROXABAN 20 MG TABLET Take 20 mg by mouth daily wit* ASPIRIN 81 MG TABLET,DELAYED * Take 1 tablet by mouth once d*Problem List As Of Date 08/23/2017 Noted Resolved Atrialfibrillation (HCC) [I48.91] INVALID FOR* Abnormal stress test [R94.39] INVALID FOR* Hypertension [I10] INVALID FOR* CAD (coronary artery disease) [I25.10] INVALID FOR* Hyperlipidemia [E78.5] INVALID FOR*Disposition: Return in about 1 week (around 08/30/2017).Follow-up and Disposition History RecordedEncounter Number: [id number] Status:Closed by HOLDEN EDWARDS MD on 08/23/17NoParkview Health 89-36-9710Pkwnfjm mass concHNO ID: [id number]: Holden EdwardsService: (none)Author Type: PhysicianType: Progress NotesFiled: 08/23/2017 10:45 AMNote Text:Heart and Vascular InstituteRobmemorial medical center and Randee Mcneal Department ofCardiovascular MedicineOUTPATIENT VISIT DATE 08/23/17OUTPATIENT VISIT TYPEESTABLISHEDPRIMARY CARE PHYSICIAN:Nixon Garay MD[address] [facility] [address]Fqapu: [phone]: [phone] 6CHIEF COMPLAINT:AFIBHISTORY OF PRESENT ILLNESS:Linda Lee is a 67 year old male who presents today to follow up.History includes AFIB, CAD, HTN. He had picked up tobacco recently butquit 3 days ago. No other changes in his usual routine. Does yard work,house work, walks for exercise though lessso recently because of the coldweather. Denies chest pain, shortness of breath, orthopnea, cough, edema,palpitations, PND, lightheadedness or syncope with activity.PAST MEDICAL HISTORYDiagnosis Date-CAD (coronary artery disease) 10/02/13- High blood sugar- HTN (hypertension) 1995- Hyperlipidemia 1995- Osteoarthritis- Paroxysmal atrial fibrillation (HCC) 09/28/13- Right retinal artery branch occlusion 1995- Sleep apneaPAST SURGICAL HISTORYProcedure Laterality Date- APPENDECTOMY- CARDIAC CATH 10/02/13 50% mid LM. 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 Proximal RCA INCOME AUDITOR.Co-dominat LCX with L-R collateral. EF 55%.- COLONOSCOPY 09/14/13- REMV CATARACT EXTRACAP,INSERT LENS 2008 Cataract Extraction withPC IOLSocial HistorySubstance Use Topics- Smoking status: Former Smoker Packs/day: 1.00 Years: 30.00 Types: Cigarettes Quit date: 10/03/2013- Smokeless tobacco: Never Used- Alcohol use 3.0 - 4.5 oz/week 2 - 3 Cans of Beer (12oz) per weekFAMILY HISTORYProblem Relation Age of Onset- Stroke Mother in her 80's- Heart Father RI, in mid 50 s.- Coronary Artery Disease Brother RI, in his 40's. in his 50's.ALLERGIES:ALLERGIESAllergen Reactions- Aldactone [Spironol* Other: See Comments Muscle [...] Negative for: Anxiety, depressionSKIN: Negative for: Rashes, itchingHEMATOLOGICAL/LYMPHATIC: Negative for: Easy bruising, easy bleeding,painful lymph nodesI personally interviewed, confirmed and edited the above information ifobtained by others.PHYSICAL EX AMINATION:BP 138/83 Pulse 60 Resp 18 Ht 195.6 cm (6' 5 ) Wt 111.1 kg (245lb) SpO2 98% BMI 29.05 kg/z2Ijmzwhg: Well appearing, in no acute distress. ObeseNeuro: Oriented to person, place and time, alert, cooperative.Eyes: Extra ocular movements intact, pupils react to lightNeck: No jugular venous distention, no palpable thyromegaly.Heart: Irregular rhythm, S1, S2 normal, no S3, no S4. No murmur.Lungs: Clear to auscultation bilaterally. Good respiratory effort.Abdomen: Soft, nontender, bowel sounds normal, no palpablehepatosplenomegalySkin: No clubbing, no cyanosis.Extremities: Normal pulses in distal lower extremities. Absent lowerextremity edemaEKG 08/23/17 atrial fibrillation ventricular rate 60 bpm with nonspecific STflatteningIMPRESSION/PLAN:Linda Lee is a 67 year old male [...] to lifestyle modification including a low fat(reduced intakeof saturated fats (< 7% of total energy [...] your patient. As alwaysplease do not hesitate tocontact us with further questions or concerns.Holden Edwards M.D.Doroteo McnealDepartment of Cardiovascular MedicinePike Community Hospitalrt and Vascular Institute[address], [place] [address]Llmnio: [phone] NormalCKettering Health Main Campus Vital Signs Date TimeVital SignValuePerforming QdwvbmtitBrdynlzk10-80-1740 14:34-0400Blood Pressure LocationMichael NILL [facility] Ullhuyur31-24-1333 14:34-0400Diastolic blood ajsspcxe86 mm[Hg]Keyon NILL [facility] Surgery Zqneyrsj33-13-4835 14:34-0400Heart rate 68 /minMichael NILL [facility] Surgery Msgswgiv39-75-9711 14:34-0400 Respiratory rate16 /minMichael NILL [facility] Surgery Xnfdrenl16-69-6350 14:34-0400Systolic blood xevdlkfe430 mm[Hg]Keyon NILL General Surgery Sarah Encounters Encounter DateEncounter TypeCare ProviderFacilityStart: 04-12-2025 End: 34-24-5721yvyjgenvkdSPSHIPTCAshtabula County Medical Centertart: 03-10-2025 End: 56-54-3236qpwqalfcfmMPKXEGGFAshtabula County Medical Centertart: 03-10-2025 End: 24-84-3302rawmmpdfjsOMMRVUZBCleveland Clinic Fairview Hospitaltart: 10-08-2024 End: 44-07-8282duwykfseemCSBBBQZLicking Memorial Hospitaltart: 04-16-2023 End: 55-94-2677nqlfduepgsBduqyjr R NILLFacility:[facility] Hospitaltart: 04-16-2023 End: 87-83-2923Azlhgli encounter procedureMichael R NILL General Surgery Nill/Said Sarah Start: 03-27-2023 End: 40-65-9087vaxwhnhrsbLcwvyfd R NILLFacility:[facility] Hospitaltart: 03-20-2023 End: 41-82-4292nwhqvkwvazTbdfmac R NILLFacility:CD:[id number]: 02-22-2023 End: 39-85-3996gwrjwryxbqScwjmyp HoyFacility:[facility] Hospitaltart: 02-22-2023 End: 61-35-7326Fvsthnk encounter procedureMichael R NILL General Surgery Nill/Said Sarah Start: 25-74-1600gmjigydeuaVrclqkp HoyFacility:[facility] HospitalueStart: 10-12-2022 End: 52-12-7534kpknvmvcgwMJ NIXON JARROD .Facility:N5Kzmor: 10-11-2022 End: 10-43-9674rblfjymsunSN NIXON JARROD .Facility:Y3Dvlbf: 09-19-2020 End: 80-74-5775ksthfwegfbPHSKOEF HOYFacility:PRMCStart: 04-30-2018 End: 42-52-0474Cpeszyj encounter procedureMIKEY MCDERMOTTSt. Anthony's HospitalStart: 10-22-2017 End: 57-69-1739Eabtvim encounter procedureCHEAdena Regional Medical CenterStart: 10-14-2017 End: 93-55-9859Ztokfuy encounter procedureCHEHighland District Hospitalart: 08-28-2017 End: 62-79-0154Ggipxlh encounter procedureCHEHighland District Hospitalart: 08-23-2017 End: 65-91-4018Uhugdks encounter procedureOhioHealth Marion General Hospital Procedures DateProcedureProcedure DetailPerforming ClinicianStart: 14-76-5393Cugfpp of right inguinal herniaMichael NILL Start: 95-24-8385MZF screeningDR NIXON GARAY .Comment on above:Performed By: #### PSASC #### [facility] [address] [place] [address] Dr. Estephania Jenkinsart: 13-24-5119Xcwlqtax artery bypass graftMichael NILL AppendectomyMichael NILL VasectomyMichael NILL Immunizations Immunization DateImmunizationNotesCare LrfvxbktUjdoqohd21-80-6217JXWY-SlU-5 (COVID-19) mRNAMUL.ORD![id number] NILL General Surgery Qwikzsdx81-75-6329YURR-GrK-0 (COVID-19) mRNA BNT-162b2 vaxMichael NILL General Surgery Ausafoeu36-25-4955GMFQ-ZlX-2 (COVID-19) mRNA BNT-162b2 vaxMichael NILL General Surgery BellevueComment on above:Result Comment: 2023-02-14: [id number]-XjN-7 (COVID-19) mRNA BNT-162b2 randy HUGHES General Surgery BellevueComment on above:Result Comment: 2023-02-14: [id number] Payers DatePayer CategoryPayerPolicy [id number] [id number] Health [id number] [id number] [id number] [id number] 2.16.840.1.024460.3.57[id number] 2.16.840.1.608211.3.57[id number] 2.16.840.1.130630.3.57[id number] 2.16.840.1.398075.3.579.2.727 Social History DateTypeDetailFacilityStart: 76-21-5462Ccrcczf smoking statusEx-smoker (finding) General Surgery BellevueTobacco smoking statusNeverGeneral Surgery BellevueSex [facility] Functional Status PianZifvkxcemrCjdsffJfjufpre14-57-4418Omeqcpndre StatusN/AGeneral Surgery Sarah Progress note 04-12-2025 Note Date & OuuuDeksLhbzgqho17-58-8420 NoteNeurosurgery Consult Chief Complaint: Cervical spondylosis, recent arm pain and numbness. History of Present Illness: Linda Lee is a 75 y.o. male who presents in kind referral from Dr. Garay for evaluation of recent arm pain and numbness with cervical spondylosis. He reports that he has had intermittent difficulty with a tight feeling in his shoulder extending under the shoulder blade for around 6 months. It was more of a stiff and uncomfortable feeling. He notes that he has had problems with his shoulders for a long time. He undertook a course of physical therapy and after completing some physical therapy with manipulation of the neck, he suddenly suffered relatively severe right arm numbness with pain. It extended down his arm in an approximately C6 and C7 distribution on the right. He also noted some weakness in the right hand. He denied any symptoms on the left. With cessation of physical therapy and the use of medications, pain and numbness have subsided substantially. He notes a small region of residual abnormal sensation in the back of the right hand. He states today that he would not have made this neurosurgical appointment if he felt as good as he does today. Happily, the majority of the type feeling in his neck and shoulder has improved. Problem List: Problem List[1] Past Medical History: Medical History[2] Past Surgical History: Surgical History[3] Medications: Current Medications[4] Allergies: Allergies[5] Social History: Social History Socioeconomic History Marital status: Spouse name: Not on file Number of children: Not on file Years of education: Not on file Highest education level: Not on file Occupational History Not on file Tobacco Use Smoking status: Former Types: Cigarettes Smokeless tobacco: Never Substance and Sexual Activity Alcohol use: Yes Comment: occasional Drug use: Never Sexual activity: Defer Other Topics Concern Not on file Social History Narrative Not on file Social Drivers of Health Financial Resource Strain: Not on file Food Insecurity: Not on file Transportation Needs: Not on file Physical Activity: Not on file Stress: Not on file Social Connections: Not on file Intimate Partner Violence: Unknown (08/08/2023) [place] Safety [employer] [place] Fear of Current or Ex-Partner: Not on file Emotionally Abused: Not on file Physically Abused: Not on file Sexually Abused: Not on file Physically or Sexually Abused: Not on file Housing Stability: Not on file Family History: Family History[6] Review of Systems: Review of Systems Musculoskeletal: Positive for back pain and neck stiffness (in the morning). Neurological: Positive for numbness (right hand). Exam: Vitals: Vitals: 04/12/25 1343 BP: 170/83 Pulse: 65 SpO2: 98% Body mass index is 26.78 kg/m???. I/O: @IOBRIEF@ General: Awake, alert, NAD. Well groomed. HEENT: Normocephalic, atraumatic. Neck supple without lymphadenopathy. Heart: Regular rate and rhythm. Lungs: Clear to auscultation bilaterally. Abdomen: Soft, non-tender, non-distended. Bowel sounds present. Extremities: No cyanosis or edema. No noted deformities. Neurologic: Appropriate affect during exam. Oriented x 3. Normal fluency and prosody of speech. Content appropriate and higher function appears intact. CN II-XII grossly intact. PERRL. EOMI. Face symmetric strength and sensation. Tongue midline. Shoulder shrug full strength and symmetric. Palate elevates symmetrically. Motor 5/5 throughout. No pronator drift. Sensation intact to light touch throughout. DTR's 1+ and symmetric. Plantar response down-going. Gait symmetric with normal fabian and agility in toe and heel gait. Mild difficulty with tandem gait. FTN intact. No Paz's sign present. No ankle clonus. Lab: No visits with results within 1 Day(s) from this visit. Latest known visit with results is: Admission on 01/27/2024, Discharged on 01/27/2024 Component Date Value Ref Range Status Ventricular Rate 01/27/2024 80 BPM Final Atrial Rate 01/27/2024 80 BPM Final UT Interval 01/27/2024 146 ms Final QRS DURATION 01/27/2024 92 ms Final QT Interval 01/27/2024 392 ms Final QTC CALCULATION(BAZETT) 01/27/2024 452 ms Final P York 01/27/2024 96 degrees Final R-York 01/27/2024 63 degrees Final T Wave York 01/27/2024 -45 degrees Final Ventricular Rate 01/27/2024 70 BPM Final Atrial Rate 01/27/2024 70 BPM Final UT Interval 01/27/2024 196 ms Final QRS DURATION 01/27/2024 96 ms Final QT Interval 01/27/2024 426 ms Final QTC CALCULATION(BAZETT) 01/27/2024 460 ms Final P York 01/27/2024 78 degrees Final R-York 01/27/2024 73 degrees Final T Wave York 01/27/2024 -18 degrees Final POCT ACT 01/27/2024 161 (A) 82 - 152 seconds Final QC Pass/Fail 01/27/2024 Passed Final QC LOT # 01/27/2024 18 Final QC Expiration Date 01/27/2024 22,825 Final POCT ACT 01/27/2024 331 (A) 82 - (more content not included)...[facility] Progress note 10-08-2024 Note Date & JzyoMqleYtcrrtsc44-09-4815 NoteCardiovascular Medicine [facility] SUBJECTIVE Chief Complaint Patient presents with Coronary [...] Value Ref Range Status (more content not included)...[facility] Progress note 10-08-2024 Note Date & FiyiMszkCkcmvhsd47-96-7250 NotePatient here for 6 mo follow up CAD, HFmrEF, valve disease, and PAF. Had echo back in Mar 2024 after last apt. He will have routine labs drawn next month for Dr. Garay. Patient denies chest pain, SOB, palpitations, lightheadedness/syncope, and bleeding on Eliquis. Review of Systems Musculoskeletal: Positive for arthritis and joint pain. All other systems reviewed and are negative.[facility] Clinical Note 02-22-2023 Note Date & ObzbVllpYdufulpi97-59-8677 NoteChief Complaint consultation for right inguinal hernia HPI [...] hernia is limiting his ability to exercise; onbaby asa daily, no NSAIDs; no tobacco use. Review of Systems PHQ Score Initial Depression Screen Score: 0 ROS - Provider Constitutional: no fever, no sweats, no weight loss. Eyes: no glasses, no blurred vision, no visual loss. ENMT: no dentures, no hoarseness, no swallowing difficulties, no hearing loss, no ear infection(s),no nose bleeds. Cardiovascular: normal blood pressure, no [...] no tenderness, no masses, partially reducible right inguinalhernia, no skin changes, diastasis recti no, no [...] Never Smokeless Tobacco Use: (more content not included)...[facility] Result Comment: Electronically Signed By: ELLEN MARTINEZ, Keyon Savage\Date and Time Signed: 02/22/23 16:24 EDT Discharge summary note 09-20-2020 Note Date & [id number] NoteMR#: [id number] [facility] Pt. Name: Linda Lee Admitted: 09/19/2020 [...] heart rate was high. He called his edge blacker who has increased his metoprolol to 25 [...] and chills. The patient was seen at [place], but the EKG shows tachycardia in the 130s. He was given 2 days of blood pressure without change. They spoke with cardiology, who recommend transferring to the [facility]. LABORATORY DATA: Labs at [facility] showed magnesium 1.5, creatinine 1.3, high sensitive [...] P/Mark Hernandez MD Date Trans: 09/20/2020 01:33 P/godwin [id number] cc: Nixon Garay M.D. [address] [place] [facility] [id number] Plan note Note Date & TypeNoteFacilityEvaluation + Plan note No data available for this section [facility] Discharge instructions Note Date & TypeNoteFacilityHospital Discharge instructions No data available for this section General Surgery [place] Progress note Note Date & TypeNoteFacilityProgress note No data available for this section General Surgery [place] Summary Purpose Family History No Family History [...] section and content) DATE CREATED AUTHOR 05/26/2018 [facility] DATE CREATED AUTHOR AUTHOR'S ORGANIZ ATION 09/06/2021 [facility] DATE CREATED AUTHOR AUTHOR'S ORGANIZ ATION 10/19/2022 [facility] DATE CREATED AUTHOR AUTHOR'S ORGANIZ ATION 04/17/2023 [facility] DATE CREATED AUTHOR AUTHOR'S ORGANIZ ATION 04/13/2025 [facility] Patient Care team informatio n (unrecognized section and content) Personnel Name: Nixon Garay MD Address: Address: [address] [place] [address] Personnel Name: Nixon Garay MD Address: Address: [address] [place] [address] FOR RECORDS PERTAINING TO PATIENTS WHO ARE [...] BE BASED ON THE PRIMARY CLINICAL RECORDS. [facility] [employer] [facility]. provides no warranty or guarantee of the accuracy or completeness of information in this document.
--- NOTE | 2025-05-06 14:00 | CA_ITS ---
Patient Name: LINDA SOSA MR#: [id number] : 1950 Exam Date: 05/06/2025 Ordering Doctor: LEYLA SIMON CNP ECHOCARDIOGRAM REPORT PROCEDURE: CA ECHO DOPPLER COMPLETE INDICATIONS: Chronic systolic heart failure COMPARISON: None. DESCRIPTION: COMPLETE ECHOCARDIOGRAM Real-time transthoracic echocardiography with 2D, M-mode, spectral and color flow Doppler performed. QUALITY: Technical quality was good. LEFT VENTRICLE: Normal chamber size. Mild concentric hypertrophy. Global left ventricular systolic function is normal. Estimated left ventricular ejection fraction is 55%. LV EF: Normal left ventricular ejection fraction, (55%). DIASTOLIC: Diastolic function is indeterminate. ATRIAL SEPTUM: LEFT ATRIUM: Moderate dilatation. RIGHT ATRIUM: Moderate dilatation. RIGHT VENTRICLE: Normal chamber size. Normal right ventricular systolic function. TRICUSPID VALVE: Normal mobility and thickness. No stenosis with trivial regurgitation. Mild pulmonary hypertension. RVSP is 37 mmHg. MITRAL VALVE: Normal mobility and thickness. No evidence of mitral valve stenosis. Mild mitral annular calcification. Trivial mitral regurgitation. AORTIC VALVE: Normal trileaflet appearance. Mildly calcified aortic valve. Normal leaflet mobility. No evidence of aortic valve stenosis. No aortic regurgitation. AORTIC ROOT: Normal diameter and appearance. The aortic root measures 3.5 cm. PULMONIC VALVE: Normal thickness and mobility. No stenosis. Mild regurgitation. PERICARDIUM: No evidence of pericardial effusion. IVC: Collapses with inspirations. The IVC is normal in size measuring 1.9 cm. PLEURA: CONCLUSION: 1. Mild concentric left ventricular hypertrophy with normal systolic function. Estimated LVEF is 55%. 2. Normal right ventricular size and systolic function. 3. Moderate biatrial dilatation. 4. No significant valvular dysfunction. 5. Mildly elevated right-sided pressures. RVSP is 37 mmHg. Adult Echocardiography Procedure Report Left Ventricle LVEDD (3.7 - 5.6 cm): 4.56 cm LVESD (2.2 - 4.0 cm): 2.82 cm LVIVS thickness (0.6 - 1.2 cm): 1.36 cm LVPW thickness (0.5 - 1.0 cm): 1.06 cm e': 0.16 m/s E - e': 6.74 LVOT Max Gradient: 4.71 mm[Hg] LVOT Area (cm2): 1.09 m/s Peak Velocity (LVOT): 1.09 m/s Mean Velocity (LVOT): 0.67 m/s LVOT Diameter 2.21 cm Left Ventricular Ejection Fraction: 55 % Left Atrium LA Volume Index (2D A2C): 40.65 ml/m2 Left Atrium Systolic Dimension: 4.42 cm Mitral Valve MV E to A Ratio: 3.45 Mitral Valve A-Wave Peak Velocity: 0.32 m/s Mitral Valve E-Wave Peak Velocity: 1.10 m/s Right Ventricle RV Internal Diastolic Dimension: 4.52 cm Aorta AO Root Diam: 3.52 cm Ascending Ao Diam: 2.88 cm Aortic Valve AoV Area (Peak Chaka): 4.08 cm2, 4.08 cm2 AoV Area (VTI): 3.98 cm2, 3.98 cm2 Peak Velocity(Antegrade Flow): 1.02 m/s Peak Gradient(Antegrade Flow): 4.17 mm[Hg] Mean Velocity(Antegrade Flow): 0.66 m/s Mean Gradient(Antegrade Flow): 2.04 mm[Hg] Velocity Time Integral: 19.07 cm Tricuspid Valve Peak Velocity (Regurgitant Flow): 2.93 m/s, 2.91 m/s Pulmonic Valve Mean Gradient: 1.90 mm[Hg] Mean Velocity: 0.63 m/s Peak Velocity: 1.07 m/s, 1.23 m/s Peak Gradient: 4.61 mm[Hg], 6.10 mm[Hg] Right Atrium Right Atrium Systolic Pressure: 115.88 ml, 115.88 ml Dictated by: Erik Degroot M.D. on 05/07/2025 at 17:22 Approved by: Erik Degroot M.D. on 05/07/2025 at 17:26
== END 2025-05-06 13:15 | disposition home or self-care (01) ==
LOC: CARD 13:14
PROVIDERS: PCP Family Medicine; Visit Provider Nurse Practitioner Family
DX: I50.22 Chronic systolic (congestive) heart failure (principal)
CPT/HCPCS: 93306